=== PATIENT | female | born 1945 | race Caucasian/White ===

== ENCOUNTER → 2017-09-28 14:22 | Outpatient (CLI) | payer MEDICARE, OTHER, SELFPAY ==
[2017-09-28 15:51] LABS: Hematocrit 31.1 % (37-47); Mean Corp Hgb Conc 32.2 g/gl (32-36); Mean Corpuscular Volume 93.4 fL (81-99); Mean Platelet Vol. 10.1 fl (6.2-12.0); Platelet Count 318 K/mm3 (150-450); RBC Distribution Width CV 14.6 % (11.6-14.6); RBC Distribution Width SD 48.1 fl (35.1-43.9); Red Blood Count 3.33 M/mm3 (4.2-5.4); White Blood Count 5.7 K/mm3 (4.4-11.0)
[2017-09-28 15:52] LABS: Scan Indicated on CBC? Y/N NO
[2017-09-28 16:06] LABS: ALB/GLOB Ratio 0.6 RATIO (0.9-2.4); AST(SGOT) 17 U/L (15-37); Alanine Aminotransfer ALT/SGPT 21 U/L (13-56); Albumin, Serum 2.6 g/dL (3.2-5.0); Alkaline Phosphatase 79 U/L (45-117); Anion Gap 6 (5-15); BUN 16 mg/dL (7-18); BUN/Creat Ratio 18.2 RATIO (10-20); Calcium,Total 8.6 mg/dL (8.5-10.1); Chloride 105 mmol/L (98-107); Creatinine, Serum 0.88 mg/dL (0.55-1.02); EST Glomerular Filtration Rate 67 mL/min (>60); Est Glom Filt Rate - Afr Amer 81 mL/min (>60); Glucose 101 mg/dL (74-106); Iron 8 ug/dL (50-170); Potassium 3.7 mmol/L (3.5-5.1); Protein, Total 6.6 g/dL (6.4-8.2); Sodium Level 140 mmol/L (136-145)
[2017-09-30 20:07] LABS: Endomysial Antibody IgA Negative (Negative)
[2017-10-01 14:07] LABS: Immunoglobulin A 179 mg/dL (64-422); t-Transglutaminase IgA <2 U/mL (0-3)
== END ==
PROVIDERS: Family Provider Family Medicine; PCP Family Medicine; Visit Provider Internal Medicine Gastroenterology
DX: D64.9 Anemia, unspecified (principal); R19.7 Diarrhea, unspecified
CPT/HCPCS: 36415; 80053; 82784; 83516; 83540; 85027; 86255

== ENCOUNTER 2018-11-10 17:59 | Observation (INO) | payer MEDICARE, OTHER, SELFPAY ==
[2018-11-10] VITALS (7 sets, daily range): BP systolic 134–157; BP diastolic 65–97; PULSE 60–65; RESP 14–18; TEMP 36.7; O2SAT 95–100; BMI 30.3; BMI 26.7
--- NOTE | 2018-11-10 18:07 | EKG12_ITS ---
Test Reason : CP ADMIT Blood Pressure : / mmHG Vent. Rate : 064 BPM Atrial Rate : 064 BPM P-R Int : 194 ms QRS Dur : 114 ms QT Int : 444 ms P-R-T Axes : 075 -03 044 degrees QTc Int : 458 ms Normal sinus rhythm Incomplete right bundle branch block Borderline ECG When compared with ECG of 10-NOV-2018 18:11, MANUAL COMPARISON REQUIRED, DATA IS UNCONFIRMED Confirmed by REMY FIGUEROA ([id number]), acquisitions editor PAMELA DOAN ([id number] on 11/15/2018 1:34:03 PM Referred By: Blake Pineda Confirmed By:REMY FIGUEROA
--- NOTE | 2018-11-10 18:10 | ED.VIS.GEN ---
History of Present Illness Chief Complaint: Chest Pain Informant: Patient Onset: Today Context: Sudden Onset Timing: Continuous Current Severity: Moderate Maximum Severity: Moderate Narrative: The patient presents to the emergency department with chest pain. She was in her normal state of health. She began to have a squeezing pain just below her sternum. She did not feel short of breath. She denies any vomiting. She states she is never really had pain like this before. The patient denies any history of cardiovascular disease. She was given nitro and aspirin and is currently pain-free. She is otherwise been in her normal state of health. Prior similar symptoms: No Recent Illness/Hospitalization: No Past Medical History - Allergies and Home Meds Allergies/Adverse Reactions: Allergies promethazine [From Phenergan] Allergy (Severe, Verified 11/10/18 18:45) Swelling cephalexin Allergy (Verified 11/10/18 18:45) Diarrhea hydromorphone [From Dilaudid] Allergy (Verified 11/10/18 18:45) Other Primary Care Physician: Caleb Baldwin MD [Primary Care Provider] - Prior records reviewed: Yes Past Medical History: - Lives: With Family Smoking Status: Never smoker Review of Systems General: Denies: Chills, Fever, Sweats Eyes: Denies: Visual changes - bilaterally, Diplopia ENT: Denies: Rhinorrhea, Sore throat Cardiovascular: Reports: Chest pain. Denies: Palpitations Respiratory: Denies: Dyspnea, Cough, Dyspnea on exertion Gastrointestinal: Denies: Abdominal pain, Nausea, Vomiting, Diarrhea, Melena, Hematochezia Genitourinary: Denies: Dysuria, Hematuria, Frequency Musculoskeletal: Denies: Back pain, Extremity Pain Skin: Denies: Rash, Wounds Neurological: Denies: Headache, Weakness, Numbness Physical Exam Vital Signs/Narrative: Vital Signs Temp Pulse Resp BP Pulse Ox 11/10/18 18:01 98.1 F 61 14 140/76 H 99 Inital Vital Signs reviewed: Yes General: Well nourished, Well developed, No Acute Distress Head: Normocephalic, Atraumatic Eyes: Perrl, EOMI ENT: Moist mucous membranes, No rhinorrhea Neck: Supple, Nontender Cardiovascular: Regular rate, Regular rhythm, No murmurs Respiratory: No distress, CTA bilaterally, Chest nontender Abdomen: Soft, Nontender, Nondistended, Normal bowel sounds Back: Nontender, Normal Inspection Extremities: Nontender, No edema Skin: Normal color, No rash Neurological: Alert, Oriented x3, Cranial nerves II-XII grossly intact, Normal Strength, Normal Sensation Psychological: Normal affect, Normal Mood Diagnostic/Tx/Re-eval Chest X-Ray - ED: 1 View, Read by ED Physician, Normal, Heart, Lungs, Mediastinum Clinical Impression(s) from Imaging Studies Chest X-Ray 11/10/18 18:15 IMPRESSION: No acute thoracic pathology. Electronically Signed: Lupillo Naomy, at 18:26 EDT Tel , Service support , Abnormal Lab Results 11/10/18 11/10/18 11/10/18 18:14 18:14 21:05 WBC 5.3 RBC 4.22 Hgb 12.4 Hct 40.1 MCV 95.0 MCH 29.4 MCHC 30.9 L RDW Std Deviation 48.5 H RDW Coeff of Keanu 14.0 Plt Count 373 MPV 9.8 Immature Gran % (Auto) 0.400 Neut % (Auto) 63.6 Lymph % (Auto) 21.8 [place] % (Auto) 12.1 H Eos % (Auto) 1.3 Baso % (Auto) 0.8 Absolute Neuts (auto) 3.4 Absolute Lymphs (auto) 1.15 Nucleated RBC % 0 Sodium 138 Potassium 4.4 Chloride 104 Carbon Dioxide 29.0 Anion Gap 5 BUN 17 Creatinine 1.03 H Estim Creat Clear Calc 34.11 Est GFR (MDRD) Af Amer 67 Est GFR (MDRD) Non-Af 56 L BUN/Creatinine Ratio 16.5 Glucose 131 H Calcium 9.3 Magnesium 2.3 Total Bilirubin 0.20 Direct Bilirubin 0.06 AST 11 L ALT 15 Alkaline Phosphatase 89 Troponin I < 0.015 0.053 H Total Protein 7.5 Albumin 3.6 Globulin 3.9 Lipase 122 - Rhythm Strip Rhythm Strip: Sinus Rhythm Rate: 80 Ectopy: None - EKG Initial EKG Interpretation: Sinus Rhythm, No Acute Injury Pattern Prior: Unchanged - Medical Decision Making The patient presented to the emergency department with chest pain that has since resolved. EKG was obtained which demonstrated sinus rhythm. There was no acute ischemic change. Patient had Cholo received aspirin. She denies any return of pain. Initial cardiac enzymes and x-ray were normal. The patient does have a low heart score and atypical pain. I did feel that a 3-hour repeat enzyme would be appropriate. This was done. The enzymes have elevated just barely into the indeterminate range. Given the patient's age, along with her indeterminate cardiac enzymes, I do feel that the most prudent plan of treatment would be cardiac investigation. The patient was discussed with the hospitalist. Impression 1. Chest pain with indeterminate troponin ED Disposition - Plan for ED Patient: Referrals: Caleb Baldwin MD [Primary Care Provider] -
--- NOTE | 2018-11-10 18:15 | RAD_ITS ---
STUDY: X-RAY CHEST REASON FOR EXAM: Female, 73 years old. Chest pain TECHNIQUE: Frontal view of the chest COMPARISON: None. FINDINGS: The lungs are clear. There are no pleural effusions. There is no pneumothorax. The heart is normal in size. The visualized osseous structures are within normal limits. RAD/Chest 1 View (Portable) IMPRESSION: No acute thoracic pathology. Electronically Signed: Lupillo Moralez, at 18:26 EDT Tel , Service support ,
[2018-11-10 18:21] LABS: Absolute Lymphocyte Count 1.15 X10^3/uL (0.83-4.51); Absolute Neutrophil Count 3.4 X10^3/uL (2.0-7.7); Basophil# 0.04 X10^3/uL; Basophil% 0.8 % (0-1); Eosinophil# 0.07 X10^3/uL; Eosinophils% 1.3 % (0-5); Hematocrit 40.1 % (37-47); Hemoglobin 12.4 g/dL (12.0-15.0); Lymphocyte # 1.15 X10^3/ul (4.0); Lymphocyte % 21.8 % (19-41); Mean Corp Hgb Conc 30.9 g/dL (32-36); Mean Corpuscular Hgb 29.4 pg (27.0-32.0); Mean Platelet Vol. 9.8 fl (6.2-12.0); Monocyte# 0.64 X10^3/uL; Monocyte% 12.1 % (0-10); NRBC Flagged by Analyzer 0 % (0-5); Neutrophil # 3.35 X10^3/uL (2.7-7.7); Neutrophil % 63.6 % (47-70); Platelet Count 373 K/mm3 (150-450); RBC Distribution Width SD 48.5 fl (35.1-43.9); Red Blood Count 4.22 M/mm3 (4.2-5.4); White Blood Count 5.3 K/mm3 (4.4-11.0)
[2018-11-10 18:43] LABS: AST(SGOT) 11 U/L (15-37); Alanine Aminotransfer ALT/SGPT 15 U/L (13-56); Albumin, Serum 3.6 g/dL (3.2-5.0); Alkaline Phosphatase 89 U/L (45-117); Anion Gap 5 (5-15); BUN 17 mg/dL (7-18); BUN/Creat Ratio 16.5 RATIO (10-20); Bilirubin, Direct 0.06 mg/dL (0.00-0.30); Calcium,Total 9.3 mg/dL (8.5-10.1); Chloride 104 mmol/L (98-107); Creatinine, Serum 1.03 mg/dL (0.55-1.02); EST Glomerular Filtration Rate 56 mL/min (>60); Est Glom Filt Rate - Afr Amer 67 mL/min (>60); Estimated Creatinine Clearance 34.11 ml/min; Globulin 3.9 g/dL (2.2-4.2); Glucose 131 mg/dL (74-106); Lipase 122 U/L (73-393); Magnesium 2.3 mg/dL (1.6-2.6); Potassium 4.4 mmol/L (3.5-5.1); Protein, Total 7.5 g/dL (6.4-8.2); Sodium Level 138 mmol/L (136-145)
[2018-11-10] MEDS: 0.9% Normal Saline 1,000 ML 150 ML IV (18:53)
--- NOTE | 2018-11-10 21:58 | HP.PCM_ITS ---
Problem List (1) Chest pain Status: Acute (2) Segmental and somatic dysfunction of pelvic region Status: Chronic (3) Scoliosis Status: Chronic Qualifiers: Scoliosis type: idiopathic Idiopathic scoliosis type: other Spinal region: thoracolumbar Qualified Code(s): M41.25 - Other idiopathic scoliosis, thoracolumbar region (4) Segmental and somatic dysfunction of thoracic region Status: Chronic (5) Segmental and somatic dysfunction of lumbar region Status: Chronic History of Present Illness Date of Admission: 11/10/18 Chief Complaint: chest pain The patient is a 73 year old F with a significant history of hypertension; and iron deficiency anemia who presented to emergency department with chest pain that started few hours before her presentation. She describes her chest pain as squeezing. Her chest pain is located at the lower substernal to epigastric area. Her chest pain is nonradiating. It is an aching type of pain. One nitroglycerin tablet and full dose aspirin by the paramedics took the pain away. She denies any nausea, vomiting or diaphoresis. EKG shows sinus rhythm. The plan was to send patient home but because she has some mild increase in her troponin patient was considered for admission. Past Medical History Past Medical History (Chronic Problems): Chronic Problems (Last Reviewed 11/11/18 @ 00:11 by Blake Pineda MD) Segmental and somatic dysfunction of pelvic region (Chronic) Scoliosis (Chronic) Segmental and somatic dysfunction of thoracic region (Chronic) Segmental and somatic dysfunction of lumbar region (Chronic) Medical History: Medical History (Last Reviewed 11/11/18 @ 00:11 by Blake Pineda MD) GI bleed due to NSAIDs K92.2, T39.395A Hypertension I10 Allergies promethazine [From Phenergan] Allergy (Severe, Verified 11/10/18 18:45) Swelling cephalexin Allergy (Verified 11/10/18 18:45) Diarrhea hydromorphone [From Dilaudid] Allergy (Verified 11/10/18 18:45) Other Home Medications: Ambulatory Orders Medication Instructions Recorded ascorbate calcium (vitamin C) 500 500 mg PO QDAY 07/28/17 mg tablet ascorbic acid (vitamin C) 500 mg 500 mg PO QDAY 07/28/17 tablet famotidine-Ca carb-mag hydrox 10 1 tab PO BID 07/28/17 mg-800 mg-165 mg chewable tablet ferrous sulfate 220 mg (44 mg 220 mg PO ONCE ml 07/28/17 iron)/5 mL oral elixir lisinopril 5 mg tablet 10 mg PO QDAY 07/28/17 Lomotil 2.5 mg PO BID 11/10/18 Vit A/Vit C/Vit E/Zinc/Copper 1 ea PO DAILY 11/10/18 [Preservision Areds Softgel] Surgical History: - - Colectomy Lives: Alone Smoking Status: Never smoker Alcohol: None - *Family History Maternal Family History: Family History (Last Reviewed 11/11/18 @ 00:11 by Blake Pineda MD) Other Breast cancer Cancer Hypertension Melanoma Review of Systems Constitutional: Denies: Chills, Fever, Weight Change HEENT: Denies: Head Aches, Sinus Congestion, Sinus Drainage Cardiovascular: Reports: Chest Pain. Denies: Palpitations Respiratory: Denies: Cough, Shortness of breath at rest, Sputum production Gastrointestinal: Denies: Abdominal Pain, Nausea, Vomiting Genitourinary: Denies: Dysuria Musculoskeletal: Denies: Joint Pain, Joint Tenderness Skin: Denies: Rash, Wounds Neurological: Denies: Numbness, Tingling, Focal weakness Psychiatric: Denies: Anxiety, Depression, Homicidal Ideations, Suicidal Ideations Hematologic/ Lymphatic: Denies: Easy Bruising, Easy Bleeding VTE Information - Inpt Only VTE Present on Admission: No VTE Mechan Device Prophylaxis: SCD's VTE Pharm Prophylaxis ordered?: No Patient Problems: Active and Suspected Problems (Last Reviewed 11/11/18 @ 00:11 by Blake Pineda MD) Chest pain (Acute) - Physical Exam General: Alert, Oriented x3, Cooperative HEENT: Atraumatic, PERRLA, EOMI, Normocephalic Neck: Supple, No JVD, Negative Carotid Bruits Lungs: Clear to auscultation, Normal air movement Cardiovascular: Regular rate, No murmurs Abdomen: Bowel Sounds Present, Soft, Non Tender Extremities: No edema, Capillary Refill Less than 3 Seconds Skin: No rashes, No breakdown Musculoskeletal: No Tenderness to Palpation of Joints or Extremities Neurological: Cranial nerves II-XII grossly intact - Patient has speech impediment. Psych/Mental Status: Normal Affect, Appropriate Vital Signs Temp Pulse Resp BP Pulse Ox 98.1 F 60 18 134/72 H 99 11/10/18 18:01 11/10/18 20:32 11/10/18 20:32 11/10/18 20:32 11/10/18 20:32 Oxygen Delivery Method Room Air Weight: 45.087 kg Body Mass Index (BMI) 30.3 Laboratory Tests Past 24 Hrs 11/10/18 11/10/18 11/10/18 18:14 18:14 21:05 WBC 5.3 RBC 4.22 Hgb 12.4 Hct 40.1 MCV 95.0 MCH 29.4 MCHC 30.9 L RDW Std Deviation 48.5 H RDW Coeff of Keanu 14.0 Plt Count 373 MPV 9.8 Immature Gran % (Auto) 0.400 Neut % (Auto) 63.6 Lymph % (Auto) 21.8 [place] % (Auto) 12.1 H Eos % (Auto) 1.3 Baso % (Auto) 0.8 Absolute Neuts (auto) 3.4 Absolute Lymphs (auto) 1.15 Nucleated RBC % 0 Sodium 138 Potassium 4.4 Chloride 104 Carbon Dioxide 29.0 Anion Gap 5 BUN 17 Creatinine 1.03 H Estim Creat Clear Calc 34.11 Est GFR (MDRD) Af Amer 67 Est GFR (MDRD) Non-Af 56 L BUN/Creatinine Ratio 16.5 Glucose 131 H Calcium 9.3 Magnesium 2.3 Total Bilirubin 0.20 Direct Bilirubin 0.06 AST 11 L ALT 15 Alkaline Phosphatase 89 Troponin I < 0.015 0.053 H Total Protein 7.5 Albumin 3.6 Globulin 3.9 Lipase 122 Assessment/Plan All Active Problems (Last Reviewed 11/11/18 @ 00:11 by Blake Pineda MD) Chest pain (Acute) The patient is a 73 year old F with a significant history of hypertension; and iron deficiency anemia who presented to emergency department with chest pain and with mild increase in troponin. Chest pain Place on a monitored bed at the PCU CXR independently reviewed confirms no acute cardiopulmonary process. EKG independently reviewed confirms normal sinus rhythm with incomplete bundle branch block. Patient with scoliosis. ASA 81 mg p.o. daily SL NTG 0.4 mg prn as needed for chest pain Morphine as needed for pain We will check lipid panel. Statin: Lipitor 40 mg x 1 ordered Second troponin was mildly elevated. Continue serial troponin checks. Stat EKG as needed for chest pain Stress test in the AM if the cardiac enzymes do not get within a critical value. Hypertension On presentation her blood pressure was not within goal Lisinopril continued Trend blood pressure and adjust blood pressure medication as needed. DVT SCD while planning for cardiac work up for chest pain Code Visit OBSV E&M: 90244 Initial observation care L2
--- NOTE | 2018-11-10 22:40 | EKG12_ITS ---
Test Reason : CP Blood Pressure : / mmHG Vent. Rate : 058 BPM Atrial Rate : 058 BPM P-R Int : 184 ms QRS Dur : 110 ms QT Int : 432 ms P-R-T Axes : 054 002 066 degrees QTc Int : 424 ms Sinus bradycardia Incomplete right bundle branch block Borderline ECG Confirmed by REMY FIGUEROA ([id number]), news video editor TONNY VAZQUEZ ([id number]) on 11/14/2018 12:21:41 PM Referred By: Blake Pineda Confirmed By:REMY FIGUEROA
[2018-11-10] MEDS: Atorvastatin Calcium 40 MG Tablet PO (23:36)
[2018-11-11 02:59] VITALS: PULSE 69
[2018-11-11 04:38] LABS: International Normalized Ratio 1.1; Prothrombin Time (Protime)PT. 14.1 SECONDS (11.7-14.9)
[2018-11-11 04:50] LABS: Cholesterol 139 mg/dL (200); High Density Lipoprotein 60 mg/dL; Triglycerides 113 mg/dL; Very Low Density Lipoprotein 23 mg/dL (5-40)
[2018-11-11 05:00] VITALS: BP 127/59; PULSE 62; RESP 16; TEMP 36.5; O2SAT 97
[2018-11-11] MEDS: Lisinopril 10 MG Tablet PO (05:02)
[2018-11-11] MEDS: Aspirin 81 MG TAB.CHEW PO (05:02)
[2018-11-11] MEDS: 0.9% NaCl Peripheral Flush Adult/Peds IV (05:03)
[2018-11-11 07:08] VITALS: PULSE 70
[2018-11-11 07:20] VITALS: O2SAT 96
[2018-11-11 09:43] VITALS: BP 139/77; PULSE 74; RESP 16; TEMP 36.6; O2SAT 97
[2018-11-11] MEDS: Famotidine 20 MG Tablet 10 MG PO (09:50)
[2018-11-11] MEDS: Multivitamin (Healthy Eyes) Capsule 1 CAP PO (09:50)
--- NOTE | 2018-11-11 10:39 | STRESSREP_ITS ---
Stress Test Report Date: 11-11-18 Procedure: Pharmacologic stress nuclear imaging study Indications: Chest pain Consent: Per the patient Procedure: The patient underwent pharmacologic (Regadenoson) evaluation with a peak heart rate of 107 beats per minute (73 %predicted maximal heart rate) and a peak blood pressure of 130/72 mmHg. The baseline ECG demonstrated normal sinus rhythm. The peak pharmacologic ECG demonstrated no obvious ECG changes. There were no cardiac dysrhythmias pretest, during pharmacologic infusion, or recovery. There was no complaint of chest discomfort during pharmacologic infusion or recovery. The examination was discontinued secondary to completion of protocol. Impression: 1. Pharmacologic (Regadenoson) evaluation 2. Peak pharmacologic ECG with no obvious ECG changes. 3. There were no cardiac dysrhythmias pretest, during pharmacologic infusion, or recovery. 4. Nuclear images pending Myocardial perfusion imaging study: Technique: The patient was injected with 10.9 millicuries of technetium 99m Cardiolite and subsequently rest SPECT Cardiolite nuclear imaging was obtained in the horizontal long, vertical long, and short axis views. The patient underwent pharmacologic (Regadenoson) evaluation with a peak heart rate of 107 beats per minute (73 % percent predicted maximal heart rate) and a peak blood pressure of 130/72 mmHg. The patient was injected with 33.4 millicuries of technetium 99m Cardiolite and subsequently stress SPECT Cardiolite nuclear imaging was obtained in the horizontal long, vertical long, and short axis views. A gated Cardiolite study at peak stress was obtained. Interpretation: Rest and stress SPECT Cardiolite nuclear imaging status post realignment, normalization, and attenuation correction demonstrate at rest areas of extra cardiac/gastrointestinal tracer uptake, otherwise, there appears to be relative uniform tracer uptake at rest and status post stress. There is end systolic thickening and brightening. The gated Cardiolite study demonstrates myocardial thickening and inward wall motion. The reported LVEF is 81 %. Impression: 1. Rest and stress SPECT current nuclear imaging demonstrate areas of extra cardiac/gastrointestinal tracer uptake more prominent at rest, otherwise, there appears to be relative uniform tracer uptake at rest and status post stress with no myocardial perfusion changes considered diagnostic for associated stress- induced myocardial ischemia. 2. The gated Cardiolite study reports an LVEF of 81 %. This note was generated with [employer]ation software. It may contain incorrect words, spelling, and punctuation that were not noted in checking the note before signing.
--- NOTE | 2018-11-11 11:00 | DCINST_ITS ---
- Discharge Diagnoses Current Active Problems: Current Active and Chronic Problems (Last Reviewed 11/11/18 @ 00:11 by Blake Pineda MD) Chest pain (Acute) Reason(s) for Visit for Discharge Instructions: Chest pain You will use the following diet at home:: Cardiac Your food should be the consistency of: Regular Your liquids should be the consistency of: Regular/Thin Discharge Activity: Return to Normal Activity Additional Instructions: Continue to take all your medications as prescribed. He will need repeat blood work within a week to follow-up on your kidney function. Follow-up with your primary care doctor in 1 to 2 weeks. Allergies/Adverse Reactions: Allergies promethazine [From Phenergan] Allergy (Severe, Verified 11/10/18 23:07) Swelling cephalexin Allergy (Verified 11/10/18 23:07) Diarrhea hydromorphone [From Dilaudid] Allergy (Verified 11/10/18 23:07) Other Medications to take at Discharge ascorbate calcium (vitamin C) 500 mg tablet 500 mg PO QDAY 07/28/17 ascorbic acid (vitamin C) 500 mg tablet 500 mg PO QDAY 07/28/17 famotidine-Ca carb-mag hydrox 10 mg-800 mg-165 mg chewable tablet 1 tab PO BID 07/28/17 ferrous sulfate 220 mg (44 mg iron)/5 mL oral elixir 220 mg PO ONCE ml 07/28/17 lisinopril 5 mg tablet 10 mg PO QDAY 07/28/17 Lomotil 2.5 mg PO BID 11/10/18 Vit A/Vit C/Vit E/Zinc/Copper [Preservision Areds Softgel] 1 ea PO DAILY 11/10/18 Primary Care Physician: Caleb Baldwin MD [Primary Care Provider] - Please follow up with your Primary Care Physician in: within 1-2 weeks Test Results: Test results from this visit will be discussed in further detail at your follow- up appointment, if applicable. Proposed Discharge Date: 11/11/18
--- NOTE | 2018-11-11 11:02 | DS.PCM_ITS ---
Discharge Date and Diagnosis Date of Admission: 11/10/18 Date of Discharge: 11/11/18 - Primary Discharge Diagnosis Active and Suspected Problems (Last Reviewed 11/11/18 @ 00:11 by Blake Pineda MD) Chest pain (Acute) Mild elevated troponins - Secondary Discharge Diagnosis Chronic Problems (Last Reviewed 11/11/18 @ 00:11 by Blake Pineda MD) Segmental and somatic dysfunction of pelvic region (Chronic) Scoliosis (Chronic) Segmental and somatic dysfunction of thoracic region (Chronic) Segmental and somatic dysfunction of lumbar region (Chronic) Hospital Course and Treatment Imaging Results: 11/11/18 05:55 Nuclear Stress Test - Chemical [NM] AM (NON MEDS) Clinical Impression(s) from Imaging Studies Chest X-Ray 11/10/18 18:15 IMPRESSION: No acute thoracic pathology. Electronically Signed: Lupillo Moralez, at 18:26 EDT Tel , Service support , None Operations: None Procedures: Stress test Summary of Care Provided: The patient is a 73 year old F with past medical history of hypertension, a nemia, segmental and somatic dysfunction of the thoracic region who comes in with complaints of chest pain located in the lower sternal to epigastric region. This pain was relieved with nitroglycerin and aspirin. Patient's troponins were mildly elevated. Troponins ranged from 0.015, 0.053, 0.070, 0.042. Patient underwent stress test that was negative. Her vitals remain negative. No acute events on telemetry. She was asymptomatic at the time of discharge. She will follow-up with her primary care doctor within 1-2 weeks. Subjective: On the day of discharge, patient was seen and examined. She denied any complains. Denies chest pain, dizziness. - Physical Exam General: Alert, Oriented x3, Cooperative, No apparent distress, - - small frame HEENT: Atraumatic, PERRLA, EOMI, Normocephalic Oral: Moist Mucosa Neck: Supple, No JVD, Negative Carotid Bruits Lungs: Clear to auscultation, Normal air movement Cardiovascular: Regular rate, Regular Rhythm, Normal S1, Normal S2, No murmurs Abdomen: Bowel Sounds Present, Soft, Non Tender, Non-Distended, No Hepato- splenomegaly Extremities: No edema Skin: No rashes, No breakdown Musculoskeletal: No Tenderness to Palpation of Joints or Extremities Lymphatic: No Cervical, Supraclavicular, or Inguinal Adenopathy Neurological: Cranial nerves II-XII grossly intact Psych/Mental Status: Normal Affect, Appropriate Vital Signs Temp Pulse Resp BP Pulse Ox 97.9 F 74 16 139/77 H 97 11/11/18 09:43 11/11/18 09:43 11/11/18 09:43 11/11/18 09:43 11/11/18 09:43 Oxygen Delivery Method Room Air Weight: 39.8 kg Body Mass Index (BMI) 26.7 Intake and Output for Last 24 Hours 11/09/18 11/10/18 11/11/18 23:59 23:59 23:59 Intake Total 530 / 530 Balance 530 / 530 Laboratory Tests Past 24 Hrs 11/10/18 11/10/18 11/10/18 18:14 18:14 21:05 WBC 5.3 RBC 4.22 Hgb 12.4 Hct 40.1 MCV 95.0 MCH 29.4 MCHC 30.9 L RDW Std Deviation 48.5 H RDW Coeff of Keanu 14.0 Plt Count 373 MPV 9.8 Immature Gran % (Auto) 0.400 Neut % (Auto) 63.6 Lymph % (Auto) 21.8 [place] % (Auto) 12.1 H Eos % (Auto) 1.3 Baso % (Auto) 0.8 Absolute Neuts (auto) 3.4 Absolute Lymphs (auto) 1.15 Nucleated RBC % 0 PT INR Sodium 138 Potassium 4.4 Chloride 104 Carbon Dioxide 29.0 Anion Gap 5 BUN 17 Creatinine 1.03 H Estim Creat Clear Calc 34.11 Est GFR (MDRD) Af Amer 67 Est GFR (MDRD) Non-Af 56 L BUN/Creatinine Ratio 16.5 Glucose 131 H Calcium 9.3 Magnesium 2.3 Total Bilirubin 0.20 Direct Bilirubin 0.06 AST 11 L ALT 15 Alkaline Phosphatase 89 Troponin I < 0.015 0.053 H Total Protein 7.5 Albumin 3.6 Globulin 3.9 Triglycerides Cholesterol LDL Cholesterol VLDL Cholesterol HDL Cholesterol Lipase 122 11/11/18 11/11/18 11/11/18 00:35 04:00 04:00 WBC RBC Hgb Hct MCV MCH MCHC RDW Std Deviation RDW Coeff of Keanu Plt Count MPV Immature Gran % (Auto) Neut % (Auto) Lymph % (Auto) [place] % (Auto) Eos % (Auto) Baso % (Auto) Absolute Neuts (auto) Absolute Lymphs (auto) Nucleated RBC % PT 14.1 INR 1.1 Sodium Potassium Chloride Carbon Dioxide Anion Gap BUN Creatinine Estim Creat Clear Calc Est GFR (MDRD) Af Amer Est GFR (MDRD) Non-Af BUN/Creatinine Ratio Glucose Calcium Magnesium Total Bilirubin Direct Bilirubin AST ALT Alkaline Phosphatase Troponin I 0.070 H Total Protein Albumin Globulin Triglycerides 113 Cholesterol 139 LDL Cholesterol 56 VLDL Cholesterol 23 HDL Cholesterol 60 Lipase 11/11/18 04:00 WBC RBC Hgb Hct MCV MCH MCHC RDW Std Deviation RDW Coeff of Keanu Plt Count MPV Immature Gran % (Auto) Neut % (Auto) Lymph % (Auto) [place] % (Auto) Eos % (Auto) Baso % (Auto) Absolute Neuts (auto) Absolute Lymphs (auto) Nucleated RBC % PT INR Sodium Potassium Chloride Carbon Dioxide Anion Gap BUN Creatinine Estim Creat Clear Calc Est GFR (MDRD) Af Amer Est GFR (MDRD) Non-Af BUN/Creatinine Ratio Glucose Calcium Magnesium Total Bilirubin Direct Bilirubin AST ALT Alkaline Phosphatase Troponin I 0.042 Total Protein Albumin Globulin Triglycerides Cholesterol LDL Cholesterol VLDL Cholesterol HDL Cholesterol Lipase Discharge Diet: No Restrictions Discharge Activity: Return to Normal Activity Home Medications: Medications to take at Discharge ascorbate calcium (vitamin C) 500 mg tablet 500 mg PO QDAY 07/28/17 ascorbic acid (vitamin C) 500 mg tablet 500 mg PO QDAY 07/28/17 famotidine-Ca carb-mag hydrox 10 mg-800 mg-165 mg chewable tablet 1 tab PO BID 07/28/17 ferrous sulfate 220 mg (44 mg iron)/5 mL oral elixir 220 mg PO ONCE ml 07/28/17 lisinopril 5 mg tablet 10 mg PO QDAY 07/28/17 Lomotil 2.5 mg PO BID 11/10/18 Vit A/Vit C/Vit E/Zinc/Copper [Preservision Areds Softgel] 1 ea PO DAILY 11/10/18 Primary Care Physician: Caleb Baldwin MD [Primary Care Provider] - Please follow up with your Primary Care Physician in: within 1-2 weeks Disposition: Home Minutes spent on discharge:: 40 Patient Condition:: Stable Medical Necessity - Tobacco Use Smoking Status: Never smoker Tobacco Use: Non-smoker Meaningful Use Info Meaningful Use Diagnoses (Choose all that apply): None applicable Code Visit OBSV E&M: 52442 Observation care discharge
== END 2018-11-11 10:59 | disposition home or self-care (01) ==
LOC: ED 18:53 → PCU 22:52
PROVIDERS: Admitting Provider Hospitalist; Emergency Provider Emergency Medicine; Family Provider Family Medicine; PCP Family Medicine; Referring Provider Hospitalist; Visit Provider Internal Medicine
DX: R07.89 Other chest pain (principal); M99.05 Segmental and somatic dysfunction of pelvic region; M41.25 Other idiopathic scoliosis, thoracolumbar region; M99.02 Segmental and somatic dysfunction of thoracic region; M99.03 Segmental and somatic dysfunction of lumbar region; I10 Essential (primary) hypertension; E50.9 Vitamin A deficiency, unspecified; D64.9 Anemia, unspecified; Z79.899 Other long term (current) drug therapy
CPT/HCPCS: 36415; 71045; 78452; 80048; 80061; 80076; 83690; 83735; 84484; 85025; 85610; 93005; 93017; 96360; 96361; 99218; 99285; A9500; J7030; A4216; G0378; J2785

== ENCOUNTER → 2019-08-23 14:40 | Outpatient (CLI) | payer MEDICARE, OTHER, SELFPAY ==
[2018-11-10 22:42] VITALS: BMI 26.7
--- NOTE | 2019-08-23 14:44 | VDLE_ITS ---
Reason For Study: Lt Calf Pain RIGHT LEFT CFV is compressible, spontaneous, phasic, GSV is normal. competent and demonstrates normal CFV is compressible, spontaneous, phasic, augmentation. competent, and demonstrates normal Procedure augmentation. Exam performed in department. FV is compressible, spontaneous, phasic, A preliminary report was called and/or faxed competent and demonstrates normal to Dr. Reyes. augmentation. POP V is compressible, spontaneous, phasic, competent and demonstrates normal augmentation. T/P Trunk is compressible. PTV is compressible. LT PerV is compressible. Interpretation Summary Deep veins of the left lower extremity are patent and compressible segmentally. There is no evidence of left lower extremity deep vein thrombosis. Valvular competence appears intact within the proximal deep venous system on the left . The left great saphenous vein appears patent and compressible segmentally. Ordering Physician: Lupillo Reyes Referring Physician: Caleb Baldwin Performed By: Eileen Alexander, EVAN, RVT
== END ==
PROVIDERS: PCP Family Medicine; Referring Provider Podiatrist; Visit Provider Podiatrist
DX: M79.662 Pain in left lower leg (principal)
CPT/HCPCS: 93971

== ENCOUNTER 2020-02-08 16:15 | Emergency (ER) | payer MEDICARE, OTHER, SELFPAY ==
[2020-02-08 16:17] VITALS: BP 179/86; PULSE 81; RESP 15; TEMP 37.2; O2SAT 100; BMI 21.3
--- NOTE | 2020-02-08 16:27 | CT_ITS ---
STUDY: CT BRAIN WITHOUT CONTRAST REASON FOR EXAM: Female, 74 years old. Tripped and fell, hit head, lace to left eye/jain. Hx hypertension. RADIATION DOSAGE (If Supplied By Facility): CTDIvol = ( 44.99 ) mGy, DLP = ( 779.24 ) mGycm TECHNIQUE: Transaxial CT imaging of the brain was performed without administration of intravenous contrast material. Individualized dose optimization techniques were used for this CT. COMPARISON: No relevant priors. FINDINGS: Normal soft tissue structures. Normal calvarium. Normal size ventricles and extra-axial spaces for the patient''s age. Normal white matter tracts of the cerebral hemispheres. Normal basal ganglia and thalami. Normal brainstem. Normal cerebellum. There is no intracranial hemorrhage. There are no findings of an acute ischemic infarction. Normal visualized paranasal sinuses. CT/Brain/Head without Contrast IMPRESSION: Normal unenhanced CT scan of the brain. Electronically Signed: Fransico Lemus MD at 17:26 EST Tel , Service support ,
--- NOTE | 2020-02-08 16:27 | CT_ITS ---
STUDY: CT CERVICAL SPINE WITHOUT CONTRAST REASON FOR EXAM: Female, 74 years old. Tripped and fell, hit head, lace to left eye/zoroastrianism. Hx hypertension. RADIATION DOSAGE (If Supplied By Facility): CTDIvol = ( 11.80 ) mGy, DLP = ( 320.59 ) mGycm TECHNIQUE: High resolution transaxial imaging was performed without contrast material. Sagittal and coronal images were reconstructed. Individualized dose optimization techniques were used for this CT. COMPARISON: None FINDINGS: Normal craniovertebral junction. There are degenerative changes of the anterior atlantoaxial articulation. Normal odontoid process. Normal cervical lordosis. Normal vertebral bodies and posterior osseous elements. C2-3: Mild bilateral facet hypertrophy with ankylosis of facet joints. No spinal stenosis or neural foraminal stenosis. C3-4: Mild bilateral facet hypertrophy. 2 mm of anterolisthesis of C3 on C4 with a mild broad disc osteophyte complex produces mild spinal stenosis and mild bilateral neural foraminal stenosis. C4-5: Mild bilateral facet hypertrophy. Mild broad disc osteophyte complex produces mild spinal stenosis and mild bilateral neural foraminal stenosis. C5-6: Moderate broad disc osteophyte complex and bilateral vertebral hypertrophy produces moderate spinal stenosis and mild bilateral neural foraminal stenosis. C6-7: Normal endplates. Normal disc height and morphology. Normal central canal and intervertebral neuroforamina. C7-T1: Normal endplates. Normal disc height and morphology. Normal central canal and intervertebral neuroforamina. Normal visualized soft tissue structures. CT/Spine Cervical without Contras IMPRESSION: No acute fracture or subluxation. Electronically Signed: Fransico Lemus MD at 17:31 EST Tel , Service support ,
--- NOTE | 2020-02-08 16:29 | ED.VIS.GEN ---
History of Present Illness Chief Complaint: Fall Informant: Patient Narrative: Patient is a 74-year-old female with a past medical history of hypertension who presents to the emergency department after a fall today. She tripped over exercise equipment striking her head. She has a small laceration above the left eyebrow. She denies losing consciousness. She denies a headache at this time. No vision changes. She denies any neck pain. She does have some left superior shoulder pain and left-sided chest wall pain. No shortness of breath. She is not any blood thinning medications. She denies any abdominal pain or nausea/vomiting. No injury to her extremities. No back pain. Past Medical History - Allergies and Home Meds Allergies/Adverse Reactions: Allergies promethazine [From Phenergan] Allergy (Severe, Verified 02/08/20 16:15) Swelling cephalexin Allergy (Verified 02/08/20 16:15) Diarrhea hydromorphone [From Dilaudid] Allergy (Verified 02/08/20 16:15) Other Primary Care Physician: Caleb Baldwin MD [Primary Care Provider] - 3-5 Days Prior records reviewed: Yes Surgical History: - - Colectomy Smoking Status: Never smoker Review of Systems All systems negative except as indicated General: Denies: Chills, Fever, Sweats Eyes: Denies: Visual changes - bilaterally, Diplopia ENT: Denies: Rhinorrhea, Sore throat Cardiovascular: Reports: Chest pain - Left-sided chest wall. Denies: Palpitations Respiratory: Denies: Dyspnea, Cough, Dyspnea on exertion Gastrointestinal: Denies: Abdominal pain, Nausea, Vomiting Genitourinary: Denies: Dysuria, Hematuria, Frequency Musculoskeletal: Denies: Neck pain, Back pain, Extremity Pain Skin: Reports: Wounds. Denies: Rash Neurological: Denies: Headache, Weakness, Numbness Physical Exam Vital Signs/Narrative: Vital Signs Temp Pulse Resp BP Pulse Ox 02/08/20 16:17 99.0 F 81 15 179/86 H 100 Inital Vital Signs reviewed: Yes General: Well nourished, Well developed, No Acute Distress Head: Normocephalic, Trauma - Laceration and abrasion over left frontal/parietal scalp. No palpable skull fracture or step-off sign. No pain. Eyes: Perrl, EOMI ENT: Moist mucous membranes, No rhinorrhea Neck: Supple, Nontender Cardiovascular: Regular rate, Regular rhythm, No murmurs Respiratory: No distress, CTA bilaterally, Chest nontender Abdomen: Soft, Nontender, Nondistended, Normal bowel sounds Back: Nontender, Normal Inspection. Negative for: Spinal tenderness Extremities: Nontender, No edema Skin: Normal color, No rash, Trauma - 1 cm linear laceration with controlled bleeding over the left eyebrow. No foreign body appreciated. Neurological: Alert, Oriented x3, Cranial nerves II-XII grossly intact, Normal Strength, Normal Sensation Psychological: Normal affect, Normal Mood Diagnostic/Tx/Re-eval Chest X-Ray - ED: 2 View, - - Two-view portable chest x-ray interpreted by myself. No acute fracture identified of ribs. No pneumothorax. No consolidation. Agree with radiologist interpretation. - Medical Decision Making Patient presents to the ED after a fall today. She does have a lack above her left eyebrow. Will obtain CT scans of the head and neck. She was complaining of chest wall pain although there is no obvious trauma externally to be appreciated. Will check chest x-ray as well. Patient's imaging did not reveal any traumatic findings. Her laceration was repaired with 1 Steri-Strip. Wound was rinsed using water and antibiotic ointment was applied prior. She is to follow-up with her PCP. Return precautions were discussed with her. Will discharge home in stable condition. All questions were answered. ED Disposition - Plan for ED Patient: Disposition: Home or Assisted Living Diagnosis: Fall, Head injury, Facial laceration Instructions: ED Laceration, Face: Stitches or Tape Referrals: Caleb Baldwin MD [Primary Care Provider] - 3-5 Days
--- NOTE | 2020-02-08 16:55 | RAD_ITS ---
STUDY: X-RAY CHEST REASON FOR EXAM: Female, 74 years old. fall today. TECHNIQUE: PA and lateral views of the chest. COMPARISON: 11/10/2018 FINDINGS: There is hyperinflation of the lungs consistent with chronic obstructive lung disease (COPD). There is no demonstrated pleural abnormality. Normal size heart. Normal mediastinum and rod. Normal visualized pulmonary arteries. Normal visualized aortic arch and descending thoracic aorta. There is a dextroscoliosis of the thoracic spine. Normal visualized ribs, clavicles, and shoulders. There is no demonstrated abnormality of the visualized soft tissue structures of the upper abdomen. RAD/Chest PA and Lateral IMPRESSION: Emphysema without pneumonia or atelectasis. Electronically Signed: Fransico Lemus MD at 17:23 EST Tel , Service support ,
--- NOTE | 2020-02-08 17:04 | ED.RN ---
KAYY BECKER NOTIFIED OF PT'S ARRIVAL TO ED, GAVE UPDATE ON STATUS. HE WILL TRANSPORT PT HOME IF NEEDED.
[2020-02-08 18:08] VITALS: BP 157/74; PULSE 64; RESP 16
== END 2020-02-08 18:35 | disposition home or self-care (01) ==
PROVIDERS: Emergency Provider Emergency Medicine; PCP Family Medicine
DX: S09.90XA Unspecified injury of head, initial encounter (principal); S01.81XA Laceration without foreign body of other part of head, initial encounter; W19.XXXA Unspecified fall, initial encounter
CPT/HCPCS: 70450; 71046; 72125; 99284

== ENCOUNTER 2020-02-26 15:30 | Outpatient (RCR) | payer MEDICARE, OTHER, SELFPAY ==
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
--- NOTE | 2020-04-14 19:42 | HP.PT.NRP ---
CHELSEA GARCIA was seen in my office for initial evaluation on 02/06/20. The following Plan of Care was established for this patient: Initial Frequency: 2-3x /Week Initial Duration: 4-6 Weeks Patient/Client Instruction: Educate patient on: Condition, Plan of Care, Risk Factors, Benefits of Fitness Program For the Purpose of:: To improve self management Therapeutic Exercise to Include: Strength training, Body mechanics, Postural training, Flexibilty training, Neuromotor development, Dynamic Lumbar Stabilization For the Purpose of:: To decrease pain, To increase ROM, To improve muscle performance and motor function, To increase tolerance to activity/condition/position, To improve ability of physical actions for home/community/work/leisure Cryotherapy (ice pack, ice massage): Yes Thermo therapy (hot pack): Yes Ultrasound (thermal/non thermal): Yes For the Purpose of:: To decrease pain, To decrease swelling/inflammation, To improve nutrient delivery to tissue This patient was last seen in our office 02/26/20. Pertinent comments regarding their Physical therapy will appear below: This patient has not returned to Physical Therapy and is appropriate to return to MD for further follow-up as needed. At this point I will be discontinuing this patient from physical therapy. I would be happy to see this patient again in the future if found appropriate by the physician. Thank you! Theresa Lawson, PT, Cert MDT
== END 2020-02-26 19:00 | disposition home or self-care (01) ==
LOC: PT 15:30
PROVIDERS: PCP Family Medicine; Visit Provider Chiropractor
DX: M41.25 Other idiopathic scoliosis, thoracolumbar region (principal); M99.02 Segmental and somatic dysfunction of thoracic region; M51.36 Other intervertebral disc degeneration, lumbar region
CPT/HCPCS: 97035; 97110; 97112; 97162

== ENCOUNTER 2021-08-19 04:10 | Emergency (ER) | payer MEDICARE, OTHER, SELFPAY ==
[2021-08-19 04:11] VITALS: BP 179/78; PULSE 64; RESP 18; TEMP 35.8; O2SAT 99; BMI 23.5
[2021-08-19] MEDS: 0.9% Normal Saline 1,000 ML 999 ML IV (04:35)
[2021-08-19] MEDS: Ondansetron 4 MG/2 ML Vial IV (04:39)
[2021-08-19] MEDS: diazePAM 5 MG Tablet 2.5 MG PO (04:39)
--- NOTE | 2021-08-19 05:46 | EDS_ITS ---
HPI History of Present Illness Chief Complaint: Nausea/Vomiting Narrative Narrative: Patient is a 75-year-old female with past medical history of vertigo as well as degenerative disc disease and scoliosis. She states she went to bed normally last night and then awoke with ringing in her ears dizziness and bouts of vomiting. She states she tried to take her medication but was unable to do so because of the nausea and vomiting. She denies any recent trauma or headache associated with this. She states that as she cannot control her nausea and vomiting to the point where she could take her medication she called EMS and was brought in for evaluation. [facility] Medical History GI bleed due to NSAIDs Hypertension Home Medications ascorbate calcium (vitamin C) 500 mg tablet 500 mg PO QDAY 07/28/17 [History Last Taken 11/10/18] ascorbic acid (vitamin C) 500 mg tablet 500 mg PO QDAY 07/28/17 [History Last Taken 11/10/18] famotidine-Ca carb-mag hydrox 10 mg-800 mg-165 mg chewable tablet (Pepcid Complete) 1 tab PO BID 07/28/17 [History Last Taken 11/10/18] ferrous sulfate 220 mg (44 mg iron)/5 mL oral elixir (FeroSul) 220 mg PO ONCE 07/28/17 [History Last Taken 11/10/18] lisinopril 5 mg tablet 10 mg PO QDAY 07/28/17 [History Last Taken 11/10/18] Lomotil 2.5 mg PO BID 11/10/18 [History Last Taken 11/10/18] vitamins A,C,N-euqu-xcmpij 14,320 unit-226 mg-200 unit capsule 1 ea PO DAILY 11/10/18 [History Last Taken 11/10/18] diazepam 2 mg tablet (Valium) 2 mg PO TID PRN dizziness or vertigo #15 tabs 08/19/21 [Rx Last Taken Unknown] ondansetron 4 mg disintegrating tablet 4 mg PO TID PRN PRN nausea and vomiting #21 tabs 08/19/21 [Rx Last Taken Unknown] Allergy/AdvReac Type Severity Reaction Status Date / Time promethazine [From Phenergan] Allergy Severe Swelling Verified 08/19/21 04:13 cephalexin Allergy Diarrhea Verified 08/19/21 04:13 hydromorphone [From Dilaudid] Allergy Other Verified 08/19/21 04:13 Family History Other Breast cancer Cancer Hypertension Melanoma Social History (Updated 01/30/20 @ 14:[address] Argelia Darby, MD) Smoking Status: Never smoker alcohol intake: never substance use type: does not use what type of physical activity do you participate in: walking frequency: 1-2 times per week ROS ROS ED Constitutional Constitutional ED: Denies chills or fever(s) Eyes Eyes: Denies change in vision ENT ENT ED: Reports other Details: Positive tinnitus ; Denies sore throat Cardiovascular Cardiovascular: Denies chest pain Respiratory/Chest Respiratory/Chest: Denies cough or dyspnea Gastrointestinal Gastrointestinal: Reports nausea and vomiting; Denies abdominal pain or diarrhea Genitourinary Genitourinary ED: Denies dysuria Musculoskeletal Musculoskeletal: Denies myalgias Integumentary Denies rash Neurologic Neurologic: Reports other Details: Positive dizziness ; Denies headache(s) Hematologic/Lymphatic Hematologic/Lymphatic: Denies easy bleeding or easy bruising EXAM Physical Exam Const Vital Signs: 08/19/21 04:11 Temperature 96.5 F L Temperature Source Temporal Pulse Rate 64 Respiratory Rate 18 Blood Pressure 179/78 H Blood Pressure Mean 111 Pulse Ox 99 Positive well nourished and well developed General Appearance ED: well developed HEENT Reports dry mucous membranes HEENT Narrative: Bilateral TMs are slightly retracted but show no secondary changes to suggest in fection Mouth ED: Yes dry mucous membranes Mouth: dry mucous membranes Eyes PERRL and EOMs intact bilaterally Neck supple Resp normal respiratory effort and clear to auscultation bilaterally Cardio regular rate and regular rhythm Rate: other Other Details: Radial pulses are plus 2 out of 4 bilaterally are equal and symmetric GI non-tender and non-distended GI Narrative: No voluntary guarding or rigidity no pulsatile mass Auscultation: hyperactive bowel sounds Palpation: soft Extremity normal to inspection Neuro oriented x3 and CN's II-XII intact bilaterally Neuro Narrative: Cranial nerves II through XII are grossly intact there are no focal neurologic deficit. No pronator drift no dysmetria no truncal ataxia. There is horizontal nystagmus noted as well as positive Hallpike Claudio exam. NIH stroke scale score of 0 Sensorium / Orientation: alert Psych mental status grossly normal Skin no rashes or lesions noted Skin Narrative: Skin turgor slightly increased MDM MDM MDM Narrative Medical decision making narrative: Patient presented to the ER afebrile and reported she had ringing in her ears and dizziness prior to the onset of vomiting. There is no report of headache no report or signs of trauma. She does have nystagmus consistent with peripheral vertigo. As she reports she has a history of this as well and states this feels similar nature to the previous events I elected to not perform any type of imaging or laboratory studies. Patient was given oral Valium as well as IV Phenergan and IV fluid. On reevaluation she reported resolution of her dizziness. Her nystagmus had resolved. She had no further bouts of nausea or vomiting and she was able to ambulate to and from the restroom with a steady gait. Therefore at this time with resolution of symptoms with treatment in the ability to ambulate without difficulty I do not feel there is need for further work-up and patient can be discharged symptomatic medications Discharge Plan Triage Chief Complaint: Nausea/Vomiting ED Provider: Smith Chamberlain Dx/Rx/DC Orders Clinical Impression: Peripheral vertigo, Nausea & vomiting Instructions: ED Vertigo, Unspecified, ED Vomiting (Adult) Prescriptions: New diazepam [Valium] 2 mg tablet 2 mg PO TID PRN (Reason: dizziness or vertigo) Qty: 15 0RF ondansetron 4 mg tablet,disintegrating 4 mg PO TID PRN PRN (Reason: nausea and vomiting) Qty: 21 0RF No Action famotidine-Ca carb-mag hydrox [Pepcid Complete] 10-800-165 mg tablet,chewable 1 tab PO BID ascorbate calcium 500 mg tablet 500 mg tablet 500 mg PO QDAY lisinopril 5 mg tablet 10 mg PO QDAY ascorbic acid (vitamin C) 500 mg tablet 500 mg PO QDAY ferrous sulfate [FeroSul] 220 mg (44 mg iron)/5 mL elixir 220 mg PO ONCE Rx Instructions: every 3 days vitamins A,C,T-jiqb-[id number] 1 EACH capsule 1 ea PO DAILY Lomotil 2.5 mg PO BID Primary Care Provider: Care Physician,No Primary Referrals: Steven Cronin MD [STAFF PHYSICIAN] - 3-5 Days if not improving Care Physician,No Primary [Primary Care Provider] - Disposition Disposition: Home, Self Care
[2021-08-19 06:10] VITALS: BP 160/86; PULSE 72; RESP 18
== END 2021-08-19 07:11 | disposition home or self-care (01) ==
PROVIDERS: Emergency Provider Emergency Medicine; Visit Provider Emergency Medicine
DX: H81.399 Other peripheral vertigo, unspecified ear (principal); R11.2 Nausea with vomiting, unspecified
CPT/HCPCS: 96374; 99285; J7030; A4216; J2405

== ENCOUNTER → 2021-09-17 | Outpatient (CLI) | payer MEDICARE, OTHER, SELFPAY ==
[2021-09-17 09:01] LABS: Anion Gap 7 (5-15); BUN 21 mg/dL (7-18); BUN/Creat Ratio 24.4 RATIO (10-20); Chloride 105 mmol/L (98-107); Creatinine, Serum 0.86 mg/dL (0.55-1.02); EST Glomerular Filtration Rate 68 mL/min (>60); Est Glom Filt Rate - Afr Amer 82 mL/min (>60); Glucose 107 mg/dL (74-106); Magnesium 2.2 mg/dL (1.6-2.6); Potassium 4.4 mmol/L (3.5-5.1); Sodium Level 139 mmol/L (136-145)
== END | disposition home or self-care (01) ==
LOC: LAB 07:38
PROVIDERS: PCP Nurse Practitioner Adult Health; Visit Provider Nurse Practitioner Adult Health
DX: I10 Essential (primary) hypertension (principal); R25.2 Cramp and spasm
CPT/HCPCS: 36415; 80048; 83735

== ENCOUNTER → 2021-09-24 | Outpatient (CLI) | payer MEDICARE, OTHER, SELFPAY ==
--- NOTE | 2021-09-24 15:40 | MRI_ITS ---
STUDY: MRI LUMBAR SPINE WITHOUT CONTRAST REASON FOR EXAM: Female, 75 years old. RADICULOPATHY TECHNIQUE: Standardized fat and water weighted pulse sequences were obtained in the sagittal and axial planes. COMPARISON: X-ray 09/02/2021 FINDINGS: T12-L1: Normal endplates. Normal disc height, hydration and morphology. Normal bilateral facet joints. Normal central canal and bilateral lateral recesses. Normal bilateral intervertebral neural foramina. Normal lumbar lordosis. Moderate levoscoliosis centered at L3. Normal conus medullaris that terminates at the L1. Acute mild compression fracture of the L4 vertebral body with concavity the superior endplate, fracture line inferior to the endplate and marrow edema throughout the superior aspect of the vertebral body. No retropulsion into the spinal canal. L1-2: Normal endplates. Normal disc height, hydration and morphology. Normal bilateral facet joints. Normal central canal and bilateral lateral recesses. Normal bilateral intervertebral neural foramina. L2-3: Mild postoperative edema and endplate hypertrophy. 2 mm retrolisthesis of L2 on L3 with a mild bilobed disc protrusion produces moderate spinal stenosis, mild left neural foraminal stenosis and moderate right neural foraminal stenosis. L3-4: Mild bilateral facet hypertrophy and ligament flavum hypertrophy. Mild bilobed disc protrusion produces mild spinal stenosis with mild left neural foraminal stenosis and moderate right neural foraminal stenosis. L4-5: Mild right facet hypertrophy and moderate left facet hypertrophy with mild ligament flavum hypertrophy. 2 mm of anterolisthesis of L4 and L5 with a mild broad disc protrusion produces moderate spinal stenosis with moderate bilateral recess stenosis with abutment of the L5 nerve roots bilaterally and moderate bilateral neural foraminal stenosis with abutment of the exiting L4 nerve roots bilaterally. L5-S1: Moderate bilateral facet hypertrophy with fluid in the facet joints consistent with instability and severe ligament flavum hypertrophy. 1 cm capsular synovial cyst of the left facet joint extends into the posterior aspect of the left neural alicea posterior to the L5 nerve root producing moderate neural foraminal stenosis. Mild broad disc protrusion produces mild spinal stenosis and mild right neural foraminal stenosis. Normal visualized sacral ala. Normal visualized paraspinous soft tissue structures. MRI/Spine Lumbar (Routine) IMPRESSION: 1. Acute mild compression fracture of L4 without retropulsion into the spinal canal. 2. Moderate levoscoliosis with degenerative disc disease as described above. Electronically Signed: Fransico Lemus MD at 17:25 EDT ,
== END | disposition home or self-care (01) ==
LOC: MRI 15:18
PROVIDERS: PCP Nurse Practitioner Adult Health; Visit Provider Anesthesiology Pain Medicine
DX: M54.16 Radiculopathy, lumbar region (principal)
CPT/HCPCS: 72148

== ENCOUNTER → 2021-09-25 | Outpatient (CLI) | payer MEDICARE, OTHER, SELFPAY ==
--- NOTE | 2021-09-25 12:54 | BI_ITS ---
MAMMOGRAPHY - BILATERAL SCREENING REASON FOR EXAM: Female, 75 years old. Routine annual screening examination. PERTINENT HISTORY: Sister with breast cancer. Aunt with breast cancer. TECHNIQUE: Digital bilateral breast aly (3D mammographic acquisition) in the CC and MLO projections. 2-D mediolateral oblique (MLO) and craniocaudad (CC) views of both breasts were obtained. CAD: Full Field Digital Mammography with Computer Added Detection was performed. COMPARISON: Comparison is made with prior examination dated 09/08/2017. FINDINGS: Breast Composition: The breasts are heterogeneously dense, which may obscure small masses. There are no dominant masses or suspicious calcifications. No other significant abnormalities are identified. There has been no significant change since the prior study. BI/SCRN MAMM (CAD)W/ALY BILAT IMPRESSION: Stable bilateral screening mammogram. Yearly follow-up mammogram recommended. (A) ASSESSMENT CATEGORY: BIRADS Category 1: Negative. A letter regarding these results will be sent to the patient by the facility within 30 days. Approximately 10% of breast cancers are not detected by mammography. A normal mammogram should not delay biopsy of a clinically suspicious abnormality. [id number] Electronically Signed: Savage Nina MD at 13:52 EDT ,
--- NOTE | 2021-09-25 13:25 | BD_ITS ---
STUDY: DUAL ENERGY X-RAY ABSORPTIOMETRY / DXA REASON FOR EXAM: Female, 75 years old. Bone density TECHNIQUE: Bone Mineral Density (BMD) measurements of lumbar spine and bilateral hips were obtained. COMPARISON: None. FINDINGS: Lumbar Spine (L1-L4): g/cm2 (0.605) / T-score (-3.7) / Z-score (-1.3) Findings are suggestive of osteoporosis with a high fracture risk. Left Femur Total: g/cm2 (0.453) / T-score (-4.0) / Z-score (-2.1) Left Femoral Neck: g/cm2 (0.347) / T-score (-4.5) / Z-score (-2.4) Right Femur Total: g/cm2 (0.440) / T-score (-4.1) / Z-score (-2.2) Right Femoral Neck: g/cm2 (0.322) / T-score (-4.7) / Z-score (-2.6) BD/Dexa Bone Density Study IMPRESSION: The patient is considered osteoporotic as outlined below according to World Phillip Organization (WHO) criteria with a high fracture risk. Reference Information: The T-score is the number of standard deviations above or below the standard which is normal for young adults at their peak bone mineral density. The World Health Organization (WHO) interprets the T-scores as follows: Above -1 Normal bone density Between -1 and -2.5 Osteopenia Equal to / or below -2.5 Osteoporosis As a practical clinical guideline, osteopenia may be graded as follows: Mild -1 through -1.5 Moderate -1.6 through -2.0 Severe -2.1 through -2.4 The Z-score is the number of standard deviations above or below age-matched controls. A Z-score of less than -1.5 would be considered abnormal. References: 1. NIH Osteoporosis and Related Bone Diseases www osteo.org 2. International Society for Clinical Densitometry www iscd.org 3. National Osteoporosis Foundation www nof.org Electronically Signed: Savage Nina MD at 15:41 EDT ,
== END | disposition home or self-care (01) ==
LOC: OPBD 12:53
PROVIDERS: PCP Nurse Practitioner Adult Health; Visit Provider Nurse Practitioner Adult Health
DX: Z12.31 Encounter for screening mammogram for malignant neoplasm of breast (principal); M81.0 Age-related osteoporosis without current pathological fracture; M85.80 Other specified disorders of bone density and structure, unspecified site; Z80.3 Family history of malignant neoplasm of breast
CPT/HCPCS: 77063; 77067; 77080

== ENCOUNTER → 2021-09-29 | Outpatient (CLI) | payer MEDICARE, OTHER, SELFPAY ==
[2021-09-29 08:27] LABS: Vitamin B12 336 pg/mL (211-911)
== END | disposition home or self-care (01) ==
LOC: LAB 07:28
PROVIDERS: PCP Nurse Practitioner Adult Health; Referring Provider Nurse Practitioner Adult Health; Visit Provider Nurse Practitioner Adult Health
DX: E53.8 Deficiency of other specified B group vitamins (principal)
CPT/HCPCS: 36415; 82607

== ENCOUNTER → 2021-10-07 | Outpatient (CLI) | payer MEDICARE, OTHER, SELFPAY ==
[2021-10-07 17:14] LABS: Vitamin D,25 Hydroxy 15.3 ng/mL
== END | disposition home or self-care (01) ==
LOC: BIMLAB 14:49
PROVIDERS: PCP Internal Medicine; Visit Provider Internal Medicine
DX: M81.0 Age-related osteoporosis without current pathological fracture (principal)
CPT/HCPCS: 36415; 82306

== ENCOUNTER → 2021-11-19 | Outpatient (CLI) | payer MEDICARE, OTHER, SELFPAY ==
[2021-11-19 12:28] LABS: Hematocrit 35.8 % (37-47); Hemoglobin 11.2 g/dL (12.0-15.0); Mean Corp Hgb Conc 31.3 g/dL (32-36); Mean Corpuscular Hgb 29.2 pg (27.0-32.0); Mean Corpuscular Volume 93.2 fL (81-99); Mean Platelet Vol. 11.6 fl (6.2-12.0); Platelet Count 325 K/mm3 (150-450); RBC Distribution Width CV 15.4 % (11.6-14.6); RBC Distribution Width SD 53.1 fl (35.1-43.9); Red Blood Count 3.84 M/mm3 (4.2-5.4)
[2021-11-19 12:38] LABS: Vitamin B12 516 pg/mL (211-911)
[2021-11-19 13:00] LABS: CRP < 2.90 mg/L (0.0-3.0); Ferritin 29 ng/mL (8-252); Iron 57 ug/dL (50-170)
== END | disposition home or self-care (01) ==
LOC: MTLAB 09:52
PROVIDERS: PCP Internal Medicine; Referring Provider Internal Medicine Gastroenterology; Visit Provider Internal Medicine Gastroenterology
DX: D50.9 Iron deficiency anemia, unspecified (principal)
CPT/HCPCS: 36415; 82607; 82728; 83516; 83540; 85027; 86140; 86340

== ENCOUNTER → 2022-02-25 | Outpatient (CLI) | payer MEDICARE, OTHER, SELFPAY ==
[2022-02-25 12:47] LABS: Absolute Lymphocyte Count 1.21 X10^3/uL (0.83-4.51); Absolute Neutrophil Count 2.7 X10^3/uL (2.0-7.7); Basophil# 0.04 X10^3/uL; Basophil% 0.9 % (0-1); Eosinophils% 2.2 % (0-5); Hematocrit 36.8 % (37-47); Hemoglobin 11.2 g/dL (12.0-15.0); Lymphocyte # 1.21 X10^3/ul (0.83-4.51); Lymphocyte % 26.2 % (19-41); Mean Corp Hgb Conc 30.4 g/dL (32-36); Mean Corpuscular Hgb 28.9 pg (27.0-32.0); Mean Corpuscular Volume 95.1 fL (81-99); Monocyte# 0.55 X10^3/uL; Monocyte% 11.9 % (0-10); NRBC Flagged by Analyzer 0.4 % (0-5); Neutrophil # 2.69 X10^3/uL (2.7-7.7); Neutrophil % 58.4 % (47-70); Platelet Count 353 K/mm3 (150-450); RBC Distribution Width CV 13.9 % (11.6-14.6); RBC Distribution Width SD 48.9 fl (35.1-43.9); Red Blood Count 3.87 M/mm3 (4.2-5.4); White Blood Count 4.6 K/mm3 (4.4-11.0)
[2022-02-25 13:29] LABS: AST(SGOT) 15 U/L (15-37); Alanine Aminotransfer ALT/SGPT 21 U/L (13-56); Albumin, Serum 3.6 g/dL (3.2-5.0); Alkaline Phosphatase 97 U/L (45-117); Anion Gap 6 (5-15); BUN 21 mg/dL (7-18); BUN/Creat Ratio 23.4 RATIO (10-20); Calcium,Total 9.7 mg/dL (8.5-10.1); Chloride 106 mmol/L (98-107); Cholesterol 162 mg/dL (200); EST Glomerular Filtration Rate 65 mL/min (>60); Est Glom Filt Rate - Afr Amer 78 mL/min (>60); Globulin 3.5 g/dL (2.2-4.2); Glucose 99 mg/dL (74-106); High Density Lipoprotein 51 mg/dL; Potassium 4.7 mmol/L (3.5-5.1); Protein, Total 7.1 g/dL (6.4-8.2); Sodium Level 139 mmol/L (136-145); Triglycerides 180 mg/dL; Very Low Density Lipoprotein 36 mg/dL (5-40)
== END | disposition home or self-care (01) ==
LOC: BIMLAB 10:59
PROVIDERS: PCP Internal Medicine; Referring Provider Internal Medicine; Visit Provider Internal Medicine
DX: E53.8 Deficiency of other specified B group vitamins (principal); I10 Essential (primary) hypertension
CPT/HCPCS: 36415; 80053; 80061; 85025

== ENCOUNTER 2022-04-21 09:30 | Outpatient (RCR) | payer MEDICARE, OTHER, SELFPAY ==
--- NOTE | 2022-03-24 10:51 | HP.PTEVAL ---
Patient's Visit Information CHELSEA GARCIA is a 76 year old F referred to Physical Therapy by Dr. Ramin Dominguez MD with a diagnosis of BACK PAIN. Date of Evaluation: 03/24/22 Physical Therapist: Theresa Lawson PT, Cert MDT - Visit Plan Frequency: 2-3x /Week Duration: 4-6 Weeks Plan: *OSTEOPOROSIS AND SCOLIOSIS* PATIENT HAS DIFFICULTY SPEAKING BUT HAS GOOD HEARING AND FOLLOWS COMMANDS WELL. POC: POSTURE CORRECTION/STRENGTHENING, INSTRUCTION IN APPROPRIATE BODY MECHANICS AND ACTIVITY MODIFICATIONS. DLS STARTING WITH A NEUTRAL SPINE PROGRESSING ROM TOLERATED. JAZZY LE ROM, STRETCHING AND STRENGTHENING. HEP INSTRUCTION. - Subjective Work/Leisure: RETIRED AND LIVES ALONE. Disability: BORN WITH DIFFICULTY TALKING. Present symptoms: LOW BACK PAIN. PATIENT DENIES JAZZY LE NUMBNESS AND TINGLING. Present since: SUMMER. Pain Scale: WORSE 9/10, LEAST 1/10. Currently: 02/17. Is it getting better, worse or staying the same: STAYING THE SAME. Commenced as a result of: FALL. Symptoms at onset: SEVERE BACK PAIN. Worse: HOUSEWORK, DOING DISHES, VACUUMING. Better: SITTING DOWN, LYING DOWN. Disturbed sleep: NO. Previous history/Previous treatment: H/O BACK PROBLEMS. PT IN THE PAST FOR BACK ABOUT 3-4 YEARS AGO AND IT HELPED. Treatment this episode: VERTEBRAL PLASTY APPROX OCT 2021 WITH SOME BENEFIT PER PATIENT REPORT. ONE CORY BEFORE PROCEEDURE BUT NONE SINCE. Coughing/sneezing/straining: POSITIVE. Gait: TIME AND DISTANCE LIMITED DUE TO BACK PAIN. I HAVE TO STOP AND REST UP. Bowel or Bladder Dysfunction: NO. Accidents: FALL - SEE ABOVE. Unexplained weight loss: NO. Imaging: X-RAY AND MRI OF BACK. PMH/Recent major surgery: HTN, DIFFICULTY TALKING SINCE . BEING TREATED FOR SKIN CANCER. OSTEOPOROSIS. - Objective Sitting/Standing Posture: POOR. SCOLIOSIS AND INCREASED TRUNK FLEXION. INCREASED KYPHOSIS, FH, RS. Active Correction of posture: NE. UNABLE TO FULLY CORRECT. TOLERATES PASSIVE LUMBAR SUPPORT WELL IN THE CLINIC TODAY. Other Observations: THIS PATIENT AMBULATES INDEP'LY INTO PT WITH INCRASED TRUNK FLEXION, DECREASED CADANCE, NO AD AND NO LOB. SHE IS ABLE TO TRANFER FROM SIT TO STAND WITHOUT UE ASSIST. Motor deficit: JAZZY UE WEAKNESS GROSSLY 3+ TO 4-/5. JAZZY ARTHRITIC HANDS. JAZZY HIP WEAKNESS GRADED R 3+/5, L 4-/5. KNEES 4-/5, ANKLES 5/5. Sensory deficit: JAZZY UE AND LE LIGHT TOUCH SENSATION IS INTACT AND SYMMETRICAL. ROM deficit: JAZZY UE'S AND LE'S WFL. Reflexes: NT. Dural Signs: NEGATIVE JAZZY UE'S AND LE'S. Lumbar mvmt loss: flex - NIL. ext - JESÚS. R SG - JESÚS. L SG - JESÚS. RIGID THORACIC SPINE. PATIENT C/O INCREASED LBP WITH LUMBAR ROM TESTING ALL PLANES. Core strength: POOR. Palpation: TENDERNESS WITH JAZZY THORACIC AND LUMBAR PARASPINALS RIGHT > LEFT TODAY. TREATMENT: NEUROMUSCULAR REEDUCATION - RETRAINING OF MVMT AND POSTURE FOR SITTING, LYING AND STANDING ACTIVITIES. - Balance/Special Test Scores Oswestry Low Back Score: 20 - Goals Goal 1:: DECREASE C/O BACK PAIN Goal Time Frame: 4-6 Weeks Goal 2:: IMPROVE PERSONAL CARE, LIFTING, WALKING, SITTING, STANDING AND HOUSEWORK FUNCTION. Goal Time Frame: 4-6 Weeks Goal 3:: INSTRUCT IN PROPHYLAXIS Goal Time Frame: 4-6 Weeks - Anticipated Interventions Patient/Client Instruction: Educate patient on: Condition, Plan of Care, Risk Factors For the Purpose of:: To improve self management Therapeutic Exercise to Include: Strength training, Postural training, Flexibilty training, Gait and locomotor training, Neuromotor development, Dynamic Lumbar Stabilization For the Purpose of:: To decrease pain, To increase ROM, To improve muscle performance and motor function, To increase tolerance to activity/condition/position, To improve ability of physical actions for home/community/work/leisure, To improve gait and locomotor functions Thank you for the opportunity to evaluate your patient. For Medicare and Medicare HMO plans, please review the plan of care and approve it. It will need to be FAXED BACK to us at [phone] for Medicare purposes. For Medicare only, by signing this I certify the plan of care. Please let me know if there are questions or concerns regarding this plan of care. Physician Signature: Date:
--- NOTE | 2022-04-21 10:22 | HP.PTDCSUM ---
It has been my pleasure to treat CHELSEA GARCIA referred by Dr. Ramin Dominguez MD, with the diagnosis of BACK PAIN for a total of 8 visit(s). Discharge Date: Please see the following information for a summary of their discharge status. Subjective: PATIENT REPORTS HER BACK IS BETTER. SHE REPORTS SHE MADE COOKIES AND CAN VACUUM NOW. STATES SHE IS DOING HER HEP AND SHE FEELS IT IS HELP. SHE REPORTS HER BACK STILL HURTS WHEN SHE DOES DISHES AND SHE RELATES HER PAIN TODAY TO THE WEATHER. BACK Pain Intensity (Out of 10): 5 L knee Pain Intensity (Out of 10): 0 % Improvement: 75 Objective/Function: PATIENT WAS SEEN TODAY FOR RE-ASSESSMENT OF PROGRESS TOWARD THE SET PT GOALS AND THE NEED FOR FURTHER PHYSICAL THERAPY VS READINESS FOR DISCHARGE. ALL PT GOALS HAVE BEEN MET AND PATIENT IS INDEP WITH A HEP NOW. SHE IS APPROPRIATE FOR DISCHARGE TO HEP AND SHE IS AGREEABLE. UPON EXAM TODAY: Motor deficit: JAZZY UE WEAKNESS GROSSLY 3+ TO 4-/5. JAZZY ARTHRITIC HANDS. JAZZY HIP WEAKNESS GRADED R 4/5, L 4/5. KNEES 4/5, ANKLES 5/5. Sensory deficit: JAZZY UE AND LE LIGHT TOUCH SENSATION IS INTACT AND SYMMETRICAL. ROM deficit: JAZZY UE'S AND LE'S WFL. Dural Signs: NEGATIVE JAZZY UE'S AND LE'S. Lumbar mvmt loss: flex - NIL. ext - JESÚS. R SG - JESÚS. L SG - JESÚS. RIGID THORACIC SPINE. PATIENT C/O INCREASED MILD LBP WITH LUMBAR ROM TESTING INTO JAZZY SG'ING TODAY. Core strength: POOR. Palpation: NO ACUTE SPINAL OR PARASPINALS TENDERNESS WTIH PALPATION TODAY. [ End ] Goal 1:: DECREASE C/O BACK PAIN Goal Progress: Goal Met Goal 2:: IMPROVE PERSONAL CARE, LIFTING, WALKING, SITTING, STANDING AND HOUSEWORK FUNCTION. Goal Progress: Goal Met Goal 3:: INSTRUCT IN PROPHYLAXIS Goal Progress: Goal Met Plan: D/C TO INDEP HEP. PATIENT IS AGREEABLE. If there are questions or concerns regarding this patient's physical therapy, please feel free to call me at [phone]. Thank you for the referral of this patient. Sincerely, Theresa Lawson, PT, Cert MDT Balance/Gait/Functional tests - Balance/Special Test Scores Oswestry Low Back Score: 11
== END 2022-04-21 19:00 | disposition home or self-care (01) ==
LOC: PT 09:30
PROVIDERS: PCP Internal Medicine; Referring Provider Anesthesiology Pain Medicine; Visit Provider Anesthesiology Pain Medicine
DX: M54.9 Dorsalgia, unspecified (principal)
CPT/HCPCS: 97110; 97112; 97162; 97164

== ENCOUNTER → 2022-08-24 | Outpatient (CLI) | payer MEDICARE, OTHER, SELFPAY ==
--- NOTE | 2022-08-24 11:39 | RAD_ITS ---
STUDY: X-RAY - THORACIC SPINE REASON FOR EXAM: Female, 76 years old. Fall. Pain. TECHNIQUE: 2 view(s) of the thoracic spine were obtained. COMPARISON: None. FINDINGS: Osteopenia. Slight increased kyphosis. Moderate thoracolumbar scoliosis. Loss of height of the T12 vertebral body, age undetermined. Endplate concavities compatible with osteoporosis. Diffuse moderate thoracic and upper lumbosacral spondylosis. Vascular calcification. RAD/Thoracic Spine 2 Views IMPRESSION: Osteopenia with diffuse thoracic and upper lumbosacral spondylosis. Endplate concavities compatible with osteoporosis. Loss of height of the T12 vertebral body, age undetermined. Electronically Signed: Maurice Becerril MD at 12:34 EDT ,
--- NOTE | 2022-08-24 11:42 | RAD_ITS ---
STUDY: X-RAY - LUMBAR SPINE REASON FOR EXAM: Female, 76 years old. Fall. Pain. TECHNIQUE: 2 view(s) of the lumbar spine were obtained. COMPARISON: None FINDINGS: Osteopenia. Increased lordosis. Marked rotatory levoscoliosis. Anterior wedge compression deformity of T12, age undetermined. Vertebral plasty changes of the L4 vertebral body with minimal loss of height. Endplate concavities compatible with osteoporosis. Diffuse intervertebral disc space narrowing with osteophyte formation. Vascular calcification. Extravasation of kyphoplasty material anterior to the lower L3 and the L4 vertebral bodies. RAD/Lumbar Spine 2 or 3 Views IMPRESSION: Osteopenia, increased lordosis, marked rotatory levoscoliosis, diffuse lumbosacral spondylosis, kyphoplasty/vertebroplasty changes of the L4 vertebral body and anterior wedge compression deformity of the T12 vertebral body, age undetermined. Electronically Signed: Maurice Becerril MD at 12:38 EDT ,
== END | disposition home or self-care (01) ==
LOC: RAD 11:29
PROVIDERS: PCP Internal Medicine; Referring Provider Anesthesiology Pain Medicine; Visit Provider Anesthesiology Pain Medicine
DX: M54.50 Low back pain, unspecified (principal); W19.XXXA Unspecified fall, initial encounter
CPT/HCPCS: 72070; 72100

== ENCOUNTER → 2022-09-07 | Outpatient (CLI) | payer MEDICARE, OTHER, SELFPAY ==
[2022-09-07 12:27] LABS: Absolute Lymphocyte Count 1.22 X10^3/uL (0.83-4.51); Absolute Neutrophil Count 5.1 X10^3/uL (2.0-7.7); Basophil# 0.03 X10^3/uL; Basophil% 0.4 % (0-1); Eosinophil# 0.09 X10^3/uL; Eosinophils% 1.2 % (0-5); Hematocrit 35.1 % (37-47); Lymphocyte # 1.22 X10^3/ul (0.83-4.51); Lymphocyte % 16.4 % (19-41); Mean Corp Hgb Conc 31.3 g/dL (32-36); Mean Corpuscular Hgb 29.3 pg (27.0-32.0); Mean Corpuscular Volume 93.4 fL (81-99); Mean Platelet Vol. 10.2 fl (6.2-12.0); Monocyte# 0.93 X10^3/uL; Monocyte% 12.5 % (0-10); NRBC Flagged by Analyzer 0 % (0-5); Neutrophil # 5.11 X10^3/uL (2.7-7.7); Neutrophil % 68.7 % (47-70); Platelet Count 367 K/mm3 (150-450); RBC Distribution Width CV 15.5 % (11.6-14.6); RBC Distribution Width SD 52.9 fl (35.1-43.9); Red Blood Count 3.76 M/mm3 (4.2-5.4); White Blood Count 7.4 K/mm3 (4.4-11.0)
[2022-09-07 13:01] LABS: Vitamin B12 186 pg/mL (211-911); Vitamin D,25 Hydroxy 45.9 ng/mL
[2022-09-07 13:16] LABS: Anion Gap 6 (5-15); BUN 23 mg/dL (7-18); BUN/Creat Ratio 24.9 RATIO (10-20); Calcium,Total 9.3 mg/dL (8.5-10.1); Chloride 107 mmol/L (98-107); Creatinine, Serum 0.92 mg/dL (0.55-1.02); EST Glomerular Filtration Rate 63 mL/min (>60); Est Glom Filt Rate - Afr Amer 76 mL/min (>60); Glucose 101 mg/dL (74-106); Potassium 4.2 mmol/L (3.5-5.1); Sodium Level 138 mmol/L (136-145)
== END | disposition home or self-care (01) ==
LOC: BIMLAB 08:35
PROVIDERS: PCP Internal Medicine; Referring Provider Internal Medicine; Visit Provider Internal Medicine
DX: I10 Essential (primary) hypertension (principal); M81.0 Age-related osteoporosis without current pathological fracture
CPT/HCPCS: 36415; 80048; 82306; 82607; 85025

== ENCOUNTER 2022-11-04 16:30 | Emergency (ER) | payer MEDICARE, OTHER, SELFPAY ==
[2022-11-04 16:32] VITALS: BP 143/94; PULSE 84; RESP 18; TEMP 36.1; O2SAT 100; BMI 21.5
[2022-11-04] MEDS: Ondansetron 4 MG/2 ML Vial IV ×2 (17:09→18:28)
[2022-11-04] MEDS: diazePAM 5 MG Tablet 2.5 MG PO (17:10)
[2022-11-04] MEDS: 0.9% Normal Saline (500mL Bag) 500 ML 1000 ML IV (17:23)
[2022-11-04 17:31] LABS: Absolute Lymphocyte Count 1.62 X10^3/uL (0.83-4.51); Absolute Neutrophil Count 4.2 X10^3/uL (2.0-7.7); Basophil# 0.05 X10^3/uL; Basophil% 0.8 % (0-1); Eosinophil# 0.12 X10^3/uL; Eosinophils% 1.8 % (0-5); Hematocrit 34.8 % (37-47); Lymphocyte # 1.62 X10^3/ul (0.83-4.51); Lymphocyte % 24.5 % (19-41); Mean Corp Hgb Conc 31.6 g/dL (32-36); Mean Corpuscular Hgb 29.4 pg (27.0-32.0); Mean Platelet Vol. 10.1 fl (6.2-12.0); Monocyte# 0.63 X10^3/uL; Monocyte% 9.5 % (0-10); NRBC Flagged by Analyzer 0 % (0-5); Neutrophil # 4.17 X10^3/uL (2.7-7.7); Neutrophil % 63.1 % (47-70); Platelet Count 355 K/mm3 (150-450); RBC Distribution Width SD 51.2 fl (35.1-43.9); Red Blood Count 3.74 M/mm3 (4.2-5.4); White Blood Count 6.6 K/mm3 (4.4-11.0)
--- NOTE | 2022-11-04 17:36 | EX.ED.DYSGE1 ---
HPI History of Present Illness Chief Complaint: Nausea/Vomiting Informant: patient Narrative Narrative: Patient complains with nausea vomiting and some buzzing sound in her ears. She states she has a recurrent problem with inner ear problems. She is not sure exactly the name of the medicine that helps but she has been on some medicine before that really helps this a lot. She states she is not having any pain in her ears or her head. She has no numbness tingling or weakness. She is not having abdominal pain. Symptoms are worse if she moves. It seems to be worse if she turns to the right on exam. She denies,. [facility] Medical History Brittle nails Chronic diarrhea Diarrhea GI bleed due to NSAIDs Hernia Hypertension Normal colonoscopy Home Medications ascorbate calcium (vitamin C) 500 mg tablet 500 mg PO QDAY 07/28/17 [History Last Taken 11/10/18] famotidine-Ca carb-mag hydrox 10 mg-800 mg-165 mg chewable tablet (Pepcid Complete) 1 tab PO BID 07/28/17 [History Last Taken 11/10/18] vitamins A,C,J-bwmn-vwtchb 4,296 mcg-226 mg-90 mg capsule 1 ea PO DAILY 11/10/18 [History Last Taken 11/10/18] ondansetron 4 mg disintegrating tablet 4 mg PO TID PRN PRN nausea and vomiting #21 tabs 08/19/21 [Rx Last Taken Unknown] cyanocobalamin (vitamin B-12) 1,000 mcg/mL injection solution 1,000 mcg subcut [id number] #1 mL 09/15/21 [Rx Last Taken Unknown] ferrous sulfate 220 mg (44 mg iron)/5 mL oral elixir (FeroSul) 220 mg PO DIRECTED 09/15/21 [History Last Taken Unknown] meclizine 12.5 mg tablet 12.5 mg PO TID PRN dizziness #90 tabs 12/22/21 [Rx Last Taken Unknown] diphenoxylate-atropine 2.5 mg-0.025 mg tablet (Lomotil) 1 tab PO BID PRN diarrhea #180 tabs 03/09/22 [Rx Last Taken Unknown] alendronate 70 mg tablet 70 mg PO QWEEK #20 tabs 04/27/22 [Rx Last Taken Unknown] Handicap Placard #1 ea 06/29/22 [Rx Last Taken Unknown] amlodipine 10 mg tablet 10 mg PO DAILY #90 tabs 06/29/22 [Rx Last Taken Unknown] lisinopril 30 mg tablet 30 mg PO DAILY #90 tabs 06/29/22 [Rx Last Taken Unknown] cholecalciferol (vitamin D3) 1,250 mcg (50,000 unit) capsule 1,250 mcg PO QWEEK #14 caps 08/28/22 [Rx Last Taken Unknown] meclizine 25 mg tablet 25 mg PO TID #14 tabs 11/04/22 [Rx Last Taken Unknown] Allergy/AdvReac Type Severity Reaction Status Date / Time promethazine [From Phenergan] Allergy Severe Swelling Verified 11/04/22 16:32 cephalexin Allergy Diarrhea Verified 11/04/22 16:32 hydromorphone [From Dilaudid] Allergy Other Verified 11/04/22 16:32 iron AdvReac Intermediate Diarrhea Verified 11/04/22 16:32 oxaprozin AdvReac Intermediate Nausea Verified 11/04/22 16:32 Family History Other Breast cancer Cancer Hypertension Melanoma Surgical History H/O exploratory laparotomy H/O hernia repair History of laryngoscopy S/P partial colectomy Social History Smoking Status: Never smoker alcohol intake: never substance use type: does not use what type of physical activity do you participate in: walking frequency: 1-2 times per week ROS ROS ED ROS Narrative A complete review of systems was performed and is negative except as documented in the history of present illness. Some specific details below. Constitutional: No recent fevers or chills. Malaise and she felt fine until this started just today. EYE: No visual complaints or pain. Field cut ENT: He sometimes does get a buzzing in her ears but no pain. No loss of hearing. No congestion. No trouble swallowing. CV: No chest pain or palpitations. Respiratory: No dyspnea. No hemoptysis. No difficulty taking breaths. GI: Please see history of present illness. And vomiting but denies diarrhea or pain. : No frequency dysuria or hematuria. Musculoskeletal: No recent trauma. No pains. Skin: No rash. Nondiaphoretic. Neuro: No weakness or numbness. Endocrine: No polyuria or polydipsia. EXAM Physical Exam Narrative Exam Narrative: CONSTITUTIONAL: Patient is nontoxic in appearance. The patient looks comfortable. Holding an emesis bag in front of her. She has some moisten tissue but no actual emesis there. HEENT: No notable trauma. Mucous membranes moist. No sinus tenderness. No indication of pain with swallowing. Her ears are not red. There is no obstruction. EYES: No conjunctival injection. No proptosis. CARDIOVASCULAR: Regular rate. Regular rhythm. No notable murmur. No JVD. RESPIRATORY: No respiratory distress. Breathing is unlabored. No wheezes. No rhonchi. No rales. No pain with a deep breath. GASTROINTESTINAL: Not distended. Bowel sounds are normal. No tenderness. No guarding. No rebound. No palpable mass. No bruit. Abdomen is quite benign GENITOURINARY: No tenderness over the bladder. No CVA tenderness. MUSCULOSKELETAL: Atraumatic. No peripheral edema. No cord. No tenderness along the deep venous system. No asymmetry. NEUROLOGICAL: Patient is alert and appropriate. No focal weakness. When I have her turn to the right she gets significant symptoms. Laying back makes this worse and she actually develops a little bit of horizontal nystagmus. But turning to the right makes it the worst. When she does this she starts retching. She does not have actual vomiting but rather dry heaves. SKIN: No noted rashes. No diaphoresis. PSYCHIATRIC: Patient is calm. Mood is appropriate. Const Vital Signs: 11/04/22 16:32 11/04/22 20:00 Temperature 96.9 F L Temperature Source Temporal Pulse Rate 84 88 Respiratory Rate 18 14 Blood Pressure 143/94 H Blood Pressure Mean 110 Pulse Ox 100 Oxygen Delivery Method Room Air MDM MDM MDM Narrative Medical decision making narrative: Patient CBC shows minimal nonspecific anemia. Normal white count and platelets. Patient's electrolytes are overall normal. Mild elevation of anion gap and low bicarb. This may be from some vomiting. Glucose is slightly up at 149. Patient is given a fluid Zofran. She was still bit nausea. So we did repeat the Zofran. We gave her Valium. I went to recheck her. She states she feels so much better. She was moving her head side to side showing me it does not cause her to get nauseated anymore she would like to go home. I will write for some meclizine. Lab Data Attestation: I reviewed the patient's lab results. Labs: Laboratory Results - last 24 hr 11/04/22 17:11 WBC 6.6 RBC 3.74 L Hgb 11.0 L Hct 34.8 L MCV 93.0 MCH 29.4 MCHC 31.6 L RDW Std Deviation 51.2 H RDW Coeff of Keanu 15.0 H Plt Count 355 MPV 10.1 Immature Gran % (Auto) 0.300 Neut % (Auto) 63.1 Lymph % (Auto) 24.5 [place] % (Auto) 9.5 Eos % (Auto) 1.8 Baso % (Auto) 0.8 Absolute Neuts (auto) 4.2 Absolute Lymphs (auto) 1.62 Nucleated RBC % 0 Sodium 138 Potassium 3.6 Chloride 106 Carbon Dioxide 14.0 L Anion Gap 18 H BUN 18 Creatinine 1.02 Estim Creat Clear Calc 33.18 Est GFR (MDRD) Af Amer 67 Est GFR (MDRD) Non-Af 56 L BUN/Creatinine Ratio 17.6 Glucose 149 H Calcium 9.3 Discharge Plan Triage Chief Complaint: Nausea/Vomiting Other Complaint: Dizziness ED Provider: Arnulfo Nguyen Dx/Rx/DC Orders Clinical Impression: Vertigo, Nausea & vomiting Instructions: ED Vertigo, Unspecified Prescriptions: New meclizine 25 mg tablet 25 mg PO TID Qty: 14 0RF No Action famotidine-Ca carb-mag hydrox [Pepcid Complete] 10-800-165 mg tablet,chewable 1 tab PO BID ascorbate calcium 500 mg tablet 500 mg tablet 500 mg PO QDAY ferrous sulfate [FeroSul] 220 mg (44 mg iron)/5 mL elixir 220 mg PO DIRECTED Rx Instructions: every 3 days cyanocobalamin (vitamin B-12) 1,000 mcg/mL solution 1,000 mcg subcut [id number] Qty: 1 3RF Rx Instructions: To receive at [place] [address]. meclizine 12.5 mg tablet 12.5 mg PO TID PRN (Reason: dizziness) Qty: 90 1RF alendronate 70 mg tablet 70 mg PO QWEEK Qty: 20 2RF amlodipine 10 mg tablet 10 mg PO DAILY Qty: 90 2RF lisinopril 30 mg tablet 30 mg PO DAILY Qty: 90 3RF (DME) Handicap Placard See Rx Instructions .ROUTE .MEDSUPPLY Qty: 1 0RF Rx Instructions: As directed, length of time 3 years vitamins A,C,W-vvtc-pmlfwt 1 EACH capsule 1 ea PO DAILY ondansetron 4 mg tablet,disintegrating 4 mg PO TID PRN PRN (Reason: nausea and vomiting) Qty: 21 0RF diphenoxylate-atropine [Lomotil] 2.5-0.025 mg tablet 1 tab PO BID PRN (Reason: diarrhea) Qty: 180 3RF cholecalciferol (vitamin D3) 1,250 mcg (50,000 unit) capsule 1,250 mcg PO QWEEK Qty: 14 2RF Primary Care Provider: Mile Foster Referrals: Mile Foster MD [Primary Care Provider] - 3-5 Days Disposition Disposition: Home, Self Care
[2022-11-04 18:12] LABS: BUN 18 mg/dL (7-18); BUN/Creat Ratio 17.6 RATIO (10-20); Calcium,Total 9.3 mg/dL (8.5-10.1); Chloride 106 mmol/L (98-107); Creatinine, Serum 1.02 mg/dL (0.55-1.02); EST Glomerular Filtration Rate 56 mL/min (>60); Est Glom Filt Rate - Afr Amer 67 mL/min (>60); Estimated Creatinine Clearance 33.18 ml/min; Glucose 149 mg/dL (74-106); Potassium 3.6 mmol/L (3.5-5.1); Sodium Level 138 mmol/L (136-145)
[2022-11-04 20:00] VITALS: PULSE 88; RESP 14
[2022-11-04 21:00] VITALS: PULSE 92; RESP 19
[2022-11-04 21:50] VITALS: PULSE 92; RESP 17
[2022-11-05 07:59] LABS: Anion Gap 9 (5-15)
== END 2022-11-04 22:06 | disposition home or self-care (01) ==
PROVIDERS: Emergency Provider Emergency Medicine; PCP Internal Medicine; Visit Provider Emergency Medicine
DX: R42 Dizziness and giddiness (principal); R11.2 Nausea with vomiting, unspecified; I10 Essential (primary) hypertension; Z79.899 Other long term (current) drug therapy
CPT/HCPCS: 80048; 85025; 96361; 96374; 96375; 99285; J7030; A4216; J2405

== ENCOUNTER 2022-11-12 01:21 | Emergency (ER) | payer MEDICARE, OTHER, SELFPAY ==
[2022-11-12 01:22] VITALS: BP 167/65; PULSE 69; RESP 16; TEMP 36.4; O2SAT 99; BMI 21.5
[2022-11-12 01:25] VITALS: BP 167/65; PULSE 69; RESP 16; TEMP 36.4; O2SAT 99
--- NOTE | 2022-11-12 01:58 | EKG12_ITS ---
Test Reason : DYSRHYTHMIA Blood Pressure : / mmHG Vent. Rate : 078 BPM Atrial Rate : 078 BPM P-R Int : 152 ms QRS Dur : 098 ms QT Int : 402 ms P-R-T Axes : 054 001 053 degrees QTc Int : 458 ms Normal sinus rhythm Normal ECG Confirmed by BROOKLYNN TAN, JULIO CESAR ([id number]), editor farm journal CHINO PARDO ([id number]) on 11/13/2022 1:06:57 PM Referred By: JOHN Confirmed By:JULIO CESAR OVERTON MD
[2022-11-12 02:22] VITALS: O2SAT 98
[2022-11-12] MEDS: Acetaminophen 500 MG Tablet PO (02:23)
--- NOTE | 2022-11-12 02:27 | EX.ED.DYSGE1 ---
HPI History of Present Illness Chief Complaint: Abd Pain Informant: patient and family Narrative Narrative: She reports right lower anterior chest pain. Triage mentions right upper quadrant pain. She states it is not her abdomen that hurts. It is the lower chest. She has had this before but is not exactly sure what caused it. She denies known injury but she has had pains in this area in other areas in the past. She does have osteoporosis. But there has been no trauma. She states she is not short of breath. But it does hurt a little bit when she takes a deep breath. It mostly hurts pressing on it or moving. No nausea or vomiting. No change with eating. Her vertigo that she had recently is gone. She states she can eat and it does not bother this. She is not coughing. No fevers. No distal numbness or tingling. [facility] Medical History (Updated 11/12/22 @ 05:[address] Arnulfo Nguyen MD) BPPV (benign paroxysmal positional vertigo) Chronic diarrhea GERD (gastroesophageal reflux disease) GI bleed due to NSAIDs Hernia Hypertension Hypertension Iron deficiency anemia Normal colonoscopy Home Medications ascorbate calcium (vitamin C) 500 mg tablet 500 mg PO QDAY 07/28/17 [History Last Taken 11/10/18] famotidine-Ca carb-mag hydrox 10 mg-800 mg-165 mg chewable tablet (Pepcid Complete) 1 tab PO BID 07/28/17 [History Last Taken 11/10/18] vitamins A,C,D-upnf-ofxzza 4,296 mcg-226 mg-90 mg capsule 1 ea PO DAILY 11/10/18 [History Last Taken 11/10/18] ondansetron 4 mg disintegrating tablet 4 mg PO TID PRN PRN nausea and vomiting #21 tabs 08/19/21 [Rx Last Taken Unknown] ferrous sulfate 220 mg (44 mg iron)/5 mL oral elixir (FeroSul) 220 mg PO DIRECTED 09/15/21 [History Last Taken Unknown] diphenoxylate-atropine 2.5 mg-0.025 mg tablet (Lomotil) 1 tab PO BID PRN diarrhea #180 tabs 03/09/22 [Rx Last Taken Unknown] alendronate 70 mg tablet 70 mg PO QWEEK #20 tabs 04/27/22 [Rx Last Taken Unknown] Handicap Placard #1 ea 05/22/23 [Rx Last Taken Unknown] amlodipine 10 mg tablet 10 mg PO DAILY #90 tabs 06/29/22 [Rx Last Taken Unknown] lisinopril 30 mg tablet 30 mg PO DAILY #90 tabs 06/29/22 [Rx Last Taken Unknown] cholecalciferol (vitamin D3) 1,250 mcg (50,000 unit) capsule 1,250 mcg PO QWEEK #14 caps 08/28/22 [Rx Last Taken Unknown] cyanocobalamin (vitamin B-12) 1,000 mcg/mL injection solution 1,000 mcg subcut QMONTH 11/09/22 [History Last Taken Unknown] meclizine 25 mg tablet 25 mg PO TID PRN dizziness #60 tabs 11/09/22 [Rx Last Taken Unknown] Allergy/AdvReac Type Severity Reaction Status Date / Time promethazine [From Phenergan] Allergy Severe Swelling Verified 11/12/22 01:25 cephalexin Allergy Diarrhea Verified 11/12/22 01:25 hydromorphone [From Dilaudid] Allergy Other Verified 11/12/22 01:25 iron AdvReac Intermediate Diarrhea Verified 11/12/22 01:25 oxaprozin AdvReac Intermediate Nausea Verified 11/12/22 01:25 Family History Other Breast cancer Cancer Hypertension Melanoma Surgical History H/O exploratory laparotomy H/O hernia repair History of laryngoscopy S/P partial colectomy Social History Smoking Status: Never smoker alcohol intake: never substance use type: does not use what type of physical activity do you participate in: walking frequency: 1-2 times per week ROS ROS ED ROS Narrative A complete review of systems was performed and is negative except as documented in the history of present illness. Some specific details below. Constitutional: No recent fevers or chills. Plays. EYE: No visual complaints. ENT: No difficulty swallowing. No swelling. No pain. No reflux symptoms. No pain with swallowing or change in her symptoms. CV: See history of present illness. Respiratory: See history of present illness. She is not coughing. She states she is not short of breath but it does hurt a little bit with breathing. GI: No abdominal pain. No nausea vomiting diarrhea. No blood in stool. Does not bother this. : No frequency dysuria or hematuria. Musculoskeletal: No recent trauma. See history of present illness. Skin: No rash cycles.. Nondiaphoretic. Neuro: No weakness or numbness. Endocrine: No polyuria or polydipsia. EXAM Physical Exam Narrative Exam Narrative: General: Patient is awake alert. Sitting in bed. Nontoxic in appearance. HEENT shows no trauma Neck is supple. No pain with range of motion. No JVD. Lungs are clear. She does have some chest wall tenderness in the anterior lateral aspect. Really from the midclavicular line to anterior axillary line down low. But there is no swelling erythema. There is no vesicles there are all the way through to her back. No spinal tenderness. Heart is regular. I hear no murmur. Not muffled. Abdomen is soft. Even pressing firmly in the right upper quadrant does not aggravate this. Negative Pendleton sign. By exam her pain is clearly up on the chest wall and not in the right upper quadrant. No CVA tenderness Skin: No pallor or rashes noted Const Vital Signs: 11/12/22 01:22 11/12/22 01:25 11/12/22 02:22 Temperature 97.5 F L 97.5 F L Temperature Source Temporal Temporal Pulse Rate 69 69 Respiratory Rate 16 16 Blood Pressure 167/65 H 167/65 H Blood Pressure Mean 99 99 Pulse Ox 99 99 98 Oxygen Delivery Method Room Air Room Air Room Air 11/12/22 04:28 Temperature Temperature Source Pulse Rate 82 Respiratory Rate 16 Blood Pressure 155/71 H Blood Pressure Mean 99 Pulse Ox 94 Oxygen Delivery Method Room Air MDM MDM MDM Narrative Medical decision making narrative: My independent interpretation of her 4 view x-ray for right ribs and chest show chronic changes, scoliosis, osteopenia, some pleural calcifications but no defined rib fracture or pneumothorax. There could be trace blunting of the costophrenic angle. Final reading of this x-ray shows: Patient CBC shows minimal anemia but normal white count platelets. Patient's electrolytes are overall normal other than very mild elevation of her creatinine. Patient's initial troponin is negative at 9. Patient's D-dimer is negative at 0.49 especially when adjusted for age. Because the patient just started having pain in the last about 4 to 5 hours, we will do a delta troponin. Repeat troponin is even lower at 7. I talked with the patient. She is feeling better. She states the only thing she uses for pain is Tylenol. I be willing to write her for something but she states Tylenol is what works and does not cause problems. I think that is more than reasonable. We also talked she can use some rest and ice. If she develops fevers, cough, shortness of breath or any other symptoms she should return. By exam she seems to be more musculoskeletal pain. Her D-dimer troponin repeat troponin x-rays EKG and other blood work are overall negative. Lab Data Attestation: I reviewed the patient's lab results. Labs: Laboratory Results - last 24 hr 11/12/22 11/12/22 02:35 04:22 WBC 7.2 RBC 3.71 L Hgb 11.0 L Hct 35.4 L MCV 95.4 MCH 29.6 MCHC 31.1 L RDW Std Deviation 51.7 H RDW Coeff of Keanu 14.6 Plt Count 339 MPV 9.8 Immature Gran % (Auto) 0.400 Neut % (Auto) 75.7 H Lymph % (Auto) 12.4 L Mccormick % (Auto) 9.8 Eos % (Auto) 1.1 Baso % (Auto) 0.6 Absolute Neuts (auto) 5.5 Absolute Lymphs (auto) 0.90 Nucleated RBC % 0 D-Dimer Quant (PE/DVT) 0.49 Sodium 139 Potassium 4.4 Chloride 106 Carbon Dioxide 27.0 Anion Gap 6 BUN 22 H Creatinine 1.03 H Estim Creat Clear Calc 32.33 Est GFR (MDRD) Af Amer 67 Est GFR (MDRD) Non-Af 55 L BUN/Creatinine Ratio 21.4 H Glucose 111 H Calcium 9.3 Troponin I High Sens 9 7 Radiography Diagnostic Testing: Clinical Impression(s) from Imaging Studies Ribs w/Chest X-Ray 11/12/22 02:55 IMPRESSION: RIBS: The bones are osteopenic. There is no definitive evidence of an acute rib fracture. Allowing for technique. CHEST: Apical scarring. Minimal right lower lobe atelectasis and/or scarring similar to the prior study. Electronically Signed: Kayla Guzman MD at 3:48 EDT , EKG Initial EKG: Comments: My independent interpretation of the patient's EKG shows a normal sinus rhythm with a rate at 98. No ventricular ectopy. No acute ST elevation or depression. OR interval, QRS duration, QTc are all normal. Discharge Plan Triage Chief Complaint: Abd Pain ED Provider: Arnulfo Nguyen Dx/Rx/DC Orders Clinical Impression: Right-sided chest wall pain Instructions: ED Chest Pain, Uncertain Cause Prescriptions: No Action famotidine-Ca carb-mag hydrox [Pepcid Complete] 10-800-165 mg tablet,chewable 1 tab PO BID ascorbate calcium 500 mg tablet 500 mg tablet 500 mg PO QDAY ferrous sulfate [FeroSul] 220 mg (44 mg iron)/5 mL elixir 220 mg PO DIRECTED Rx Instructions: every 3 days alendronate 70 mg tablet 70 mg PO QWEEK Qty: 20 2RF amlodipine 10 mg tablet 10 mg PO DAILY Qty: 90 2RF lisinopril 30 mg tablet 30 mg PO DAILY Qty: 90 3RF (DME) Handicap Placard See Rx Instructions .ROUTE .MEDSUPPLY Qty: 1 0RF Rx Instructions: As directed, length of time 3 years cyanocobalamin (vitamin B-12) 1,000 mcg/mL solution 1,000 mcg subcut QMONTH Rx Instructions: To receive at [facility] on [address]. meclizine 25 mg tablet 25 mg PO TID PRN (Reason: dizziness) Qty: 60 1RF vitamins A,C,W-bzzi-tcutqd 1 EACH capsule 1 ea PO DAILY ondansetron 4 mg tablet,disintegrating 4 mg PO TID PRN PRN (Reason: nausea and vomiting) Qty: 21 0RF diphenoxylate-atropine [Lomotil] 2.5-0.025 mg tablet 1 tab PO BID PRN (Reason: diarrhea) Qty: 180 3RF cholecalciferol (vitamin D3) 1,250 mcg (50,000 unit) capsule 1,250 mcg PO QWEEK Qty: 14 2RF Primary Care Provider: Mile Foster Referrals: Mile Foster MD [Primary Care Provider] - 3-5 Days if not improving Activity Restrictions/Additional Instructions: Use Tylenol, rest, ice packs for discomfort. Disposition Disposition: Home, Self Care
[2022-11-12 02:43] LABS: Absolute Neutrophil Count 5.5 X10^3/uL (2.0-7.7); Basophil# 0.04 X10^3/uL; Basophil% 0.6 % (0-1); Eosinophil# 0.08 X10^3/uL; Eosinophils% 1.1 % (0-5); Hematocrit 35.4 % (37-47); Lymphocyte % 12.4 % (19-41); Mean Corp Hgb Conc 31.1 g/dL (32-36); Mean Corpuscular Hgb 29.6 pg (27.0-32.0); Mean Corpuscular Volume 95.4 fL (81-99); Mean Platelet Vol. 9.8 fl (6.2-12.0); Monocyte# 0.71 X10^3/uL; Monocyte% 9.8 % (0-10); NRBC Flagged by Analyzer 0 % (0-5); Neutrophil # 5.47 X10^3/uL (2.7-7.7); Neutrophil % 75.7 % (47-70); Platelet Count 339 K/mm3 (150-450); RBC Distribution Width CV 14.6 % (11.6-14.6); RBC Distribution Width SD 51.7 fl (35.1-43.9); Red Blood Count 3.71 M/mm3 (4.2-5.4); White Blood Count 7.2 K/mm3 (4.4-11.0)
[2022-11-12 02:53] LABS: D-Dimer Quantitative (DVT/PE) 0.49 FEU/ug/m (0.27-0.49)
--- NOTE | 2022-11-12 02:55 | RAD_ITS ---
STUDY: X-RAY - UNILATERAL RIBS ( RIGHT ) WITH CHEST REASON FOR EXAM: Female, 77 years old. Pain TECHNIQUE - RIBS: 3 view(s) of the ribs. TECHNIQUE - CHEST: Single PA view of the chest. COMPARISON: Thoracic spine x-ray August 24, 2022 FINDINGS - RIBS: Normal visualized ribs without a demonstrated fracture. FINDINGS - CHEST: There is trace blunting of the right costophrenic angle. There is no demonstrated pleural abnormality. Normal size heart. Normal mediastinum and rod. Normal visualized pulmonary arteries. There is atherosclerotic tortuosity of the aortic arch and descending thoracic aorta. There is visualized scoliosis. There is dextroscoliosis of the thoracic spine and levoscoliosis of the lumbar spine. Normal visualized ribs, clavicles, and shoulders. There is no demonstrated abnormality of the visualized soft tissue structures of the upper abdomen. RAD/Ribs Uni Min 3V w/PA Chest IMPRESSION: RIBS: The bones are osteopenic. There is no definitive evidence of an acute rib fracture. Allowing for technique. CHEST: Apical scarring. Minimal right lower lobe atelectasis and/or scarring similar to the prior study. Electronically Signed: Kayla Guzman MD at 3:48 EDT ,
[2022-11-12 03:01] LABS: Anion Gap 6 (5-15); BUN 22 mg/dL (7-18); BUN/Creat Ratio 21.4 RATIO (10-20); Calcium,Total 9.3 mg/dL (8.5-10.1); Chloride 106 mmol/L (98-107); Creatinine, Serum 1.03 mg/dL (0.55-1.02); EST Glomerular Filtration Rate 55 mL/min (>60); Est Glom Filt Rate - Afr Amer 67 mL/min (>60); Estimated Creatinine Clearance 32.33 ml/min; Glucose 111 mg/dL (74-106); Potassium 4.4 mmol/L (3.5-5.1); Sodium Level 139 mmol/L (136-145); Troponin-I HS (w/2H Reflex) 9 pg/mL (3.0-54.0)
[2022-11-12 04:28] VITALS: BP 155/71; PULSE 82; RESP 16; O2SAT 94
[2022-11-12 04:41] LABS: Reflex Troponin-HS? (from REC) Y
[2022-11-12 05:03] LABS: Troponin-I HS 7 pg/mL (3.0-54.0)
[2022-11-12 05:42] VITALS: BP 140/72
== END 2022-11-12 05:43 | disposition home or self-care (01) ==
PROVIDERS: Emergency Provider Emergency Medicine; PCP Internal Medicine; Visit Provider Emergency Medicine
DX: R07.89 Other chest pain (principal); M81.0 Age-related osteoporosis without current pathological fracture
CPT/HCPCS: 36415; 71101; 80048; 84484; 85025; 85379; 93005; 99284; A4216

== ENCOUNTER → 2023-02-10 | Outpatient (CLI) | payer MEDICARE, OTHER, SELFPAY ==
[2023-02-10 13:03] LABS: Anion Gap 7 (5-15); BUN 21 mg/dL (7-18); BUN/Creat Ratio 23.1 RATIO (10-20); Calcium,Total 9.1 mg/dL (8.5-10.1); Chloride 106 mmol/L (98-107); Cholesterol 187 mg/dL (200); Creatinine, Serum 0.91 mg/dL (0.55-1.02); EST Glomerular Filtration Rate 63 mL/min (>60); Est Glom Filt Rate - Afr Amer 77 mL/min (>60); Glucose 96 mg/dL (74-106); High Density Lipoprotein 53 mg/dL; Potassium 4.7 mmol/L (3.5-5.1); Sodium Level 142 mmol/L (136-145); Triglycerides 170 mg/dL; Very Low Density Lipoprotein 34 mg/dL (5-40)
== END | disposition home or self-care (01) ==
LOC: BIMLAB 10:36
PROVIDERS: PCP Internal Medicine; Referring Provider Internal Medicine; Visit Provider Internal Medicine
DX: I10 Essential (primary) hypertension (principal)
CPT/HCPCS: 36415; 80048; 80061

== ENCOUNTER → 2023-02-12 | Outpatient (CLI) | payer MEDICARE, OTHER, SELFPAY ==
--- NOTE | 2023-02-12 09:27 | BI_ITS ---
MAMMOGRAPHY - BILATERAL SCREENING REASON FOR EXAM: Female, 77 years old. Routine annual screening examination. PERTINENT HISTORY: Sister with breast cancer. Aunt with breast cancer. TECHNIQUE: Digital bilateral breast aly (3D mammographic acquisition) in the CC and MLO projections. 2-D mediolateral oblique (MLO) and craniocaudad (CC) views of both breasts were obtained. CAD: Full Field Digital Mammography with Computer Added Detection was performed. COMPARISON: Comparison is made with prior study dated September 25, 2021. FINDINGS: Breast Composition: The breasts are heterogeneously dense, which may obscure small masses. There are no dominant masses or suspicious calcifications. No other significant abnormalities are identified. There has been no significant change since the prior study. BI/SCRN MAMM (CAD)W/ALY BILAT IMPRESSION: Stable bilateral screening mammogram. Yearly follow-up mammogram recommended. (A) ASSESSMENT CATEGORY: BIRADS Category 2: Benign. A letter regarding these results will be sent to the patient by the facility within 30 days. Approximately 10% of breast cancers are not detected by mammography. A normal mammogram should not delay biopsy of a clinically suspicious abnormality. [id number] Electronically Signed: Savage Nina MD at 15:10 EST ,
== END | disposition home or self-care (01) ==
LOC: OPBI 09:26
PROVIDERS: PCP Internal Medicine; Referring Provider Internal Medicine; Visit Provider Internal Medicine
DX: Z12.31 Encounter for screening mammogram for malignant neoplasm of breast (principal)
CPT/HCPCS: 77063; 77067

== ENCOUNTER → 2023-05-12 | Outpatient (CLI) | payer MEDICARE, OTHER, SELFPAY ==
[2023-05-12 12:38] LABS: Anion Gap 2 (5-15); BUN 25 mg/dL (7-18); Calcium,Total 9.5 mg/dL (8.5-10.1); Chloride 105 mmol/L (98-107); Creatinine, Serum 1.04 mg/dL (0.55-1.02); EST Glomerular Filtration Rate 54 mL/min (>60); Est Glom Filt Rate - Afr Amer 66 mL/min (>60); Glucose 108 mg/dL (74-106); Potassium 4.3 mmol/L (3.5-5.1); Sodium Level 138 mmol/L (136-145)
[2023-05-12 12:43] LABS: Vitamin B12 434 pg/mL (211-911); Vitamin D,25 Hydroxy 68.3 ng/mL
== END | disposition home or self-care (01) ==
LOC: BIMLAB 10:15
PROVIDERS: PCP Internal Medicine; Referring Provider Internal Medicine; Visit Provider Internal Medicine
DX: M81.0 Age-related osteoporosis without current pathological fracture (principal); I10 Essential (primary) hypertension; E53.8 Deficiency of other specified B group vitamins
CPT/HCPCS: 36415; 80048; 82306; 82607

== ENCOUNTER 2023-07-22 23:32 | Emergency (ER) | payer MEDICARE, OTHER, SELFPAY ==
[2023-07-22 23:33] VITALS: TEMP 36.2; BMI 21.0
[2023-07-22 23:49] VITALS: BP 166/72; PULSE 68; RESP 12; TEMP 37.1; O2SAT 100
[2023-07-23] MEDS: diazePAM 5 MG Tablet 2.5 MG PO (00:20)
[2023-07-23 01:13] VITALS: O2SAT 96
--- NOTE | 2023-07-23 01:15 | EX.ED.DYSGE1 ---
HPI History of Present Illness Chief Complaint: Dizziness Informant: patient and friend Narrative Narrative: Patient is a 77-year-old female with past medical history of hypertension and vertigo. She states that this evening she had an increase in her ear ringing and with this her dizziness increased as well. She states that if she sits at rest her symptoms improve/resolve but as soon as she gets up to walk she feels off balance. She states she believes this is an inner ear issue as it feels similar nature to her past events but also concerned this could be potential stroke and therefore called her friend to bring her in for evaluation. [facility] Medical History (Updated 07/23/23 @ 04:[address] Smith Chamberlain, DO) Hemorrhoid BPPV (benign paroxysmal positional vertigo) Iron deficiency anemia Chronic diarrhea Hernia Normal colonoscopy GERD (gastroesophageal reflux disease) Hypertension Hypertension GI bleed due to NSAIDs Home Medications ?Medication ?Instructions ?Recorded ?Last Taken ?Type ascorbate calcium (vitamin C) 500 500 mg PO QDAY 07/28/17 07/22/23 History mg tablet famotidine-Ca carb-mag hydrox 10 1 tab PO BID 07/28/17 07/22/23 History mg-800 mg-165 mg chewable tablet (Pepcid Complete) vitamins A,C,S-fhhu-ttkixc 4,296 1 ea PO DAILY 11/10/18 07/22/23 History mcg-226 mg-90 mg capsule ferrous sulfate 220 mg (44 mg 220 mg PO DIRECTED 09/15/21 07/22/23 History iron)/5 mL oral elixir (FeroSul) alendronate 70 mg tablet 70 mg PO QWEEK #20 tabs 04/27/22 07/18/23 Rx Handicap Placard #1 ea 06/29/22 Unknown Rx cyanocobalamin (vitamin B-12) 1,000 mcg subcut QMONTH 11/09/22 07/22/23 History 1,000 mcg/mL injection solution diphenoxylate-atropine 2.5 1 tab PO BID PRN diarrhea #180 tabs 12/02/22 07/22/23 Rx mg-0.025 mg tablet (Lomotil) amlodipine 10 mg tablet 10 mg PO DAILY #90 tabs 03/22/23 07/22/23 Rx hydrocortisone 2.5 % topical cream 1 applic MT BID-QID PRN 05/12/23 07/22/23 Rx with perineal applicator hemorrhoids #30 grams cholecalciferol (vitamin D3) 1,250 1,250 mcg PO QWEEK #14 caps 06/24/23 07/22/23 Rx mcg (50,000 unit) capsule lisinopril 30 mg tablet 30 mg PO DAILY #90 tabs 06/24/23 07/22/23 Rx meclizine 25 mg tablet 25 mg PO DAILY PRN dizziness 07/22/23 07/22/23 History diazepam 2 mg tablet (Valium) 2 mg PO TID PRN dizziness or 07/23/23 Unknown Rx vertigo #15 tabs ondansetron 4 mg disintegrating 4 mg PO TID PRN nausea and 07/23/23 Unknown Rx tablet vomiting #21 tabs Allergy/AdvReac Type Severity Reaction Status Date / Time promethazine (From Phenergan) Allergy Severe Swelling Verified 07/22/23 23:33 cephalexin Allergy Diarrhea Verified 07/22/23 23:33 hydromorphone (From Dilaudid) Allergy Other Verified 07/22/23 23:33 iron AdvReac Intermediate Diarrhea Verified 07/22/23 23:33 oxaprozin AdvReac Intermediate Nausea Verified 07/22/23 23:33 Family History Other Breast cancer Cancer Hypertension Melanoma Surgical History H/O hernia repair H/O exploratory laparotomy History of laryngoscopy S/P partial colectomy Social History Smoking Status: Never smoker alcohol intake: never substance use type: does not use what type of physical activity do you participate in: walking frequency: 1-2 times per week ROS ROS ED Constitutional Constitutional ED: Denies chills or fever(s) Eyes Eyes: Denies change in vision ENT ENT ED: Denies sore throat Cardiovascular Cardiovascular: Denies chest pain, palpitations or racing heartbeat Respiratory/Chest Respiratory/Chest: Denies cough or dyspnea Gastrointestinal Gastrointestinal: Reports nausea; Denies abdominal pain, diarrhea or vomiting Genitourinary Genitourinary ED: Denies dysuria Musculoskeletal Musculoskeletal: Denies myalgias or neck pain Integumentary Denies rash Neurologic Neurologic: Reports other Details: Positive dizziness ; Denies headache(s) Hematologic/Lymphatic Hematologic/Lymphatic: Denies easy bleeding or easy bruising EXAM Physical Exam Const Vital Signs: 07/22/23 23:33 07/22/23 23:49 07/23/23 01:17 Temperature 97.2 F L 98.7 F 98.1 F Temperature Source Temporal Temporal Pulse Rate 68 85 Respiratory Rate 12 16 Blood Pressure 166/72 H 148/71 H Blood Pressure Mean 103 96 Pulse Ox 100 96 Oxygen Delivery Method Room Air Positive well nourished and well developed General Appearance ED: well developed; Negative for pallor HEENT Reports TM's clear and moist mucous membranes HEENT Narrative: Bilateral TMs show no signs of infection and bilateral canals are open without signs of cerumen impaction or otitis externa No mastoid pain bilaterally Tympanic Membrane ED: Yes TM's clear Eyes PERRL and EOMs intact bilaterally General Eye ED: Negative for scleral icterus Neck supple Resp normal respiratory effort and clear to auscultation bilaterally Cardio regular rate and regular rhythm Rate: other Other Details: Radial and carotid pulses are equal and symmetric GI normal to inspection, nondistended, normoactive bowel sounds, non-tender, non-distended and no masses GI Narrative: No voluntary guarding or rigidity or pulsatile mass Auscultation: normoactive bowel sounds Palpation: soft Extremity normal to inspection Neuro oriented x3, CN's II-XII intact bilaterally and no sensory deficits noted Neuro Narrative: GCS of 15 Cranial nerves II through XII are grossly intact without focal neurologic deficit No pronator drift no dysmetria no truncal ataxia NIH stroke scale score of 0 There is mild horizontal nystagmus present and Hallpike Claudio exam is positive on right Sensorium / Orientation: alert Motor Exam: strength 5/5 throughout Psych mental status grossly normal Skin no rashes or lesions noted and no wounds General Skin Exam: Negative for jaundice or pallor MDM MDM MDM Narrative Medical decision making narrative: Patient arrived to the ER hypertensive otherwise with stable vitals. She reported tinnitus with dizziness and she described the dizziness as a sense of motion. Moreover the motion seemed to improve at rest and worsened with position change. Differential diagnosis is for peripheral vertigo/BPPV versus central vertigo versus UTI versus acute blood loss anemia versus acute kidney injury or electrolyte abnormality. At this time as her NIH stroke scale score is 0 he does not have any type of fever she is not hypotensive and denies any bouts of vomiting or diarrhea I do not feel there is need for imaging or testing. The patient was given oral Zofran to help with nausea as well as Valium secondary to concern for vertigo. On reevaluation she has had resolution of symptoms she can walk with a steady gait and her neurologic exam remains normal. Therefore as her history and exam indicate peripheral vertigo and symptoms have resolved with treatment I do not feel there is need for further workup and she is otherwise safe for discharge History & Record Review Discussion w/independent historian: Patient and Friend Discharge Plan Triage Chief Complaint: Dizziness ED Provider: Smith Chamberlain Dx/Rx/DC Orders Clinical Impression: Vertigo, Hypertension, IBS (irritable bowel syndrome), Tinnitus Instructions: Vertigo Inner Ear Problems, ED BPV Vertigo Prescriptions: New diazepam [Valium] 2 mg tablet 2 mg PO TID PRN (Reason: dizziness or vertigo) Qty: 15 0RF ondansetron 4 mg tablet,disintegrating 4 mg PO TID PRN (Reason: nausea and vomiting) Qty: 21 0RF No Action famotidine-Ca carb-mag hydrox [Pepcid Complete] 10-800-165 mg tablet,chewable 1 tab PO BID ascorbate calcium (vitamin C) 500 mg tablet 500 mg PO QDAY ferrous sulfate [FeroSul] 220 mg (44 mg iron)/5 mL elixir 220 mg PO DIRECTED Rx Instructions: every 3 days alendronate 70 mg tablet 70 mg PO QWEEK Qty: 20 2RF (DME) Handicap Placard See Rx Instructions .ROUTE .MEDSUPPLY Qty: 1 0RF Rx Instructions: As directed, length of time 3 years cyanocobalamin (vitamin B-12) 1,000 mcg/mL solution 1,000 mcg subcut QMONTH Rx Instructions: To receive at [facility] on [address]. hydrocortisone 2.5 % cream with perineal applicator 1 applic MT BID-QID PRN (Reason: hemorrhoids) Qty: 30 2RF vitamins A,C,G-sulm-jfsuyp 1 EACH capsule 1 ea PO DAILY meclizine 25 mg tablet 25 mg PO DAILY PRN (Reason: dizziness) diphenoxylate-atropine [Lomotil] 2.5-0.025 mg tablet 1 tab PO BID PRN (Reason: diarrhea) Qty: 180 3RF amlodipine 10 mg tablet 10 mg PO DAILY Qty: 90 2RF cholecalciferol (vitamin D3) 1,250 mcg (50,000 unit) capsule 1,250 mcg PO QWEEK Qty: 14 2RF lisinopril 30 mg tablet 30 mg PO DAILY Qty: 90 3RF Primary Care Provider: Mile Foster Referrals: Mile Foster MD [Primary Care Provider] - Activity Restrictions/Additional Instructions: Please take the prescribed medication as directed to help with your dizziness/vertigo and nausea. You may also try the [place] maneuver at home to help control symptoms. Follow-up with family doctor for repeat evaluation and return to the ER should you have any further concerns Print Language: Bulgarian Disposition Disposition: Home, Self Care Discharge Date/Time: 07/23/23 01:26
[2023-07-23 01:17] VITALS: BP 148/71; PULSE 85; RESP 16; TEMP 36.7; O2SAT 96
[2023-07-23] MEDS: Ondansetron ODT 4 MG Tablet PO (01:20)
== END 2023-07-23 01:26 | disposition home or self-care (01) ==
PROVIDERS: Emergency Provider Emergency Medicine; PCP Internal Medicine; Visit Provider Emergency Medicine
DX: R42 Dizziness and giddiness (principal); K58.9 Irritable bowel syndrome, unspecified; I10 Essential (primary) hypertension; H93.19 Tinnitus, unspecified ear; Z79.899 Other long term (current) drug therapy
CPT/HCPCS: 99283; A4216

== ENCOUNTER → 2023-09-28 | Outpatient (CLI) | payer MEDICARE, OTHER, SELFPAY ==
--- NOTE | 2023-09-28 10:07 | BD_ITS ---
STUDY: DUAL ENERGY X-RAY ABSORPTIOMETRY / DXA REASON FOR EXAM: Female, 77 years old. Osteoporosis TECHNIQUE: Bone Mineral Density (BMD) measurements of lumbar spine and bilateral hips were obtained. COMPARISON: Comparison is made with prior study September 25, 2021. FINDINGS: Lumbar Spine (L1-L4): g/cm2 (0.516) / T-score (-4.2) / Z-score (-1.8) Findings are suggestive of osteoporosis with a high fracture risk. Left Femur Total: g/cm2 (0.432) / T-score (-4.2) / Z-score (-2.2) Left Femoral Neck: g/cm2 (0.291) / T-score (-5.0) / Z-score (-2.8) Right Femur Total: g/cm2 (0.396) / T-score (-4.5) / Z-score (-2.5) Right Femoral Neck: g/cm2 (0.301) / T-score (-4.9) / Z-score (-2.7) The T-Scores on the most recent prior examination were: Lumbar Spine (L1-L4): There has been worsening of bone density since the previous examination. Left Femur Total: which represents a worsening of 4.5%. Right Femur Total: which represents a worsening of 9.9%. BD/Dexa Bone Density Study IMPRESSION: The patient is considered osteoporotic as outlined below according to World Phillip Organization (WHO) criteria with a high fracture risk. There has been worsening of bone density since the previous examination. Reference Information: The T-score is the number of standard deviations above or below the standard which is normal for young adults at their peak bone mineral density. The World Health Organization (WHO) interprets the T-scores as follows: Above -1 Normal bone density Between -1 and -2.5 Osteopenia Equal to / or below -2.5 Osteoporosis As a practical clinical guideline, osteopenia may be graded as follows: Mild -1 through -1.5 Moderate -1.6 through -2.0 Severe -2.1 through -2.4 The Z-score is the number of standard deviations above or below age-matched controls. A Z-score of less than -1.5 would be considered abnormal. References: 1. NIH Osteoporosis and Related Bone Diseases www osteo.org 2. International Society for Clinical Densitometry www iscd.org 3. National Osteoporosis Foundation www nof.org Electronically Signed: Savage Nina MD at 7:56 EDT ,
== END | disposition home or self-care (01) ==
LOC: OPBD 10:07
PROVIDERS: PCP Internal Medicine; Referring Provider Internal Medicine; Visit Provider Internal Medicine
DX: M81.0 Age-related osteoporosis without current pathological fracture (principal)
CPT/HCPCS: 77080

== ENCOUNTER 2023-10-14 10:30 | Outpatient (RCR) | payer MEDICARE, OTHER, SELFPAY ==
--- NOTE | 2023-08-24 10:19 | HP.PTEVAL ---
Patient's Visit Information Visit Information Visit Information: CHELSEA GARCIA is a 77 year old F referred to Physical Therapy by Dr. Mile Foster MD with a diagnosis of LOW BACK PAIN. Date of Evaluation: 08/24/23 Physical Therapist: Basil Xavier PT, Cert MDT, OCS Visit Plan Frequency: 2x /Week Duration: 4 Weeks Plan: PT INTERVENTIONS LUMBAR FLEXION ,POSTURAL EX'S ,DLS ,HIP STRENGTHENING AND ACTIVITY MODIFICATION Subjective Subjective: This 77 y/o female presents to physical therapy with low back pain. Patient has had back pain for 3 weeks just insidious onset no injury. Seen DR recommended PT no diagnostics. Patient located symmetrical lumbar right hip.No leg symptoms. Aggravating factors standing ,extended walking,bending and try to lft. Alleviating factors rest. Coughing/sneezing/ Bowel/bladder -. Patient sleeping good. Patient has h/o back pain. Patient has no h/o trauma. No abnormal night pain. Patient pain affects QOL and function. Patient goals to degrease pain. SOCAIL: VOCATION: single Pain Bilateral Back: Pain Intensity (Out of 10): 7 Objective Objective: POSTURE: right scoliosis with asymmetries pelvis and shoulder ,thoracic kyphosis GAIT: ambulates with hips/knees flexed scoliosis right with asymmetries PALAPTION: tender paraspinals ,erector NEURO : denies paresthesia/tingling ,reflexes L3-4,L4-5 ,L5- S1 1/3 LUMBAR ROM: flexion mod loss ,extension mod loss ,side glides left mod loss ,right min loss FLEXABILITY: hamstrings min tight PROM HIP: IR 10 degrees MMT: quads/hams 4/5 ,( peak force) hip flexion 16.8 right ,left 15.8 ,hip abduction right 12.1 ,left 11.8,ankle 4/5 Special Tests L/S Slump test left side: Negative L/S Slump test right side: Negative L/S Left Straight Leg Raise: Negative L/S Right Straight Leg Raise: Negative Balance/Special Test Scores Oswestry Low Back Score: 26 Goals Goal 1:: Patient will I with HEP for back Goal Time Frame: 4-6 Weeks Goal 2:: Patient to demonstrate 50% improvement with improved function Goal Time Frame: 4-6 Weeks Goal 3:: Patient to improve lumbar ROM for function to put on shoes Goal Time Frame: 4-6 Weeks Goal 4:: Patient to improve back oswestry by 5 points to improve QOL and function Goal Time Frame: 4-6 Weeks Goal 5:: Patient be able to improve walking/standing with improved ADLS 70% Goal Time Frame: 4-6 Weeks Rehabilitation Potential Physical Therapy Diagnosis: This patient has low back pain with scoliosis with pain ,poor posture , decrease ROM ,impaired function and ADLS thus benefit from skilled PT Rehabilitation Potential: Good Anticipated Interventions Patient/Client Instruction: Educate patient on: Condition and Plan of Care For the Purpose of:: To decrease pain, To increase ROM, To improve muscle performance and motor function, To improve ability to perform ADL's, To increase tolerance to activity/condition/position, To improve ability of physical actions for home/community/work/leisure, To improve health of tissue, To decrease soft tissue restriction, To increase flexibility/ROM and To improve tolerance to ADL's Therapeutic Exercise to Include: Strength training, Endurance training, Balance training, Postural training, Flexibilty training and Dynamic Lumbar Stabilization For the Purpose of:: To decrease pain, To improve nutrient delivery to tissue, To improve muscle performance and motor function, To improve ability to perform ADL's, To increase tolerance to activity/condition/position, To improve ability of physical actions for home/community/work/leisure, To improve health of tissue, To decrease soft tissue restriction, To increase flexibility/ROM and To improve tolerance to ADL's Text: Thank you for the opportunity to evaluate your patient. For Medicare and Medicare HMO plans, please review the plan of care and approve it. It will need to be FAXED BACK to us at [phone] for Medicare purposes. For Medicare only, by signing this I certify the plan of care. Please let me know if there are questions or concerns regarding this plan of care. Physician Signature: Date:
--- NOTE | 2023-09-22 10:20 | HP.PTREVAL ---
Re-Evaluation Intro: Dr. Mile Foster MD, It has been my pleasure to treat CHELSEA GARCIA over the last 10 visits for LOW BACK PAIN. Please see the progress note below for an update on the physical therapy plan of care! Subjective Subjective: Doing better overall Objective Objective/Function: Patient will cont to benefit from skilled PT with decrease pain with goals are appropriate POSTURE: right scoliosis with asymmetries pelvis and shoulder ,thoracic kyphosis GAIT: ambulates with hips/knees flexed scoliosis right with asymmetries PALAPTION: tender paraspinals ,erector NEURO : denies paresthesia/tingling ,reflexes L3-4,L4-5 ,L5- S1 1/3 LUMBAR ROM: flexion mod loss ,extension mod loss ,side glides left mod loss ,right min loss FLEXABILITY: hamstrings min tight PROM HIP: IR 10 degrees MMT: quads/hams 4/5 ,( peak force) hip flexion 16.2 right ,left 15.8 ,hip abduction right 12.3 ,left 12.81,ankle 4/5 Plan Plan Plan: PT INTERVENTIONS LUMBAR FLEXION ,POSTURAL EX'S ,DLS ,HIP STRENGTHENING AND ACTIVITY MODIFICATION precaution chronic vertigo (mainly supine to sit). Balance/Gait/Functional tests Balance/Special Test Scores Oswestry Low Back Score: 19 Goals Goals Goal 1:: Patient will I with HEP for back Goal Time Frame: 4-6 Weeks Goal Progress: Progressing Goal 2:: Patient to demonstrate 50% improvement with improved function Goal Time Frame: 4-6 Weeks Goal Progress: Progressing Goal 3:: Patient to improve lumbar ROM for function to put on shoes Goal Time Frame: 4-6 Weeks Goal Progress: Progressing Goal 4:: Patient to improve back oswestry by 5 points to improve QOL and function Goal Time Frame: 4-6 Weeks Goal Progress: Progressing Goal 5:: Patient be able to improve walking/standing with improved ADLS 70% Goal Time Frame: 4-6 Weeks Anticipated Interventions Anticipated Interventions Patient/Client Instruction: Educate patient on: Condition and Plan of Care For the Purpose of:: To decrease pain, To increase ROM, To improve muscle performance and motor function, To improve ability to perform ADL's, To increase tolerance to activity/condition/position, To improve ability of physical actions for home/community/work/leisure, To improve health of tissue, To decrease soft tissue restriction, To increase flexibility/ROM and To improve tolerance to ADL's Therapeutic Exercise to Include: Strength training, Endurance training, Balance training, Postural training, Flexibilty training and Dynamic Lumbar Stabilization For the Purpose of:: To decrease pain, To improve nutrient delivery to tissue, To improve muscle performance and motor function, To improve ability to perform ADL's, To increase tolerance to activity/condition/position, To improve ability of physical actions for home/community/work/leisure, To improve health of tissue, To decrease soft tissue restriction, To increase flexibility/ROM and To improve tolerance to ADL's Re-Evaluation Ending Re-evaluation ending: Please do not hesitate to contact me at [phone] by phone or if you have questions or concerns regarding this new plan of care! Sincerely, Basil Xavier, PT, Cert MDT, OCS
--- NOTE | 2023-10-14 10:48 | HP.PTDCSUM ---
Discharge Summary D/C summary: It has been my pleasure to treat CHELSEA GARCIA referred by Dr. Mile Foster MD, with the diagnosis of LOW BACK PAIN for a total of 16 visit(s). Discharge Date: 10/14/23 Please see the following information for a summary of their discharge status. Subjective Subjective: Doing well ,better walking better more straight Patient sees routine visit Pain Bilateral Back: Pain Intensity (Out of 10): 1 Overall Improvement % Improvement: 75 Objective Objective/Function: POSTURE: right scoliosis with asymmetries pelvis and shoulder ,thoracic kyphosis GAIT: ambulates with hips/knees flexed scoliosis right with asymmetries PALAPTION: tender paraspinals ,erector NEURO : denies paresthesia/tingling ,reflexes L3-4,L4-5 ,L5- S1 1/3 LUMBAR ROM: flexion mod loss ,extension mod loss ,side glides left mod loss ,right min loss FLEXABILITY: hamstrings min tight PROM HIP: IR 10 degrees MMT: quads/hams 4/5 ,( peak force) hip flexion 16.8 right ,left 18.8 ,hip abduction right 15.3 ,left 13.8,ankle 4/5 Goals Goal 1:: Patient will I with HEP for back Goal Progress: Goal Met Goal 2:: Patient to demonstrate 50% improvement with improved function Goal Progress: Goal Met Goal 3:: Patient to improve lumbar ROM for function to put on shoes Goal Progress: Goal Met Goal 4:: Patient to improve back oswestry by 5 points to improve QOL and function Goal Progress: Goal Met Goal 5:: Patient be able to improve walking/standing with improved ADLS 70% Goal Progress: Goal Met Plan Plan: D/C D/C Information Discharge Comments: HEP d/c sentence: If there are questions or concerns regarding this patient's physical therapy, please feel free to call me at [phone]. Thank you for the referral of this patient. Sincerely, Basil Xavier PT, Cert MDT, OCS Balance/Gait/Functional tests Balance/Special Test Scores Oswestry Low Back Score: 14 Improvement % Improvement: 75
== END 2023-10-14 16:03 | disposition home or self-care (01) ==
LOC: PT 10:30
PROVIDERS: PCP Internal Medicine; Referring Provider Internal Medicine; Visit Provider Internal Medicine
DX: M54.50 Low back pain, unspecified (principal)
CPT/HCPCS: 97110; 97162; 97530

== ENCOUNTER → 2023-10-22 | Outpatient (CLI) | payer MEDICARE, OTHER, SELFPAY ==
[2023-10-22 12:37] LABS: Absolute Lymphocyte Count 1.38 X10^3/uL (0.83-4.51); Basophil# 0.04 X10^3/uL; Basophil% 0.8 % (0-1); Eosinophil# 0.19 X10^3/uL; Eosinophils% 3.6 % (0-5); Lymphocyte # 1.38 X10^3/ul (0.83-4.51); Lymphocyte % 26.1 % (19-41); Mean Corp Hgb Conc 30.6 g/dL (32-36); Mean Corpuscular Hgb 28.4 pg (27.0-32.0); Mean Platelet Vol. 11.2 fl (6.2-12.0); Monocyte# 0.69 X10^3/uL; Monocyte% 13.1 % (0-10); NRBC Flagged by Analyzer 0 % (0-5); Neutrophil # 2.97 X10^3/uL (2.7-7.7); Neutrophil % 56.2 % (47-70); Platelet Count 335 K/mm3 (150-450); RBC Distribution Width CV 14.7 % (11.6-14.6); RBC Distribution Width SD 50.7 fl (35.1-43.9); Red Blood Count 3.87 M/mm3 (4.2-5.4); White Blood Count 5.3 K/mm3 (4.4-11.0)
[2023-10-22 12:59] LABS: AST(SGOT) 25 U/L (15-37); Alanine Aminotransfer ALT/SGPT 45 U/L (13-56); Albumin, Serum 3.3 g/dL (3.2-5.0); Alkaline Phosphatase 124 U/L (45-117); Anion Gap 6 (5-15); BUN 23 mg/dL (7-18); Calcium,Total 9.8 mg/dL (8.5-10.1); Chloride 107 mmol/L (98-107); Creatinine, Serum 0.89 mg/dL (0.55-1.02); EST Glomerular Filtration Rate 65 mL/min (>60); Est Glom Filt Rate - Afr Amer 79 mL/min (>60); Globulin 3.4 g/dL (2.2-4.2); Glucose 106 mg/dL (74-106); Potassium 4.4 mmol/L (3.5-5.1); Protein, Total 6.7 g/dL (6.4-8.2); Sodium Level 141 mmol/L (136-145)
== END | disposition home or self-care (01) ==
LOC: BIMLAB 10:36
PROVIDERS: PCP Internal Medicine; Referring Provider Internal Medicine; Visit Provider Internal Medicine
DX: I10 Essential (primary) hypertension (principal)
CPT/HCPCS: 36415; 80053; 85025

== ENCOUNTER 2023-11-12 09:15 | Outpatient (CLI) | payer MEDICARE, OTHER, SELFPAY ==
[2023-11-12 09:27] VITALS: BP 121/53; PULSE 75; RESP 16; TEMP 36; O2SAT 100; BMI 22.9
[2023-11-12] MEDS: Romosozumab-AQQG 210 MG/2.34 ML Syringe SC (09:51)
== END 2023-11-12 23:59 | disposition home or self-care (01) ==
LOC: MEDOUTP 09:16
PROVIDERS: PCP Internal Medicine; Referring Provider Internal Medicine; Visit Provider Internal Medicine
DX: M81.0 Age-related osteoporosis without current pathological fracture (principal)
CPT/HCPCS: 96372; J3111

== ENCOUNTER 2023-12-10 09:23 | Outpatient (CLI) | payer MEDICARE, OTHER, SELFPAY ==
[2023-12-10] MEDS: Romosozumab-AQQG 210 MG/2.34 ML Syringe SC (09:48)
[2023-12-10 09:51] VITALS: BP 140/65; PULSE 66; RESP 16; TEMP 35.7; O2SAT 97; BMI 22.9
== END 2023-12-10 23:59 | disposition home or self-care (01) ==
LOC: MEDOUTP 09:23
PROVIDERS: PCP Internal Medicine; Referring Provider Internal Medicine; Visit Provider Internal Medicine
DX: M81.0 Age-related osteoporosis without current pathological fracture (principal)
CPT/HCPCS: 96372; J3111

== ENCOUNTER 2024-01-14 09:20 | Outpatient (CLI) | payer MEDICARE, OTHER, SELFPAY ==
[2024-01-14 09:41] VITALS: RESP 16; TEMP 36.4; O2SAT 98
[2024-01-14] MEDS: Romosozumab-AQQG 210 MG/2.34 ML Syringe SC (09:43)
== END 2024-01-14 23:59 | disposition home or self-care (01) ==
LOC: MEDOUTP 09:20
PROVIDERS: PCP Internal Medicine; Referring Provider Internal Medicine; Visit Provider Internal Medicine
DX: M81.0 Age-related osteoporosis without current pathological fracture (principal)
CPT/HCPCS: 96372; J3111

== ENCOUNTER → 2024-01-28 | Outpatient (CLI) | payer MEDICARE, OTHER, SELFPAY ==
[2024-01-28 12:20] LABS: Absolute Lymphocyte Count 1.41 X10^3/uL (0.83-4.51); Absolute Neutrophil Count 3.4 X10^3/uL (2.0-7.7); Basophil# 0.06 X10^3/uL; Basophil% 1.1 % (0-1); Eosinophil# 0.18 X10^3/uL; Eosinophils% 3.2 % (0-5); Hematocrit 35.9 % (37-47); Hemoglobin 10.9 g/dL (12.0-15.0); Lymphocyte # 1.41 X10^3/ul (0.83-4.51); Lymphocyte % 24.7 % (19-41); Mean Corp Hgb Conc 30.4 g/dL (32-36); Mean Corpuscular Hgb 27.6 pg (27.0-32.0); Mean Corpuscular Volume 90.9 fL (81-99); Mean Platelet Vol. 10.9 fl (6.2-12.0); Monocyte# 0.68 X10^3/uL; Monocyte% 11.9 % (0-10); NRBC Flagged by Analyzer 0 % (0-5); Neutrophil # 3.35 X10^3/uL (2.7-7.7); Neutrophil % 58.7 % (47-70); Platelet Count 377 K/mm3 (150-450); RBC Distribution Width SD 50.2 fl (35.1-43.9); Red Blood Count 3.95 M/mm3 (4.2-5.4); White Blood Count 5.7 K/mm3 (4.4-11.0)
[2024-01-28 12:31] LABS: Anion Gap 5 (5-15); BUN 24 mg/dL (7-18); Calcium,Total 9.1 mg/dL (8.5-10.1); Chloride 108 mmol/L (98-107); Creatinine, Serum 0.86 mg/dL (0.55-1.02); EST Glomerular Filtration Rate 68 mL/min (>60); Est Glom Filt Rate - Afr Amer 82 mL/min (>60); Glucose 99 mg/dL (74-106); Potassium 4.8 mmol/L (3.5-5.1); Sodium Level 139 mmol/L (136-145)
== END | disposition home or self-care (01) ==
LOC: BIMLAB 09:02
PROVIDERS: PCP Internal Medicine; Referring Provider Internal Medicine; Visit Provider Internal Medicine
DX: D64.9 Anemia, unspecified (principal)
CPT/HCPCS: 36415; 80048; 85025

== ENCOUNTER 2024-02-11 09:17 | Outpatient (CLI) | payer MEDICARE, OTHER, SELFPAY ==
[2024-02-11 09:30] VITALS: BP 115/49; PULSE 75; RESP 16; TEMP 36.5; O2SAT 98
[2024-02-11] MEDS: Romosozumab-AQQG 210 MG/2.34 ML Syringe SC (09:33)
== END 2024-02-11 23:59 | disposition home or self-care (01) ==
LOC: MEDOUTP 09:17
PROVIDERS: PCP Internal Medicine; Referring Provider Internal Medicine; Visit Provider Internal Medicine
DX: M81.0 Age-related osteoporosis without current pathological fracture (principal)
CPT/HCPCS: 96372; J3111

== ENCOUNTER 2024-03-17 12:18 | Outpatient (CLI) | payer MEDICARE, OTHER, SELFPAY ==
[2024-03-17 12:24] VITALS: BP 136/59; PULSE 72; RESP 16; TEMP 36.6; O2SAT 99
[2024-03-17] MEDS: Romosozumab-AQQG 210 MG/2.34 ML Syringe SC (12:28)
== END 2024-03-17 23:59 | disposition home or self-care (01) ==
LOC: MEDOUTP 12:18
PROVIDERS: PCP Internal Medicine; Referring Provider Internal Medicine; Visit Provider Internal Medicine
DX: M81.0 Age-related osteoporosis without current pathological fracture (principal)
CPT/HCPCS: 96372; J3111

== ENCOUNTER 2024-04-14 09:50 | Outpatient (CLI) | payer MEDICARE, OTHER, SELFPAY ==
[2024-04-14 10:03] VITALS: BP 134/57; PULSE 65; RESP 16; O2SAT 100; BMI 22.9
[2024-04-14] MEDS: Romosozumab-AQQG 210 MG/2.34 ML Syringe SC (10:24)
== END 2024-04-14 23:59 | disposition home or self-care (01) ==
LOC: MEDOUTP 09:50
PROVIDERS: PCP Internal Medicine; Referring Provider Internal Medicine; Visit Provider Internal Medicine
DX: M81.0 Age-related osteoporosis without current pathological fracture (principal)
CPT/HCPCS: 96372; J3111

== ENCOUNTER → 2024-04-26 | Outpatient (CLI) | payer MEDICARE, OTHER, SELFPAY ==
[2024-04-26 12:28] LABS: Absolute Lymphocyte Count 1.23 X10^3/uL (0.83-4.51); Absolute Neutrophil Count 3.2 X10^3/uL (2.0-7.7); Basophil# 0.05 X10^3/uL; Basophil% 0.9 % (0-1); Eosinophil# 0.19 X10^3/uL; Eosinophils% 3.6 % (0-5); Hematocrit 34.3 % (37-47); Hemoglobin 10.5 g/dL (12.0-15.0); Lymphocyte # 1.23 X10^3/ul (0.83-4.51); Lymphocyte % 23.1 % (19-41); Mean Corp Hgb Conc 30.6 g/dL (32-36); Mean Corpuscular Hgb 27.9 pg (27.0-32.0); Mean Platelet Vol. 10.6 fl (6.2-12.0); Monocyte# 0.61 X10^3/uL; Monocyte% 11.4 % (0-10); NRBC Flagged by Analyzer 0 % (0-5); Neutrophil # 3.23 X10^3/uL (2.7-7.7); Neutrophil % 60.6 % (47-70); Platelet Count 364 K/mm3 (150-450); RBC Distribution Width SD 53.2 fl (35.1-43.9); Red Blood Count 3.77 M/mm3 (4.2-5.4); White Blood Count 5.3 K/mm3 (4.4-11.0)
[2024-04-26 19:44] LABS: Ferritin 14 ng/mL (22-378); Iron 50 ug/dL (50-170); Iron Binding Capacity,Total 422 ug/dL (250-450); Iron Binding Capacity,Unsat 372 ug/dL (228-428)
== END | disposition home or self-care (01) ==
LOC: BIMLAB 09:35
PROVIDERS: PCP Internal Medicine; Referring Provider Internal Medicine; Visit Provider Internal Medicine
DX: D64.9 Anemia, unspecified (principal)
CPT/HCPCS: 36415; 82728; 83540; 83550; 85025

== ENCOUNTER 2024-05-12 08:51 | Outpatient (CLI) | payer MEDICARE, OTHER, SELFPAY ==
[2024-05-12 08:58] VITALS: BP 142/57; PULSE 65; RESP 16; TEMP 36.5; O2SAT 100
[2024-05-12] MEDS: Romosozumab-AQQG 210 MG/2.34 ML Syringe SC (09:03)
== END 2024-05-12 23:59 | disposition home or self-care (01) ==
LOC: MEDOUTP 08:52
PROVIDERS: PCP Internal Medicine; Referring Provider Internal Medicine; Visit Provider Internal Medicine
DX: M81.0 Age-related osteoporosis without current pathological fracture (principal)
CPT/HCPCS: 96372; J3111

== ENCOUNTER → 2024-05-29 | Outpatient (CLI) | payer MEDICARE, OTHER, SELFPAY ==
--- NOTE | 2024-05-29 10:00 | RAD_ITS ---
EXAM: RIGHT RIBS CLINICAL HISTORY: RIGHT RIB PAIN COMPARISON: NO RELEVANT PRIOR. TECHNIQUE: PA CHEST AND THREE (3) VIEWS OF THE RIGHT RIBS. FINDINGS: No fractures. No osteoblastic or osteolytic lesions. Adjacent lung and pleura appear normal. No active cardiopulmonary disease. Marked scoliosis. Osteopenia. RAD/Ribs Uni Min 3V w/PA Chest IMPRESSION: 1. No acute osseous abnormalities involving the ribs. 2. No active cardiopulmonary disease. 3. Scoliosis of the thoracolumbar spine. Reading Location: [facility]
--- NOTE | 2024-05-29 10:00 | RAD_ITS ---
PROCEDURE: KNEE 4 OR MORE VIEWS 05/29/2024 REASON FOR EXAM: LEFT KNEE PAIN TECHNIQUE: 4 view(s) of the left knee COMPARISON: None FINDINGS: Bones: No fracture. No suspicious bone lesion. Joints: Moderate degree of joint space narrowing involving the medial compartment of the knee joint and the patellofemoral joint. Effusion: No effusion. Soft tissues: Vascular calcification of the superficial femoral artery. Other: RAD/Knee 4 or More Views IMPRESSION: DEGENERATIVE OSTEOARTHROSIS. NO ACUTE FINDINGS. Reading Location: [place] [id number]
--- NOTE | 2024-05-29 10:00 | RAD_ITS ---
PROCEDURE: SHOULDER MIN 2 VIEWS 05/29/2024 REASON FOR EXAM: RIGHT SHOULDER PAIN TECHNIQUE: Five views of the right shoulder COMPARISON: None FINDINGS: Bones: No fracture or dislocation. Joints: Degenerative changes of the acromioclavicular joint. Moderate degree of joint space narrowing of the glenohumeral joint with evidence of decreased distance between the acromion and humeral head suggestive of rotator cuff disease. Soft tissues: Soft tissues are unremarkable. Other: RAD/Shoulder min 2 Views IMPRESSION: NO ACUTE FRACTURE OR DISLOCATION. Degenerative changes as described. Reading Location: [place] [id number]
== END | disposition home or self-care (01) ==
LOC: RAD 09:30
PROVIDERS: PCP Internal Medicine; Referring Provider Internal Medicine; Visit Provider Internal Medicine
DX: R07.81 Pleurodynia (principal); M25.562 Pain in left knee; M25.511 Pain in right shoulder
CPT/HCPCS: 71101; 73030; 73564

== ENCOUNTER 2024-06-09 08:50 | Outpatient (CLI) | payer MEDICARE, OTHER, SELFPAY ==
[2024-06-09 09:05] VITALS: BP 114/51; PULSE 61; RESP 16; TEMP 36; O2SAT 99
[2024-06-09] MEDS: Romosozumab-AQQG 210 MG/2.34 ML Syringe SC (09:17)
== END 2024-06-09 23:59 | disposition home or self-care (01) ==
LOC: MEDOUTP 08:51
PROVIDERS: PCP Internal Medicine; Referring Provider Internal Medicine; Visit Provider Internal Medicine
DX: M81.0 Age-related osteoporosis without current pathological fracture (principal)
CPT/HCPCS: 96372; J3111

== ENCOUNTER 2024-07-06 09:00 | Outpatient (RCR) | payer MEDICARE, OTHER, SELFPAY ==
--- NOTE | 2024-06-06 09:55 | HP.PTEVAL ---
Patient's Visit Information Visit Information Visit Information: CHELSEA GARCIA is a 78 year old F referred to Physical Therapy by Dr. Mile Foster MD with a diagnosis of PAIN IN RIGHT SHOULDER UNILATERAL PROMARY OSTEOARTHRITIS. Date of Evaluation: 06/06/24 Physical Therapist: Basil Xavier PT, Cert MDT, OCS Visit Plan Frequency: 2x /Week Duration: 4 Weeks Plan: WEAK RTC PT INTERVENTIONS RTC/SCAPULAR STRENGTHENING ,POSTURAL EX'S ,ROM , LEFT STRENGTHENING QUADS/HAMS /HIP AND MODALITIES SHOULDER PRN Subjective Subjective: This 78 y/o female presents to physical therapy with right shoulder pain and left knee pain. Patient has right shoulder pain ~ 3 weeks and knee is better no pain. Patient had no injury insidious onset of pain .Pain described as ache. Seen DR negron PT and x-rays shoulder showed Moderate degree of joint space narrowing of the glenohumeral joint with evidence of decreased distance between the acromion and humeral head suggestive of rotator cuff disease. X-rays showed knee Moderate degree of joint space narrowing involving the medial compartment of the knee joint and the patellofemoral joint. Patient had bone density test worsen with osteoporosis. Patient pain worse win shoulder with lifting [place] ,activities lifting above 90 degrees affects housework chores. Alleviating factors rest. Denies paresthesia/tingling . Pain doesn't affects sleeping. No knee pain but aggravates with squatting and kneeling.Patient condition affects QOL and function /ADLS Patient goals no pain SOCIAL: single VOACTION:RETIRED Pain Right Shoulder: Pain Intensity (Out of 10): 2 Pain Intensity Range: 10 Objective Objective: POSTURE: mild forward posture rounded shoulders head forward GAIT: reciprocal pattern NEURO: denies paresthesia/tingling PALPATION: tender AC AROM: shoulder flexion 140 degrees ,abduction 130 degrees 90 degrees ,IR T11 MMT: ( peak force) infraspinatus 4.5 ,subscapularis 9.3 ,supraspinatus 4..2 ,deltoid 4.5 CAPSULAR RESTRICTION: mild tight AROM:knee flexion 0-125 degrees MMT: quads 4/5 hamstrings 4/5 ,ankle 5/5 Special Tests R Shoulder External Rotation Lag Test - RC Tear: Negative R Shoulder Lift Off Test - Subscapular Tear: Negative R Shoulder Drop Sign - IS Test: Negative R Shoulder Empty Can - SS: Positive R Shoulder Belly Press - SupScap: Negative R Shoulder Neer - Impingement: Positive R Shoulder Cook [place] - Impingement: Positive Balance/Special Test Scores Quick DASH Score: 90.9075 Goals Goal 1:: Patient to be I with HEP for shoulder and knee Goal Time Frame: 4-6 Weeks Goal 2:: Patient to improve AROM shoulder flexion/abduction by 5-10 degrees for ADLS and housework tasks Goal Time Frame: 4-6 Weeks Goal 3:: Patient to improve peak force RTC and deltoid by 5 # to improve function and strength Goal Time Frame: 4-6 Weeks Goal 4:: Patient to improve quick oswestry score by 5 points to improve QOL and function Goal Time Frame: 4-6 Weeks Goal 5:: Patient to demonstrate 50% improvement with less pain and improved function with ADLS Goal Time Frame: 4-6 Weeks Rehabilitation Potential Physical Therapy Diagnosis: This patient has right shoulder pain with weak RTC ,decrease ROM and pain affects ADLS and housework tasks and intermittent knee pain thus benefit from skilled PT Rehabilitation Potential: Fair Anticipated Interventions Patient/Client Instruction: Educate patient on: Condition and Plan of Care For the Purpose of:: To decrease pain, To increase ROM, To improve muscle performance and motor function, To improve ability to perform ADL's, To increase tolerance to activity/condition/position, To improve performance and independence with ADL's, To improve ability of physical actions for home/community/work/leisure, To improve gait and locomotor functions, To improve health of tissue, To decrease soft tissue restriction, To increase flexibility/ROM, To improve endurance, To improve balance and To improve tolerance to ADL's Therapeutic Exercise to Include: Strength training, Endurance training, Postural training, Flexibilty training and Active ROM Comment: RTC For the Purpose of:: To decrease pain, To increase ROM, To improve muscle performance and motor function, To improve ability to perform ADL's, To increase tolerance to activity/condition/position, To improve ability of physical actions for home/community/work/leisure, To improve health of tissue, To decrease soft tissue restriction and To increase flexibility/ROM TENS: Yes IF ES: Yes Cryotherapy (ice pack, ice massage): Yes Thermo therapy (hot pack): Yes Ultrasound (thermal/non thermal): Yes For the Purpose of:: To decrease pain, To increase ROM, To increase oxygenation perfusion, To improve muscle performance and motor function, To increase tolerance to activity/condition/position, To improve ability of physical actions for home/community/work/leisure, To improve health of tissue, To decrease soft tissue restriction and To improve tolerance to ADL's Text: Thank you for the opportunity to evaluate your patient. For Medicare and Medicare HMO plans, please review the plan of care and approve it. It will need to be FAXED BACK to us at [phone] for Medicare purposes. For Medicare only, by signing this I certify the plan of care. Please let me know if there are questions or concerns regarding this plan of care. Physician Signature: Date:
== END 2024-07-06 19:00 | disposition home or self-care (01) ==
LOC: PT 09:00
PROVIDERS: PCP Internal Medicine; Referring Provider Internal Medicine; Visit Provider Internal Medicine
DX: M25.511 Pain in right shoulder (principal); M17.12 Unilateral primary osteoarthritis, left knee
CPT/HCPCS: 97110; 97162; 97530

== ENCOUNTER 2024-07-14 08:52 | Outpatient (CLI) | payer MEDICARE, OTHER, SELFPAY ==
[2024-07-14 08:59] VITALS: BP 123/37; PULSE 63; RESP 16; TEMP 35.8
[2024-07-14] MEDS: Romosozumab-AQQG 210 MG/2.34 ML Syringe SC (09:09)
--- OUTSIDE RECORDS SUMMARY | 2024-07-14 09:53 | XMS RPT_ITS | CCD ---
Author Organization [facility] Care Team Providers Care Set Up Inspector Name Role Phone JONATHAN TAN, KELLY Carmona Primary Care Physician [phone] Care Physician, No Primary Primary Care Provider Unavailable Care Physician, No Primary Referring Provider Un available Wilner, Dr. Stout Attending Provider 1(330)- Zahira LEARNING STRATEGIST, LEARNING STRATEGIST-C Janneth Primary Care Provider U navmarlin Rodriges LEARNING STRATEGIST, LEARNING STRATEGIST-C Janneth Referring Provider Unav ailable Dr. Mile Foster Attending Provider [phone])2 Kristin, Dr. Treadwell Primary Care Provider 1(33 0) Kristin, Dr. Treadwell Referring Provider 1(330)2 Kristin, Dr. Treadwell Primary Care Provider 1(33 0) Kristin, Dr. Treadwell Attending Provider 1(330)2 Dr. Mile Foster Referring Provider 1(330)2 Dr. Mile Foster Primary Care Provider 1(33 0) Dr. Mile Foster Attending Provider 1(330)2 Dr. Mile Foster Referring Provider 1(330)2 Dr. Mile Foster Primary Care Provider 1(33 0) Dr. Mile Foster Attending Provider 1(330)2 Kristin, Dr. Treadwell Referring Provider 1(330)2 Dr. Mile Foster Primary Care Provider 1(33 0) Kristin, Dr. Treadwell Attending Provider Kristin, Dr. Treadwell Referring Provider [phone])2 Sarai Santiago Attending Provider Unavailable Kristin, Dr. Treadwell Primary Care Provider 1(33 0) Kristin, Dr. Treadwell Attending Provider 1(330)2 Kristin, Dr. Treadwell Referring Provider 1(330)2 Kristin, Dr. Treadwell Primary Care Provider 1(33 0) Kristin, Dr. Treadwell Attending Provider 1(330)2 Kirstin, Dr. Treadwell Referring Provider 1(330)2 Kristin TAN, Dr. Treadwell Primary Care Provider Kristin TAN, Dr. Treadwell Referring Provider 1(33 0) Marcelle TAN, Dr. Cotto Attending Provider Kristin TAN, Dr. Treadwell Attending Provider 1(33 0) Kristin TAN, Dr. Treadwell Primary Care Provider Kristin TAN, Dr. Treadwell Attending Provider 1(33 0) Kristin TAN, Dr. Treadwell Referring Provider 1(33 0) Marcelle TAN, Dr. Cotto Attending Provider Kirti Ibanez Attending Unavailable Oleghe, Efewongbe Referring Unavailable Oleghe, Efewongbe Primary Care Unavailable Oleghe, Efewongbe Referring Unavailable Oleghe, Efewongbe Attending Unavailable Oleghe, Efewongbe Primary Care Unavailable Oleghe, Efewongbe Referring Unavailable Oleghe, Efewongbe Attending Unavailable Oleghe, Efewongbe Primary Care Unavailable Oleghe, Efewongbe Referring Unavailable Oleghe, Efewongbe Primary Care Unavailable NURSE, [facility] Attending Unavailable Oleghe, Efewongbe Referring Unavailable Oleghe, Efewongbe Attending Unavailable Oleghe, Efewongbe Primary Care Unavailable Oleghe, Efewongbe Referring Unavailable Oleghe, Efewongbe Attending Unavailable Oleghe, Efewongbe Primary Care Unavailable Oleghe, Efewongbe Referring Unavailable Oleghe, Efewongbe Primary Care Unavailable Jessica Conklin Attending Unavailable Oleghe, Efewongbe Referring Unavailable Oleghe, Efewongbe Attending Unavailable Oleghe, Efewongbe Primary Care Unavailable Kirti Ibanez Attending Unavailable Oleghe, Efewongbe Referring Unavailable Oleghe, Efewongbe Primary Care Unavailable Oleghe, Efewongbe Referring Unavailable Oleghe, Efewongbe Attending Unavailable Oleghe, Efewongbe Primary Care Unavailable Oleghe, Efewongbe Referring Unavailable Oleghe, Efewongbe Attending Unavailable Oleghe, Efewongbe Primary Care Unavailable Oleghe, Efewongbe Attending Unavailable Oleghe, Efewongbe Referring Unavailable Oleghe, Efewongbe Primary Care Unavailable Oleghe, Efewongbe Referring Unavailable Oleghe, Efewongbe Attending Unavailable Oleghe, Efewongbe Primary Care Unavailable Oleghe, Efewongbe Referring Unavailable Oleghe, Efewongbe Attending Unavailable Oleghe, Efewongbe Primary Care Unavailable Oleghe, Efewongbe Referring Unavailable Oleghe, Efewongbe Primary Care Unavailable NURSE, [facility] Attending Unavailable Oleghe, Efewongbe Attending Unavailable Oleghe, Efewongbe Referring Unavailable Oleghe, Efewongbe Primary Care Unavailable Oleghe, Efewongbe Referring Unavailable Oleghe, Efewongbe Attending Unavailable Oleghe, Efewongbe Primary Care Unavailable Oleghe, Efewongbe Referring Unavailable Oleghe, Efewongbe Attending Unavailable Oleghe, Efewongbe Primary Care Unavailable Oleghe, Efewongbe Referring Unavailable Oleghe, Efewongbe Attending Unavailable Oleghe, Efewongbe Primary Care Unavailable Oleghe, Efewongbe Referring Unavailable Oleghe, Efewongbe Attending Unavailable Oleghe, Efewongbe Primary Care Unavailable Oleghe, Efewongbe Referring Unavailable Oleghe, Efewongbe Primary Care Unavailable NURSE, [facility] Attending Unavailable Oleghe, Efewongbe Referring Unavailable Oleghe, Efewongbe Attending Unavailable Oleghe, Efewongbe Primary Care Unavailable Oleghe, Efewongbe Referring Unavailable Oleghe, Efewongbe Attending Unavailable Oleghe, Efewongbe Primary Care Unavailable Oleghe, Efewongbe Attending Unavailable Oleghe, Efewongbe Referring Unavailable Oleghe, Efewongbe Primary Care Unavailable Oleghe, Efewongbe Attending Unavailable Oleghe, Efewongbe Referring Unavailable Oleghe, Efewongbe Primary Care Unavailable Oleghe, Efewongbe Attending Unavailable Oleghe, Efewongbe Referring Unavailable Oleghe, Efewongbe Primary Care Unavailable Oleghe, Efewongbe Primary Care Unavailable Oleghe, Efewongbe Attending Unavailable Oleghe, Efewongbe Referring Unavailable Oleghe, Efewongbe Referring Unavailable Oleghe, Efewongbe Attending Unavailable Oleghe, Efewongbe Primary Care Unavailable Smith Chamberlain Attending Unavailable Oleghe, Efewongbe Primary Care Unavailable Oleghe, Efewongbe Referring Unavailable Oleghe, Efewongbe Attending Unavailable Oleghe, Efewongbe Primary Care Unavailable Oleghe, Efewongbe Referring Unavailable Oleghe, Efewongbe Attending Unavailable Oleghe, Efewongbe Primary Care Unavailable Oleghe, Efewongbe Attending Unavailable Oleghe, Efewongbe Referring Unavailable Oleghe, Efewongbe Primary Care Unavailable Oleghe, Efewongbe Attending Unavailable Oleghe, Efewongbe Referring Unavailable Oleghe, Efewongbe Primary Care Unavailable Oleghe, Efewongbe Referring Unavailable Jessica Conklin Attending Unavailable Oleghe, Efewongbe Primary Care Unavailable Oleghe, Efewongbe Referring Unavailable Oleghe, Efewongbe Primary Care Unavailable Jessica Conklin Attending Unavailable Oleghe, Efewongbe Referring Unavailable Oleghe, Efewongbe Attending Unavailable Oleghe, Efewongbe Primary Care Unavailable Monty Cordoba Attending Unavailable Oleghe, Efewongbe Referring Unavailable Oleghe, Efewongbe Primary Care Unavailable Allergies Allergy Classification Reported Allergen(s) Allergy Type Date of Onset Reaction(s) Facility (18 sources) Cephalexin; Translations: [cephalexin] Drug Allergy 2 [facility] (18 sources) HYDROmorphone; Translations: [hydromorphone] Drug Allergy 2 Comatose, Other [facility] (1 source) iron polysaccharide; Translations: [iron polysaccharide] Drug Allergy Diarrhea (finding) [facility] (17 sources) oxaprozin; Translations: [oxaprozin] Drug Allergy 2 Abdominal pain (finding) [facility] (18 sources) Promethazine; Translations: [promethazine] Drug Allergy 2 Dizziness (finding) [facility] (16 sources) Iron Drug Allergy 2 Diarrhea [facility] (1 source) Cephalexin Drug Allergy 5 [facility] (1 source) HYDROmorphone Drug Allergy 5 [facility] (1 source) Iron Drug Allergy 5 [facility] (1 source) oxaprozin Drug Allergy 5 [facility] (1 source) Promethazine Drug Allergy 5 [facility] Medications Current Medications Medication Drug Class(es) Dates Sig (Normalized) Sig (Original) ascorbic acid 113 mg / beta carotene 7160 mg / cuprous oxide 0.4 mg / dl-alpha tocopheryl acetate 100 unt / zinc oxide 17.4 mg oral tablet (4 sources) Vitamin C Start: 11-12-2023 Vitamins A,C,F-Ylwo-Scvdch (Eye Multivitamin) 2,148 mcg-113 mg-45 mg-17.4mg tablet Active 2 {tbl} PO TWICE A DAY November 12, 2023 12:00am administer with AM and PM meals Start: 12-30-2015 take 1 tablet by kyleigh th twice daily PreserVision 1 tab, Oral, BID, 0 Refill(s) Start Date: 12/30/15 Status: Ordered Calcium (1 source) Phosphate Binder, Calcium Start: 02-27-2015 Calcium 500+D Dose = 1 tab(s), Chewed, BID, 0 Refill(s) Start Date: 02/27/15 Status: Ordered calcium ascorbate 500 mg oral tablet (17 sources) Start: 07-28-2017 take 1 tablet by mouth once daily Ascorbate Calcium (Vitamin C) 500 mg tablet Active 500 mg PO daily July 28, 2017 12:00am calcium carbonate 800 mg / famotidine 10 mg / magnesium hydroxide 165 mg chewable tablet (17 sources) Histamine-2 Receptor Antagonist Start: 07-28-2017 Famotidine-Ca Carb-Mag Hydrox (Pepcid Complete) 10-800-165 mg tablet,chewable Active 1 {tbl} PO TWICE A DAY July 28, 2017 12:00am Daily Multi (1 source) Start: 02-27-2015 take 1 tablet by mouth once daily Daily Multi Dose = 1 tab(s), Oral, qDay, 0 Refill(s) Start Date: 02/27/15 Status: Ordered diazePAM 2 mg oral tablet (20 sources) Benzodiazepine Start: 07-23-2023 take 1 tablet by mouth three times daily as needed for dizziness Diazepam (Valium) 2 mg tablet Active 2 mg PO THREE TIMES A DAY as needed for dizziness or vertigo July 23, 2023 12:00am Start: 08-19-2021 End: 09-15-2021 take 1 tablet by mouth three times daily as needed for dizziness Diazepam (Valium) 2 mg tablet Discontinued 2 mg PO THREE TIMES A DAY as needed for dizziness or vertigo August 19, 2021 12:00am September 15, 2021 10:04am Famotidine (1 source) Histamine-2 Receptor Antagonist Start: 02-27-2015 Pepcid 0 Refill(s) Start Date: 02/27/15 Status: Ordered ferrous sulfate 325 mg oral tablet (20 sources) Start: 05-12-2024 take 1 tablet by mouth once daily Ferrous Sulfate (Ferosul) 325 mg (65 mg iron) tablet Active 325 mg PO DAILY May 12, 2024 12:00am Start: 07-28-2017 End: 11-12-2023 Ferrous Sulfate (Ferosul) 22 0 mg (44 mg iron)/5 mL elixir Discontinued 220 mg PO As Directed September 15, 2021 10:04am November 12, 2023 9:24am every 3 days Start: 02-27-2015 ferrous sulfat e Oral, 0 Refill(s) Start Date: 02/27/15 Status: Ordered Handicap Placard (9 sources) Start: 06-29-[address] Active 0 .ROUTE .MEDSUPPLY June 28, 2022 11:00pm As directed, length of time 3 years Start: 06-29-[address] Active 0 .ROUTE .MEDSUPPLY June 29, 2022 12:00am As directed, length of time 3 years hydrocortisone 25 mg/ml topical cream (4 sources) Corticosteroid Start: 05-12-2023 Hydrocortisone 2.5 % cream with perineal applicator Active 1 NMA RC 2 to 4 times per day as needed for hemorrhoids May 12, 2023 12:00am meclizine hydrochloride 25 mg oral tablet (20 sources) Antiemetic Start: 07-22-2023 End: 12-01-2023 take 1 tablet by mouth once daily as needed for dizziness Meclizine 25 mg tablet Active 25 mg PO DAILY as needed for dizziness December 01, 2023 12:49pm Start: 11-04-2022 End: 07-22-2023 take 1 tablet by mouth three times daily as needed for dizziness Meclizine 25 mg tablet Discontinued 25 mg PO THREE TIMES A DAY as needed for dizziness December 24, 2022 6:17pm July 22, 2023 11:48pm Start: 09-15-2021 End: 11-04-2022 take 1 tablet by mouth three times daily as needed for dizziness Meclizine 12.5 mg tablet Discontinued 12.5 mg PO THREE TIMES A DAY as needed for dizziness December 22, 2021 11:23am November 04, 2022 10:05pm [facility] Medication (1 source) Start: 10-17-2018 [facility] Medicatio n VSL #3 1 in am and 1 at dinner time, 0 Refill(s) Start Date: 10/17/18 Status: Ordered Romosozumab-Aqqg (16 sources) Start: 10-22-2023 Romosozumab-Aq qg (Evenity) 210mg/2.34mL ( 105mg/1.17mLx2) syringe Active 210 mg SC EVERY MONTH 28.08 360 October 22, 2023 12:00am October 15, 2024 12:00am Start: 10-22-2023 Romosozumab-Aq qg (Evenity) 210mg/2.34mL ( 105mg/1.17mLx2) syringe Active 210 mg SC EVERY MONTH 28.08 360 October 21, 2023 11:00pm October 14, 2024 11:00pm Start: 10-07-2021 End: 12-22-2021 Romosozumab-Aqqg (Evenity) 1 05 mg/1.17 mL syringe Discontinued 210 mg SC EVERY MONTH 28.08 360 October 07, 2021 12:00am October 01, 2022 12:00am December 22, 2021 11:05am vitamin b12 1 mg/ml injectable solution (20 sources) Vitamin B12 Start: 11-09-2022 Cyanocobalamin (Vitamin B-12) 1,000 mcg/mL solution Active 1000 ug SC EVERY MONTH November 09, 2022 9:48am To receive at [facility]. Start: 11-09-2022 Cyanocobalamin (Vitamin B-12) Active 1000 MCG SC EVERY MONTH November 09, 2022 9:48am To receive at [facility]. Start: 09-15-2021 End: 11-09-2022 Cyanocobalamin (Vitamin B-12 ) 1,000 mcg/mL solution Discontinued 1000 ug SC every 2 months September 15, 2021 12:00am November 09, 2022 9:50am To receive at [facility]. Start: 09-15-2021 End: 11-09-2022 Cyanocobalamin (Vitamin B-12 ) Discontinued 1000 MCG SC every 2 months September 15, 2021 12:00am November 09, 2022 9:50am To receive at [facility]. Vitamins A,C,M-Cuzs-Dhffdw (14 sources) Start: 2018 Vitamins A,C,E -Zinc-Copper Active 1 EACH PO DAILY November 09, 2018 11:00pm Start: 2018 Vitamins A,C,E -Zinc-Copper Active 1 EACH PO DAILY 2018 12:00am VSL#3 DS oral powder for reconstitution (1 source) Start: 08-17-2019 VSL#3 DS oral powder for reconstitution 0 Refill(s) Start Date: 08/17/19 Status: Ordered Completed/Discontinued Medications Medication Drug Class(es) Dates Sig (Normalized) Sig (Original) alendronic acid 70 mg oral tablet (9 sources) Bisphosphonate Start: 04-27-2022 End: 10-22-2023 take 1 tablet by mouth every week Alendronate 70 mg tablet Discontinued 70 mg PO EVERY WEEK April 27, 2022 12:00am October 22, 2023 10:32am amLODIPine 10 mg oral tablet (20 sources) Dihydropyridine Calcium Channel Leyda Start: 06-29-2022 End: 12-23-2023 take 1 tablet by mouth once daily Amlodipine 10 mg tablet Discontinued 10 mg PO DAILY March 22, 2023 5:34pm December 23, 2023 10:36am Start: 09-22-2021 End: 06-29-2022 take 1 tablet by mouth once daily Amlodipine 5 mg tablet Discontinued 5 mg PO DAILY December 22, 2021 11:23am June 29, 2022 9:48am ascorbic acid 500 mg oral tablet (18 sources) Vitamin C Start: 07-28-2017 End: 09-02-2021 take 1 tablet by mouth once daily Ascorbic Acid (Vitamin C) 500 mg tablet Discontinued 500 mg PO daily July 28, 2017 12:00am September 02, 2021 9:41am Start: 12-30-2015 Vitamin C Oral , qDay, 0 Refill(s) Start Date: 12/30/15 Status: Ordered atropine sulfate 0.025 mg / diphenoxylate hydrochloride 2.5 mg oral tablet (20 sources) Anticholinergic, Cholinergic Muscarinic Antagonist, Antidiarrheal Start: 12-10-2021 End: 03-01-2024 Diphenoxylate-Atropine (Lomotil) 2.5-0.025 mg tablet Discontinued 1 {tbl} PO TWICE A DAY as needed for diarrhea December 01, 2023 12:50pm March 01, 2024 9:59am Start: 02-20-2021 End: 04-21-2021 take 1 tablet by mouth twice daily atropine-diphenoxylate 0.025 mg-2.5 mg oral tablet 1 tab(s), Oral, BID, TAKE 1 TABLET BY MOUTH TWICE DAILY, X 30 day(s), # 60 tab(s), 1 Refill(s), 03/14/22 9:16:00 EDT, Pharmacy: [id number], 150, cm, 12/19/20 13:14:00 EST, Height, 49.7, kg, 02/20/21 8:51:00 EST, Dosing Weight Start Date: 02/20/21 Stop Date: 04/21/21 Status: Ordered Start: 04-22-2020 atropine-diphe noxylate 0.025 mg-2.5 mg oral tablet 0 Refill(s), 49 Start Date: 02/20/21 Status: Ordered Start: 2018 End: 12-10-2021 take 2.5 mg by mouth twice daily Lomotil Discontinued 2.5 mg PO TWICE A DAY 2018 12:00am December 10, 2021 10:16am Start: 2018 End: 12-10-2021 take 2.5 mg by mouth twice daily Lomotil Discontinued 2.5 mg PO TWICE A DAY November 09, 2018 11:00pm December 10, 2021 9:16am Start: 2018 End: 12-10-2021 take 2.5 mg by mouth twice daily Lomotil Discontinued 2.5 MG PO TWICE A DAY 2018 12:00am December 10, 2021 10:16am Start: 2018 End: 12-10-2021 take 2.5 mg by mouth twice daily Lomotil Discontinued 2.5 MG PO TWICE A DAY November 09, 2018 11:00pm December 10, 2021 9:16am Start: 2018 take 2.5 mg by mouth twice daily Lomotil Active 2.5 MG PO TWICE A DAY 2018 12:00am cholecalciferol 1.25 mg oral capsule (20 sources) Vitamin D Start: 10-07-2021 End: 11-12-2023 take 1 capsule by mouth every week Cholecalciferol (Vitamin D3) 1,250 mcg (50,000 unit) capsule Discontinued 1250 ug PO EVERY WEEK June 24, 2023 11:40am November 12, 2023 9:23am Lactobac 2-Bifido 1-S. Therm (Visbiome) 112.5 billion cell capsule (16 sources) Start: 09-15-2021 End: 10-07-2021 take 2 capsules by mouth twice daily Lactobac 2-Bifido 1-S. Therm (Visbiome) 112.5 billion cell capsule Discontinued 1 NMA PO TWICE A DAY September 15, 2021 12:00am October 07, 2021 2:09pm Start: 09-15-2021 End: 10-07-2021 take 2 capsules by mouth twice daily Lactobac 2-Bifido 1-S. Therm (Visbiome) 112.5 billion cell capsule Discontinued 1 NMA PO TWICE A DAY September 14, 2021 11:00pm October 07, 2021 1:09pm Start: 09-15-2021 End: 10-07-2021 take 2 capsules by mouth twice daily Lactobac 2-Bifido 1-S. Therm (Visbiome) 112.5 billion cell capsule Discontinued 1 CAP PO TWICE A DAY September 14, 2021 11:00pm October 07, 2021 1:09pm Start: 09-15-2021 End: 10-07-2021 take 2 capsules by mouth twice daily Lactobac 2-Bifido 1-S. Therm (Visbiome) 112.5 billion cell capsule Discontinued 1 CAP PO TWICE A DAY September 15, 2021 12:00am October 07, 2021 2:09pm Start: 09-15-2021 take 2 capsules by m outh twice daily Lactobac 2-Bifido 1-S. Therm (Visbiome) 112.5 billion cell capsule Active 1 CAP PO TWICE A DAY September 15, 2021 12:00am lisinopril 30 mg oral tablet (20 sources) Angiotensin Converting Enzyme Inhibitor Start: 09-15-2021 End: 06-24-2023 take 1 tablet by mouth once daily Lisinopril 30 mg tablet Discontinued 30 mg PO DAILY June 29, 2022 9:48am June 24, 2023 11:41am Start: 12-19-2020 lisinopril 30 mg oral tablet Dose : 30 mg = 1 tab(s), Oral, qDay, # 90 tab(s), 3 Refill(s), Pharmacy: [id number], 150, cm, 12/19/20 13:14:00 EST, Height, kg, 12/19/20 13:14:00 EST, Dosing Weight Start Date: 12/19/20 Status: Ordered Start: 07-28-2017 End: 09-15-2021 take 2 tablets by mouth once daily Lisinopril 5 mg tablet Discontinued 10 mg PO daily July 28, 2017 12:00am September 15, 2021 10:13am Start: 07-28-2017 End: 09-15-2021 take 10 mg by mouth once daily Lisinopril Discontinued 10 MG PO daily July 28, 2017 12:00am September 15, 2021 10:13am ondansetron 4 mg disintegrating oral tablet (20 sources) Serotonin-3 Receptor Antagonist Start: 07-23-2023 End: 01-28-2024 take 1 tablet by mouth three times daily as needed for nausea and vomiting Ondansetron 4 mg tablet,disintegrating Discontinued 4 mg PO THREE TIMES A DAY as needed for nausea and vomiting July 23, 2023 1:16am January 28, 2024 9:51am Start: 08-19-2021 End: 05-12-2023 take 1 tablet by mouth three times daily as needed for nausea and vomiting Ondansetron 4 mg tablet,disintegrating Discontinued 4 mg PO 3 TIMES DAILY NEEDED as needed for nausea and vomiting August 19, 2021 5:49am May 12, 2023 9:24am Vitamins A,C,O-Gpew-Xjycys 1 EACH capsule (3 sources) Start: 2018 End: 11-12-2023 take 1 capsule by mouth once daily Vitamins A,C,W-Pdzo-Fzekrf 1 EACH capsule Discontinued 1 NMA PO DAILY 2018 12:00am November 12, 2023 9:25am Start: 2018 End: 11-12-2023 take 1 capsule by mouth once daily Vitamins A,C,N-Cdke-Ezwmmy 1 EACH capsule Discontinued 1 NMA PO DAILY November 09, 2018 11:00pm November 12, 2023 8:25am Problems Active Problems Problem Classification Problem Date Documented Da te Episodic/Chronic Conduction disorders (17 sources) Right bundle branch block; Translations: [Unspecified right bundle-branch block] 02-27-2015 Chronic Deficiency and other anemia (20 sources) Anemia; Translations: [Anemia, unspecified] 04-20-2019 Episodic Deficiency and other anemia (1 source) Anemia, unspecified; Translations: [Anemia, unspecified] Onset: Episodic Diverticulosis and diverticulitis (1 source) Diverticulitis 02-27-2015 Chronic E Codes: Fall (17 sources) Fall; Translations: [Unspecified fall, initial encounter] 02-09-2020 Episodic Esophageal disorders (17 sources) Gastroesophageal reflux disease; Translations: [Gastro-esophageal reflux disease without esophagitis] 04-20-2019 Chronic Essential hypertension (20 sources) Hypertensive disorder; Translations: [Essential (primary) hypertension] Onset: 4 02-27-2015 Chronic Hemorrhoids (5 sources) Hemorrhoids; Translations: [Unspecified hemorrhoids] 05-12-2023 Episodic Immunizations and screening for infectious disease (10 sources) Needs influenza immunization; Translations: [Encounter for immunization] 11-12-2022 Episodic Influenza (3 sources) Influenza; Translations: [Influenza due to unidentified influenza virus with other respiratory manifestations] 11-25-2023 Episodic Intestinal obstruction without hernia (1 source) Intestinal obstruction 02-27-2015 Episodic Nausea and vomiting (20 sources) Nausea and vomiting; Translations: [Nausea with vomiting, unspecified] 08-27-2021 Episodic Noninfectious gastroenteritis (13 sources) Chronic diarrhea; Translations: [Noninfective gastroenteritis and colitis, unspecified] 02-25-2022 Episodic Nonspecific chest pain (20 sources) Chest pain; Translations: [Chest pain, unspecified] 02-08-2020 Episodic Nutritional deficiencies (20 sources) Cobalamin deficiency; Translations: [Deficiency of other specified B group vitamins] Onset: 5 Episodic Open wounds of head; neck; and trunk (17 sources) Facial laceration ; Translations: [Laceration without foreign body of other part of head, initial encounter] 02-09-2020 Episodic Osteoarthritis (20 sources) Osteoarthritis; Translations: [Unspecified osteoarthritis, unspecified site] Onset: 5 08-17-2019 Chronic Osteoporosis (20 sources) Osteoporosis; Translations: [Age-related osteoporosis without current pathological fracture] Onset: 5 02-27-2015 Chronic Other acquired deformities (17 sources) Scoliosis deformity of spine; Translations: [Scoliosis, unspecified] 2018 Chronic Other acquired deformities (5 sources) Scoliosis, unspecified; Translations: [Scoliosis [and kyphoscoliosis], idiopathic] Chronic Other bone disease and musculoskeletal deformities (20 sources) Segmental and somatic dysfunction; Translations: [Segmental and somatic dysfunction of lumbar region] 09-02-2021 Episodic Other bone disease and musculoskeletal deformities (16 sources) Cervical segmental dysfunction; Translations: [Segmental and somatic dysfunction of cervical region] 09-02-2021 Episodic Other bone disease and musculoskeletal deformities (5 sources) Segmental and somatic dysfunction of lumbar region; Translations: [Nonallopathic lesions, lumbar region] Episodic Other bone disease and musculoskeletal deformities (5 sources) Segmental and somatic dysfunction of pelvic region; Translations: [Nonallopathic lesions, pelvic region] Episodic Other bone disease and musculoskeletal deformities (5 sources) Segmental and somatic dysfunction of thoracic region; Translations: [Nonallopathic lesions, thoracic region] Episodic Other connective tissue disease (16 sources) Cramp; Translations: [Cramp and spasm] 09-15-2021 Episodic Other ear and sense organ disorders (3 sources) Tinnitus; Translations: [Tinnitus, unspecified ear] 07-31-2023 Episodic Other gastrointestinal disorders (17 sources) Irritable bowel syndrome; Translations: [Irritable bowel syndrome without diarrhea] 08-17-2019 Chronic Other gastrointestinal disorders (16 sources) Personal history of other diseases of the digestive system; Translations: [History of small bowel obstruction] 09-15-2021 Episodic Other gastrointestinal disorders (13 sources) Diarrhea; Translations: [Diarrhea, unspecified] 12-10-2021 Episodic Other injuries and conditions due to external causes (17 sources) Injury of head; Translations: [Unspecified injury of head, initial encounter] 02-09-2020 Episodic Other lower respiratory disease (1 source) Pleurodynia; Translations: [Pleurodynia] Onset: 5 Episodic Other nervous system disorders (16 sources) Disturbance in speech; Translations: [Unspecified speech disturbances] 09-15-2021 Episodic Other non-traumatic joint disorders (2 sources) Pain in right shoulder; Translations: [Pain in right shoulder] Onset: Episodic Other screening for suspected conditions (not mental disorders or infectious disease) (20 sources) Patient encounter status; Translations: [Encounter for screening mammogram for malignant neoplasm of breast] 09-15-2021 Episodic Other skin disorders (9 sources) Trachyonychia; Translations: [Nail dystrophy] 06-29-2022 Episodic Other skin disorders (2 sources) Nail dystrophy; Translations: [Other specified diseases of nail] 06-29-2022 Episodic Residual codes; unclassified (3 sources) Driving fitness status; Translations: [Other specified personal risk factors, not elsewhere classified] 10-27-2023 Episodic Retinal detachments; defects; vascular occlusion; and retinopathy (16 sources) Degenerative disorder of macula ; Translations: [Unspecified macular degeneration] 09-15-2021 Chronic Spondylosis; intervertebral disc disorders; other back problems (20 sources) Degeneration of lumbar intervertebral disc; Translations: [Other intervertebral disc degeneration, lumbar region] Chronic Spondylosis; intervertebral disc disorders; other back problems (20 sources) Low back pain; Translations: [Backache] 02-27-2015 Episodic Unclassified (1 source) Low back pain, unspecified; Translations: [Low back pain, unspecified] Onset: Past or Other Problems Problem Classification Problem Date Documented Da te Episodic/Chronic Conditions associated with dizziness or vertigo (20 sources) Peripheral vertigo; Translations: [Other peripheral vertigo, unspecified ear] Onset: 07-23-2023 08-27-2021 Episodic Results Test Name Value Interpretation Reference Range Facility Office Visit Reporton [address] [facility] [address] [place] [address] OFFICE VISIT Date of Service: 07/12/24 MR#: [id number] Acct: [id number] Patient: CHELSEA GARCIA Rep #: [id number] : 1945 Provider: ARTIS NURSE Age/Sex: 78/F Location[place] [facility] Status: Signed Intake Vital Signs 06/09/24 09:05 Height 4 ft 9 in BP 114/51 L Position Sitting Respiration 16 Pulse 61 Temp 96.8 F L Temp Source Temporal Pulse Oximetry (%) 99 Intake Visit Reasons: B12 Chief Complaint: evenity Allergies promethazine (From Phenergan) Allergy (Severe, Verified 05/29/24 08:48) Swelling cephalexin Allergy (Verified 05/29/24 08:48) Diarrhea hydromorphone (From Dilaudid) Allergy (Verified 05/29/24 08:48) Other iron Adverse Reaction (Intermediate, Verified 05/29/24 08:48) Diarrhea oxaprozin Adverse Reaction (Intermediate, Verified 05/29/24 08:48) Nausea Have you fallen in the past year?: No Office Meds cyanocobalamin (vitamin B-12) 1,000 mcg/mL injection solution Performing Provider: Mile Foster MD Performing Location: [facility] Administered by: Mandy Whatley LPN on 07/12/24 09:04 Dose Route Admin Location Dispensed Lot Number Expiration Date NDC Van ufacturer 1,000 mcg IM Right deltoid 1 mL [id number] 05/08/26 98704-859-60 JOSUVMargarette THERA Comments: pt presented to office for monthly B12 injection pt requested right deltoid for injection. pt tolerated well Assessment and Plan Assessment and Plan (1) Vitamin B12 deficiency: Status: Chronic Orders: Orders Vitamin B12 Today E53.8 - Deficiency of other specified B group vitamins Plan Details Goals Barriers: Goals Decrease pain Decrease spasm Improve ROM Barriers Scoliosis DDD Clinical Quality Measures Falls Risk Screening/Assistive Devices Have you fallen in the past year?: No 07/12/24 1452 Date Mile Foster MD Cosigner Signature: Date (if applicable) CC: Normal [facility] Office Visit Reporton 2024 Office Visit Report [facility] [address] [place] [address] OFFICE VISIT Date of Service: 06/14/24 MR#: [id number] Acct: [id number] Patient: CHELSEA GARCIA Rep #: [id number] : 1945 Provider: ARTIS NURSE Age/Sex: 78/F Location: [facility] Status: Signed Intake Vital Signs 05/12/24 08:58 06/09/24 09:05 Height 4 ft 9 in 4 ft 9 in Intake Visit Reasons: B12 Chief Complaint: evenity Allergies promethazine (From Phenergan) Allergy (Severe, Verified 05/29/24 08:48) Swelling cephalexin Allergy (Verified 05/29/24 08:48) Diarrhea hydromorphone (From Dilaudid) Allergy (Verified 05/29/24 08:48) Other iron Adverse Reaction (Intermediate, Verified 05/29/24 08:48) Diarrhea oxaprozin Adverse Reaction (Intermediate, Verified 05/29/24 08:48) Nausea Have you fallen in the past year?: No Office Meds cyanocobalamin (vitamin B-12) 1,000 mcg/mL injection solution Performing Provider: Mile Foster MD Performing Location: [facility] Administered by: Monika Paula on 06/14/24 09:44 Dose Route Admin Location Dispensed Lot Number Expiration Date [facility] Man ufacturer 1,000 mcg IM juan 1 mL [id number] 07/09/25 98091-410-84 VITRUVELAINE THERA Assessment and Plan Assessment and Plan (1) Vitamin B12 deficiency: Status: Chronic Orders: Orders Vitamin B12 Today E53.8 - Deficiency of other specified B group vitamins Plan Details Goals Barriers: Goals Decrease pain Decrease spasm Improve ROM Barriers Scoliosis DDD Clinical Quality Measures Falls Risk Screening/Assistive Devices Have you fallen in the past year?: No 06/14/24 1328 Date Mile Foster MD Cosigner Signature: Date (if applicable) CC: BIM NURSE Normal [facility] Inital Evaluation (1) - PTon 06-06-2024 Inital Evaluation (1) - PT [facility] Physical Therapy Health[address] [place] [address] / REHABILITATION SERVICES INITIAL EVALUATION MR#: [id number] Acct: [id number] Name: CHELSEA GARCIA Rep #: [id number] : 1945 78 From: Basil Xavier PT, Cert. MD Grace, OCS Referring Dr.: Dr. Mile Foster MD Status: REG RCR Insurance: MEDICARE PART A B [facility] Patient's Visit Information Visit Information Visit Information: CHELSEA GARCAI is a 78 year old F referred to Physical Therapy by Dr. Mile Foster MD with a diagnosis of PAIN IN RIGHT SHOULDER UNILATERAL PROMARY OSTEOARTHRITIS. Date of Evaluation: 06/06/24 Physical Therapist: Basil Xavier PT, Cert T, OCS Visit Plan Frequency: 2x /Week Duration: 4 Weeks Plan: WEAK RTC PT INTERVENTIONS RTC/SCAPULAR STRENGTHENING ,POSTURAL EX'S ,ROM , LEFT STRENGTHENING QUADS/HAMS /HIP AND MODALITIES SHOULDER PRN Subjective Subjective: This 78 y/o female presents to physical therapy with right shoulder pain and left knee pain. Patient has right shoulder pain 3 weeks and knee is better no pain. Patient had no injury insidious onset of pain .Pain described as ache. Seen DR negron PT and x-rays shoulder showed Moderate degree of joint space narrowing of the glenohumeral joint with evidence of decreased distance between the acromion and humeral head suggestive of rotator cuff disease. X-rays showed knee Moderate degree of joint space narrowing involving the medial compartment of the knee joint and the patellofemoral joint. Patient had bone density test worsen with osteoporosis. Patient pain worse win shoulder with lifting [place] ,activities lifting above 90 degrees affects housework chores. Alleviating factors rest. Denies paresthesia/tingling . Pain doesn't affects sleeping. No knee pain but aggravates with squatting and kneeling.Patient condition affects QOL and function /ADLS Patient goals no pain SOCIAL: single VOACTION:RETIRED Pain Right Shoulder: Pain Intensity (Out of 10): 2 Pain Intensity Range: 10 Objective Objective: POSTURE: mild forward posture rounded shoulders head forward GAIT: reciprocal pattern NEURO: denies paresthesia/tingling PALPATION: tender AC AROM: shoulder flexion 140 degrees ,abduction 130 degrees 90 degrees ,IR T11 MMT: ( peak force) infraspinatus 4.5 ,subscapularis 9.3 ,supraspinatus 4..2 ,deltoid 4.5 CAPSULAR RESTRICTION: mild tight AROM:knee flexion 0-125 degrees MMT: quads 4/5 hamstrings 4/5 ,ankle 5/5 Special Tests R Shoulder External Rotation Lag Test - RC Tear: Negative R Shoulder Lift Off Test - Subscapular Tear: Negative R Shoulder Drop Sign - IS Test: Negative R Shoulder Empty Can - SS: Positive R Shoulder Belly Press - SupScap: Negative R Shoulder Neer - Impingement: Positive R Shoulder Cook Daune - Impingement: Positive Balance/Special Test Scores Quick DASH Score: 90.9075 Goals Goal 1:: Patient to be I with HEP for shoulder and knee Goal Time Frame: 4-6 Weeks Goal 2:: Patient to improve AROM shoulder flexion/abduction by 5-10 degrees for ADLS and housework tasks Goal Time Frame: 4-6 Weeks Goal 3:: Patient to improve peak force RTC and deltoid by 5 # to improve function and strength Goal Time Frame: 4-6 Weeks Goal 4:: Patient to improve quick oswestry score by 5 points to improve QOL and function Goal Time Frame: 4-6 Weeks Goal 5:: Patient to demonstrate 50% improvement with less pain and improved function with ADLS Goal Time Frame: 4-6 Weeks Rehabilitation Potential Physical Therapy Diagnosis: This patient has right shoulder pain with weak RTC ,decrease ROM and pain affects ADLS and housework tasks and intermittent knee pain thus benefit from skilled PT Rehabilitation Potential: Fair Anticipated Interventions Patient/Client Instruction: Educate patient on: Condition and Plan of Care For the Purpose of:: To decrease pain, To increase ROM, To improve muscle performance and motor function, To improve ability to perform ADL's, To increase tolerance to activity/condition/p osition, To improve performance and independence with ADL's, To improve ability of physical actions for home/community/work/ leisure, To improve gait and locomotor functions, To improve health of tissue, To decrease soft tissue restriction, To increase flexibility/ROM, To improve endurance, To improve balance and To improve tolerance to ADL's Therapeutic Exercise to Include: Strength training, Endurance training, Postural training, Flexibilty training and Active ROM Comment: RTC For the Purpose of:: To decrease pain, To increase ROM, To improve muscle performance and motor function, To improve ability to perform ADL's, To increase tolerance to activity/condition/p osition, To improve ability of physical actions for home/community/work/ leisure, To improve health of tissue, To decrease soft tissue res (more content not included)... [facility] Internal Medicine Office Vis iton 05-29-2024 Internal Medicine Office Visit [facility] [address] [place] [address] [place] [address] OFFICE VISIT Date of Service: 05/29/24 MR#: [id number] Acct: [id number] Name: CHELSEA GARCIA Rep #: [id number] : 1945 Provider: Dr. 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 Is patient in pain?: Yes (R shoulder) Pain scale (1-10): 8 Allergies promethazine (From Phenergan) Allergy (Severe, Verified 05/29/24 08:48) Swelling cephalexin Allergy (Verified 05/29/24 08:48) Diarrhea hydromorphone (From Dilaudid) Allergy (Verified 05/29/24 08:48) Other iron Adverse Reaction (Intermediate, Verified 05/29/24 08:48) Diarrhea oxaprozin Adverse Reaction (Intermediate, Verified 05/29/24 08:48) Nausea Medications ???Medication ???Instructions ???Recorded ???Confirmed ???Type ascorbate calcium (vitamin C) 500 500 mg PO QDAY 07/28/17 05/29/24 History mg tablet famotidine-Ca carb-mag hydrox 10 1 tab PO BID 07/28/17 05/29/24 His tory mg-800 mg-165 mg chewable tablet (Pepcid Complete) Handicap Placard #1 ea 06/29/22 05/29/24 Rx cyanocobalamin (vitamin B-12) 1,000 mcg subcut QMONTH 11/09/22 0 05/29/24 History 1,000 mcg/mL injection solution lisinopril 30 mg tablet 30 mg PO DAILY #90 tabs 06/24/23 0 05/29/24 Rx diazepam 2 mg tablet (Valium) 2 mg PO TID PRN dizziness or 07/2205/29/24 Rx vertigo #15 tabs romosozumab-aqqg 210 mg/2.34 210 mg (2.34 mL) subcut QMONTH 12 10/22/23 05/29/24 Rx mL(105 mg/1.17 mL x2)subcutaneous months #28.08 mL syringe (Evenity) vitamins A,C,C-famt-sfiapo 2,148 2 tab PO BID 11/12/23 05/29/24 His tory mcg-113 mg-45 mg-17.4 mg tablet (Eye Multivitamin) meclizine 25 mg tablet 25 mg PO DAILY PRN dizziness #90 1 05/29/24 Rx tabs amlodipine 10 mg tablet 10 mg PO DAILY #90 tabs 12/23/23 0 05/29/24 Rx diphenoxylate-atropi ne 2.5 1 tab PO BID PRN diarrhea #180 tab s 03/01/24 05/29/24 Rx mg-0.025 mg tablet (Lomotil) diclofenac sodium 1 % topical gel 4 g topical TID PRN pain #100 gra ms 05/29/24 05/29/24 Rx (Arthritis Pain (diclofenac)) ferrous sulfate 325 mg (65 mg 325 mg PO Q OTHER DAY 05/29/24 History iron) tablet (FeroSul) Have you fallen in the past year?: No [facility] Medical History (Updated 05/29/24 @ 09:[address] Mile Fsoter MD) Right shoulder pain Rib pain on right side Driving safety issue Hemorrhoid BPPV (benign paroxysmal positional vertigo) Iron deficiency anemia Chronic diarrhea Hernia Normal colonoscopy GERD (gastroesophageal reflux disease) Hypertension Hypertension GI bleed due to NSAIDs Surgical History H/O hernia repair H/O exploratory laparotomy History of laryngoscopy S/P partial colectomy Family History Other Breast cancer Cancer Hypertension Melanoma Social History Smoking Status: Never smoker alcohol intake: never substance use type: does not use what type of physical activity do you participate in: walking frequency: 1-2 times per week HPI HPI Chief Complaint: Shoulder Pain Details: CHELSEA GARCIA, is a 78 F who presents to the office today for an acute visit. She reports a 2-week history of right-sided shoulder chest wall/rib pain. No known precipitating factor. Worse with certain movements. Has taken Tylenol which she states helps some. Chronic history of anemia with some worsening noted at last check. She states that she takes her iron every other day. She is not open to a scope. Last colonoscopy was several years ago ROS Const Constitutional: No body ache, chills, excessive sweating, fatigue, fever(s), frequent falls, headache(s), snoring, weakness, sleep problems or change in appetite Eyes Eyes: No blurry vision, change in vision, bulging eyes, floaters, visual disturbances, eye pain or Light sensitivity ENT ENT: No abnormal hearing, ear or mastoid pain, tinnitus, balance problems, nosebleed/epistaxis, nasal congestion, headache(s), neck pain or sore throat Resp Respiratory: No cough, excessive phlegm production, pain on inspiration, shortness of breath, snoring or wheezing Cardio Cardiology: No chest pain at rest, chest pain with exertion, excessive swea (more content not included)... Normal [facility] Knee 4 or More Viewson 05-29 Knee 4 or More Views [facility] Imaging Services [address] [place] [address] [id number] Knee 4 or More Views MR#: [id number] Acct: [id number] Name: CHELSEA GARCIA Rep #: [id number] : 1945 F 78 From: Savage orlando MD PCP: Dr. Mile Foster MD Status: REG CLI Study: Knee 4 or More Views Date of Exam: 05/29/24 Exam# [id number] Ordering Dr: Mile Foster MD PROCEDURE: KNEE 4 OR MORE VIEWS 05/29/2024 REASON FOR EXAM: LEFT KNEE PAIN TECHNIQUE: 4 view(s) of the left knee COMPARISON: None FINDINGS: Bones: No fracture. No suspicious bone lesion. Joints: Moderate degree of joint space narrowing involving the medial compartment of the knee joint and the patellofemoral joint. Effusion: No effusion. Soft tissues: Vascular calcification of the superficial femoral artery. Other: RAD/Knee 4 or More Views IMPRESSION: DEGENERATIVE OSTEOARTHROSIS. NO ACUTE FINDINGS. Reading Location: [place] [address] CC: Dr. Mile Foster MD [employer] Cake Decorator: Signed Normal [facility] Ribs Uni Min 3V w/PA Cheston 05-29-2024 Ribs Uni Min 3V w/PA Chest [facility] Imaging Services [address] [place] [address] [phone] Ribs Uni Min 3V w/PA Chest MR#: [id number] Acct: [id number] Name: CHELSEA GARCIA Rep #: [id number] : 1945 F 78 From: Son Richter MD PCP: Dr. Mile Foster MD Status: REG CLI Study: Ribs Uni Min 3V w/PA Chest Date of Exam: 05/29 Exam# [id number] Ordering Dr: Mile Foster MD EXAM: RIGHT RIBS CLINICAL HISTORY: RIGHT RIB PAIN COMPARISON: NO RELEVANT PRIOR. TECHNIQUE: PA CHEST AND THREE (3) VIEWS OF THE RIGHT RIBS. FINDINGS: No fractures. No osteoblastic or osteolytic lesions. Adjacent lung and pleura appear normal. No active cardiopulmonary disease. Marked scoliosis. Osteopenia. RAD/Ribs Uni Min 3V w/PA Chest IMPRESSION: 1. No acute osseous abnormalities involving the ribs. 2. No active cardiopulmonary disease. 3. Scoliosis of the thoracolumbar spine. Reading Location: [facility] CC: Dr. Mile Foster MD [employer] Cake Decorator: Signed Normal [facility] Shoulder min 2 Viewson 05-29 Shoulder min 2 Views [facility] Imaging Services [address] [place] [id number] Shoulder min 2 Views MR#: [id number] Acct: [id number] Name: CHELSEA GARCIA Rep #: [id number] : 1945 F 78 From: Savage orlando MD PCP: Dr. Mile Foster MD Status: REG CLI Study: Shoulder min 2 Views Date of Exam: 05/29/24 Exam# [id number] Ordering Dr: Mile Foster MD PROCEDURE: SHOULDER MIN 2 VIEWS 05/29/2024 REASON FOR EXAM: RIGHT SHOULDER PAIN TECHNIQUE: Five views of the right shoulder COMPARISON: None FINDINGS: Bones: No fracture or dislocation. Joints: Degenerative changes of the acromioclavicular joint. Moderate degree of joint space narrowing of the glenohumeral joint with evidence of decreased distance between the acromion and humeral head suggestive of rotator cuff disease. Soft tissues: Soft tissues are unremarkable. Other: RAD/Shoulder min 2 Views IMPRESSION: NO ACUTE FRACTURE OR DISLOCATION. Degenerative changes as described. Reading Location: [facility] CC: Dr. Mile Foster MD [employer] Cake Decorator: Signed Normal [facility] Office Visit Reporton [address] [facility] [address] [place] [address] OFFICE VISIT Date of Service: 05/16/24 MR#: [id number] Acct: [id number] Patient: CHELSEA GARCIA Rep #: [id number] : 1945 Provider: ARTIS NURSE Age/Sex: 78/F Location[place] [facility] Status: Signed Intake Vital Signs 04/14/24 10:03 05/12/24 08:58 Height 4 ft 9 in 4 ft 9 in Intake Visit Reasons: b12 Chief Complaint: evenity Allergies promethazine (From Phenergan) Allergy (Severe, Verified 05/29/24 08:48) Swelling cephalexin Allergy (Verified 05/29/24 08:48) Diarrhea hydromorphone (From Dilaudid) Allergy (Verified 05/29/24 08:48) Other iron Adverse Reaction (Intermediate, Verified 05/29/24 08:48) Diarrhea oxaprozin Adverse Reaction (Intermediate, Verified 05/29/24 08:48) Nausea Have you fallen in the past year?: No Office Meds cyanocobalamin (vitamin B-12) 1,000 mcg/mL injection solution Performing Provider: Mile Foster MD Performing Location: [facility] Administered by: Loida Mansfield MA on 05/16/24 09:35 Dose Route Admin Location Dispensed Lot Number Expiration Date [facility] Man ufacturer 1,000 mcg IM LD 1 mL [id number] 07/09/25 98904-209-07 DAVID MONET Assessment and Plan Assessment and Plan Orders: Orders Vitamin B12 05/16/24 E53.8 - Deficiency of other specified B group vitamins Plan Details Goals Barriers: Goals Decrease pain Decrease spasm Improve ROM Barriers Scoliosis DDD Clinical Quality Measures Falls Risk Screening/Assistive Devices Have you fallen in the past year?: No 06/20/24 1307 Date Monty Watts Signature: Date (if applicable) CC: Normal [facility] Absolute neutrophil countOrd ered By: Mile Foster on 04-26-2024 Neutrophils (Bld) [#/Vol] 3.2 10*3/uL 2.0-7.7 [facility] Basophil percentageOrdered B y: Mile Foster on 04-26-2024 Basophils/100 WBC (Bld) 0.9 % 0-1 [facility] CBC W/Diff, Automatedon 04-08 Absolute Lymph 1.23 X10 3/uL Normal 0.83-4.51 [facility] Comment on above: Performed By: #### L 503.3757, L503.6550, L100.0100 #### [facility] [address] [place], [address] Absolute Neut 3.2 X10 3/uL Normal 2.0-7.7 [facility] Comment on above: Performed By: #### L 503.6030, L503.6550, L100.0100 #### [facility] [address] [place], [address] Basophils/100 WBC (Bld) 0.9 % Normal 0-1 [facility] Comment on above: Performed By: #### L 503.6030, L503.6550, L100.0100 #### [facility] [address] [place], [address] Eosinophils/100 WBC (Bld) 3.6 % Normal 0-5 [facility] Comment on above: Performed By: #### L 503.6030, L503.6550, L100.0100 #### [facility] [address] [place], [address] Erythrocyte distribution width (RBC) [Ratio] 16.0 % High 11.6-14.6 [facility] Comment on above: Performed By: #### L 503.6030, L503.6550, L100.0100 #### [facility] [address] [place], [address] Hematocrit (Bld) [Volume fraction] 34.3 % Low 37-47 [facility] Comment on above: Performed By: #### L 503.6030, L503.6550, L100.0100 #### [facility] [address] [place], [address] Hemoglobin (Bld) [Mass/Vol] 10.5 g/dL Low 12.0-15.0 [facility] Comment on above: Performed By: #### L 503.6030, L503.6550, L100.0100 #### [facility] [address] [place], [address] IG% 0.400 Normal 0.0-0.9 [facility] Comment on above: Result Comment: IG% - Immature Granulocytes (promyelocytes, myelocytes and metamyelocytes) > 1% indicates that a LEFT SHIFT is Present. Performed By: #### L 503.6030, L503.6550, L100.0100 #### [facility] [address] [place], [address] Lymphocytes/100 WBC (Bld) 23.1 % Normal 19-41 [facility] Comment on above: Performed By: #### L 503.6030, L503.6550, L100.0100 #### [facility] [address] [place], [address] MCH (RBC) [Entitic mass] 27.9 pg Normal 27.0-32.0 [facility] Comment on above: Performed By: #### L 503.6030, L503.6550, L100.0100 #### [facility] [address] [place], [address] MCHC (RBC) [Mass/Vol] 30.6 g/dL Low 32-36 [facility] Comment on above: Performed By: #### L 503.6030, L503.6550, L100.0100 #### [facility] [address] [place], [address] MCV (RBC) [Entitic vol] 91.0 fL Normal 81-99 [facility] Comment on above: Performed By: #### L 503.6030, L503.6550, L100.0100 #### [facility] [address] [place], [address] Monocytes/100 WBC (Bld) 11.4 % High 0-10 [facility] Comment on above: Performed By: #### L 503.6030, L503.6550, L100.0100 #### [facility] [address] [place], [place], [address] Neutrophils/100 WBC (Bld) 60.6 % Normal 47-70 [facility] Comment on above: Performed By: #### L 503.6030, L503.6550, L100.0100 #### [facility] [address] [place], [address] Nucleated RBC (Bld) [#/Vol] 0 10*3/uL Normal 0-5 [facility] Comment on above: Performed By: #### L 503.6030, L503.6550, L100.0100 #### [facility] [address] [place], [address] Platelet mean volume (Bld) [Entitic vol] 10.6 fL Normal 6.2-12.0 [facility] Comment on above: Performed By: #### L 503.6030, L503.6550, L100.0100 #### [facility] [address] [place], [address] Platelets (Bld) [#/Vol] 364 10*3/uL Normal 150-450 [facility] Comment on above: Performed By: #### L 503.6030, L503.6550, L100.0100 #### [facility] [address] [place], [address] RBC (Bld) [#/Vol] 3.77 10*6/uL Low 4.2-5.4 [facility] Comment on above: Performed By: #### L 503.6030, L503.6550, L100.0100 #### [facility] [address] [place], [address] RDW SD 53.2 fl High 35.1-43.9 [facility] Comment on above: Performed By: #### L 503.6030, L503.6550, L100.0100 #### [facility] [address] [place], [place], [id number] WBC (Bld) [#/Vol] 5.3 10*3/uL Normal 4.4-11.0 [facility] Comment on above: Performed By: #### L 503.6030, L503.6550, L100.0100 #### [facility] [address] [place], [address] Calculated total iron bindin g capacityOrdered By: [facility] Hospitaljulieta Foster on 04-26-2024 Total Iron Binding Capacity 422 ug/dL 250-450 [facility] Eosinophil percentageOrdered By: scottypelionjulieta Riceyinkavignesh on 04-26-2024 Eosinophils/100 WBC (Bld) 3.6 % 0-5 [facility] Erythrocyte distribution wid th ratioOrdered By: scottypelionjulieta Riceyinkavignesh on 04-26-2024 Erythrocyte distribution width (RBC) [Ratio] 16.0 % High 11.6-14.6 [facility] Erythrocyte distribution wid th standard deviationOrdered By: [facility] Hospitaljulieta Riceyinkavignesh on 04-26-2024 Erythrocyte distribution width (RBC) [Entitic vol] 53.2 fL High 35.1-43.9 [facility] Ferritinon 04-26-2024 Ferritin [Mass/Vol] 14 ng/mL Low 22-378 [facility] Comment on above: Performed By: #### L 503.6030, L503.6550, L100.0100 ####[facility] [address] [place], [address] Hematocrit Auto (Bld) [Volum e fraction]Ordered By: Mile Foster on 04-26-2024 Hematocrit (Bld) [Volume fraction] 34.3 % Low 37-47 [facility] Hemoglobin measurementOrdere d By: Mile Foster on 04-26-2024 Hemoglobin (Bld) [Mass/Vol] 10.5 g/dL Low 12.0-15.0 [facility] Immature granulocytes/100 WB C Auto (Bld)Ordered By: Mile Foster on 04-26-2024 Immature granulocytes/100 WBC (Bld) 0.400 % 0.0-0.9 [facility] Comment on above: IG% - Immature Granu locytes (promyelocytes, myelocytes and metamyelocytes) > 1% indicates that a LEFT SHIFT is Present. Internal Medicine Office Vis iton 04-26-2024 Internal Medicine Office Visit [facility] [address] [place] [address] [place] [address] OFFICE VISIT Date of Service: 04/26/24 MR#: [id number] Acct: [id number] Name: CHELSEA GARCIA Rep #: [id number] : 1945 Provider: Dr. Mile tavera MD Age/Sex: 78/F Location[place] [facility] Status: Signed Intake Vital Signs 01/28/24 08:52 04/14/24 10:03 04/26/24 08:47 Height 4 ft 9 in 4 ft 9 in 4 ft 9 in Weight: 106 lb BMI 22.9 BP 120/72 Blood Pressure Location Lt brachial Position Sitting Respiration 14 Pulse 64 Pulse Source Monitor Temp 96.9 F L Temp Source Temporal Pulse Oximetry (%) 99 Oxygen Delivery Method room air Intake Visit Reasons: 3 M FU Chief Complaint: Follow-up chronic conditions. Left knee pain Die Storage Clerk Required: No Is patient in pain?: No Allergies promethazine (From Phenergan) Allergy (Severe, Verified 04/26/24 08:41) Swelling cephalexin Allergy (Verified 04/26/24 08:41) Diarrhea hydromorphone (From Dilaudid) Allergy (Verified 04/26/24 08:41) Other iron Adverse Reaction (Intermediate, Verified 04/26/24 08:41) Diarrhea oxaprozin Adverse Reaction (Intermediate, Verified 04/26/24 08:41) Nausea Medications ???Medication ???Instructions ???Recorded ???Confirmed ???Type ascorbate calcium (vitamin C) 500 500 mg PO QDAY 07/28/17 04/26/24 History mg tablet famotidine-Ca carb-mag hydrox 10 1 tab PO BID 07/28/17 04/26/24 His tory mg-800 mg-165 mg chewable tablet (Pepcid Complete) Handicap Placard #1 ea 06/29/22 04/26/24 Rx cyanocobalamin (vitamin B-12) 1,000 mcg subcut QMONTH 11/09/22 0 04/26/24 History 1,000 mcg/mL injection solution hydrocortisone 2.5 % topical cream 1 applic [place] BID-QID PRN 05/12/23 04/26/24 Rx with perineal applicator hemorrhoids #30 grams lisinopril 30 mg tablet 30 mg PO DAILY #90 tabs 06/24/23 0 04/26/24 Rx diazepam 2 mg tablet (Valium) 2 mg PO TID PRN dizziness or 07/2204/26/24 Rx vertigo #15 tabs romosozumab-aqqg 210 mg/2.34 210 mg (2.34 mL) subcut QMONTH 12 10/22/23 04/26/24 Rx mL(105 mg/1.17 mL x2)subcutaneous months #28.08 mL syringe (Evenity) vitamins A,C,X-rvol-cqjqwp 2,148 2 tab PO BID 11/12/23 04/26/24 His tory mcg-113 mg-45 mg-17.4 mg tablet (Eye Multivitamin) meclizine 25 mg tablet 25 mg PO DAILY PRN dizziness #90 1 04/26/24 Rx tabs amlodipine 10 mg tablet 10 mg PO DAILY #90 tabs 12/23/23 0 04/26/24 Rx diphenoxylate-atropi ne 2.5 1 tab PO BID PRN diarrhea #180 tab s 03/01/24 04/26/24 Rx mg-0.025 mg tablet (Lomotil) Have you fallen in the past year?: No Nurse's Note: States her L knee has been hurting had a cortisone shot 10 years ago and it helped until now not sure who she saw as it was 10 years ago but would like another one. [facility] Medical History Driving safety issue Hemorrhoid BPPV (benign paroxysmal positional vertigo) Iron deficiency anemia Chronic diarrhea Hernia Normal colonoscopy GERD (gastroesophageal reflux disease) Hypertension Hypertension GI bleed due to NSAIDs Surgical History H/O hernia repair H/O exploratory laparotomy History of laryngoscopy S/P partial colectomy Family History Other Breast cancer Cancer Hypertension Melanoma Social History Smoking Status: Never smoker alcohol intake: never substance use type: does not use what type of physical activity do you participate in: walking frequency: 1-2 times per week HPI HPI Chief Complaint: Follow-up chronic conditions. Left knee pain Details: CHELSEA GARCIA, is a 78 F who presents to the office today for follow-up. Also has some concerns. She reports pain in her left knee which has been progressively worsening. Worse with movement. Many years ago, had a shot to that knee which she found helpful. No recent falls. She would like to have another shot. History of hypertension, pressure today at 120/72 mmHg. Currently on amlodipine and lisinopril which she is taking consistently. Occasional lightheadedness typically in the mornings. Fine through the day. No syncopal and near syncopal episodes. Other chronic medical conditions are stable. ROS Const Constitutional: No body ache, chills, excessive sweating, fatigue, fever(s), frequent falls, headache(s), snoring, weakness, sleep problems or change in appetite Eyes Eyes: No blurry vision, change in vision, floaters, visual disturbances, eye pain or Light sensitivity ENT ENT: No abnormal hearing, ear or mastoid pain, tinnitus, balance problems, nosebleed/epistaxis, nasal congestion, headache(s), neck p (more content not included)... Normal [facility] Iron (Unsp spec) [Mass/Mass] Ordered By: Mile Foster on 04-26-2024 Iron [Mass/Vol] 50 ug/dL 50-170 [facility] Iron saturation [Mass fracti on]Ordered By: Mile Foster on 04-26-2024 Iron Saturation 12.0 % Low 13-59 [facility] Iron+Iron Binding Capacityon 04-26-2024 Iron [Mass/Vol] 50 ug/dL Normal 50-170 [facility] Comment on above: Performed By: #### L 503.6030, L503.6550, L100.0100 ####[facility] [address] [place], [address] IRON SATURATION 12.0 Low 13-59 [facility] Comment on above: Performed By: #### L 503.6030, L503.6550, L100.0100 ####[facility] [address] [place], [address] TIBC 422 ug/dL Normal 250-450 [facility] Comment on above: Performed By: #### L 503.6030, L503.6550, L100.0100 ####[facility] [address] [place], [address] UIBC 372 ug/dL Normal 228-428 [facility] Comment on above: Performed By: #### L 503.6030, L503.6550, L100.0100 ####[facility] [address] [place], [address] Lymphocytes Auto (Unsp spec) [#/Vol]Ordered By: Mile Foster on 04-26-2024 Lymphocytes (Bld) [#/Vol] 1.23 10*3/uL 0.83-4.51 [facility] Lymphocytes/100 WBC Auto (Un sp spec)Ordered By: Mile Foster on 04-26-2024 Lymphocytes/100 WBC (Bld) 23.1 % 19-41 [facility] MCV (mean corpuscular volume ) determinationOrdered By: Mile Foster on 04-26-2024 MCV (RBC) [Entitic vol] 91.0 fL 81-99 [facility] Mean corpuscular hemoglobin (MCH) determinationOrdered By: Mile Foster on 04-26-2024 MCH (RBC) [Entitic mass] 27.9 pg 27.0-32.0 [facility] Mean corpuscular hemoglobin concentration (MCHC) determinationOrdered By: Mile Foster on 04-26-2024 MCHC (RBC) [Mass/Vol] 30.6 g/dL Low 32-36 [facility] Mean platelet volume determi nationOrdered By: Mile Foster on 04-26-2024 Platelet mean volume (Bld) [Entitic vol] 10.6 fL 6.2-12.0 [facility] Monocyte percentageOrdered B y: Mile Foster on 04-26-2024 Monocytes/100 WBC (Bld) 11.4 % High 0-10 [facility] Neutrophil percentageOrdered By: Mile Foster on 04-26-2024 Neutrophils/100 WBC (Bld) 60.6 % 47-70 [facility] No Panel InformationOrdered By: Mile Foster on 04-26-2024 Unsaturated Iron Binding Capacity 372 ug/dL 228-428 [facility] Nucleated red blood cell per centageOrdered By: Mile Foster on 04-26-2024 Nucleated RBC/100 WBC (Bld) [Ratio] 0 % 0-5 [facility] Platelet countOrdered By: Triny scottylizet Foster on 04-26-2024 Platelets (Bld) [#/Vol] 364 10*3/uL 150-450 [facility] RBC Auto (Bld) [#/Vol]Ordere d By: Mile Foster on 04-26-2024 RBC (Bld) [#/Vol] 3.77 10*6/uL Low 4.2-5.4 [facility] Serum or plasma ferritin malachi surement (mass/volume)Ordered By: Mile Foster on 04-26-2024 Ferritin [Mass/Vol] 14 ng/mL Low 22-378 [facility] White blood cell (WBC) count Ordered By: Mile Foster on 04-26-2024 WBC (Bld) [#/Vol] 5.3 10*3/uL 4.4-11.0 [facility] Office Visit Reporton 2024 Office Visit Report [facility] [place] [address] OFFICE VISIT Date of Service: 04/17/24 MR#: [id number] Acct: [id number] Patient: CHELSEA GARCIA Rep #: [id number] : 1945 Provider: ARTIS NURSE Age/Sex: 78/F Location[place] [facility] Status: Signed Intake Vital Signs 03/17/24 12:24 04/14/24 10:03 Height 4 ft 9 in 4 ft 9 in BP 136/59 H Position Sitting Respiration 16 Pulse 72 Temp 97.9 F Temp Source Temporal Pulse Oximetry (%) 99 Intake Visit Reasons: B12 Chief Complaint: B12 Allergies promethazine (From Phenergan) Allergy (Severe, Verified 04/14/24 10:02) Swelling cephalexin Allergy (Verified 04/14/24 10:02) Diarrhea hydromorphone (From Dilaudid) Allergy (Verified 04/14/24 10:02) Other iron Adverse Reaction (Intermediate, Verified 04/14/24 10:02) Diarrhea oxaprozin Adverse Reaction (Intermediate, Verified 04/14/24 10:02) Nausea Have you fallen in the past year?: No Office Meds cyanocobalamin (vitamin B-12) 1,000 mcg/mL injection solution Performing Provider: Mile Foster MD Performing Location: [facility] Administered by: Mandy Whatley LPN on 04/17/24 10:03 Dose Route Admin Location Dispensed Lot Number Expiration Date NDC Man ufacturer 1,000 mcg IM right deltoid 1 mL [id number] 08/07/25 84794-808-61 [employer] THERGladis Comments: pt presented to office requesting her monthly B12 injection. requested right deltoid for injection. pt tolerated well. Assessment and Plan Assessment and Plan (1) Vitamin B12 deficiency: Status: Chronic Orders: Orders Vitamin B12 Today E53.8 - Deficiency of other specified B group vitamins Plan Details Goals Barriers: Goals Decrease pain Decrease spasm Improve ROM Barriers Scoliosis DDD Clinical Quality Measures Falls Risk Screening/Assistive Devices Have you fallen in the past year?: No 04/17/24 1314 Date Mile Foster MD Cosigner Signature: Date (if applicable) CC: Normal [place] [facility] Office Visit Reporton 2024 Office Visit Report [facility] [place] [address] OFFICE VISIT Date of Service: 03/20/24 MR#: [id number] Acct: [id number] Patient: CHELSEA GARCIA Rep #: [id number] : 1945 Provider: ARTIS NURSE Age/Sex: 78/F Location[place] [facility] Status: Signed Intake Vital Signs 02/11/24 09:30 03/17/24 12:24 Height 4 ft 9 in 4 ft 9 in BP 115/49 L Position Sitting Respiration 16 Pulse 75 Temp 97.7 F L Temp Source Temporal Pulse Oximetry (%) 98 Intake Visit Reasons: b12 Chief Complaint: evenity Allergies promethazine (From Phenergan) Allergy (Severe, Verified 03/17/24 12:31) Swelling cephalexin Allergy (Verified 03/17/24 12:31) Diarrhea hydromorphone (From Dilaudid) Allergy (Verified 03/17/24 12:31) Other iron Adverse Reaction (Intermediate, Verified 03/17/24 12:31) Diarrhea oxaprozin Adverse Reaction (Intermediate, Verified 03/17/24 12:31) Nausea Have you fallen in the past year?: No Office Meds cyanocobalamin (vitamin B-12) 1,000 mcg/mL injection solution Performing Provider: Mile Foster MD Performing Location: [facility] Administered by: Courtney Blum on 03/20/24 09:56 Dose Route Admin Location Dispensed Lot Number Expiration Date [facility] Man ufacturer 1,000 mcg IM Right Deltoid 1 mL [id number] 08/07/25 74379-090-80 VITRUVI THERA Assessment and Plan Assessment and Plan (1) Vitamin B12 deficiency: Status: Chronic Orders: Orders Vitamin B12 Today E53.8 - Deficiency of other specified B group vitamins Plan Details Goals Barriers: Goals Decrease pain Decrease spasm Improve ROM Barriers Scoliosis DDD Clinical Quality Measures Falls Risk Screening/Assistive Devices Have you fallen in the past year?: No 03/20/24 1656 Date Mile Foster MD Cosigner Signature: Date (if applicable) CC: Normal [facility] Office Visit Reporton 2024 Office Visit Report [facility] [address] [place] [address] OFFICE VISIT Date of Service: 02/21/24 MR#: [id number] Acct: [id number] Patient: CHELSEA GARCIA Rep #: [id number] : 1945 Provider: ARTIS NURSE Age/Sex: 78/F Location[place] [facility] Status: Signed Intake Vital Signs 01/14/24 09:41 02/11/24 09:30 Height 4 ft 9 in 4 ft 9 in Intake Visit Reasons: B12 Chief Complaint: 3m f/u Allergies promethazine (From Phenergan) Allergy (Severe, Verified 02/11/24 09:30) Swelling cephalexin Allergy (Verified 02/11/24 09:30) Diarrhea hydromorphone (From Dilaudid) Allergy (Verified 02/11/24 09:30) Other iron Adverse Reaction (Intermediate, Verified 02/11/24 09:30) Diarrhea oxaprozin Adverse Reaction (Intermediate, Verified 02/11/24 09:30) Nausea Have you fallen in the past year?: No Office Meds cyanocobalamin (vitamin B-12) 1,000 mcg/mL injection solution Performing Provider: Mile Foster MD Performing Location: [facility] Administered by: Monika Paula on 02/21/24 09:29 Dose Route Admin Location Dispensed Lot Number Expiration Date [place] Man ufacturer 1,000 mcg IM left arm sq 1 mL [id number] 02/21/24 90887-803-18 DAVID MONET Assessment and Plan Assessment and Plan (1) Vitamin B12 deficiency: Status: Chronic Orders: Orders Vitamin B12 Today E53.8 - Deficiency of other specified B group vitamins Plan Details Goals Barriers: Goals Decrease pain Decrease spasm Improve ROM Barriers Scoliosis DDD Clinical Quality Measures Falls Risk Screening/Assistive Devices Have you fallen in the past year?: No 02/21/24 1604 Date Mile Breaux Signature: Date (if applicable) CC: Normal [facility] Absolute neutrophil countOrd ered By: Mile Foster on 01-28-2024 Neutrophils (Bld) [#/Vol] 3.4 10*3/uL 2.0-7.7 [facility] Basic Metabolic Profile (BMP )on 01-28-2024 BUN/CRE 28.0 RATIO High 11-27 [facility] Comment on above: Performed By: #### L 500.2500, L100.0100 ####[facility] [address] [place], [address] CA,Total 9.1 mg/dL Normal 8.5-10.1 [facility] Comment on above: Performed By: #### L 500.2500, L100.0100 ####[facility] [address] [place], [address] Chloride [Moles/Vol] 108 mmol/L High 98-107 [facility] Comment on above: Performed By: #### L 500.2500, L100.0100 ####[facility] [address] [place], [address] CO2 [Moles/Vol] 27.0 mmol/L Normal 21.0-32.0 [facility] Comment on above: Performed By: #### L 500.2500, L100.0100 ####[facility] [address] [place], [address] Creatinine [Mass/Vol] 0.86 mg/dL Normal 0.55-1.02 [facility] Comment on above: Result Comment: The validity of the calculated GFR GFRAA in patients over 70 years has not been determined. Clinical correlation is essential. Performed By: #### L 500.2500, L100.0100 ####[facility] [address] [place], [address] EST GFR - AA 82 mL/min Normal >60 [facility] Comment on above: Result Comment: Afri can Latvian GFR Calc Performed By: #### L 500.2500, L100.0100 ####[facility] [address] [place], [address] GAP 5 Normal 5-15 [facility] Comment on above: Performed By: #### L 500.2500, L100.0100 ####[facility] [address] [place], [address] GFR/1.73 sq M.predicted among non-blacks MDRD (S/P/Bld) [Vol rate/Area] 68 mL/min/{1.73_m2} Normal >60 [facility] Comment on above: Result Comment: Non- GFR Calc Performed By: #### L 500.2500, L100.0100 ####[facility] [address] [place], [address] Glucose [Mass/Vol] 99 mg/dL Normal 74-106 [facility] Comment on above: Performed By: #### L 500.2500, L100.0100 ####[facility] [address] [place], [address] Potassium [Moles/Vol] 4.8 mmol/L Normal 3.5-5.1 [facility] Comment on above: Performed By: #### L 500.2500, L100.0100 ####[facility] [address] [place], [address] Sodium [Moles/Vol] 139 mmol/L Normal 136-145 [facility] Comment on above: Performed By: #### L 500.2500, L100.0100 ####[facility] [address] [place], [address] Urea nitrogen [Mass/Vol] 24 mg/dL High 08-25 [facility] Comment on above: Performed By: #### L 500.2500, L100.0100 ####[facility] [address] [place], [address] Basophil percentageOrdered B y: Mile Foster on 01-28-2024 Basophils/100 WBC (Bld) 1.1 % High 0-1 [facility] Blood urea nitrogen (BUN)/cr eatinine ratioOrdered By: Mile Foster on 01-28-2024 Urea nitrogen/Creatinine [Mass ratio] 28.0 mg/mg High - [facility] CBC W/Diff, Automatedon --2023 Absolute Lymph 1.41 X10 3/uL Normal 0.83-4.51 [facility] Comment on above: Performed By: #### L 500.2500, L100.0100 ####[facility] [address] [place], [address] Absolute Neut 3.4 X10 3/uL Normal 2.0-7.7 [facility] Comment on above: Performed By: #### L 500.2500, L100.0100 ####[facility] [address] [place], [address] Basophils/100 WBC (Bld) 1.1 % High 0-1 [facility] Comment on above: Performed By: #### L 500.2500, L100.0100 ####[facility] [address] [place], [address] Eosinophils/100 WBC (Bld) 3.2 % Normal 0-5 [facility] Comment on above: Performed By: #### L 500.2500, L100.0100 ####[facility] [address] [place], [address] Erythrocyte distribution width (RBC) [Ratio] 15.0 % High 11.6-14.6 [facility] Comment on above: Performed By: #### L 500.2500, L100.0100 ####[facility] [address] [place], [address] Hematocrit (Bld) [Volume fraction] 35.9 % Low 37-47 [facility] Comment on above: Performed By: #### L 500.2500, L100.0100 ####[facility] [address] [place], [address] Hemoglobin (Bld) [Mass/Vol] 10.9 g/dL Low 12.0-15.0 [facility] Comment on above: Performed By: #### L 500.2500, L100.0100 ####[facility] [address] [place], [address] IG% 0.400 Normal 0.0-0.9 [facility] Comment on above: Result Comment: IG% - Immature Granulocytes (promyelocytes, myelocytes and metamyelocytes) > 1% indicates that a LEFT SHIFT is Present. Performed By: #### L 500.2500, L100.0100 ####[facility] [address] [place], [address] Lymphocytes/100 WBC (Bld) 24.7 % Normal 19-41 [facility] Comment on above: Performed By: #### L 500.2500, L100.0100 ####[facility] [address] [place], [address] MCH (RBC) [Entitic mass] 27.6 pg Normal 27.0-32.0 [facility] Comment on above: Performed By: #### L 500.2500, L100.0100 ####[facility] [address] [place], [address] MCHC (RBC) [Mass/Vol] 30.4 g/dL Low 32-36 [facility] Comment on above: Performed By: #### L 500.2500, L100.0100 ####[facility] [address] [place], [address] MCV (RBC) [Entitic vol] 90.9 fL Normal 81-99 [facility] Comment on above: Performed By: #### L 500.2500, L100.0100 ####[facility] [address] [place], [address] Monocytes/100 WBC (Bld) 11.9 % High 0-10 [facility] Comment on above: Performed By: #### L 500.2500, L100.0100 ####[facility] [address] [place], [address] Neutrophils/100 WBC (Bld) 58.7 % Normal 47-70 [facility] Comment on above: Performed By: #### L 500.2500, L100.0100 ####[facility] [address] [place], [address] Nucleated RBC (Bld) [#/Vol] 0 10*3/uL Normal 0-5 [facility] Comment on above: Performed By: #### L 500.2500, L100.0100 ####[facility] [address] [place], [address] Platelet mean volume (Bld) [Entitic vol] 10.9 fL Normal 6.2-12.0 [facility] Comment on above: Performed By: #### L 500.2500, L100.0100 ####[facility] [address] [place], [address] Platelets (Bld) [#/Vol] 377 10*3/uL Normal 150-450 [facility] Comment on above: Performed By: #### L 500.2500, L100.0100 ####[facility] [address] [place], [address] RBC (Bld) [#/Vol] 3.95 10*6/uL Low 4.2-5.4 [facility] Comment on above: Performed By: #### L 500.2500, L100.0100 ####[facility] [address] [place], [address] RDW SD 50.2 fl High 35.1-43.9 [facility] Comment on above: Performed By: #### L 500.2500, L100.0100 ####[facility] [address] [place], [address] WBC (Bld) [#/Vol] 5.7 10*3/uL Normal 4.4-11.0 [facility] Comment on above: Performed By: #### L 500.2500, L100.0100 ####[facility] [address] [place], [address] Carbon dioxide measurementOr dered By: Mile Foster on 01-28-2024 CO2 [Moles/Vol] 27.0 mmol/L 21.0-32.0 [facility] Chloride measurementOrdered By: Mile Foster on 01-28-2024 Chloride [Moles/Vol] 108 mmol/L High 98-107 [facility] Eosinophil percentageOrdered By: Mile Foster on 01-28-2024 Eosinophils/100 WBC (Bld) 3.2 % 0-5 [facility] Erythrocyte distribution wid th ratioOrdered By: Mile Foster on 01-28-2024 Erythrocyte distribution width (RBC) [Ratio] 15.0 % High 11.6-14.6 [facility] Erythrocyte distribution wid th standard deviationOrdered By: Mile Foster on 01-28-2024 Erythrocyte distribution width (RBC) [Entitic vol] 50.2 fL High 35.1-43.9 [facility] Estimated glomerular filtrat ion rate (GFR) AmericanOrdered By: Mile Foster on 01-28-2024 Estimated GFR (MDRD) Amer 82 mL/min >60 [facility] Comment on above: GFR Calc Glomerular filtration rate ( GFR) estimationOrdered By: partha Foster on 01-28-2024 Estimated GFR (MDRD) Non-Af Amer 68 mL/min >60 [facility] Comment on above: Non- GFR Calc Glucose measurementOrdered B y: Mile Foster on 01-28-2024 Glucose [Mass/Vol] 99 mg/dL 74-106 [facility] Hematocrit Auto (Bld) [Volum e fraction]Ordered By: Mile Foster on 01-28-2024 Hematocrit (Bld) [Volume fraction] 35.9 % Low 37-47 [facility] Hemoglobin measurementOrdere d By: Mile Foster on 01-28-2024 Hemoglobin (Bld) [Mass/Vol] 10.9 g/dL Low 12.0-15.0 [facility] Immature granulocytes/100 WB C Auto (Bld)Ordered By: partha Foster on 01-28-2024 Immature granulocytes/100 WBC (Bld) 0.400 % 0.0-0.9 [facility] Comment on above: IG% - Immature Granu locytes (promyelocytes, myelocytes and metamyelocytes) > 1% indicates that a LEFT SHIFT is Present. Internal Medicine Office Vis lala 01-28-2024 Internal Medicine Office Visit [facility] [address] [place], [place] [address] OFFICE VISIT Date of Service: 01/28/24 MR#: [id number] Acct: [id number] Name: CHELSEA GARCIA Rep #: [id number] : 1945 Provider: Dr. Mile tavera MD Age/Sex: 78/F Location[facility] Status: Signed Intake Vital Signs 10/22/23 10:07 01/14/24 09:41 01/28/24 08:52 Height 5 ft 1 in 4 ft 9 in 4 ft 9 in Weight: 106 lb BMI 22.9 BP 124/68 H Blood Pressure Location Lt brachial Position Sitting Respiration 16 Pulse 55 L Pulse Source Monitor Temp 97.4 F L Temp Source Temporal Pulse Oximetry (%) 98 Oxygen Delivery Method room air Intake Visit Reasons: 3 M FU Chief Complaint: 3m f/u Die Storage Clerk Required: No Accompanied by: Self Is patient in pain?: No Allergies promethazine (From Phenergan) Allergy (Severe, Verified 01/28/24 08:49) Swelling cephalexin Allergy (Verified 01/28/24 08:49) Diarrhea hydromorphone (From Dilaudid) Allergy (Verified 01/28/24 08:49) Other iron Adverse Reaction (Intermediate, Verified 01/28/24 08:49) Diarrhea oxaprozin Adverse Reaction (Intermediate, Verified 01/28/24 08:49) Nausea Medications ???Medication ???Instructions ???Recorded ???Confirmed ???Type ascorbate calcium (vitamin C) 500 500 mg PO QDAY 07/28/17 01/28/24 History mg tablet famotidine-Ca carb-mag hydrox 10 1 tab PO BID 07/28/17 01/28/24 History mg-800 mg-165 mg chewable tablet (Pepcid Complete) Handicap Placard #1 ea 06/29/22 01/28/24 Rx cyanocobalamin (vitamin B-12) 1,000 mcg subcut QMONTH 11/09/22 01/28/24 History 1,000 mcg/mL injection solution hydrocortisone 2.5 % topical cream 1 applic [place] BID-QID PRN 05/12/23 01/28/24 Rx with perineal applicator hemorrhoids #30 grams lisinopril 30 mg tablet 30 mg PO DAILY #90 tabs 06/24/23 01/28/24 Rx diazepam 2 mg tablet (Valium) 2 mg PO TID PRN dizziness or 07/23/23 01/28/24 Rx vertigo #15 tabs romosozumab-aqqg 210 mg/2.34 210 mg (2.34 mL) subcut QMONTH 12 10/22/23 01/28/24 Rx mL(105 mg/1.17 mL x2)subcutaneous months #28.08 mL syringe (Evenity) vitamins A,C,J-dqvg-hpxpux 2,148 2 tab PO BID 11/12/23 01/28/24 History mcg-113 mg-45 mg-17.4 mg tablet (Eye Multivitamin) diphenoxylate-atropi ne 2.5 1 tab PO BID PRN diarrhea #180 tabs 12/01/23 01/28/24 Rx mg-0.025 mg tablet (Lomotil) meclizine 25 mg tablet 25 mg PO DAILY PRN dizziness #90 12/01/23 01/28/24 Rx tabs amlodipine 10 mg tablet 10 mg PO DAILY #90 tabs 12/23/23 01/28/24 Rx Have you fallen in the past year?: No PFSH Medical History Driving safety issue Hemorrhoid BPPV (benign paroxysmal positional vertigo) Iron deficiency anemia Chronic diarrhea Hernia Normal colonoscopy GERD (gastroesophageal reflux disease) Hypertension Hypertension GI bleed due to NSAIDs Surgical History H/O hernia repair H/O exploratory laparotomy History of laryngoscopy S/P partial colectomy Family History Other Breast cancer Cancer Hypertension Melanoma Social History Smoking Status: Never smoker alcohol intake: never substance use type: does not use what type of physical activity do you participate in: walking frequency: 1-2 times per week HPI HPI Chief Complaint: 3m f/u Details: CHELSEA GARCIA, is a 78 F who presents to the office today for follow-up of her chronic conditions. No acute concerns at this time. Chronic history of anemia, has been on iron supplements however she states it she has not been taking this for 6 to 9 months because it was upsetting her stomach. She feels well. Denies significant fatigue. History of hypertension, blood pressure today at 124/68 mmHg. Denies chest pain, palpitations or shortness of breath. Other chronic medical conditions are stable. ROS Const Constitutional: No body ache, chills, excessive sweating, fatigue, fever(s), frequent falls, headache(s), snoring, weakness or change in appetite Eyes Eyes: No blurry vision, change in vision, bulging eyes, floaters, visual disturbances, eye pain or Light sensitivity ENT ENT: No abnormal hearing, ear or mastoid pain, tinnitus, balance problems, nosebleed/epistaxis, nasal congestion, headache(s), neck pain or sore throat Resp Respiratory: No cough, excessive phlegm production, pain on inspiration, shortness of breath, snoring or wheezing Cardio Cardiology: No chest pain at rest, chest pain with exertion, excessive sweating, dyspnea on exertion, lightheadedness, orthopnea or palpitations Gastro GI: No abdominal pain, change in bowel habits, constipation, cramping, diarrhea, nausea/dyspepsia or (more content not included)... Normal [facility] Lymphocytes Auto (Unsp spec) [#/Vol]Ordered By: Mile Foster on 01-28-2024 Lymphocytes (Bld) [#/Vol] 1.41 10*3/uL 0.83-4.51 [facility] Lymphocytes/100 WBC Auto (Un sp spec)Ordered By: Mile Foster on 01-28-2024 Lymphocytes/100 WBC (Bld) 24.7 % 19-41 [facility] MCV (mean corpuscular volume ) determinationOrdered By: Mile Foster on 01-28-2024 MCV (RBC) [Entitic vol] 90.9 fL 81-99 [facility] Mean corpuscular hemoglobin (MCH) determinationOrdered By: Mile Foster on 01-28-2024 MCH (RBC) [Entitic mass] 27.6 pg 27.0-32.0 [facility] Mean corpuscular hemoglobin concentration (MCHC) determinationOrdered By: Mile Foster on 01-28-2024 MCHC (RBC) [Mass/Vol] 30.4 g/dL Low 32-36 [facility] Mean platelet volume determi nationOrdered By: Mile Foster on 01-28-2024 Platelet mean volume (Bld) [Entitic vol] 10.9 fL 6.2-12.0 [facility] Monocyte percentageOrdered B y: Mile Dwaynehussain on 01-28-2024 Monocytes/100 WBC (Bld) 11.9 % High 0-10 [facility] Neutrophil percentageOrdered By: Mile Riceyinkavignesh on 01-28-2024 Neutrophils/100 WBC (Bld) 58.7 % 47-70 [facility] Nucleated red blood cell per centageOrdered By: Mile Foster on 01-28-2024 Nucleated RBC/100 WBC (Bld) [Ratio] 0 % 0-5 [facility] Platelet countOrdered By: Triny scottylizet Foster on 01-28-2024 Platelets (Bld) [#/Vol] 377 10*3/uL 150-450 [facility] Potassium measurementOrdered By: Mile Foster on 01-28-2024 Potassium [Moles/Vol] 4.8 mmol/L 3.5-5.1 [facility] RBC Auto (Bld) [#/Vol]Ordere d By: Mile Foster on 01-28-2024 RBC (Bld) [#/Vol] 3.95 10*6/uL Low 4.2-5.4 [facility] Serum anion gap measurementO rdered By: Mile Foster on 01-28-2024 Anion gap [Moles/Vol] 5 mmol/L 5-15 [facility] Serum or plasma calcium doron urement (mass/volume)Ordered By: Mile Foster on 01-28-2024 Calcium [Mass/Vol] 9.1 mg/dL 8.5-10.1 [facility] Serum or plasma creatinine m easurement (mass/volume)Ordered By: Mile Foster on 01-28-2024 Creatinine [Mass/Vol] 0.86 mg/dL 0.55-1.02 [facility] Comment on above: The validity of the calculated GFR & GFRAA in patients over 70 years has not been determined. Clinical correlation is essential. Serum or plasma urea nitroge n measurement (mass/volume)Ordered By: Mile Foster on 01-28-2024 Urea nitrogen [Mass/Vol] 24 mg/dL High 7-18 [facility] Sodium levelOrdered By: Siddharth Foster on 01-28-2024 Sodium [Moles/Vol] 139 mmol/L 136-145 [facility] White blood cell (WBC) count Ordered By: Mile Foster on 01-28-2024 WBC (Bld) [#/Vol] 5.7 10*3/uL 4.4-11.0 [facility] Office Visit Reporton 2023 Office Visit Report [facility] [address] [place] [address] OFFICE VISIT Date of Service: 01/20/24 MR#: [id number] Acct: [id number] Patient: CHELSEA GARCIA Rep #: [id number] : 1945 Provider: ARTIS NURSE Age/Sex: 78/F Location[place] [facility] Status: Signed with Addenda ADDENDUM by Dr. Kirti Ibanez MD on 01/20/24 at 1554 Assessment Plan (1) Vitamin B12 deficiency: 01/20/24 1554 Date Kirti Ibanez MD cc: * Signed Intake Vital Signs 12/10/23 09:51 01/14/24 09:41 Height 4 ft 9 in 4 ft 9 in Intake Visit Reasons: b12 shot Chief Complaint: flu/ b12 injection Allergies promethazine (From Phenergan) Allergy (Severe, Verified 01/14/24 09:38) Swelling cephalexin Allergy (Verified 01/14/24 09:38) Diarrhea hydromorphone (From Dilaudid) Allergy (Verified 01/14/24 09:38) Other iron Adverse Reaction (Intermediate, Verified 01/14/24 09:38) Diarrhea oxaprozin Adverse Reaction (Intermediate, Verified 01/14/24 09:38) Nausea Have you fallen in the past year?: No Office Meds cyanocobalamin (vitamin B-12) 1,000 mcg/mL injection solution Performing Provider: Mile Foster MD Performing Location: [facility] Administered by: Loida Mansfield MA on 01/20/24 10:12 Dose Route Admin Location Dispensed Lot Number Expiration Date [facility] Van ufnydia 1,[address] 1 mL [id number] 07/09/25 12692-112-97 KIERSTENELAINE CHIKI Assessment and Plan Assessment and Plan Orders: Orders Vitamin B12 Today E53.8 - Deficiency of other specified B group vitamins Plan Details Goals Barriers: Goals Decrease pain Decrease spasm Improve ROM Barriers Scoliosis DDD Clinical Quality Measures Falls Risk Screening/Assistive Devices Have you fallen in the past year?: No 01/20/24 1553 Date [facility]i [facility]banez MD [facility] Signature: Date (if applicable) CC: Normal [facility] Office Visit Reporton 2023 Office Visit Report [facility] [address] [place] [address] OFFICE VISIT Date of Service: 12/23/23 MR#: [id number] Acct: [id number] Patient: CHELSEA GARCIA Rep #: [id number] : 1945 Provider: ARTIS NURSE Age/Sex: 78/F Location: [facility] Status: Signed with Addenda ADDENDUM by Dr. Kirti Ibanez MD on 12/23/23 at 0936 Assessment Plan (1) Vitamin B12 deficiency: 12/23/23 0936 Date Kirti Ibanez MD cc: * Signed Intake Vital Signs 10/27/23 10:40 11/12/23 09:27 12/10/23 09:51 Height 5 ft 1 in 4 ft 9 in 4 ft 9 in Intake Visit Reasons: B12 Chief Complaint: flu/ b12 injection Allergies promethazine (From Phenergan) Allergy (Severe, Verified 12/10/23 09:47) Swelling cephalexin Allergy (Verified 12/10/23 09:47) Diarrhea hydromorphone (From Dilaudid) Allergy (Verified 12/10/23 09:47) Other iron Adverse Reaction (Intermediate, Verified 12/10/23 09:47) Diarrhea oxaprozin Adverse Reaction (Intermediate, Verified 12/10/23 09:47) Nausea Have you fallen in the past year?: No Office Meds cyanocobalamin (vitamin B-12) 1,000 mcg/mL injection solution Performing Provider: Mile Foster MD Performing Location: [facility] Administered by: Loida Mansfield MA on 12/23/23 09:02 Dose Route Admin Location Dispensed Lot Number Expiration Date [facility] Man ufacturer 1,000 mcg IM LD 1 mL [id number] 07/09/25 63522-789-35 DAVID MONET Assessment and Plan Assessment and Plan Orders: Orders Vitamin B12 Today E53.8 - Deficiency of other specified B group vitamins Plan Details Goals Barriers: Goals Decrease pain Decrease spasm Improve ROM Barriers Scoliosis DDD Clinical Quality Measures Falls Risk Screening/Assistive Devices Have you fallen in the past year?: No 12/23/23 0936 Date Kirti Engeligner Signature: Date (if applicable) CC: Normal [facility] Office Visit Reporton 2023 Office Visit Report [facility] [address] [address] OFFICE VISIT Date of Service: 11/25/23 MR#: [id number] Acct: [id number] Patient: CHELSEA GARCIA Rep #: [id number] : 1945 Provider: ARTIS NURSE Age/Sex: 78/F Location: [facility] Status: Signed Intake Vital Signs 10/27/23 10:40 11/12/23 09:27 Height 5 ft 1 in 4 ft 9 in Weight: 108 lb BMI 20.4 BP 140/62 H Blood Pressure Location Lt brachial Position Sitting Respiration 16 Pulse 72 Pulse Source Monitor Temp 97.2 F L Temp Source Temporal Pulse Oximetry (%) 94 Oxygen Delivery Method room air Intake Visit Reasons: FLU SHOT Chief Complaint: flu/ b12 injection Allergies promethazine (From Phenergan) Allergy (Severe, Verified 11/12/23 09:23) Swelling cephalexin Allergy (Verified 11/12/23 09:23) Diarrhea hydromorphone (From Dilaudid) Allergy (Verified 11/12/23 09:23) Other iron Adverse Reaction (Intermediate, Verified 11/12/23 09:23) Diarrhea oxaprozin Adverse Reaction (Intermediate, Verified 11/12/23 09:23) Nausea Have you fallen in the past year?: No Office Meds cyanocobalamin (vitamin B-12) 1,000 mcg/mL injection solution Performing Provider: MERCEDES Oneill Performing Location: [facility] Administered by: Marleen Us MA on 11/25/23 09:10 Dose Route Admin Location Dispensed Lot Number Expiration Date [facility] Man ufacturer 1,000 mcg IM left delt 1 mL [id number] 07/09/25 10106-002-04 DAVID MONET Comments: Immunizations Fluad Triv (65y up)(PF) 45 mcg (15 mcg x 3)/0.5 mL IM syringe Performing Provider: MERCEDES Oneill Performing Location: [facility] Administered by: Marleen Us MA on 11/25/23 09:09 Dose Route Admin Location Dispensed Lot Number Expiration Date [facility] Man ufacturer 45 mcg IM Right Deltoid 0.5 mL [id number] 06/09/24 12837-426-53 [employer] VIS Given Date VIS Provided VIS Publication Date 11/25/23 Single Vaccine 23 Eligibility Eligibility Date Funding Source Not Applicable Assessment and Plan Assessment and Plan (1) Influenza: Status: Acute Orders: Orders Vitamin B12 Today E53.8 - Deficiency of other specified B group vitamins Influenza Immunization Today Z23 - Encounter for immunization Plan Discussed with ROCHELLE Hawley will monitor b12 Plan Details Goals Barriers: Goals Decrease pain Decrease spasm Improve ROM Barriers Scoliosis DDD Clinical Quality Measures Falls Risk Screening/Assistive Devices Have you fallen in the past year?: No 11/25/23 1629 Date Jessica Conklin LEARNING STRATEGIST-C Cosigner Signature: Date (if applicable) CC: Normal [facility] Office Visit Reporton 2023 Office Visit Report [facility] [address] [place] [address] OFFICE VISIT Date of Service: 11/11/23 MR#: [id number] Acct: [id number] Patient: CHELSEA GARCIA Rep #: [id number] : 1945 Provider: ARTIS NURSE Age/Sex: 78/F Location: [facility] Status: Signed Intake Vital Signs 08/11/23 09:25 10/27/23 10:40 Height 5 ft 1 in 5 ft 1 in Intake Visit Reasons: B12 Chief Complaint: DMV requirement Allergies promethazine (From Phenergan) Allergy (Severe, Verified 11/12/23 09:23) Swelling cephalexin Allergy (Verified 11/12/23 09:23) Diarrhea hydromorphone (From Dilaudid) Allergy (Verified 11/12/23 09:23) Other iron Adverse Reaction (Intermediate, Verified 11/12/23 09:23) Diarrhea oxaprozin Adverse Reaction (Intermediate, Verified 11/12/23 09:23) Nausea Have you fallen in the past year?: No Office Meds cyanocobalamin (vitamin B-12) 1,000 mcg/mL injection solution Performing Provider: Mile Foster MD Performing Location: [facility] Administered by: Loida Mansfield MA on 11/11/23 09:00 Dose Route Admin Location Dispensed Lot Number Expiration Date [place] Man ufacturer 1,[address] 1 mL [id number] 07/09/25 61963-951-62 KIERSTENELAINE CHIKI Assessment and Plan Assessment and Plan Orders: Orders Vitamin B12 11/11/23 E53.8 - Deficiency of other specified B group vitamins Plan Details Goals Barriers: Goals Decrease pain Decrease spasm Improve ROM Barriers Scoliosis DDD Clinical Quality Measures Falls Risk Screening/Assistive Devices Have you fallen in the past year?: No 11/12/23 1703 Date Jessica LONG Cosigner Signature: Date (if applicable) CC: Normal [facility] Internal Medicine Office Vis lala 10-27-2023 Internal Medicine Office Visit [facility] [address] [place] [address] [place] [address] OFFICE VISIT Date of Service: 10/27/23 MR#: [id number] Acct: [id number] Name: CHELSEA GARCIA Rep #: [id number] : 1945 Provider: Dr. Mile tavera MD Age/Sex: 77/F Location: [facility] Status: Signed Intake Vital Signs 10/22/23 10:07 10/27/23 10:40 Height 5 ft 1 in 5 ft 1 in Weight: 108 lb 8 oz 108 lb BMI 20.5 20.4 BP 136/66 H 140/62 H Blood Pressure Location Lt brachial Lt brachial Position Sitting Sitting Respiration 16 16 Pulse 64 72 Pulse Source Monitor Monitor Temp 97.6 F L 97.2 F L Temp Source Temporal Temporal Pulse Oximetry (%) 99 94 Oxygen Delivery Method room air room air Intake Visit Reasons: ACUTE DMV FU Chief Complaint: DMV requirement Die Storage Clerk Required: No Is patient in pain?: No Allergies promethazine (From Phenergan) Allergy (Severe, Verified 10/27/23 10:35) Swelling cephalexin Allergy (Verified 10/27/23 10:35) Diarrhea hydromorphone (From Dilaudid) Allergy (Verified 10/27/23 10:35) Other iron Adverse Reaction (Intermediate, Verified 10/27/23 10:35) Diarrhea oxaprozin Adverse Reaction (Intermediate, Verified 10/27/23 10:35) Nausea Medications ???Medication ???Instructions ???Recorded ???Confirmed ???Type ascorbate calcium (vitamin C) 500 500 mg PO QDAY 07/28/17 10/27/23 History mg tablet famotidine-Ca carb-mag hydrox 10 1 tab PO BID 07/28/17 10/27/23 History mg-800 mg-165 mg chewable tablet (Pepcid Complete) vitamins A,C,Q-wsan-ofszgm 4,296 1 ea PO DAILY 11/10/18 10/27/23 History mcg-226 mg-90 mg capsule ferrous sulfate 220 mg (44 mg 220 mg PO DIRECTED 09/15/21 10/27/23 History iron)/5 mL oral elixir (FeroSul) Handicap Placard #1 ea 06/29/22 10/27/23 Rx cyanocobalamin (vitamin B-12) 1,000 mcg subcut QMONTH 11/09/22 10/27/23 History 1,000 mcg/mL injection solution amlodipine 10 mg tablet 10 mg PO DAILY #90 tabs 03/22/23 10/27/23 Rx hydrocortisone 2.5 % topical cream 1 applic [place] BID-QID PRN 05/12/23 10/27/23 Rx with perineal applicator hemorrhoids #30 grams cholecalciferol (vitamin D3) 1,250 1,250 mcg PO QWEEK #14 caps 06/24/23 10/27/23 Rx mcg (50,000 unit) capsule lisinopril 30 mg tablet 30 mg PO DAILY #90 tabs 06/24/23 10/27/23 Rx meclizine 25 mg tablet 25 mg PO DAILY PRN dizziness 07/22/23 10/27/23 History diazepam 2 mg tablet (Valium) 2 mg PO TID PRN dizziness or 07/23/23 10/27/23 Rx vertigo #15 tabs ondansetron 4 mg disintegrating 4 mg PO TID PRN nausea and 07/23/23 10/27/23 Rx tablet vomiting #21 tabs diphenoxylate-atropi ne 2.5 1 tab PO BID PRN diarrhea #180 tabs 09/01/23 10/27/23 Rx mg-0.025 mg tablet (Lomotil) romosozumab-aqqg 210 mg/2.34 210 mg (2.34 mL) subcut QMONTH 12 10/22/23 10/27/23 Rx mL(105 mg/1.17 mL x2)subcutaneous months #28.08 mL syringe (Evenity) Have you fallen in the past year?: No Nurse's Note: States last wednesday she recieved a form in the mail requiring her to undergo a physcian statement for her to keep her liscense. She states that she has not been in an accident. Someone called and told the police she went over the line. They pulled her over and did not ticket her, they just told her stay in the cooper. [facility] Medical History (Updated 10/27/23 @ 12:[address] Mile Foster MD) Driving safety issue Hemorrhoid BPPV (benign paroxysmal positional vertigo) Iron deficiency anemia Chronic diarrhea Hernia Normal colonoscopy GERD (gastroesophageal reflux disease) Hypertension Hypertension GI bleed due to NSAIDs Surgical History H/O hernia repair H/O exploratory laparotomy History of laryngoscopy S/P partial colectomy Family History Other Breast cancer Cancer Hypertension Melanoma Social History Smoking Status: Never smoker alcohol intake: never substance use type: does not use what type of physical activity do you participate in: walking frequency: 1-2 times per week HPI HPI Chief Complaint: DMV requirement Details: CHELSEA GARCIA, is a 77 F who presents to the office today for an acute visit. She states that she got a letter in the mail from the DMV. Denies any recent motor vehicle accidents. History of macular degeneration and glaucoma for which she follows closely with a vitr eoretinal specialist in [place]. She states that there have been no concerns with driving. Had an appointment on the 17 of October. ROS Const Constitutional: No body ache, chills, excessive sweating, fatigue, fever(s), frequent falls, headache(s), snoring, weakness, sleep problems or change in appetite Eyes Eyes: No stanislav (more content not included)... Normal [facility] CBC W/Diff, Automatedon 10-09-2023 Absolute Lymph 1.38 X10 3/uL Normal 0.83-4.51 [facility] Comment on above: Performed By: #### L 500.4050, L100.0100 ####[facility] [address] [place], [address] Absolute Neut 3.0 X10 3/uL Normal 2.0-7.7 [facility] Comment on above: Performed By: #### L 500.4050, L100.0100 ####[facility] [address] [place], [address] Basophils/100 WBC (Bld) 0.8 % Normal 0-1 [facility] Comment on above: Performed By: #### L 500.4050, L100.0100 ####[facility] [address] [place], [address] Eosinophils/100 WBC (Bld) 3.6 % Normal 0-5 [facility] Comment on above: Performed By: #### L 500.4050, L100.0100 ####[facility] [address] [place], [address] Erythrocyte distribution width (RBC) [Ratio] 14.7 % High 11.6-14.6 [facility] Comment on above: Performed By: #### L 500.4050, L100.0100 ####[facility] [address] [place], [address] Hematocrit (Bld) [Volume fraction] 36.0 % Low 37-47 [facility] Comment on above: Performed By: #### L 500.4050, L100.0100 ####[facility] [address] [place], [address] Hemoglobin (Bld) [Mass/Vol] 11.0 g/dL Low 12.0-15.0 [facility] Comment on above: Performed By: #### L 500.4050, L100.0100 ####[facility] [address] [place], [address] IG% 0.200 Normal 0.0-0.9 [facility] Comment on above: Result Comment: IG% - Immature Granulocytes (promyelocytes, myelocytes and metamyelocytes) > 1% indicates that a LEFT SHIFT is Present. Performed By: #### L 500.4050, L100.0100 ####[facility] [address] [place], [address] Lymphocytes/100 WBC (Bld) 26.1 % Normal 19-41 [facility] Comment on above: Performed By: #### L 500.4050, L100.0100 ####[facility] [address] [place], [address] MCH (RBC) [Entitic mass] 28.4 pg Normal 27.0-32.0 [facility] Comment on above: Performed By: #### L 500.4050, L100.0100 ####[facility] [address] [place], [address] MCHC (RBC) [Mass/Vol] 30.6 g/dL Low 32-36 [facility] Comment on above: Performed By: #### L 500.4050, L100.0100 ####[facility] [address] [place], [address] MCV (RBC) [Entitic vol] 93.0 fL Normal 81-99 [facility] Comment on above: Performed By: #### L 500.4050, L100.0100 ####[facility] [address] [place], [address] Monocytes/100 WBC (Bld) 13.1 % High 0-10 [facility] Comment on above: Performed By: #### L 500.4050, L100.0100 ####[facility] [address] [place], [address] Neutrophils/100 WBC (Bld) 56.2 % Normal 47-70 [facility] Comment on above: Performed By: #### L 500.4050, L100.0100 ####[facility] [address] [place], [address] Nucleated RBC (Bld) [#/Vol] 0 10*3/uL Normal 0-5 [facility] Comment on above: Performed By: #### L 500.4050, L100.0100 ####[facility] [address] [place], [address] Platelet mean volume (Bld) [Entitic vol] 11.2 fL Normal 6.2-12.0 [facility] Comment on above: Performed By: #### L 500.4050, L100.0100 ####[facility] [address] [place], [address] Platelets (Bld) [#/Vol] 335 10*3/uL Normal 150-450 [facility] Comment on above: Performed By: #### L 500.4050, L100.0100 ####[facility] [address] [place], [address] RBC (Bld) [#/Vol] 3.87 10*6/uL Low 4.2-5.4 [facility] Comment on above: Performed By: #### L 500.4050, L100.0100 ####[facility] [address] [place], [address] RDW SD 50.7 fl High 35.1-43.9 [facility] Comment on above: Performed By: #### L 500.4050, L100.0100 ####[facility] [address] [place], [address] WBC (Bld) [#/Vol] 5.3 10*3/uL Normal 4.4-11.0 [facility] Comment on above: Performed By: #### L 500.4050, L100.0100 ####[facility] [address] [place], [address] Comprehensive Metabolic Prof ilon 10-22-2023 Albumin [Mass/Vol] 3.3 g/dL Normal 3.2-5.0 [facility] Comment on above: Performed By: #### L 500.4050, L100.0100 ####[facility] [address] [place], [address] Albumin/Globulin [Mass ratio] 1.0 {ratio} Normal 0.9-2.4 [facility] Comment on above: Performed By: #### L 500.4050, L100.0100 ####[facility] [address] [place], [address] ALK P 124 U/L High 45-117 [facility] Comment on above: Performed By: #### L 500.4050, L100.0100 ####[facility] [address] [place], [address] ALT [Catalytic activity/Vol] 45 U/L Normal 13-56 [facility] Comment on above: Performed By: #### L 500.4050, L100.0100 ####[facility] [address] [place], [address] AST [Catalytic activity/Vol] 25 U/L Normal 15-37 [facility] Comment on above: Performed By: #### L 500.4050, L100.0100 ####[facility] [address] [place], [address] Bilirubin [Mass/Vol] 0.20 mg/dL Normal 0.20-1.00 [facility] Comment on above: Result Comment: For patients on eltrombopag therapy, use of Dimension [place] TBIL is not recommended. Performed By: #### L 500.4050, L100.0100 ####[facility] [address] [place], [address] BUN/CRE 26.0 RATIO High 10-20 [facility] Comment on above: Performed By: #### L 500.4050, L100.0100 ####[facility] [address] [place], [address] CA,Total 9.8 mg/dL Normal 8.5-10.1 [facility] Comment on above: Performed By: #### L 500.4050, L100.0100 ####[facility] [address] [place], [address] Chloride [Moles/Vol] 107 mmol/L Normal 98-107 [facility] Comment on above: Performed By: #### L 500.4050, L100.0100 ####[facility] [address] [place], [address] CO2 [Moles/Vol] 28.0 mmol/L Normal 21.0-32.0 [facility] Comment on above: Performed By: #### L 500.4050, L100.0100 ####[facility] [address] [place], [address] Creatinine [Mass/Vol] 0.89 mg/dL Normal 0.55-1.02 [facility] Comment on above: Result Comment: The validity of the calculated GFR GFRAA in patients over 70 years has not been determined. Clinical correlation is essential. Performed By: #### L 500.4050, L100.0100 ####[facility] [address] [place], [address] EST GFR - AA 79 mL/min Normal >60 [facility] Comment on above: Result Comment: Afri can Latvian GFR Calc Performed By: #### L 500.4050, L100.0100 ####[facility] [address] [place], [address] GAP 6 Normal 5-15 [facility] Comment on above: Performed By: #### L 500.4050, L100.0100 ####[facility] [address] [place], [address] GFR/1.73 sq M.predicted among non-blacks MDRD (S/P/Bld) [Vol rate/Area] 65 mL/min/{1.73_m2} Normal >60 [facility] Comment on above: Result Comment: Non- GFR Calc Performed By: #### L 500.4050, L100.0100 ####[facility] [address] [place], [address] Globulin (S) [Mass/Vol] 3.4 g/dL Normal 2.2-4.2 [facility] Comment on above: Performed By: #### L 500.4050, L100.0100 ####[facility] [address] [place], [address] Glucose [Mass/Vol] 106 mg/dL Normal 74-106 [facility] Comment on above: Result Comment: Fast ing Glucose result from 100 to 125 mg/dL suggests IMPAIRED HOMEOSTASIS per A.D.A. criteria. Performed By: #### L 500.4050, L100.0100 ####[facility] [address] [place], [address] Potassium [Moles/Vol] 4.4 mmol/L Normal 3.5-5.1 [facility] Comment on above: Performed By: #### L 500.4050, L100.0100 ####[facility] [address] [place], [address] Sodium [Moles/Vol] 141 mmol/L Normal 136-145 [facility] Comment on above: Performed By: #### L 500.4050, L100.0100 ####[facility] [address] [place], [address] T PROT 6.7 g/dL Normal 6.4-8.2 [facility] Comment on above: Performed By: #### L 500.4050, L100.0100 ####[facility] [address] [place], [address] Urea nitrogen [Mass/Vol] 23 mg/dL High 7-18 [facility] Comment on above: Performed By: #### L 500.4050, L100.0100 ####[facility] [address] [place], [address] Internal [facility] Internal Medicine Office Visit [facility] [address] [place] [address] [place] [address] OFFICE VISIT Date of Service: 10/22/23 MR#: [id number] Acct: [id number] Name: CHELSEA GARCIA Joaquin Rep #: [id number] : 1945 Provider: Dr. Mile tavera MD Age/Sex: 77/F Location[place] [facility] Status: Signed Intake Vital Signs 08/11/23 09:25 10/22/23 10:07 Height 5 ft 1 in 5 ft 1 in Weight: 108 lb 8 oz BMI 20.5 BP 136/66 H Blood Pressure Location Lt brachial Position Sitting Respiration 16 Pulse 64 Pulse Source Monitor Temp 97.6 F L Temp Source Temporal Pulse Oximetry (%) 99 Oxygen Delivery Method room air Intake Visit Reasons: 2 M FU Chief Complaint: 2m f/u Die Storage Clerk Required: No Accompanied by: Self Is patient in pain?: No Allergies promethazine (From Phenergan) Allergy (Severe, Verified 10/22/23 10:05) Swelling cephalexin Allergy (Verified 10/22/23 10:05) Diarrhea hydromorphone (From Dilaudid) Allergy (Verified 10/22/23 10:05) Other iron Adverse Reaction (Intermediate, Verified 10/22/23 10:05) Diarrhea oxaprozin Adverse Reaction (Intermediate, Verified 10/22/23 10:05) Nausea Medications ???Medication ???Instructions ???Recorded ???Confirmed ???Type ascorbate calcium (vitamin C) 500 500 mg PO QDAY 07/28/17 10/22/23 History mg tablet famotidine-Ca carb-mag hydrox 10 1 tab PO BID 07/28/17 10/22/23 History mg-800 mg-165 mg chewable tablet (Pepcid Complete) vitamins A,C,Y-xklf-nuplva 4,296 1 ea PO DAILY 11/10/18 10/22/23 History mcg-226 mg-90 mg capsule ferrous sulfate 220 mg (44 mg 220 mg PO DIRECTED 09/15/21 10/22/23 History iron)/5 mL oral elixir (FeroSul) Handicap Placard #1 ea 06/29/22 10/22/23 Rx cyanocobalamin (vitamin B-12) 1,000 mcg subcut QMONTH 11/09/22 10/22/23 History 1,000 mcg/mL injection solution amlodipine 10 mg tablet 10 mg PO DAILY #90 tabs 03/22/23 10/22/23 Rx hydrocortisone 2.5 % topical cream 1 applic [place] BID-QID PRN 05/12/23 10/22/23 Rx with perineal applicator hemorrhoids #30 grams cholecalciferol (vitamin D3) 1,250 1,250 mcg PO QWEEK #14 caps 06/24/23 10/22/23 Rx mcg (50,000 unit) capsule lisinopril 30 mg tablet 30 mg PO DAILY #90 tabs 06/24/23 10/22/23 Rx meclizine 25 mg tablet 25 mg PO DAILY PRN dizziness 07/22/23 10/22/23 History diazepam 2 mg tablet (Valium) 2 mg PO TID PRN dizziness or 07/23/23 10/22/23 Rx vertigo #15 tabs ondansetron 4 mg disintegrating 4 mg PO TID PRN nausea and 07/23/23 10/22/23 Rx tablet vomiting #21 tabs diphenoxylate-atropi ne 2.5 1 tab PO BID PRN diarrhea #180 tabs 09/01/23 10/22/23 Rx mg-0.025 mg tablet (Lomotil) romosozumab-aqqg 210 mg/2.34 210 mg (2.34 mL) subcut QMONTH 12 10/22/23 10/22/23 Rx mL(105 mg/1.17 mL x2)subcutaneous months #28.08 mL syringe (Evenity) Have you fallen in the past year?: No PFSH Medical History Hemorrhoid BPPV (benign paroxysmal positional vertigo) Iron deficiency anemia Chronic diarrhea Hernia Normal colonoscopy GERD (gastroesophageal reflux disease) Hypertension Hypertension GI bleed due to NSAIDs Surgical History H/O hernia repair H/O exploratory laparotomy History of laryngoscopy S/P partial colectomy Family History Other Breast cancer Cancer Hypertension Melanoma Social History Smoking Status: Never smoker alcohol intake: never substance use type: does not use what type of physical activity do you participate in: walking frequency: 1-2 times per week HPI HPI Chief Complaint: 2m f/u Details: CHELSEA GARCIA, is a 77 F who presents to the office today for follow-up of her chronic conditions. History of osteoporosis currently on Fosamax. She states that she has been taking Fosamax consistently however, repeat bone density scan showed worsening. No recent fracture. Also on calcium and vitamin D supplements. Other chronic medical conditions are largely stable. History of hypertension, blood pressure today at 136/66 mmHg. No chest pain, palpitation or shortness of breath reported. ROS Const Constitutional: No body ache, chills, excessive sweating, fatigue, fever(s), frequent falls, headache(s), snoring, weakness or change in appetite Eyes Eyes: No blurry vision, change in vision, dry eyes, bulging eyes, floaters, visual disturbances, eye pain or Light sensitivity ENT ENT: No abnormal hearing, ear or mastoid pain, tinnitus, balance problems, nosebleed/epistaxis, nasal congestion, headache(s), neck pain or sore throat Resp Respiratory: No cough, excessive phlegm production, pain on inspiration, shortness of breath, snoring or wheezing Cardio (more content not included)... Normal [facility] Office Visit Reporton 2023 Office Visit Report [facility] [address] [place] [address] OFFICE VISIT Date of Service: 10/14/23 MR#: [id number] Acct: [id number] Patient: CHELSEA GARCIA Rep #: [id number] : 1945 Provider: ARTIS NURSE Age/Sex: 77/F Location[place] [facility] Status: Signed Intake Vital Signs 08/11/23 09:25 Height 5 ft 1 in Intake Visit Reasons: b12 Chief Complaint: B12 SHOT Allergies promethazine (From Phenergan) Allergy (Severe, Verified 08/11/23 09:20) Swelling cephalexin Allergy (Verified 08/11/23 09:20) Diarrhea hydromorphone (From Dilaudid) Allergy (Verified 08/11/23 09:20) Other iron Adverse Reaction (Intermediate, Verified 08/11/23 09:20) Diarrhea oxaprozin Adverse Reaction (Intermediate, Verified 08/11/23 09:20) Nausea Have you fallen in the past year?: No Office Meds cyanocobalamin (vitamin B-12) 1,000 mcg/mL injection solution Performing Provider: Mile Foster MD Performing Location: [facility] Administered by: Loida Mansfield MA on 10/14/23 12:55 Dose Route Admin Location Dispensed Lot Number Expiration Date [facility] Man ufacturer 1,000 mcg IM LD 1 mL [id number] 07/09/25 31855-015-01 DAVID MONET Assessment and Plan Assessment and Plan (1) Vitamin B12 deficiency: Status: Chronic Orders: Orders Vitamin B12 Today E53.8 - Deficiency of other specified B group vitamins Plan Details Goals Barriers: Goals Decrease pain Decrease spasm Improve ROM Barriers Scoliosis DDD Clinical Quality Measures Falls Risk Screening/Assistive Devices Have you fallen in the past year?: No 10/14/23 1307 Date Mile Foster MD Cosigner Signature: Date (if applicable) CC: Normal [facility] PT D/C Summary (1)on 024 PT D/C Summary (1) [facility] Physical Therapy [facility] [address] [place] [address] / REHABILITATION SERVICES DISCHARGE SUMMARY MR#: [id number] Acct: [id number] Name: CHELSEA GARCIA Rep #: [id number] : 1945 77 From: Basil Xavier PT, Cert. T, OCS Referring Dr.: Dr. Mile Foster MD Status: REG RCR Insurance: MEDICARE PART A B [facility] Discharge Summary D/C summary: It has been my pleasure to treat CHELSEA GARCIA referred by Dr. Mile Foster MD, with the diagnosis of LOW BACK PAIN for a total of 16 visit(s). Discharge Date: 10/14/23 Please see the following information for a summary of their discharge status. Subjective Subjective: Doing well ,better walking better more straight Patient sees Dr routine visit Pain Bilateral Back: Pain Intensity (Out of 10): 1 Overall Improvement % Improvement: 75 Objective Objective/Function: POSTURE: right scoliosis with asymmetries pelvis and shoulder ,thoracic kyphosis GAIT: ambulates with hips/knees flexed scoliosis right with asymmetries PALAPTION: tender paraspinals ,erector NEURO : denies paresthesia/tingling ,reflexes L3-4,L4-5 ,L5- S1 1/3 LUMBAR ROM: flexion mod loss ,extension mod loss ,side glides left mod loss ,right min loss FLEXABILITY: hamstrings min tight PROM HIP: IR 10 degrees MMT: quads/hams 4/5 ,( peak force) hip flexion 16.8 right ,left 18.8 ,hip abduction right 15.3 ,left 13.8,ankle 4/5 Goals Goal 1:: Patient will I with HEP for back Goal Progress: Goal Met Goal 2:: Patient to demonstrate 50% improvement with improved function Goal Progress: Goal Met Goal 3:: Patient to improve lumbar ROM for function to put on shoes Goal Progress: Goal Met Goal 4:: Patient to improve back oswestry by 5 points to improve QOL and function Goal Progress: Goal Met Goal 5:: Patient be able to improve walking/standing with improved ADLS 70% Goal Progress: Goal Met Plan Plan: D/C D/C Information Discharge Comments: HEP d/c sentence: If there are questions or concerns regarding this patient's physical therapy, please feel free to call me at [phone]. Thank you for the referral of this patient. Sincerely, Basil Xavier, PT, Cert MDT, OCS Balance/Gait/Functio nal tests Balance/Special Test Scores Oswestry Low Back Score: 14 Improvement % Improvement: 75 10/14/23 1048 CC: Dr. Mile Foster MD JLA Signed Normal [facility] Dexa Bone Density Studyon Dexa Bone Density Study [facility] Imaging Services [address] [place] [address] [id number] Dexa Bone Density Study MR#: [id number] Acct: [id number] Name: CHELSEA GARCIA Rep #: [id number] : 1945 F 77 From: Savage orlando MD PCP: Dr. Mile Foster MD Status: REG CLI Study: Dexa Bone Density Study Date of Exam: 09/28/23 Exam# [id number] Ordering Dr: Mile Foster MD [id number] STUDY: DUAL ENERGY X-RAY ABSORPTIOMETRY / DXA REASON FOR EXAM: Female, 77 years old. Osteoporosis TECHNIQUE: Bone Mineral Density (BMD) measurements of lumbar spine and bilateral hips were obtained. COMPARISON: Comparison is made with prior study September 25, 2021. FINDINGS: Lumbar Spine (L1-L4): g/cm2 (0.516) / T-score (-4.2) / Z-score (-1.8) Findings are suggestive of osteoporosis with a high fracture risk. Left Femur Total: g/cm2 (0.432) / T-score (-4.2) / Z-score (-2.2) Left Femoral Neck: g/cm2 (0.291) / T-score (-5.0) / Z-score (-2.8) Right Femur Total: g/cm2 (0.396) / T-score (-4.5) / Z-score (-2.5) Right Femoral Neck: g/cm2 (0.301) / T-score (-4.9) / Z-score (-2.7) The T-Scores on the most recent prior examination were: Lumbar Spine (L1-L4): There has been worsening of bone density since the previous examination. Left Femur Total: which represents a worsening of 4.5%. Right Femur Total: which represents a worsening of 9.9%. BD/Dexa Bone Density Study IMPRESSION: The patient is considered osteoporotic as outlined below according to World Phillip Organization (WHO) criteria with a high fracture risk. There has been worsening of bone density since the previous examination. Reference Information: The T-score is the number of standard deviations above or below the standard which is normal for young adults at their peak bone mineral density. The World Health Organization (WHO) interprets the T-scores as follows: Above -1 Normal bone density Between -1 and -2.5 Osteopenia Equal to / or below -2.5 Osteoporosis As a practical clinical guideline, osteopenia may be graded as follows: Mild -1 through -1.5 Moderate -1.6 through -2.0 Severe -2.1 through -2.4 The Z-score is the number of standard deviations above or below age-matched controls. A Z-score of less than -1.5 would be considered abnormal. References: 1. NIH Osteoporosis and Related Bone Diseases www osteo.org 2. International Society for Clinical Densitometry www iscd.org 3. National Osteoporosis Foundation www nof.org Electronically Signed: Savage Nina MD at 7:56 EDT , CC: Dr. Mile Foster MD [employer] Decorator: Signed Normal [facility] Re-Evaluation - PT (1)on Re-Evaluation - PT (1) [facility] Physical Therapy [facility] [address] [place] [address] [address] [place] [address] / REEVALUATION / MEDICARE RECERTIFICATION PHYSICAL THERAPY MR#: [id number] Acct: [id number] Name: CHELSEA GARCIA Rep #: [id number] : 1945 77 From: Basil Xavier PT, Cert. T, [facility] Referring Dr.: Dr. Mile Foster MD Status:REG RC R Insurance: MEDICARE PART A B [facility] Re-Evaluation Intro: Dr. Mile Foster MD, It has been my pleasure to treat CHELSEA GARCIA over the last 10 visits for LOW BACK PAIN. Please see the progress note below for an update on the physical therapy plan of care! Subjective Subjective: Doing better overall Objective Objective/Function: Patient will cont to benefit from skilled PT with decrease pain with goals are appropriate POSTURE: right scoliosis with asymmetries pelvis and shoulder ,thoracic kyphosis GAIT: ambulates with hips/knees flexed scoliosis right with asymmetries PALAPTION: tender paraspinals ,erector NEURO : denies paresthesia/tingling ,reflexes L3-4,L4-5 ,L5- S1 1/3 LUMBAR ROM: flexion mod loss ,extension mod loss ,side glides left mod loss ,right min loss FLEXABILITY: hamstrings min tight PROM HIP: IR 10 degrees MMT: quads/hams 4/5 ,( peak force) hip flexion 16.2 right ,left 15.8 ,hip abduction right 12.3 ,left 12.81,ankle 4/5 Plan Plan Plan: PT INTERVENTIONS LUMBAR FLEXION ,POSTURAL EX'S ,DLS ,HIP STRENGTHENING AND ACTIVITY MODIFICATION precaution chronic vertigo (mainly supine to sit). Balance/Gait/Functio nal tests Balance/Special Test Scores Oswestry Low Back Score: 19 Goals Goals Goal 1:: Patient will I with HEP for back Goal Time Frame: 4-6 Weeks Goal Progress: Progressing Goal 2:: Patient to demonstrate 50% improvement with improved function Goal Time Frame: 4-6 Weeks Goal Progress: Progressing Goal 3:: Patient to improve lumbar ROM for function to put on shoes Goal Time Frame: 4-6 Weeks Goal Progress: Progressing Goal 4:: Patient to improve back oswestry by 5 points to improve QOL and function Goal Time Frame: 4-6 Weeks Goal Progress: Progressing Goal 5:: Patient be able to improve walking/standing with improved ADLS 70% Goal Time Frame: 4-6 Weeks Anticipated Interventions Anticipated Interventions Patient/Client Instruction: Educate patient on: Condition and Plan of Care For the Purpose of:: To decrease pain, To increase ROM, To improve muscle performance and motor function, To improve ability to perform ADL's, To increase tolerance to activity/condition/p osition, To improve ability of physical actions for home/community/work/ leisure, To improve health of tissue, To decrease soft tissue restriction, To increase flexibility/ROM and To improve tolerance to ADL's Therapeutic Exercise to Include: Strength training, Endurance training, Balance training, Postural training, Flexibilty training and Dynamic Lumbar Stabilization For the Purpose of:: To decrease pain, To improve nutrient delivery to tissue, To improve muscle performance and motor function, To improve ability to perform ADL's, To increase tolerance to activity/condition/p osition, To improve ability of physical actions for home/community/work/ leisure, To improve health of tissue, To decrease soft tissue restriction, To increase flexibility/ROM and To improve tolerance to ADL's Re-Evaluation Ending Re-evaluation ending: Please do not hesitate to contact me at [phone] by phone or if you have questions or concerns regarding this new plan of care! Sincerely, Basil Xavier PT, Cert MDT, OCS 09/22/23 1021 CC: Dr. Mile Foster MD MARIANA Signed For Medicare only, by signing this I certify the plan of care. Physicians Signature Date Normal [facility] Office Visit Reporton [address] [facility] [address] [place] [address] OFFICE VISIT Date of Service: 09/16/23 MR#: [id number] Acct: [id number] Patient: CHELSEA GARCIA Rep #: [id number] : 1945 Provider: ARTIS NURSE Age/Sex: 77/F [place] [facility] Status: Signed Intake Vital Signs 08/11/23 09:25 Height 5 ft 1 in Weight: 109 lb 6 oz BMI 20.6 BP 124/64 H Blood Pressure Location Lt brachial Position Sitting Respiration 16 Pulse 82 Pulse Source Monitor Temp 97.3 F L Temp Source Temporal Pulse Oximetry (%) 98 Oxygen Delivery Method room air Intake Visit Reasons: b12 Chief Complaint: B12 SHOT Allergies promethazine (From Phenergan) Allergy (Severe, Verified 08/11/23 09:20) Swelling cephalexin Allergy (Verified 08/11/23 09:20) Diarrhea hydromorphone (From Dilaudid) Allergy (Verified 08/11/23 09:20) Other iron Adverse Reaction (Intermediate, Verified 08/11/23 09:20) Diarrhea oxaprozin Adverse Reaction (Intermediate, Verified 08/11/23 09:20) Nausea Have you fallen in the past year?: No Office Meds cyanocobalamin (vitamin B-12) 1,000 mcg/mL injection solution Performing Provider: Mile Foster MD Performing Location: [facility] Administered by: Mandy Whatley LPN on 09/16/23 09:00 Dose Route Admin Location Dispensed Lot Number Expiration Date ZBIGNIEW Araujo ufflorenceurer 1,000 mcg IM right deltoid 1 mL [id number] 08/07/25 66409-840-89 KIERSTENELAINE CHIKI Comments: pt requested injection in right deltoid. pt tolerated well. Assessment and Plan Assessment and Plan Orders: Orders Vitamin B12 09/16/23 E53.8 - Deficiency of other specified B group vitamins Plan Details Goals Barriers: Goals Decrease pain Decrease spasm Improve ROM Barriers Scoliosis DDD Clinical Quality Measures Falls Risk Screening/Assistive Devices Have you fallen in the past year?: No 09/17/23 0832 Date Jessica Breaux Signature: Date (if applicable) CC: Normal [facility] Inital Evaluation (1) - PTon 08-24-2023 Inital Evaluation (1) - PT [facility] Physical Therapy Health[address] [place] [id number] / REHABILITATION SERVICES INITIAL EVALUATION MR#: [id number] Acct: [id number] Name: CHELSEA GARCIA Rep #: [id number] : 1945 77 From: Basil Xavier PT, Cert. T, OCS Referring Dr.: Dr. Mile Foster MD Status: REG RCR Insurance: MEDICARE PART A B [facility] Patient's Visit Information Visit Information Visit Information: CHELSEA GARCIA is a 77 year old F referred to Physical Therapy by Dr. Mile Foster MD with a diagnosis of LOW BACK PAIN. Date of Evaluation: 08/24/23 Physical Therapist: Basil Xavier PT, Cert T, OCS Visit Plan Frequency: 2x /Week Duration: 4 Weeks Plan: PT INTERVENTIONS LUMBAR FLEXION ,POSTURAL EX'S ,DLS ,HIP STRENGTHENING AND ACTIVITY MODIFICATION Subjective Subjective: This 77 y/o female presents to physical therapy with low back pain. Patient has had back pain for 3 weeks just insidious onset no injury. Seen DR recommended PT no diagnostics. Patient located symmetrical lumbar right hip.No leg symptoms. Aggravating factors standing ,extended walking,bending and try to lft. Alleviating factors rest. Coughing/sneezing/ Bowel/bladder -. Patient sleeping good. Patient has h/o back pain. Patient has no h/o trauma. No abnormal night pain. Patient pain affects QOL and function. Patient goals to degrease pain. SOCAIL: VOCATION: single Pain Bilateral Back: Pain Intensity (Out of 10): 7 Objective Objective: POSTURE: right scoliosis with asymmetries pelvis and shoulder ,thoracic kyphosis GAIT: ambulates with hips/knees flexed scoliosis right with asymmetries PALAPTION: tender paraspinals ,erector NEURO : denies paresthesia/tingling ,reflexes L3-4,L4-5 ,L5- S1 1/3 LUMBAR ROM: flexion mod loss ,extension mod loss ,side glides left mod loss ,right min loss FLEXABILITY: hamstrings min tight PROM HIP: IR 10 degrees MMT: quads/hams 4/5 ,( peak force) hip flexion 16.8 right ,left 15.8 ,hip abduction right 12.1 ,left 11.8,ankle 4/5 Special Tests L/S Slump test left side: Negative L/S Slump test right side: Negative L/S Left Straight Leg Raise: Negative L/S Right Straight Leg Raise: Negative Balance/Special Test Scores Oswestry Low Back Score: 26 Goals Goal 1:: Patient will I with HEP for back Goal Time Frame: 4-6 Weeks Goal 2:: Patient to demonstrate 50% improvement with improved function Goal Time Frame: 4-6 Weeks Goal 3:: Patient to improve lumbar ROM for function to put on shoes Goal Time Frame: 4-6 Weeks Goal 4:: Patient to improve back oswestry by 5 points to improve QOL and function Goal Time Frame: 4-6 Weeks Goal 5:: Patient be able to improve walking/standing with improved ADLS 70% Goal Time Frame: 4-6 Weeks Rehabilitation Potential Physical Therapy Diagnosis: This patient has low back pain with scoliosis with pain ,poor posture , decrease ROM ,impaired function and ADLS thus benefit from skilled PT Rehabilitation Potential: Good Anticipated Interventions Patient/Client Instruction: Educate patient on: Condition and Plan of Care For the Purpose of:: To decrease pain, To increase ROM, To improve muscle performance and motor function, To improve ability to perform ADL's, To increase tolerance to activity/condition/p osition, To improve ability of physical actions for home/community/work/ leisure, To improve health of tissue, To decrease soft tissue restriction, To increase flexibility/ROM and To improve tolerance to ADL's Therapeutic Exercise to Include: Strength training, Endurance training, Balance training, Postural training, Flexibilty training and Dynamic Lumbar Stabilization For the Purpose of:: To decrease pain, To improve nutrient delivery to tissue, To improve muscle performance and motor function, To improve ability to perform ADL's, To increase tolerance to activity/condition/p osition, To improve ability of physical actions for home/community/work/ leisure, To improve health of tissue, To decrease soft tissue restriction, To increase flexibility/ROM and To improve tolerance to ADL's Text: Thank you for the opportunity to evaluate your patient. For Medicare and Medicare HMO plans, please review the plan of care and approve it. It will need to be FAXED BACK to us at [phone] for Medicare purposes. For Medicare only, by signing this I certify the plan of care. Please let me know if there are questions or concerns regarding this plan of care. Physician Signature: D ate: 08/24/23 1020 CC: Dr. Mile Foster MD MARIANA Signed Normal [facility] Office Visit Reporton 2023 Office Visit Report [facility] [address] [place] [address] OFFICE VISIT Date of Service: 08/19/23 MR#: [id number] Acct: [id number] Patient: ARIEL GARCIAA Joaquin Rep #: [id number] : 1945 Provider: ARTIS NURSE Age/Sex: 77/F [place] [facility] Status: Signed Intake Vital Signs 05/12/23 09:24 08/11/23 09:25 Height 5 ft 5 ft 1 in Weight: 109 lb 6 oz BMI 20.6 BP 124/64 H Blood Pressure Location Lt brachial Position Sitting Respiration 16 Pulse 82 Pulse Source Monitor Temp 97.3 F L Temp Source Temporal Pulse Oximetry (%) 98 Oxygen Delivery Method room air Intake Visit Reasons: B12 SHOT Chief Complaint: B12 SHOT Allergies promethazine (From Phenergan) Allergy (Severe, Verified 08/11/23 09:20) Swelling cephalexin Allergy (Verified 08/11/23 09:20) Diarrhea hydromorphone (From Dilaudid) Allergy (Verified 08/11/23 09:20) Other iron Adverse Reaction (Intermediate, Verified 08/11/23 09:20) Diarrhea oxaprozin Adverse Reaction (Intermediate, Verified 08/11/23 09:20) Nausea Have you fallen in the past year?: No Office Meds cyanocobalamin (vitamin B-12) 1,000 mcg/mL injection solution Performing Provider: Mile Foster MD Performing Location: [facility] Administered by: Courtney Blum on 08/19/23 09:00 Dose Route Admin Location Dispensed Lot Number Expiration Date [facility] Man ufacturer 1,000 mcg IM LEFT DELTOID 1 mL [id number] 08/07/25 42869-176-41 DAVID MONET Assessment and Plan Assessment and Plan Orders: Orders Vitamin B12 08/19/23 E53.8 - Deficiency of other specified B group vitamins Plan Details Goals Barriers: Goals Decrease pain Decrease spasm Improve ROM Barriers Scoliosis DDD Clinical Quality Measures Falls Risk Screening/Assistive Devices Have you fallen in the past year?: No 08/20/23 1242 Date Jessica Breaux Signature: Date (if applicable) CC: Normal [facility] Internal Medicine Office Vis lala 08-11-2023 Internal Medicine Office Visit [facility] [address] [place] [address] OFFICE VISIT Date of Service: 08/11/23 MR#: [id number] Acct: [id number] Name: CHELSEA GARCIA Rep #: [id number] : 1945 Provider: Dr. Mile tavera MD Age/Sex: 77/F Location[place] [facility] Status: Signed Intake Vital Signs 05/12/23 09:24 07/22/23 23:33 08/11/23 09:25 Height 5 ft 5 ft 5 ft 1 in Weight: 109 lb 6 oz BMI 20.6 BP 124/64 H Blood Pressure Location Lt brachial Position Sitting Respiration 16 Pulse 82 Pulse Source Monitor Temp 97.3 F L Temp Source Temporal Pulse Oximetry (%) 98 Oxygen Delivery Method room air Intake Visit Reasons: 3 M FU Chief Complaint: 3m f/u Die Storage Clerk Required: No Accompanied by: Self Is patient in pain?: Yes (chest/lung pain) Allergies promethazine (From Phenergan) Allergy (Severe, Verified 08/11/23 09:20) Swelling cephalexin Allergy (Verified 08/11/23 09:20) Diarrhea hydromorphone (From Dilaudid) Allergy (Verified 08/11/23 09:20) Other iron Adverse Reaction (Intermediate, Verified 08/11/23 09:20) Diarrhea oxaprozin Adverse Reaction (Intermediate, Verified 08/11/23 09:20) Nausea Medications ???Medication ???Instructions ???Recorded ???Confirmed ???Type ascorbate calcium (vitamin C) 500 500 mg PO QDAY 07/28/17 08/11/23 History mg tablet famotidine-Ca carb-mag hydrox 10 1 tab PO BID 07/28/17 08/11/23 History mg-800 mg-165 mg chewable tablet (Pepcid Complete) vitamins A,C,Q-lbtl-icyxfe 4,296 1 ea PO DAILY 11/10/18 08/11/23 History mcg-226 mg-90 mg capsule ferrous sulfate 220 mg (44 mg 220 mg PO DIRECTED 09/15/21 08/11/23 History iron)/5 mL oral elixir (FeroSul) alendronate 70 mg tablet 70 mg PO QWEEK #20 tabs 04/27/22 08/11/23 Rx Handicap Placard #1 ea 06/29/22 08/11/23 Rx cyanocobalamin (vitamin B-12) 1,000 mcg subcut QMONTH 11/09/22 08/11/23 History 1,000 mcg/mL injection solution diphenoxylate-atropi ne 2.5 1 tab PO BID PRN diarrhea #180 tabs 12/02/22 08/11/23 Rx mg-0.025 mg tablet (Lomotil) amlodipine 10 mg tablet 10 mg PO DAILY #90 tabs 03/22/23 08/11/23 Rx hydrocortisone 2.5 % topical cream 1 applic [place] BID-QID PRN 05/12/23 08/11/23 Rx with perineal applicator hemorrhoids #30 grams cholecalciferol (vitamin D3) 1,250 1,250 mcg PO QWEEK #14 caps 06/24/23 08/11/23 Rx mcg (50,000 unit) capsule lisinopril 30 mg tablet 30 mg PO DAILY #90 tabs 06/24/23 08/11/23 Rx meclizine 25 mg tablet 25 mg PO DAILY PRN dizziness 07/22/23 08/11/23 History diazepam 2 mg tablet (Valium) 2 mg PO TID PRN dizziness or 07/23/23 08/11/23 Rx vertigo #15 tabs ondansetron 4 mg disintegrating 4 mg PO TID PRN nausea and 07/23/23 08/11/23 Rx tablet vomiting #21 tabs Have you fallen in the past year?: No PFSH Medical History (Updated 08/11/23 @ 11:[address] Mile Foster MD) Hemorrhoid BPPV (benign paroxysmal positional vertigo) Iron deficiency anemia Chronic diarrhea Hernia Normal colonoscopy GERD (gastroesophageal reflux disease) Hypertension Hypertension GI bleed due to NSAIDs Surgical History H/O hernia repair H/O exploratory laparotomy History of laryngoscopy S/P partial colectomy Family History Other Breast cancer Cancer Hypertension Melanoma Social History Smoking Status: Never smoker alcohol intake: never substance use type: does not use what type of physical activity do you participate in: walking frequency: 1-2 times per week HPI HPI Chief Complaint: 3m f/u Details: CHELSEA GARCIA, is a 77 F who presents to the office today for follow-up of her chronic medical conditions. Also has some concerns. Reports occasional back and side pain. Leans primarily to her right side when she walks. History of scoliosis. No numbness or tingling reported. She would like to try physical therapy. Last bone density scan was in 2021. Has been on Fosamax and tolerating this well. No recent fractures. Also takes her calcium and vitamin D supplements. Blood pressure today is at 124/64 mmHg. On lisinopril which she is taking as prescribed. No chest pain, palpitation or shortness of breath. Recent ER visit for dizziness. Diagnosed with BPPV and started on Valium. Has used a couple and found it helpful. No recent falls. ROS Const Constitutional: No body ache, chills, excessive sweating, fatigue, fever(s), frequent falls, headache(s), snoring, weakness or change in appetite Eyes Eyes: No blurry vision, change in vision, bulging eyes, floaters, visual disturbances, eye pain or Light sensitivity ENT ENT: No abnormal hearing, ear or mastoid pain, tinnitus, balance problems, nosebleed/ep (more content not included)... Normal [facility] Emergency Department Summary on 07-23-2023 Emergency Department Summary [facility] Medical Records Department [address] [place] [address] Emergency Department Summary 07/23/23 MR#: [id number] Acct: [id number] Name: CHELSEA GARCIA Rep #: [id number] : 1945 77 From: Smith Chamberlain DO PCP: Dr. Mile Foster MD Status:DEP ER Location: ED HPI History of Present Illness Chief Complaint: Dizziness Informant: patient and friend Narrative Narrative: Patient is a 77-year-old female with past medical history of hypertension and vertigo. She states that this evening she had an increase in her ear ringing and with this her dizziness increased as well. She states that if she sits at rest her symptoms improve/resolve but as soon as she gets up to walk she feels off balance. She states she believes this is an inner ear issue as it feels similar nature to her past events but also concerned this could be potential stroke and therefore called her friend to bring her in for evaluation. [facility] Medical History (Updated 07/23/23 @ 04:[address] Smith Chamberlain, DO) Hemorrhoid BPPV (benign paroxysmal positional vertigo) Iron deficiency anemia Chronic diarrhea Hernia Normal colonoscopy GERD (gastroesophageal reflux disease) Hypertension Hypertension GI bleed due to NSAIDs Home Medications ???Medication ???Instructions ???Recorded ???Last Taken ???Type ascorbate calcium (vitamin C) 500 500 mg PO QDAY 07/28/17 07/22/23 History mg tablet famotidine-Ca carb-mag hydrox 10 1 tab PO BID 07/28/17 07/22/23 History mg-800 mg-165 mg chewable tablet (Pepcid Complete) vitamins A,C,Q-tgyo-gxmhej 4,296 1 ea PO DAILY 11/10/18 07/22/23 History mcg-226 mg-90 mg capsule ferrous sulfate 220 mg (44 mg 220 mg PO DIRECTED 09/15/21 07/22/23 History iron)/5 mL oral elixir (FeroSul) alendronate 70 mg tablet 70 mg PO QWEEK #20 tabs 04/27/22 07/18/23 Rx Handicap Placard #1 ea 06/29/22 Unknown Rx cyanocobalamin (vitamin B-12) 1,000 mcg subcut QMONTH 11/09/22 07/22/23 History 1,000 mcg/mL injection solution diphenoxylate-atropi ne 2.5 1 tab PO BID PRN diarrhea #180 tabs 12/02/22 07/22/23 Rx mg-0.025 mg tablet (Lomotil) amlodipine 10 mg tablet 10 mg PO DAILY #90 tabs 03/22/23 07/22/23 Rx hydrocortisone 2.5 % topical cream 1 applic [place] BID-QID PRN 05/12/23 07/22/23 Rx with perineal applicator hemorrhoids #30 grams cholecalciferol (vitamin D3) 1,250 1,250 mcg PO QWEEK #14 caps 06/24/23 07/22/23 Rx mcg (50,000 unit) capsule lisinopril 30 mg tablet 30 mg PO DAILY #90 tabs 06/24/23 07/22/23 Rx meclizine 25 mg tablet 25 mg PO DAILY PRN dizziness 07/22/23 07/22/23 History diazepam 2 mg tablet (Valium) 2 mg PO TID PRN dizziness or 07/23/23 Unknown Rx vertigo #15 tabs ondansetron 4 mg disintegrating 4 mg PO TID PRN nausea and 07/23/23 Unknown Rx tablet vomiting #21 tabs Allergy/AdvReac Type Severity Reaction Status Date / Time promethazine (From Phenergan) Allergy Severe Swelling Verified 07/22/23 23:33 cephalexin Allergy Diarrhea Verified 07/22/23 23:33 hydromorphone (From Dilaudid) Allergy Other Verified 07/22/23 23:33 iron AdvReac Intermediate Diarrhea Verified 07/22/23 23:33 oxaprozin AdvReac Intermediate Nausea Verified 07/22/23 23:33 Family History Other Breast cancer Cancer Hypertension Melanoma Surgical History H/O hernia repair H/O exploratory laparotomy History of laryngoscopy S/P partial colectomy Social History Smoking Status: Never smoker alcohol intake: never substance use type: does not use what type of physical activity do you participate in: walking frequency: 1-2 times per week ROS ROS ED Constitutional Constitutional ED: Denies chills or fever(s) Eyes Eyes: Denies change in vision ENT ENT ED: Denies sore throat Cardiovascular Cardiovascular: Denies chest pain, palpitations or racing heartbeat Respiratory/Chest Respiratory/Chest: Denies cough or dyspnea Gastrointestinal Gastrointestinal: Reports nausea; Denies abdominal pain, diarrhea or vomiting Genitourinary Genitourinary ED: Denies dysuria Musculoskeletal Musculoskeletal: Denies myalgias or neck pain Integumentary Denies rash Neurologic Neurologic: Reports other Details: Positive dizziness ; Denies headache(s) Hematologic/Lymphati c Hematologic/Lymphati c: Denies easy bleeding or easy bruising EXAM Physical Exam Const Vital Signs: 07/22/23 23:33 07/22/23 23:49 07/23/23 01:17 Temperature 97.2 F L 98.7 F 98.1 F Temperature Source Temporal Temporal Pulse Rate 68 85 Respiratory Rate 12 16 Blood Pressure 166/72 H 148/71 H Blood Pressure Mean 103 96 Pulse Ox 100 96 Oxygen Delivery Method R (more content not included)... Normal [facility] Office Visit Reporton [address] [facility] [address] [place] [address] OFFICE VISIT Date of Service: 07/22/23 MR#: [id number] Acct: [id number] Patient: CHELSEA GARCIA Rep #: [id number] : 1945 Provider: ARTIS NURSE Age/Sex: 77/F [place] [facility] Status: Signed Intake Vital Signs 05/12/23 09:24 Height 5 ft Weight: 111 lb 2 oz BMI 21.7 BP 134/78 H Blood Pressure Location Lt brachial Position Sitting Respiration 16 Pulse 74 Pulse Source Monitor Temp 97.1 F L Temp Source Temporal Pulse Oximetry (%) 98 Oxygen Delivery Method room air Intake Visit Reasons: B12 Chief Complaint: B12 Allergies promethazine (From Phenergan) Allergy (Severe, Verified 05/12/23 09:20) Swelling cephalexin Allergy (Verified 05/12/23 09:20) Diarrhea hydromorphone (From Dilaudid) Allergy (Verified 05/12/23 09:20) Other iron Adverse Reaction (Intermediate, Verified 05/12/23 09:20) Diarrhea oxaprozin Adverse Reaction (Intermediate, Verified 05/12/23 09:20) Nausea Office Meds cyanocobalamin (vitamin B-12) 1,000 mcg/mL injection solution Performing Provider: Mile Foster MD Performing Location: [facility] Administered by: Mandy Whatley LPN on 07/22/23 08:58 Dose Route Admin Location Dispensed Lot Number Expiration Date [employer] Man ufacturer 1,000 mcg IM left deltoid 1 mL [id number] 08/07/25 01974-915-29 DAVID MONET Comments: pt requested injection in left deltoid. tolerated well, no complaints Assessment and Plan Assessment and Plan Orders: Orders Vitamin B12 Today E53.8 - Deficiency of other specified B group vitamins Plan Details Goals Barriers: Goals Decrease pain Decrease spasm Improve ROM Barriers Scoliosis DDD 07/22/23 1621 Date Jessica LOPEZC Marenigner Signature: Date (if applicable) CC: Normal [facility] Basophil percentageOrdered B y: Mile Foster on 05-12-2023 Chloride [Moles/Vol] 105 mmol/L 98-107 [facility] Glucose [Mass/Vol] 108 mg/dL 74-106 [facility] Comment on above: Fasting Glucose resu lt from 100 to 125 mg/dL suggests IMPAIRED HOMEOSTASIS per A.D.A. criteria. Potassium [Moles/Vol] 4.3 mmol/L 3.5-5.1 [facility] Sodium [Moles/Vol] 138 mmol/L 136-145 [facility] Laboratory - Chemistry and C hemistry - challengeOrdered By: Mile Foster on 05-12-2023 CO2 [Moles/Vol] 31.0 mmol/L 21.0-32.0 [facility] Cobalamin (Vitamin B12) [Mass/Vol] 434 pg/mL 211-911 [facility] Urea nitrogen/Creatinine [Mass ratio] 24.0 mg/mg 10-20 [facility] No Panel InformationOrdered By: Mile Foster on 05-12-2023 Estimated GFR (MDRD) Amer 66 mL/min >60 [facility] Comment on above: GFR Calc Estimated GFR (MDRD) Non-Af Amer 54 mL/min >60 [facility] Comment on above: Non- GFR Calc Vitamin D 25-Hydroxy 68.3 ng/mL [facility] Comment on above: Vitamin D 25(OH) Sta tus Range Deficiency <20 ng/mL (50nmol/L) Insufficiency 20 - 30 ng/mL (50 - 75 nmol/L) Sufficiency 30 - 100 ng/mL (75 - 250 nmol/L) Toxicity >100 ng/mL (>250 nmol/L) Serum or plasma calcium doron urement (mass/volume)Ordered By: Mile Foster on 05-12-2023 Calcium [Mass/Vol] 9.5 mg/dL 8.5-10.1 [facility] Serum or plasma creatinine m easurement (mass/volume)Ordered By: Mile Foster on 05-12-2023 Creatinine [Mass/Vol] 1.04 mg/dL 0.55-1.02 [facility] Comment on above: The validity of the calculated GFR & GFRAA in patients over 70 years has not been determined. Clinical correlation is essential. Serum or plasma urea nitroge n measurement (mass/volume)Ordered By: Mile Foster on 05-12-2023 Urea nitrogen [Mass/Vol] 25 mg/dL 7-18 [facility] Thin prep Papanicolaou smear with manual screeningOrdered By: Mile Foster on 05-12-2023 Thin prep Papanicolaou smear with manual screening 2 5-15 [facility] Basophil percentageOrdered B y: Mile Foster on 02-10-2023 Chloride [Moles/Vol] 106 mmol/L 98-107 [facility] Cholesterol [Mass/Vol] 187 mg/dL <200 [facility] Comment on above: <200 mg/dL Desirable 200-240 mg/dL Borderline >240 mg/dL High Risk Glucose [Mass/Vol] 96 mg/dL 74-106 [facility] Potassium [Moles/Vol] 4.7 mmol/L 3.5-5.1 [facility] Sodium [Moles/Vol] 142 mmol/L 136-145 [facility] Triglyceride [Mass/Vol] 170 mg/dL <199 [facility] Comment on above: The drugs N-Acetylcy steine and Metamizole may falsely depress this assay.Serum Triglycerides Reference Interval Normal <150 mg/dL Borderline high 150 - 199 mg/dL High 200 - 499 mg/dL Very High > or = 500 mg/dL Laboratory - Chemistry and C hemistry - challengeOrdered By: Mile Foster on 02-10-2023 CO2 [Moles/Vol] 29.0 mmol/L 21.0-32.0 [facility] Urea nitrogen/Creatinine [Mass ratio] 23.1 mg/mg 10-20 [facility] No Panel InformationOrdered By: Mile Foster on 02-10-2023 Estimated GFR (MDRD) Amer 77 mL/min >60 [facility] Comment on above: GFR Calc Estimated GFR (MDRD) Non-Af Amer 63 mL/min >60 [facility] Comment on above: Non- GFR Calc Serum or plasma calcium doron urement (mass/volume)Ordered By: Mile Foster on 02-10-2023 Calcium [Mass/Vol] 9.1 mg/dL 8.5-10.1 [facility] Serum or plasma cholesterol in HDL measurement (mass/volume)Ordered By: Mile Foster on 02-10-2023 Cholesterol in HDL [Mass/Vol] 53 mg/dL >40 [facility] Comment on above: The drugs N-Acetylcy steine and Metamizole may falsely depress this assay. Reference Range HDL <40 mg/dL Low HDL Cholesterol HDL >or= 60 mg/dL High HDL Cholesterol Serum or plasma cholesterol in VLDL measurement (mass/volume)Ordered By: Mile Foster on 02-10-2023 Cholesterol in VLDL [Mass/Vol] 34 mg/dL 5-40 [facility] Serum or plasma creatinine m easurement (mass/volume)Ordered By: Mile Foster on 02-10-2023 Creatinine [Mass/Vol] 0.91 mg/dL 0.55-1.02 [facility] Comment on above: The validity of the calculated GFR & GFRAA in patients over 70 years has not been determined. Clinical correlation is essential. Serum or plasma low density lipoprotein (LDL) cholesterol measurement (mass/volume)Ordered By: Mile Foster on 02-10-2023 Cholesterol in LDL [Mass/Vol] 100 mg/dL 0-130 [facility] Serum or plasma urea nitroge n measurement (mass/volume)Ordered By: Mile Foster on 02-10-2023 Urea nitrogen [Mass/Vol] 21 mg/dL 7-18 [facility] Thin prep Papanicolaou smear with manual screeningOrdered By: Mile Foster on 02-10-2023 Thin prep Papanicolaou smear with manual screening 7 5-15 [facility] Absolute lymphocyte countOrd ered By: Arnulfo Nguyen on 11-12-2022 Lymphocytes Auto (Unsp spec) [#/Vol] 0.90 10*3/uL 0.83-4.51 [facility] Basophil percentageOrdered B y: Arnulfo Nguyen on 11-12-2022 Basophils/100 WBC (Bld) 0.6 % 0-1 [facility] Chloride [Moles/Vol] 106 mmol/L 98-107 [facility] Eosinophils/100 WBC (Bld) 1.1 % 0-5 [facility] Glucose [Mass/Vol] 111 mg/dL 74-106 [facility] Comment on above: Fasting Glucose resu lt from 100 to 125 mg/dL suggests IMPAIRED HOMEOSTASIS per A.D.A. criteria. Neutrophils (Bld) [#/Vol] 5.5 10*3/uL 2.0-7.7 [facility] Neutrophils/100 WBC (Bld) 75.7 % 47-70 [facility] Potassium [Moles/Vol] 4.4 mmol/L 3.5-5.1 [facility] Sodium [Moles/Vol] 139 mmol/L 136-145 [facility] WBC (Bld) [#/Vol] 7.2 10*3/uL 4.4-11.0 [facility] Blood erythrocytes count (nu mber/volume)Ordered By: Arnulfo Nguyen on 11-12-2022 RBC (Bld) [#/Vol] 3.71 10*6/uL 4.2-5.4 [facility] Blood hemoglobin measurement (mass/volume)Ordered By: Arnulfo Nguyen on 11-12-2022 Hemoglobin (Bld) [Mass/Vol] 11.0 g/dL 12.0-15.0 [facility] Blood lymphocytes/100 leukoc ytesOrdered By: Arnulfo Nguyen on 11-12-2022 Lymphocytes/100 WBC (Bld) 12.4 % 19-41 [facility] Blood monocytes/100 leukocyt esOrdered By: Arnulfo Nguyen on 11-12-2022 Monocytes/100 WBC (Bld) 9.8 % 0-10 [facility] Blood platelet mean volumeOr dered By: Arnulfo Nguyen on 11-12-2022 Platelet mean volume (Bld) [Entitic vol] 9.8 fL 6.2-12.0 [facility] Determination of erythrocyte mean corpuscular volume (MCV)Ordered By: Arnulfo Nguyen on 11-12-2022 MCV (RBC) [Entitic vol] 95.4 fL 81-99 [facility] Hematocrit Auto (Bld) [Volum e fraction]Ordered By: Arnulfo Nguyen on 11-12-2022 Hematocrit (Bld) [Volume fraction] 35.4 % 37-47 [facility] Laboratory - Chemistry and C hemistry - challengeOrdered By: Arnulfo Nguyen on 11-12-2022 CO2 [Moles/Vol] 27.0 mmol/L 21.0-32.0 [facility] Urea nitrogen/Creatinine [Mass ratio] 21.4 mg/mg 10-20 [facility] Laboratory - Hematology and Cell countsOrdered By: Arnulfo Nguyen on 11-12-2022 Erythrocyte distribution width (RBC) [Entitic vol] 51.7 fL 35.1-43.9 [facility] Erythrocyte distribution width (RBC) [Ratio] 14.6 % 11.6-14.6 [facility] Immature granulocytes/100 WBC (Bld) 0.400 % 0.0-0.9 [facility] Comment on above: IG% - Immature Granu locytes (promyelocytes, myelocytes and metamyelocytes) > 1% indicates that a LEFT SHIFT is Present. MCH (RBC) [Entitic mass] 29.6 pg 27.0-32.0 [facility] Nucleated RBC/100 WBC (Bld) [Ratio] 0 % 0-5 [facility] MCHC Auto (RBC) [Mass/Vol]Or dered By: Arnulfo Nguyen on 11-12-2022 MCHC (RBC) [Mass/Vol] 31.1 g/dL 32-36 [facility] No Panel InformationOrdered By: Arnulfo Nguyen on 11-12-2022 Troponin I High Sensitivity 7 pg/mL 3.0-54.0 [facility] Comment on above: Please Note: New Yaz t Units and Gender Specific Reference Ranges. For more information see Policy Stat Procedure [place] High Sensitivity Troponin (TNIH) and attachments. D-Dimer Quantitative (PE/DVT) 0.49 FEU/ug/m 0.27-0.49 [facility] Comment on above: NORMAL D-Dimer level (<0.50) indicates no DVT or PE. Estimated Creatinine Clearance Calc 32.33 ml/min [facility] Estimated GFR (MDRD) Amer 67 mL/min >60 [facility] Comment on above: GFR Calc Estimated GFR (MDRD) Non-Af Amer 55 mL/min >60 [facility] Comment on above: Non- GFR Calc Platelets bldOrdered By: Tanner Nguyen on 11-12-2022 Platelets (Bld) [#/Vol] 339 10*3/uL 150-450 [facility] Serum or plasma calcium doron urement (mass/volume)Ordered By: Arnulfo Nguyen on 11-12-2022 Calcium [Mass/Vol] 9.3 mg/dL 8.5-10.1 [facility] Serum or plasma creatinine m easurement (mass/volume)Ordered By: Arnulfo Nguyen on 11-12-2022 Creatinine [Mass/Vol] 1.03 mg/dL 0.55-1.02 [facility] Comment on above: The validity of the calculated GFR & GFRAA in patients over 70 years has not been determined. Clinical correlation is essential. Serum or plasma urea nitroge n measurement (mass/volume)Ordered By: Arnulfo Nguyen on 11-12-2022 Urea nitrogen [Mass/Vol] 22 mg/dL 7-18 [facility] Thin prep Papanicolaou smear with manual screeningOrdered By: Arnulfo Nguyen on 11-12-2022 Thin prep Papanicolaou smear with manual screening 6 5-15 [facility] Absolute lymphocyte countOrd ered By: Arnulfo Nguyen on 11-04-2022 Lymphocytes Auto (Unsp spec) [#/Vol] 1.62 10*3/uL 0.83-4.51 [facility] Basophil percentageOrdered B y: Arnulfo Nguyen on 11-04-2022 Basophils/100 WBC (Bld) 0.8 % 0-1 [facility] Chloride [Moles/Vol] 106 mmol/L 98-107 [facility] Eosinophils/100 WBC (Bld) 1.8 % 0-5 [facility] Glucose [Mass/Vol] 149 mg/dL 74-106 [facility] Comment on above: Fasting Glucose resu lt greater than or equal to 126 mg/dL suggests DIABETES MELLITUS per A.D.A. criteria. Neutrophils (Bld) [#/Vol] 4.2 10*3/uL 2.0-7.7 [facility] Neutrophils/100 WBC (Bld) 63.1 % 47-70 [facility] Potassium [Moles/Vol] 3.6 mmol/L 3.5-5.1 [facility] Sodium [Moles/Vol] 138 mmol/L 136-145 [facility] WBC (Bld) [#/Vol] 6.6 10*3/uL 4.4-11.0 [facility] Blood erythrocytes count (nu mber/volume)Ordered By: Arnulfo Nguyen on 11-04-2022 RBC (Bld) [#/Vol] 3.74 10*6/uL 4.2-5.4 [facility] Blood hemoglobin measurement (mass/volume)Ordered By: Arnulfo Nguyen on 11-04-2022 Hemoglobin (Bld) [Mass/Vol] 11.0 g/dL 12.0-15.0 [facility] Blood lymphocytes/100 leukoc ytesOrdered By: Arnulfo Nguyen on 11-04-2022 Lymphocytes/100 WBC (Bld) 24.5 % 19-41 [facility] Blood monocytes/100 leukocyt esOrdered By: Arnulfo Nguyen on 11-04-2022 Monocytes/100 WBC (Bld) 9.5 % 0-10 [facility] Blood platelet mean volumeOr dered By: Arnulfo Nguyen on 11-04-2022 Platelet mean volume (Bld) [Entitic vol] 10.1 fL 6.2-12.0 [facility] Determination of erythrocyte mean corpuscular volume (MCV)Ordered By: Arnulfo Nguyen on 09-27-2023 MCV (RBC) [Entitic vol] 93.0 fL 81-99 [facility] Hematocrit Auto (Bld) [Volum e fraction]Ordered By: Arnulfo Nguyen on 11-04-2022 Hematocrit (Bld) [Volume fraction] 34.8 % 37-47 [facility] Laboratory - Chemistry and C hemistry - challengeOrdered By: Arnulfo Nguyen on 11-04-2022 CO2 [Moles/Vol] 23.0 mmol/L 21.0-32.0 [facility] Comment on above: Previous reported re sult: 14.0 mmol/LEdited by: KIERAN on 11/05/22:0759 AMENDED REPORT 11/05/22 0759 CO2 previously reported as: 14.0 L mmol/L Urea nitrogen/Creatinine [Mass ratio] 17.6 mg/mg 10-20 [facility] Laboratory - Hematology and Cell countsOrdered By: Arnulfo Nguyen on 11-04-2022 Erythrocyte distribution width (RBC) [Entitic vol] 51.2 fL 35.1-43.9 [facility] Erythrocyte distribution width (RBC) [Ratio] 15.0 % 11.6-14.6 [facility] Immature granulocytes/100 WBC (Bld) 0.300 % 0.0-0.9 [facility] Comment on above: IG% - Immature Granu locytes (promyelocytes, myelocytes and metamyelocytes) > 1% indicates that a LEFT SHIFT is Present. MCH (RBC) [Entitic mass] 29.4 pg 27.0-32.0 [facility] Nucleated RBC/100 WBC (Bld) [Ratio] 0 % 0-5 [facility] MCHC Auto (RBC) [Mass/Vol]Or dered By: Arnulfo Nguyen on 11-04-2022 MCHC (RBC) [Mass/Vol] 31.6 g/dL 32-36 [facility] No Panel InformationOrdered By: Arnulfo Nguyen on 11-04-2022 Estimated Creatinine Clearance Calc 33.18 ml/min [facility] Estimated GFR (MDRD) Amer 67 mL/min >60 [facility] Comment on above: GFR Calc Estimated GFR (MDRD) Non-Af Amer 56 mL/min >60 [facility] Comment on above: Non- GFR Calc Platelets bldOrdered By: Tanner Nguyen on 11-04-2022 Platelets (Bld) [#/Vol] 355 10*3/uL 150-450 [facility] Serum or plasma calcium doron urement (mass/volume)Ordered By: Arnulfo Nguyen on 11-04-2022 Calcium [Mass/Vol] 9.3 mg/dL 8.5-10.1 [facility] Serum or plasma creatinine m easurement (mass/volume)Ordered By: Arnulfo Nguyen on 11-04-2022 Creatinine [Mass/Vol] 1.02 mg/dL 0.55-1.02 [facility] Comment on above: The validity of the calculated GFR & GFRAA in patients over 70 years has not been determined. Clinical correlation is essential. Serum or plasma urea nitroge n measurement (mass/volume)Ordered By: Arnulfo Nguyen on 11-04-2022 Urea nitrogen [Mass/Vol] 18 mg/dL 7-18 [facility] Thin prep Papanicolaou smear with manual screeningOrdered By: Arnulfo Nguyen on 11-04-2022 Thin prep Papanicolaou smear with manual screening 9 5-15 [facility] Comment on above: Previous reported re sult: 18 Edited by: KIERAN on 11/05/22:0759 AMENDED REPORT 11/05/22 0759 GAP previously reported as: 18 H Absolute lymphocyte countOrd ered By: Mile Foster on 09-07-2022 Lymphocytes Auto (Unsp spec) [#/Vol] 1.22 10*3/uL 0.83-4.51 [facility] Basophil percentageOrdered B y: Mile Foster on 09-07-2022 Basophils/100 WBC (Bld) 0.4 % 0-1 [facility] Chloride [Moles/Vol] 107 mmol/L 98-107 [facility] Eosinophils/100 WBC (Bld) 1.2 % 0-5 [facility] Glucose [Mass/Vol] 101 mg/dL 74-106 [facility] Comment on above: Fasting Glucose resu lt from 100 to 125 mg/dL suggests IMPAIRED HOMEOSTASIS per A.D.A. criteria. Neutrophils (Bld) [#/Vol] 5.1 10*3/uL 2.0-7.7 [facility] Neutrophils/100 WBC (Bld) 68.7 % 47-70 [facility] Potassium [Moles/Vol] 4.2 mmol/L 3.5-5.1 [facility] Sodium [Moles/Vol] 138 mmol/L 136-145 [facility] WBC (Bld) [#/Vol] 7.4 10*3/uL 4.4-11.0 [facility] Blood erythrocytes count (nu mber/volume)Ordered By: Mile Foster on 09-07-2022 RBC (Bld) [#/Vol] 3.76 10*6/uL 4.2-5.4 [facility] Blood hemoglobin measurement (mass/volume)Ordered By: Mile Foster on 09-07-2022 Hemoglobin (Bld) [Mass/Vol] 11.0 g/dL 12.0-15.0 [facility] Blood lymphocytes/100 leukoc ytesOrdered By: Mile Foster on 09-07-2022 Lymphocytes/100 WBC (Bld) 16.4 % 19-41 [facility] Blood monocytes/100 leukocyt esOrdered By: Mile Foster on 09-07-2022 Monocytes/100 WBC (Bld) 12.5 % 0-10 [facility] Blood platelet mean volumeOr dered By: Mile Foster on 09-07-2022 Platelet mean volume (Bld) [Entitic vol] 10.2 fL 6.2-12.0 [facility] Determination of erythrocyte mean corpuscular volume (MCV)Ordered By: Mile Foster on 09-07-2022 MCV (RBC) [Entitic vol] 93.4 fL 81-99 [facility] Hematocrit Auto (Bld) [Volum e fraction]Ordered By: Mile Foster on 09-07-2022 Hematocrit (Bld) [Volume fraction] 35.1 % 37-47 [facility] Laboratory - Chemistry and C hemistry - challengeOrdered By: Mile Foster on 09-07-2022 CO2 [Moles/Vol] 25.0 mmol/L 21.0-32.0 [facility] Cobalamin (Vitamin B12) [Mass/Vol] 186 pg/mL 211-911 [facility] Urea nitrogen/Creatinine [Mass ratio] 24.9 mg/mg 10-20 [facility] Laboratory - Hematology and Cell countsOrdered By: Mile Foster on 09-07-2022 Erythrocyte distribution width (RBC) [Entitic vol] 52.9 fL 35.1-43.9 [facility] Erythrocyte distribution width (RBC) [Ratio] 15.5 % 11.6-14.6 [facility] Immature granulocytes/100 WBC (Bld) 0.800 % 0.0-0.9 [facility] Comment on above: IG% - Immature Granu locytes (promyelocytes, myelocytes and metamyelocytes) > 1% indicates that a LEFT SHIFT is Present. MCH (RBC) [Entitic mass] 29.3 pg 27.0-32.0 [facility] Nucleated RBC/100 WBC (Bld) [Ratio] 0 % 0-5 [facility] MCHC Auto (RBC) [Mass/Vol]Or dered By: Mile Foster on 09-07-2022 MCHC (RBC) [Mass/Vol] 31.3 g/dL 32-36 [facility] No Panel InformationOrdered By: Mile Foster on 09-07-2022 Estimated GFR (MDRD) Amer 76 mL/min >60 [facility] Comment on above: GFR Calc Estimated GFR (MDRD) Non-Af Amer 63 mL/min >60 [facility] Comment on above: Non- GFR Calc Vitamin D 25-Hydroxy 45.9 ng/mL [facility] Comment on above: Vitamin D 25(OH) Sta tus Range Deficiency <20 ng/mL (50nmol/L) Insufficiency 20 - 30 ng/mL (50 - 75 nmol/L) Sufficiency 30 - 100 ng/mL (75 - 250 nmol/L) Toxicity >100 ng/mL (>250 nmol/L) Platelets bldOrdered By: Micah Foster on 09-07-2022 Platelets (Bld) [#/Vol] 367 10*3/uL 150-450 [facility] Serum or plasma calcium doron urement (mass/volume)Ordered By: Mile Foster on 09-07-2022 Calcium [Mass/Vol] 9.3 mg/dL 8.5-10.1 [facility] Serum or plasma creatinine m easurement (mass/volume)Ordered By: Mile Foster on 09-07-2022 Creatinine [Mass/Vol] 0.92 mg/dL 0.55-1.02 [facility] Comment on above: The validity of the calculated GFR & GFRAA in patients over 70 years has not been determined. Clinical correlation is essential. Serum or plasma urea nitroge n measurement (mass/volume)Ordered By: Mile Foster on 09-07-2022 Urea nitrogen [Mass/Vol] 23 mg/dL 7- [facility] Thin prep Papanicolaou smear with manual screeningOrdered By: partha Foster on 09-07-2022 Thin prep Papanicolaou smear with manual screening 6 5-15 [facility] Absolute lymphocyte countOrd ered By: Dr. Foster on 02-25-2022 Lymphocytes Auto (Unsp spec) [#/Vol] 1.21 10*3/uL 0.83-4.51 [facility] Basophil percentageOrdered B y: Dr. Foster on 02-25-2022 Basophils/100 WBC (Bld) 0.9 % 0-1 [facility] Bilirubin [Mass/Vol] 0.20 mg/dL 0.20-1.00 [facility] Comment on above: For patients on eltr ombopag therapy, use of Dimension [place] TBIL is not recommended. Chloride [Moles/Vol] 106 mmol/L 98-107 [facility] Cholesterol [Mass/Vol] 162 mg/dL <200 [facility] Comment on above: <200 mg/dL Desirable 200-240 mg/dL Borderline >240 mg/dL High Risk Eosinophils/100 WBC (Bld) 2.2 % 0-5 [facility] Glucose [Mass/Vol] 99 mg/dL 74-106 [facility] Neutrophils (Bld) [#/Vol] 2.7 10*3/uL 2.0-7.7 [facility] Neutrophils/100 WBC (Bld) 58.4 % 47-70 [facility] Potassium [Moles/Vol] 4.7 mmol/L 3.5-5.1 [facility] Protein [Mass/Vol] 7.1 g/dL 6.4-8.2 [facility] Sodium [Moles/Vol] 139 mmol/L 136-145 [facility] Triglyceride [Mass/Vol] 180 mg/dL <199 [facility] Comment on above: The drugs N-Acetylcy steine and Metamizole may falsely depress this assay.Serum Triglycerides Reference Interval Normal <150 mg/dL Borderline high 150 - 199 mg/dL High 200 - 499 mg/dL Very High > or = 500 mg/dL WBC (Bld) [#/Vol] 4.6 10*3/uL 4.4-11.0 [facility] Blood erythrocytes count (nu mber/volume)Ordered By: Dr. Foster on 02-25-2022 RBC (Bld) [#/Vol] 3.87 10*6/uL 4.2-5.4 [facility] Blood hemoglobin measurement (mass/volume)Ordered By: Dr. Foster on 02-25-2022 Hemoglobin (Bld) [Mass/Vol] 11.2 g/dL 12.0-15.0 [facility] Blood lymphocytes/100 leukoc ytesOrdered By: Dr. Foster on 02-25-2022 Lymphocytes/100 WBC (Bld) 26.2 % 19-41 [facility] Blood monocytes/100 leukocyt esOrdered By: Dr. Foster on 02-25-2022 Monocytes/100 WBC (Bld) 11.9 % 0-10 [facility] Blood platelet mean volumeOr dered By: Dr. Foster on 02-25-2022 Platelet mean volume (Bld) [Entitic vol] 11.0 fL 6.2-12.0 [facility] Determination of erythrocyte mean corpuscular volume (MCV)Ordered By: Dr. Foster on 02-25-2022 MCV (RBC) [Entitic vol] 95.1 fL 81-99 [facility] Hematocrit Auto (Bld) [Volum e fraction]Ordered By: Dr. Foster on 02-25-2022 Hematocrit (Bld) [Volume fraction] 36.8 % 37-47 [facility] Laboratory - Chemistry and C hemistry - challengeOrdered By: Dr. Foster on 02-25-2022 ALP [Catalytic activity/Vol] 97 U/L 45-117 [facility] ALT [Catalytic activity/Vol] 21 U/L 13-56 [facility] CO2 [Moles/Vol] 27.0 mmol/L 21.0-32.0 [facility] Globulin (S) [Mass/Vol] 3.5 g/dL 2.2-4.2 [facility] Urea nitrogen/Creatinine [Mass ratio] 23.4 mg/mg 10-20 [facility] Laboratory - Hematology and Cell countsOrdered By: Dr. Foster on 02-25-2022 Erythrocyte distribution width (RBC) [Entitic vol] 48.9 fL 35.1-43.9 [facility] Erythrocyte distribution width (RBC) [Ratio] 13.9 % 11.6-14.6 [facility] Immature granulocytes/100 WBC (Bld) 0.400 % 0.0-0.9 [facility] Comment on above: IG% - Immature Granu locytes (promyelocytes, myelocytes and metamyelocytes) > 1% indicates that a LEFT SHIFT is Present. MCH (RBC) [Entitic mass] 28.9 pg 27.0-32.0 [facility] Nucleated RBC/100 WBC (Bld) [Ratio] 0.4 % 0-5 [facility] MCHC Auto (RBC) [Mass/Vol]Or dered By: Dr. Foster on 02-25-2022 MCHC (RBC) [Mass/Vol] 30.4 g/dL 32-36 [facility] No Panel InformationOrdered By: Dr. Foster on 02-25-2022 Estimated GFR (MDRD) Amer 78 mL/min >60 [facility] Comment on above: GFR Calc Estimated GFR (MDRD) Non-Af Amer 65 mL/min >60 [facility] Comment on above: Non- GFR Calc Platelets bldOrdered By: Dr. Foster on 02-25-2022 Platelets (Bld) [#/Vol] 353 10*3/uL 150-450 [facility] Serum or plasma albumin doron urement (mass/volume)Ordered By: Dr. Foster on 02-25-2022 Albumin [Mass/Vol] 3.6 g/dL 3.2-5.0 [facility] Serum or plasma albumin/glob ulin mass ratioOrdered By: Dr. Foster on 02-25-2022 Albumin/Globulin [Mass ratio] 1.0 {ratio} 0.9-2.4 [facility] Serum or plasma calcium doron urement (mass/volume)Ordered By: Dr. Foster on 02-25-2022 Calcium [Mass/Vol] 9.7 mg/dL 8.5-10.1 [facility] Serum or plasma cholesterol in HDL measurement (mass/volume)Ordered By: Dr. Foster on 02-25-2022 Cholesterol in HDL [Mass/Vol] 51 mg/dL >40 [facility] Comment on above: The drugs N-Acetylcy steine and Metamizole may falsely depress this assay. Reference Range HDL <40 mg/dL Low HDL Cholesterol HDL >or= 60 mg/dL High HDL Cholesterol Serum or plasma cholesterol in VLDL measurement (mass/volume)Ordered By: Dr. Foster on 02-25-2022 Cholesterol in VLDL [Mass/Vol] 36 mg/dL 5-40 [facility] Serum or plasma creatinine m easurement (mass/volume)Ordered By: Dr. Foster on 02-25-2022 Creatinine [Mass/Vol] 0.90 mg/dL 0.55-1.02 [facility] Comment on above: The validity of the calculated GFR & GFRAA in patients over 70 years has not been determined. Clinical correlation is essential. Serum or plasma low density lipoprotein (LDL) cholesterol measurement (mass/volume)Ordered By: Dr. Foster on 02-25-2022 Cholesterol in LDL [Mass/Vol] 75 mg/dL 0-130 [facility] Serum or plasma urea nitroge n measurement (mass/volume)Ordered By: Dr. Foster on 02-25-2022 Urea nitrogen [Mass/Vol] 21 mg/dL 7-18 [facility] Thin prep Papanicolaou smear with manual screeningOrdered By: Dr. Foster on 02-25-2022 Thin prep Papanicolaou smear with manual screening 15 U/L 15-37 [facility] Thin prep Papanicolaou smear with manual screening 6 5-15 [facility] Basophil percentageOrdered B y: Dr. Milian on 11-19-2021 WBC (Bld) [#/Vol] 5.0 10*3/uL 4.4-11.0 [facility] Blood erythrocytes count (nu mber/volume)Ordered By: Dr. Milian on 11-19-2021 RBC (Bld) [#/Vol] 3.84 10*6/uL 4.2-5.4 [facility] Blood hemoglobin measurement (mass/volume)Ordered By: Dr. Milian on 11-19-2021 Hemoglobin (Bld) [Mass/Vol] 11.2 g/dL 12.0-15.0 [facility] Blood platelet mean volumeOr dered By: Dr. Milian on 11-19-2021 Platelet mean volume (Bld) [Entitic vol] 11.6 fL 6.2-12.0 [facility] Determination of erythrocyte mean corpuscular volume (MCV)Ordered By: Dr. Milian on 11-19-2021 MCV (RBC) [Entitic vol] 93.2 fL 81-99 [facility] Hematocrit Auto (Bld) [Volum e fraction]Ordered By: Dr. Milian on 11-19-2021 Hematocrit (Bld) [Volume fraction] 35.8 % 37-47 [facility] Iron measurement (mass/mass) Ordered By: Dr. Milian on 11-19-2021 Iron (Unsp spec) [Mass/Mass] 57 ug/dL 50-170 [facility] Laboratory - Chemistry and C hemistry - challengeOrdered By: Dr. Milian on 11-19-2021 Cobalamin (Vitamin B12) [Mass/Vol] 516 pg/mL 211-911 [facility] Laboratory - Hematology and Cell countsOrdered By: Dr. Milian on 11-19-2021 Erythrocyte distribution width (RBC) [Entitic vol] 53.1 fL 35.1-43.9 [facility] Erythrocyte distribution width (RBC) [Ratio] 15.4 % 11.6-14.6 [facility] MCH (RBC) [Entitic mass] 29.2 pg 27.0-32.0 [facility] MCHC Auto (RBC) [Mass/Vol]Or dered By: Dr. Milian on 11-19-2021 MCHC (RBC) [Mass/Vol] 31.3 g/dL 32-36 [facility] No Panel InformationOrdered By: Dr. Milian on 11-19-2021 Intrinsic Factor Antibody 1.0 AU/mL 0.0-1.1 [facility] Comment on above: Performed at: [facility] - [facility] [address] [id number] Director: Micheal Castellon PhD, Phone: [phone] at: - [facility] [address] [id number] Director: Pauline Zhang MD, Phone: [phone] Platelets bldOrdered By: Dr. Milian on 11-19-2021 Platelets (Bld) [#/Vol] 325 10*3/uL 150-450 [facility] Serum or plasma C reactive p rotein measurement (mass/volume)Ordered By: Dr. Milian on 11-19-2021 CRP [Mass/Vol] mg/L 0.0-3.0 [facility] Comment on above: C-Reactive Protein ( CRP) provides useful information for thediagnosis, therapy and monitoring of inflammatory processesand associated diseases. For the evaluation of Relative Riskfor Cardiovascular Disease, a High Sensitivity CRP (HSCRP)should be ordered. Serum or plasma ferritin malachi surement (mass/volume)Ordered By: Dr. Milian on 11-19-2021 Ferritin [Mass/Vol] 29 ng/mL 8-252 [facility] Serum parietal cell antibody assay (units/volume)Ordered By: Dr. Milian on 11-19-2021 Parietal cell Ab Qn (S) 2.0 Units 0.0-20.0 [facility] Comment on above: Negative 0.0 - 20.0 Equivocal 20.1 - 24.9 Positive >24.9Parietal Cell Antibodies are found in 90% of patientswith pernicious anemia and 30% of first degreerelatives with pernicious anemia. No Panel Informationon 10-07 Vitamin D 25-Hydroxy 15.3 ng/mL [facility] Work Phone: Comment on above: Vitamin D 25(OH) Sta tus Range Deficiency <20 ng/mL (50nmol/L) Insufficiency 20 - 30 ng/mL (50 - 75 nmol/L) Sufficiency 30 - 100 ng/mL (75 - 250 nmol/L) Toxicity >100 ng/mL (>250 nmol/L) Laboratory - Chemistry and C hemistry - challengeon 09-29-2021 Cobalamin (Vitamin B12) [Mass/Vol] 336 pg/mL 211-911 [facility] Work Phone: Basophil percentageon 2021 Chloride [Moles/Vol] 105 mmol/L 98-107 [facility] Work Phone: Glucose [Mass/Vol] 107 mg/dL 74-106 [facility] Work Phone: Comment on above: Fasting Glucose resu lt from 100 to 125 mg/dL suggests IMPAIRED HOMEOSTASIS per A.D.A. criteria. Potassium [Moles/Vol] 4.4 mmol/L 3.5-5.1 [facility] Work Phone: Sodium [Moles/Vol] 139 mmol/L 136-145 [facility] Work Phone: Laboratory - Chemistry and C hemistry - challengeon 09-17-2021 CO2 [Moles/Vol] 27.0 mmol/L 21.0-32.0 [facility] Work Phone: Magnesium [Mass/Vol] 2.2 mg/dL 1.6-2.6 [facility] Work Phone: Urea nitrogen/Creatinine [Mass ratio] 24.4 mg/mg 10-20 [facility] Work Phone: No Panel Informationon 09-17 Estimated GFR (MDRD) Amer 82 mL/min >60 [facility] Work Phone: Comment on above: GFR Calc Estimated GFR (MDRD) Non-Af Amer 68 mL/min >60 [facility] Work Phone: Comment on above: Non- GFR Calc Serum or plasma calcium doron urement (mass/volume)on 09-17-2021 Calcium [Mass/Vol] 9.0 mg/dL 8.5-10.1 [facility] Work Phone: Serum or plasma creatinine m easurement (mass/volume)on 09-17-2021 Creatinine [Mass/Vol] 0.86 mg/dL 0.55-1.02 [facility] Work Phone: Comment on above: The validity of the calculated GFR & GFRAA in patients over 70 years has not been determined. Clinical correlation is essential. Serum or plasma urea nitroge n measurement (mass/volume)on 09-17-2021 Urea nitrogen [Mass/Vol] 21 mg/dL 7-18 [facility] Work Phone: Thin prep Papanicolaou smear with manual screeningon 09-17-2021 Thin prep Papanicolaou smear with manual screening 7 5-15 [facility] Work Phone: .Auto Diffon 02-20-2021 Basophil, Absolute 0.10 10 3/mcL Normal 0.00-0.19 [facility] ([place]) Comment on above: Performed By: #### C BC, ADIFF, ANEU, TSH, LIPID, CMP, GFR #### [address] [address] Basophils/100 WBC (Bld) 1.1 % Normal 0.0-2.5 [facility] ([place]) Comment on above: Performed By: #### C BC, ADIFF, ANEU, TSH, LIPID, CMP, GFR #### [address] [address] Eosinophil, Absolute 0.30 10 3/mcL Normal 0.00-0.40 [facility] ([place]) Comment on above: Performed By: #### C BC, ADIFF, ANEU, TSH, LIPID, CMP, GFR #### [address] [address] Eosinophils/100 WBC (Bld) 4.9 % Normal 0.0-7.0 [facility] ([place]) Comment on above: Performed By: #### C BC, ADIFF, ANEU, TSH, LIPID, CMP, GFR #### [address] [address] Lymphocyte, Absolute 1.10 10 3/mcL Normal 0.77-3.85 [facility] ([place]) Comment on above: Performed By: #### C BC, ADIFF, ANEU, TSH, LIPID, CMP, GFR #### [address] [address] Lymphocytes/100 WBC (Bld) 19.8 % Normal 10.0-50.0 [facility] ([place]) Comment on above: Performed By: #### C BC, ADIFF, ANEU, TSH, LIPID, CMP, GFR #### [address] [address] Monocyte, Absolute 0.80 10 3/mcL Normal 0.15-1.00 [facility] ([place]) Comment on above: Performed By: #### C BC, ADIFF, ANEU, TSH, LIPID, CMP, GFR #### [address] [address] Monocytes/100 WBC (Bld) 14.5 % High 1.7-13.0 [facility] ([place]) Comment on above: Performed By: #### C BC, ADIFF, ANEU, TSH, LIPID, CMP, GFR #### [address] [address] Neutrophils/100 WBC (Bld) 59.7 % Normal 37.0-80.0 [facility] ([place]) Comment on above: Performed By: #### C BC, ADIFF, ANEU, TSH, LIPID, CMP, GFR #### [address] [address] .GFRon 02-20-2021 GFR Non- 74 ml/min/1.73sqm Normal [facility] ([place]) Comment on above: Result Comment: GFR Population mean for , Non- Americans Ages 20-29 = 116 mL/min/1.73 sq.m. Ages 30-39 = 107 mL/min/1.73 sq.m. Ages 40-49 = 99 mL/min/1.73 sq.m. Ages 50-59 = 93 mL/min/1.73 sq.m. Ages 60-69 = 85 mL/min/1.73 sq.m. Ages 70+ = 75 mL/min/1.73 sq.m. Chronic Kidney Disease: Less than 60 mL/min/1.73 square meters End Stage Renal Disease: Less than 15 mL/min/1.73 square meters Performed By: #### C BC, ADIFF, ANEU, TSH, LIPID, CMP, GFR #### [address] [address] GFR 90 ml/min/1.73sqm Normal [facility] ([place]) Comment on above: Result Comment: GFR Population mean for , Non- Americans Ages 20-29 = 116 mL/min/1.73 sq.m. Ages 30-39 = 107 mL/min/1.73 sq.m. Ages 40-49 = 99 mL/min/1.73 sq.m. Ages 50-59 = 93 mL/min/1.73 sq.m. Ages 60-69 = 85 mL/min/1.73 sq.m. Ages 70+ = 75 mL/min/1.73 sq.m. Chronic Kidney Disease: Less than 60 mL/min/1.73 square meters End Stage Renal Disease: Less than 15 mL/min/1.73 square meters Performed By: #### C BC, ADIFF, ANEU, TSH, LIPID, CMP, GFR #### [address] [address] .NEUABSon 02-20-2021 Neutrophil, Absolute 3.20 10 3/mcL Normal 2.85-6.16 [facility] ([place]) Comment on above: Performed By: #### C BC, ADIFF, ANEU, TSH, LIPID, CMP, GFR #### [address] [address] CBCon 02-20-2021 Erythrocyte distribution width (RBC) [Ratio] 14.1 % Normal 11.5-14.5 [facility] ([place]) Comment on above: Performed By: #### C BC, ADIFF, ANEU, TSH, LIPID, CMP, GFR #### [address] [address] Hematocrit (Bld) [Volume fraction] 35.7 % Low 37.0-47.0 [facility] ([place]) Comment on above: Performed By: #### C BC, ADIFF, ANEU, TSH, LIPID, CMP, GFR #### [address] [address] Hgb 11.5 G/dL Low 12.0-16.0 [facility] ([place]) Comment on above: Performed By: #### C BC, ADIFF, ANEU, TSH, LIPID, CMP, GFR #### [place] [id number] MCH (RBC) [Entitic mass] 29.3 pg Normal 27.0-31.2 [facility] ([place]) Comment on above: Performed By: #### C BC, ADIFF, ANEU, TSH, LIPID, CMP, GFR #### [place] [address] MCHC 32.1 G/dL Low 33.0-37.0 [facility] ([place]) Comment on above: Performed By: #### C BC, ADIFF, ANEU, TSH, LIPID, CMP, GFR #### [address] [address] MCV (RBC) [Entitic vol] 91.3 fL Normal 80.0-94.0 [facility] ([place]) Comment on above: Performed By: #### C BC, ADIFF, ANEU, TSH, LIPID, CMP, GFR #### [address] [address] Platelet 382 10 3/mcL Normal 130-400 [facility] ([place]) Comment on above: Performed By: #### C BC, ADIFF, ANEU, TSH, LIPID, CMP, GFR #### [address] [address] Platelet mean volume (Bld) [Entitic vol] 8.6 fL Normal 7.4-10.4 [facility] ([place]) Comment on above: Performed By: #### C BC, ADIFF, ANEU, TSH, LIPID, CMP, GFR #### [address] [address] RBC 3.91 10 6/mcL Low 4.20-5.40 [facility] ([place]) Comment on above: Performed By: #### C BC, ADIFF, ANEU, TSH, LIPID, CMP, GFR #### [address] [address] WBC 5.40 10 3/mcL Normal 4.60-10.80 [facility] ([place]) Comment on above: Performed By: #### C BC, ADIFF, ANEU, TSH, LIPID, CMP, GFR #### [address] [address] CMPon 02-20-2021 Albumin Level 3.4 G/dL Normal 3.4-4.8 [facility] ([place]) Comment on above: Performed By: #### C BC, ADIFF, ANEU, TSH, LIPID, CMP, GFR #### [address] [address] Albumin/Globulin [Mass ratio] 1.0 {ratio} Low 1.1-2.5 [facility] ([place]) Comment on above: Performed By: #### C BC, ADIFF, ANEU, TSH, LIPID, CMP, GFR #### [address] [address] ALP [Catalytic activity/Vol] 109 U/L Normal 40-135 [facility] ([place]) Comment on above: Performed By: #### C BC, ADIFF, ANEU, TSH, LIPID, CMP, GFR #### [address] [address] ALT [Catalytic activity/Vol] 22 U/L Normal 14-59 [facility] ([place]) Comment on above: Performed By: #### C BC, ADIFF, ANEU, TSH, LIPID, CMP, GFR #### [address] [address] AST [Catalytic activity/Vol] 21 U/L Normal 10-40 [facility] ([place]) Comment on above: Performed By: #### C BC, ADIFF, ANEU, TSH, LIPID, CMP, GFR #### [address] [address] Bili Total 0.1 mg/dL Low 0.2-1.0 [facility] ([place]) Comment on above: Result Comment: Use of this assay is not recommended for patients undergoing treatment with eltrombopag due to the potential for falsely elevated results. Performed By: #### C BC, ADIFF, ANEU, TSH, LIPID, CMP, GFR #### [address] [address] BUN/Creatinine Ratio 32 ratio High 7-27 [facility] ([place]) Comment on above: Performed By: #### C BC, ADIFF, ANEU, TSH, LIPID, CMP, GFR #### [address] [address] Calcium [Mass/Vol] 9.1 mg/dL Normal 8.4-10.2 [facility] ([place]) Comment on above: Performed By: #### C BC, ADIFF, ANEU, TSH, LIPID, CMP, GFR #### [address] [address] Chloride [Moles/Vol] 103 mmol/L Normal 98-107 [facility] ([place]) Comment on above: Performed By: #### C BC, ADIFF, ANEU, TSH, LIPID, CMP, GFR #### [address] [address] CO2 [Moles/Vol] 28 mmol/L Normal 23-31 [facility] ([place]) Comment on above: Performed By: #### C BC, ADIFF, ANEU, TSH, LIPID, CMP, GFR #### [address] [address] Creatinine [Mass/Vol] 0.76 mg/dL Normal 0.55-1.02 [facility] ([place]) Comment on above: Performed By: #### C BC, ADIFF, ANEU, TSH, LIPID, CMP, GFR #### [address] [address] Electrolyte Balance 9.0 mEq/L [facility] ([place] Comment on above: Performed By: #### C BC, ADIFF, ANEU, TSH, LIPID, CMP, GFR #### [address] [address] Globulin 3.3 G/dL Normal [facility] ([place]) Comment on above: Performed By: #### C BC, ADIFF, ANEU, TSH, LIPID, CMP, GFR #### [address] [address] Glucose [Mass/Vol] 90 mg/dL Normal 83-110 [facility] ([place]) Comment on above: Performed By: #### C BC, ADIFF, ANEU, TSH, LIPID, CMP, GFR #### [address] [address] Potassium [Moles/Vol] 4.7 mmol/L Normal 3.5-5.1 [facility] ([place]) Comment on above: Performed By: #### C BC, ADIFF, ANEU, TSH, LIPID, CMP, GFR #### [address] [address] Sodium [Moles/Vol] 140 mmol/L Normal 136-145 [facility] ([place]) Comment on above: Performed By: #### C BC, ADIFF, ANEU, TSH, LIPID, CMP, GFR #### [address] [address] Total Protein 6.7 G/dL Normal 6.4-8.2 [facility] ([place]) Comment on above: Performed By: #### C BC, ADIFF, ANEU, TSH, LIPID, CMP, GFR #### [address] [address] Urea nitrogen [Mass/Vol] 24 mg/dL High 7-18 [facility] ([place]) Comment on above: Performed By: #### C BC, ADIFF, ANEU, TSH, LIPID, CMP, GFR #### [address] [address] LABORATORYOrdered By: Promise Prado on 02-20-2021 Albumin BCP dye [Mass/Vol] 3.4 G/dL Invalid Interpretation Code 3.4 - 4.8 G/dL AO ADM SS Albumin/Globulin [Mass ratio] 1.0 {ratio} Invalid Interpretation Code 1.1 - 2.5 ratio AO ADM SS ALP [Catalytic activity/Vol] 109 U/L Invalid Interpretation Code 40 - 135 U/L AO ADM SS ALT With P-5'-P [Catalytic activity/Vol] 22 U/L Invalid Interpretation Code 14 - 59 U/L AO ADM SS AST With P-5'-P [Catalytic activity/Vol] 21 U/L Invalid Interpretation Code 10 - 40 U/L AO ADM SS Bilirubin [Mass/Vol] 0.1 mg/dL Invalid Interpretation Code 0.2 - 1.0 mg/dL AO ADM SS Calcium [Mass/Vol] 9.1 mg/dL Invalid Interpretation Code 8.4 - 10.2 mg/dL AO ADM SS Chloride [Moles/Vol] 103 mmol/L Invalid Interpretation Code 98 - 107 mmol/L AO ADM SS Cholesterol [Mass/Vol] 188 mg/dL Invalid Interpretation Code 0 - 200 mg/dL AO ADM SS Cholesterol in HDL [Mass/Vol] 59 mg/dL Invalid Interpretation Code 40 - 60 mg/dL AO ADM SS Cholesterol in LDL [Mass/Vol] 80 mg/dL Invalid Interpretation Code 0 - 130 mg/dL AO ADM SS CO2 [Moles/Vol] 28 mmol/L Invalid Interpretation Code 23 - 31 mmol/L AO ADM SS Creatinine [Mass/Vol] 0.76 mg/dL Invalid Interpretation Code 0.55 - 1.02 mg/dL AO ADM SS Electrolyte Balance 9.0 mEq/L Invalid Interpretation Code AO ADM SS Globulin 3.3 G/dL Invalid Interpretation Code AO ADM SS Glucose [Mass/Vol] 90 mg/dL Invalid Interpretation Code 83 - 110 mg/dL AO ADM SS Potassium [Moles/Vol] 4.7 mmol/L Invalid Interpretation Code 3.5 - 5.1 mmol/L AO ADM SS Protein [Mass/Vol] 6.7 G/dL Invalid Interpretation Code 6.4 - 8.2 G/dL AO ADM SS Sodium [Moles/Vol] 140 mmol/L Invalid Interpretation Code 136 - 145 mmol/L AO ADM SS Triglyceride [Mass/Vol] 246 mg/dL Invalid Interpretation Code 0 - 150 mg/dL AO ADM SS TSH Qn 0.96 m[IU]/L Invalid Interpretation Code 0.36 - 3.74 mcIU/mL AO ADM SS Urea nitrogen [Mass/Vol] 24 mg/dL Invalid Interpretation Code 7 - 18 mg/dL AO ADM SS Urea nitrogen/Creatinine [Mass ratio] 32 ratio Invalid Interpretation Code 7 - 27 ratio AO ADM SS LABORATORYOrdered By: Miranda Ceja on 02-20-2021 Basophil, Absolute 0.10 103/mcL Invalid Interpretation Code 0.00 - 0.19 10^3/mcL AO Auto Heme SS Basophils/100 WBC (Bld) 1.1 % Invalid Interpretation Code 0.0 - 2.5 % AO Auto Heme SS Eosinophil, Absolute 0.30 103/mcL Invalid Interpretation Code 0.00 - 0.40 10^3/mcL AO Auto Heme SS Eosinophils/100 WBC (Bld) 4.9 % Invalid Interpretation Code 0.0 - 7.0 % AO Auto Heme SS Erythrocyte distribution width (RBC) [Ratio] 14.1 % Invalid Interpretation Code 11.5 - 14.5 % AO Auto Heme SS Hematocrit (Bld) [Volume fraction] 35.7 % Invalid Interpretation Code 37.0 - 47.0 % AO Auto Heme SS Hemoglobin (Bld) [Mass/Vol] 11.5 G/dL Invalid Interpretation Code 12.0 - 16.0 G/dL AO Auto Heme SS Lymphocyte, Absolute 1.10 103/mcL Invalid Interpretation Code 0.77 - 3.85 10^3/mcL AO Auto Heme SS Lymphocytes/100 WBC (Bld) 19.8 % Invalid Interpretation Code 10.0 - 50.0 % AO Auto Heme SS MCH (RBC) [Entitic mass] 29.3 pg Invalid Interpretation Code 27.0 - 31.2 pg AO Auto Heme SS MCHC (RBC) [Mass/Vol] 32.1 G/dL Invalid Interpretation Code 33.0 - 37.0 G/dL AO Auto Heme SS MCV (RBC) [Entitic vol] 91.3 fL Invalid Interpretation Code 80.0 - 94.0 fL AO Auto Heme SS Monocyte, Absolute 0.80 103/mcL Invalid Interpretation Code 0.15 - 1.00 10^3/mcL AO Auto Heme SS Monocytes/100 WBC (Bld) 14.5 % Invalid Interpretation Code 1.7 - 13.0 % AO Auto Heme SS Neutrophil, Absolute 3.20 103/mcL Invalid Interpretation Code 2.85 - 6.16 10^3/mcL AO Auto Heme SS Neutrophils/100 WBC (Bld) 59.7 % Invalid Interpretation Code 37.0 - 80.0 % AO Auto Heme SS Platelet mean volume (Bld) [Entitic vol] 8.6 fL Invalid Interpretation Code 7.4 - 10.4 fL AO Auto Heme SS Platelets (Bld) [#/Vol] 382 103/mcL Invalid Interpretation Code 130 - 400 10^3/mcL AO Auto Heme SS RBC (Bld) [#/Vol] 3.91 106/mcL Invalid Interpretation Code 4.20 - 5.40 10^6/mcL AO Auto Heme SS WBC (Bld) [#/Vol] 5.40 103/mcL Invalid Interpretation Code 4.60 - 10.80 10^3/mcL AO Auto Heme SS LABORATORYOrdered By: SYSTEM SYSTEM on 02-20-2021 GFR 90 ml/min/1.73sqm Invalid Interpretation Code AO Chemistry S GFR Non- 74 ml/min/1.73sqm Invalid Interpretation Code AO Chemistry S LIPIDon 02-20-2021 Cholesterol [Mass/Vol] 188 mg/dL Normal 0-200 [facility] ([place]) Comment on above: Result Comment: Chol esterol Reference Interval: Less than 200 Desirable 200-239 Borderline high risk 240 and above High risk Performed By: #### C BC, ADIFF, ANEU, TSH, LIPID, CMP, GFR #### [address] [address] Cholesterol in HDL [Mass/Vol] 59 mg/dL Normal 40-60 [facility] ([place]) Comment on above: Performed By: #### C BC, ADIFF, ANEU, TSH, LIPID, CMP, GFR #### [place] [address] [place], [place] [address] Cholesterol in LDL [Mass/Vol] 80 mg/dL Normal 0-130 [facility] ([place]) Comment on above: Performed By: #### C BC, ADIFF, ANEU, TSH, LIPID, CMP, GFR #### [place] [address] [place], [place] [address] Triglyceride [Mass/Vol] 246 mg/dL High 0-150 A [facility] ([place]) Comment on above: Result Comment: Trig lyceride Reference Interval: Less than 150 Normal 150-199 Borderline high risk 200-499 High risk 500 or higher Very high risk Performed By: #### C BC, ADIFF, ANEU, TSH, LIPID, CMP, GFR #### [place] [address] [place], [place] [address] TSHon 02-20-2021 TSH Qn 0.96 m[IU]/L Normal 0.36-3.74 [facility] ([place]) Comment on above: Performed By: #### C BC, ADIFF, ANEU, TSH, LIPID, CMP, GFR #### [place] [address] [place], [place] [address] Vital Signs Date Time Vital Sign Value Performing Clinician Pio friedman 05-12-2024 08:58-0400 Body height 144.[address] Mile Foster MD Work Phone: [facility] 05-12-2024 08:58-0400 Body temperature 97.7 [degF] Dr. Mile Foster MD Work Phone: [facility] 05-12-2024 08:58-0400 Diastolic blood pressure 57 mm[Hg] Dr. Mile Foster MD Work Phone: [facility] 05-12-2024 08:58-0400 Heart rate 65 /min Dr. Miel Foster MD Work Phone: [facility] 05-12-2024 08:58-0400 Respiratory rate 16 /min Dr. Mile Foster MD Work Phone: [facility] 05-12-2024 08:58-0400 SaO2% (BldA) [Mass fraction] 100 % Dr. Mile Foster MD Work Phone: [facility] 05-12-2024 08:58-0400 Systolic blood pressure 142 mm[Hg] Dr. Mile Foster MD Work Phone: [facility] 04-26-2024 08:47-0400 Body height 144.[address] Mile Foster MD Work Phone: [facility] 04-26-2024 08:47-0400 Body mass index (BMI) [Ratio] 22.9 kg/m2 Dr. Mile Foster MD Work Phone: [facility] 04-26-2024 08:47-0400 Body temperature 96.9 [degF] Dr. Mile Foster MD Work Phone: [facility] 04-26-2024 08:47-0400 Body weight [address] Mile Foster MD Work Phone: [facility] 04-26-2024 08:47-0400 Diastolic blood pressure 72 mm[Hg] Dr. Mile Foster MD Work Phone: [facility] 04-26-2024 08:47-0400 Heart rate 64 /min Dr. Mile Foster MD Work Phone: [facility] 04-26-2024 08:47-0400 Respiratory rate 14 /min Dr. Mile Foster MD Work Phone: [facility] 04-26-2024 08:47-0400 SaO2% (BldA) [Mass fraction] 99 % Dr. Mile Foster MD Work Phone: [facility] 04-26-2024 08:47-0400 Systolic blood pressure 120 mm[Hg] Dr. Mile Foster MD Work Phone: [facility] 04-14-2024 10:03-0500 Body height 144.[address] Mile Foster MD Work Phone: [facility] 04-14-2024 10:03-0500 Body mass index (BMI) [Ratio] 22.9 kg/m2 Dr. Mile Foster MD Work Phone: [facility] 04-14-2024 10:03-0500 Body weight 48.[address] Mile Foster MD Work Phone: [facility] 04-14-2024 10:03-0500 Diastolic blood pressure 57 mm[Hg] Dr. Mile Foster MD Work Phone: [facility] 04-14-2024 10:03-0500 Heart rate 65 /min Dr. Mile Foster MD Work Phone: [facility] 04-14-2024 10:03-0500 Respiratory rate 16 /min Dr. Mile Foster MD Work Phone: [facility] 04-14-2024 10:03-0500 SaO2% (BldA) [Mass fraction] 100 % Dr. Mile Foster MD Work Phone: [facility] 04-14-2024 10:03-0500 Systolic blood pressure 134 mm[Hg] Dr. Mile Foster MD Work Phone: [facility] 03-17-2024 12:24-0500 Body temperature 97.9 [degF] Dr. Mile Foster MD Work Phone: [facility] 03-17-2024 12:24-0500 Diastolic blood pressure 59 mm[Hg] Dr. Mile Foster MD Work Phone: [facility] 03-17-2024 12:24-0500 Heart rate 72 /min Dr. Mile Foster MD Work Phone: [facility] 03-17-2024 12:24-0500 Respiratory rate 16 /min Dr. Mile Foster MD Work Phone: [facility] 03-17-2024 12:24-0500 SaO2% (BldA) [Mass fraction] 99 % Dr. Mile Foster MD Work Phone: [facility] 03-17-2024 12:24-0500 Systolic blood pressure 136 mm[Hg] Dr. Mile Foster MD Work Phone: [facility] 02-11-2024 09:30-0500 Body temperature 97.7 [degF] Dr. Mile Foster MD Work Phone: [facility] 02-11-2024 09:30-0500 Diastolic blood pressure 49 mm[Hg] Dr. Mile Foster MD Work Phone: [facility] 02-11-2024 09:30-0500 Heart rate 75 /min Dr. Mile Foster MD Work Phone: [facility] 02-11-2024 09:30-0500 Respiratory rate 16 /min Dr. Mile Foster MD Work Phone: [facility] 02-11-2024 09:30-0500 SaO2% (BldA) [Mass fraction] 98 % Dr. Mile Foster MD Work Phone: [facility] 02-11-2024 09:30-0500 Systolic blood pressure 115 mm[Hg] Dr. Mile Foster MD Work Phone: [facility] 01-28-2024 08:52-0500 Body mass index (BMI) [Ratio] 22.9 kg/m2 Dr. Mile Foster MD Work Phone: [facility] 01-28-2024 08:52-0500 Body temperature 97.4 [degF] Dr. Mile Foster MD Work Phone: [facility] 01-28-2024 08:52-0500 Body weight 48.[address] Mile Foster MD Work Phone: [facility] 01-28-2024 08:52-0500 Diastolic blood pressure 68 mm[Hg] Dr. Mile Foster MD Work Phone: [facility] 01-28-2024 08:52-0500 Heart rate 55 /min Dr. Mile Foster MD Work Phone: [facility] 01-28-2024 08:52-0500 Respiratory rate 16 /min Dr. Mile Foster MD Work Phone: [facility] 01-28-2024 08:52-0500 SaO2% (BldA) [Mass fraction] 98 % Dr. Mile Foster MD Work Phone: [facility] 01-28-2024 08:52-0500 Systolic blood pressure 124 mm[Hg] Dr. Mile Foster MD Work Phone: [facility] 01-14-2024 09:41-0500 Body temperature 97.5 [degF] Dr. Mile Foster MD Work Phone: [facility] 01-14-2024 09:41-0500 Respiratory rate 16 /min Dr. Mile Foster MD Work Phone: [facility] 01-14-2024 09:41-0500 SaO2% (BldA) [Mass fraction] 98 % Dr. Mile Foster MD Work Phone: [facility] 05-12-2023 09:24-0400 Body height 152.[address] Mile Foster Work Phone: [facility] 05-12-2023 09:24-0400 Body mass index (BMI) [Ratio] 21.7 kg/m2 Dr. Mile Foster Work Phone: [facility] 05-12-2023 09:24-0400 Body temperature 97.1 [degF] Dr. Mile Foster Work Phone: [facility] 05-12-2023 09:24-0400 Body weight 50.[address] Mile Foster Work Phone: [facility] 05-12-2023 09:24-0400 Diastolic blood pressure 78 mm[Hg] Dr. Mile Foster Work Phone: [facility] 05-12-2023 09:24-0400 Heart rate 74 /min Dr. Mile Foster Work Phone: [facility] 05-12-2023 09:24-0400 Respiratory rate 16 /min Dr. Mile Foster Work Phone: [facility] 05-12-2023 09:24-0400 SaO2% (BldA) [Mass fraction] 98 % Dr. Mile Foster Work Phone: [facility] 05-12-2023 09:24-0400 Systolic blood pressure 134 mm[Hg] Dr. Mile Foster Work Phone: [facility] 02-10-2023 10:18-0500 Body height 152.[address] Mile Foster Work Phone: [facility] 02-10-2023 10:18-0500 Body mass index (BMI) [Ratio] 21.4 kg/m2 Dr. Mile Foster Work Phone: [facility] 02-10-2023 10:18-0500 Body temperature 97.3 [degF] Dr. Mile Foster Work Phone: [facility] 02-10-2023 10:18-0500 Body weight 49.[address] Mile Foster Work Phone: [facility] 02-10-2023 10:18-0500 Diastolic blood pressure 72 mm[Hg] Dr. Mile Foster Work Phone: [facility] 02-10-2023 10:18-0500 Heart rate 70 /min Dr. Mile Foster Work Phone: [facility] 02-10-2023 10:18-0500 Respiratory rate 18 /min Dr. Mile Foster Work Phone: [facility] 02-10-2023 10:18-0500 SaO2% (BldA) [Mass fraction] 97 % Dr. Mile Foster Work Phone: [facility] 02-10-2023 10:18-0500 Systolic blood pressure 130 mm[Hg] Dr. Mile Foster Work Phone: [facility] 11-12-2022 05:42-0400 Diastolic blood pressure 72 mm[Hg] Dr. Mile Foster Work Phone: [facility] 11-12-2022 05:42-0400 Systolic blood pressure 140 mm[Hg] Dr. Mile Foster Work Phone: [facility] 11-12-2022 04:28-0400 Heart rate 82 /min Dr. Mile Foster Work Phone: [facility] 11-12-2022 04:28-0400 Respiratory rate 16 /min Dr. Mile Foster Work Phone: [facility] 11-12-2022 04:28-0400 SaO2% (BldA) [Mass fraction] 94 % Dr. Mile Foster Work Phone: [facility] 11-12-2022 01:25-0400 Body temperature 97.5 [degF] Dr. Mile Foster Work Phone: [facility] 11-12-2022 01:22-0400 Body height 152.[address] Mile Foster Work Phone: [facility] 11-12-2022 01:22-0400 Body mass index (BMI) [Ratio] 21.5 kg/m2 Dr. Mile Foster Work Phone: [facility] 11-12-2022 01:22-0400 Body weight [address] Mile Foster Work Phone: [facility] 11-09-2022 09:52-0400 Body mass index (BMI) [Ratio] 21.7 kg/m2 Dr. Mile Foster Work Phone: [facility] 11-09-2022 09:52-0400 Body temperature 98.8 [degF] Dr. Mile Foster Work Phone: [facility] 11-09-2022 09:52-0400 Body weight 50.[address] Mile Foster Work Phone: [facility] 11-09-2022 09:52-0400 Diastolic blood pressure 72 mm[Hg] Dr. Mile Foster Work Phone: [facility] 11-09-2022 09:52-0400 Heart rate 66 /min Dr. Mile Foster Work Phone: [facility] 11-09-2022 09:52-0400 Respiratory rate 16 /min Dr. Mile Foster Work Phone: [facility] 11-09-2022 09:52-0400 SaO2% (BldA) [Mass fraction] 99 % Dr. Mile Foster Work Phone: [facility] 11-09-2022 09:52-0400 Systolic blood pressure 124 mm[Hg] Dr. Mile Foster Work Phone: [facility] 11-04-2022 21:50-0400 Heart rate 92 /min Dr. Mile Foster Work Phone: [facility] 11-04-2022 21:50-0400 Respiratory rate 17 /min Dr. Mile Foster Work Phone: [facility] 11-04-2022 16:32-0400 Body mass index (BMI) [Ratio] 21.5 kg/m2 Dr. Mile Foster Work Phone: [facility] 11-04-2022 16:32-0400 Body temperature 96.9 [degF] Dr. Mile Foster Work Phone: [facility] 11-04-2022 16:32-0400 Body weight 50.[address] Mile Foster Work Phone: [facility] 11-04-2022 16:32-0400 Diastolic blood pressure 94 mm[Hg] Dr. Mile Foster Work Phone: [facility] 11-04-2022 16:32-0400 SaO2% (BldA) [Mass fraction] 100 % Dr. Mile Foster Work Phone: [facility] 11-04-2022 16:32-0400 Systolic blood pressure 143 mm[Hg] Dr. Mile Foster Work Phone: [facility] 09-07-2022 08:22-0400 Body height 149.[address] Mile Foster Work Phone: [facility] 09-07-2022 08:22-0400 Body mass index (BMI) [Ratio] 22.6 kg/m2 Dr. Mile Foster Work Phone: [facility] 09-07-2022 08:22-0400 Body temperature 98.6 [degF] Dr. Mile Foster Work Phone: [facility] 09-07-2022 08:22-0400 Body weight 50.[address] Mile Foster Work Phone: [facility] 09-07-2022 08:22-0400 Diastolic blood pressure 80 mm[Hg] Dr. Mile Foster Work Phone: [facility] 09-07-2022 08:22-0400 Heart rate 66 /min Dr. Mile Foster Work Phone: [facility] 09-07-2022 08:22-0400 Respiratory rate 16 /min Dr. Mile Foster Work Phone: [facility] 09-07-2022 08:22-0400 SaO2% (BldA) [Mass fraction] 98 % Dr. Mile Foster Work Phone: [facility] 09-07-2022 08:22-0400 Systolic blood pressure 180 mm[Hg] Dr. Mile Foster Work Phone: [facility] 06-29-2022 09:12-0400 Body height 149.[address] Mile Foster Work Phone: [facility] 06-29-2022 09:12-0400 Body mass index (BMI) [Ratio] 21.8 kg/m2 Dr. Mile Foster Work Phone: [facility] 06-29-2022 09:12-0400 Body temperature 98.5 [degF] Dr. Mile Foster Work Phone: [facility] 06-29-2022 09:12-0400 Body weight 48.[address] Mile Foster Work Phone: [facility] 06-29-2022 09:12-0400 Diastolic blood pressure 78 mm[Hg] Dr. Mile Foster Work Phone: [facility] 06-29-2022 09:12-0400 Heart rate 58 /min Dr. Mile Foster Work Phone: [facility] 06-29-2022 09:12-0400 Respiratory rate 14 /min Dr. Mile Foster Work Phone: [facility] 06-29-2022 09:12-0400 SaO2% (BldA) [Mass fraction] 99 % Dr. Mile Foster Work Phone: [facility] 06-29-2022 09:12-0400 Systolic blood pressure 146 mm[Hg] Dr. Mile Foster Work Phone: [facility] 02-25-2022 10:16-0500 Body temperature 96.1 [degF] Dr. Mile Foster Work Phone: [facility] 02-25-2022 10:16-0500 Body weight 48.[address] Mile Foster Work Phone: [facility] 02-25-2022 10:16-0500 Diastolic blood pressure 84 mm[Hg] Dr. Mile Foster Work Phone: [facility] 02-25-2022 10:16-0500 Heart rate 84 /min Dr. Mile Foster Work Phone: [facility] 02-25-2022 10:16-0500 Respiratory rate 18 /min Dr. Mile Foster Work Phone: [facility] 02-25-2022 10:16-0500 Systolic blood pressure 144 mm[Hg] Dr. Mile Foster Work Phone: [facility] 12-22-2021 10:08-0500 Body temperature 96.6 [degF] Dr. Mile Foster Work Phone: [facility] 12-22-2021 10:08-0500 Body weight 48.[address] Mile Foster Work Phone: [facility] 12-22-2021 10:08-0500 Diastolic blood pressure 82 mm[Hg] Dr. Mile Foster Work Phone: [facility] 12-22-2021 10:08-0500 Heart rate 70 /min Dr. Mile Foster Work Phone: [facility] 12-22-2021 10:08-0500 Respiratory rate 18 /min Dr. Mile Foster Work Phone: [facility] 12-22-2021 10:08-0500 SaO2% (BldA) [Mass fraction] 98 % Dr. Mile Foster Work Phone: [facility] 12-22-2021 10:08-0500 Systolic blood pressure 108 mm[Hg] Dr. Mile Foster Work Phone: [facility] 10-21-2021 09:52-0400 Body height 149.86 cm No Primary Care Physician [facility] Work Phone: 10-21-2021 09:52-0400 Body mass index (BMI) [Ratio] 22.6 kg/m2 No Primary Care Physician [facility] Work Phone: 10-21-2021 09:52-0400 Body temperature 96.8 [degF] No Primary Care Physician [facility] Work Phone: 10-21-2021 09:52-0400 Body weight 50.8 kg No Primary Care Physician [facility] Work Phone: 10-21-2021 09:52-0400 Diastolic blood pressure 80 mm[Hg] No Primary Care Physician [facility] Work Phone: 10-21-2021 09:52-0400 Heart rate 76 /min No Primary Care Physician [facility] Work Phone: 10-21-2021 09:52-0400 Respiratory rate 16 /min No Primary Care Physician [facility] Work Phone: 10-21-2021 09:52-0400 SaO2% (BldA) [Mass fraction] 98 % No Primary Care Physician [facility] Work Phone: 10-21-2021 09:52-0400 Systolic blood pressure 130 mm[Hg] No Primary Care Physician [facility] Work Phone: 10-07-2021 13:59-0400 Body height 149.86 cm No Primary Care Physician [facility] Work Phone: 10-07-2021 13:59-0400 Body mass index (BMI) [Ratio] 22.6 kg/m2 No Primary Care Physician [facility] Work Phone: 10-07-2021 13:59-0400 Body temperature 95.8 [degF] No Primary Care Physician [facility] Work Phone: 10-07-2021 13:59-0400 Body weight 50.85 kg No Primary Care Physician [facility] Work Phone: 10-07-2021 13:59-0400 Diastolic blood pressure 68 mm[Hg] No Primary Care Physician [facility] Work Phone: 10-07-2021 13:59-0400 Heart rate 76 /min No Primary Care Physician [facility] Work Phone: 10-07-2021 13:59-0400 Respiratory rate 18 /min No Primary Care Physician [facility] Work Phone: 10-07-2021 13:59-0400 SaO2% (BldA) [Mass fraction] 96 % No Primary Care Physician [facility] Work Phone: 10-07-2021 13:59-0400 Systolic blood pressure 156 mm[Hg] No Primary Care Physician [facility] Work Phone: 09-02-2021 09:41-0400 Body mass index (BMI) [Ratio] 22.3 kg/m2 No Primary Care Physician [facility] Work Phone: 09-02-2021 09:41-0400 Body weight 51.9 kg No Primary Care Physician [facility] Work Phone: 09-02-2021 09:41-0400 Diastolic blood pressure 82 mm[Hg] No Primary Care Physician [facility] Work Phone: 09-02-2021 09:41-0400 Systolic blood pressure 170 mm[Hg] No Primary Care Physician [facility] Work Phone: 08-19-2021 06:10-0400 Diastolic blood pressure 86 mm[Hg] [facility] Work Phone: 08-19-2021 06:10-0400 Heart rate 72 /min [facility] Work Phone: 08-19-2021 06:10-0400 Respiratory rate 18 /min [facility] Work Phone: 08-19-2021 06:10-0400 Systolic blood pressure 160 mm[Hg] [facility] Work Phone: 08-19-2021 04:11-0400 Body height 152.4 cm [facility] Work Phone: 08-19-2021 04:11-0400 Body mass index (BMI) [Ratio] 23.5 kg/m2 [facility] Work Phone: 08-19-2021 04:11-0400 Body temperature 96.5 [degF] [facility] Work Phone: 08-19-2021 04:11-0400 Body weight 54.7 kg [facility] Work Phone: 08-19-2021 04:11-0400 SaO2% (BldA) [Mass fraction] 99 % [facility] Work Phone: Encounters Encounter Date Encounter Type Care Provider Facility Start: 07-14-2024 ambulatory Efewongbe Oleghe Facili ty:[facility] Start: 07-12-2024 End: 07-12-2024 ambulatory Efewpelionbe Oleghe Facility:[facility] Start: 07-06-2024 ambulatory Efewongbe Oleghe Facili ty:[facility] Start: 06-14-2024 End: 06-14-2024 ambulatory Efewongbe Oleghe Facility:[facility] Start: 06-09-2024 End: 06-09-2024 ambulatory Efewongbe Olee Facility:[facility] Start: 05-29-2024 End: 05-29-2024 ambulatory Efewongbe Oleghe Facility:[facility] Start: 05-29-2024 End: 05-29-2024 ambulatory Efewongbe Oleghe Facility:[facility] Start: 05-16-2024 End: 05-16-2024 ambulatory Monty Cordoba Facility:[facility] Start: 05-12-2024 End: 05-12-[address] Mile Foster MD [facility] Work Phone: Start: 05-12-2024 End: 05-12-[address] Mile Foster MD Work Phone: [facility] Work Phone: Start: 04-26-2024 End: 04-26-[address] Mile Foster MD -[facility] Work Phone: Start: 04-26-2024 End: 04-26-[address] Mile Foster MD Work Phone: [facility] Work Phone: Start: 04-26-2024 End: 04-26-2024 ambulatory Mile Foster Facility:[facility] Start: 04-17-2024 End: 04-17-[address] Mile Foster MD -[facility] Work Phone: Start: 04-17-2024 End: 04-17-2024 ambulatory Mile Foster Facility:[facility] Start: 04-14-2024 End: 04-14-[address] Mile Foster MD [facility] Work Phone: Start: 04-14-2024 End: 04-14-[address] Mile Foster MD Work Phone: [facility] Work Phone: Start: 03-20-2024 End: 03-20-[address] Mile Foster MD -[facility] Work Phone: Start: 03-20-2024 End: 03-20-2024 ambulatory Mile Foster Facility:[facility] Start: 03-17-2024 End: 03-17-[address] Mile Foster MD [facility] Work Phone: Start: 03-17-2024 End: 03-17-2024 ambulatory [facility] Facility:[facility] Start: 02-21-2024 End: 02-21-[address] Mile Foster MD -[facility] Work Phone: Start: 02-21-2024 End: 02-21-2024 [facility] Start: 02-11-2024 End: 02-11-[address] Mile Foster MD [facility] Work Phone: Start: 02-11-2024 End: 02-11-2024 ambulatory scottypelionjulieta [facility] Facility:[facility] Start: 01-28-2024 End: 01-28-[address] Mile Foster MD -[facility] Work Phone: Start: 01-28-2024 End: 01-28-[facility]24 [facility] Start: 01-28-2024 End: 01-28-[facility] Start: 01-20-2024 End: 01-20-[address] Kirti Ibanez MD -[facility] Work Phone: Start: 01-20-2024 End: 01-20-2024 ambulatory Kirti Marcelle Facility:[facility] Start: 01-14-2024 End: 01-14-[address] Mile Foster MD [facility] Work Phone: Start: 01-14-2024 End: 01-14-2024 ambulatory [facility] Facility:[facility] Start: 12-23-2023 End: 12-23-[address] Kirti Ibanez MD -[facility] Work Phone: Start: 12-23-2023 End: 12-23-2023 ambulatory Kirti Ibanez Facility:[facility] Start: 12-10-2023 End: 12-10-2023 ambulatory Efewongbe Oleghe Facility:[facility] Start: 11-25-2023 End: 11-25-2023 ambulatory Efewongbe Oleghe Facility:[facility] Start: 11-12-2023 End: 11-12-2023 ambulatory Efewongbe Oleghe Facility:[facility] Start: 11-11-2023 End: 11-11-2023 ambulatory Efewongbe Oleghe Facility:[facility] Start: 10-27-2023 End: 10-27-2023 ambulatory Efewongbe Oleghe Facility:[facility] Start: 10-22-2023 End: 10-22-2023 ambulatory Efewongbe Oleghe Facility:[facility] Start: 10-22-2023 End: 10-22-2023 ambulatory Efewongbe Oleghe Facility:[facility] Start: 10-14-2023 End: 10-14-2023 ambulatory Efewongbe Dwayneghe Facility:[facility] Start: 10-14-2023 End: 10-14-2023 ambulatory Efewpelionbe Oleyinkae Facility:[facility] Start: 09-28-2023 End: 09-28-2023 [facility] Start: 09-16-2023 End: 09-16-2023 ambulatory Efewongbe Sonjae [facility] Start: 08-19-2023 End: 08-19-2023 ambulatory Efewongbe Oleghe Facility:[facility] Start: 08-11-2023 End: 08-11-2023 ambulatory Efscottyongbe Sonjae [facility] Start: 07-22-2023 End: 07-23-2023 Emergency department patient visit Smith Chamberlain Facility:[facility] Start: 07-22-2023 End: 07-22-2023 ambulatory Efscottyongjulieta Casillase Facility:[facility] Start: 05-12-2023 End: 05-12-[address] Mile Foster Work Phone: [facility] Work Phone: Start: 05-12-2023 End: 05-12-[address] Mile Foster Work Phone: [facility] Work Phone: Start: 04-29-2023 End: 04-29-[address] Mile Foster Work Phone: [facility] Work Phone: Start: 03-31-2023 End: 03-31-[address] Mile Foster Work Phone: [facility] Work Phone: Start: 03-03-2023 End: 03-03-[address] Mile Foster Work Phone: [facility] Work Phone: Start: 02-12-2023 End: 02-12-[address] Mile Foster Work Phone: [facility] Work Phone: Start: 02-12-2023 End: 02-12-[address] Mile Foster Work Phone: [facility]-Outpatient Breast Imaging Work Phone: Start: 02-10-2023 End: 02-10-[address] Mile Foster Work Phone: [facility] Work Phone: Start: 02-10-2023 End: 02-10-[address] Mile Foster Work Phone: [facility] Work Phone: Start: 02-03-2023 End: 02-03-[address] Mile Foster Work Phone: [facility] Work Phone: Start: 01-04-2023 End: 01-04-[address] Mile Foster Work Phone: [facility] Work Phone: Start: 12-07-2022 End: 12-07-[address] Mile Foster Work Phone: [facility] Work Phone: Start: 11-12-2022 End: 11-12-2022 Emergency department patient [facility] Start: 11-09-2022 End: 11-09-[address] Mile Foster Work Phone: [facility] Work Phone: Start: 11-04-2022 End: 11-04-2022 Emergency department patient visit Dr. Mile Foster Work Phone: [facility]Emergency Department Work Phone: Start: 10-13-2022 Non-patient / Non-visit Dr. Mile Foster Work Phone: [facility] Work Phone: Start: 10-13-2022 End: 10-13-[address] Mile Foster Work Phone: [facility] Work Phone: Start: 09-07-2022 End: 09-07-[address] Mile Foster Work Phone: [facility] Work Phone: Start: 09-07-2022 End: 09-07-[address] Mile Foster Work Phone: [facility] Work Phone: Start: 08-24-2022 End: 08-24-[address] Mile Foster Work Phone: [facility] Work Phone: Start: 08-24-2022 End: 08-24-[address] Mile Foster Work Phone: [facility]-Radiology, [facility] Work Phone: Start: 06-29-2022 End: 06-29-[address] Mile Foster Work Phone: [facility] Work Phone: Start: 04-21-2022 End: 04-21-[address] Mile Foster Work Phone: [facility] Work Phone: Start: 04-21-2022 End: 04-21-[address] Mile Foster Work Phone: [facility]-Physical Therapy Start: 02-25-2022 End: 02-25-[address] Mile Foster Work Phone: [facility] Work Phone: Start: 02-25-2022 End: 02-25-[address] Mile Foster Work Phone: [facility] Start: 12-22-2021 End: 12-22-[address] Mile Foster Work Phone: [facility] Start: 11-19-2021 End: 11-19-2021 ambulatory No Primary Care Physician [facility] Work Phone: Start: 11-19-2021 End: 11-19-2021 Patient encounter procedure No Primary Care Physician [facility] Start: 10-21-2021 End: 10-21-2021 Patient encounter procedure No Primary Care Physician [facility] Internal Medicine Start: 10-07-2021 End: 10-07-2021 ambulatory No Primary Care Physician [facility] Work Phone: Start: 10-07-2021 End: 10-07-2021 Patient encounter procedure No Primary Care Physician [facility]-Laboratory, [facility] Start: 10-07-2021 End: 10-07-2021 Patient encounter procedure No Primary Care Physician [facility] Internal Medicine Start: 09-29-2021 End: 09-29-2021 Patient encounter procedure No Primary Care Physician [facility]-Laboratory Start: 09-25-2021 End: 09-25-2021 ambulatory No Primary Care Physician [facility] Work Phone: Start: 09-25-2021 End: 09-25-2021 Patient encounter procedure No Primary Care Physician [facility]-Outpatient Bone Densitometry Start: 09-24-2021 End: 09-24-2021 Patient encounter procedure No Primary Care Physician [facility]-MRI - WC Start: 09-17-2021 End: 09-17-2021 Patient encounter procedure No Primary Care Physician [facility]-Laboratory Start: 09-02-2021 Non-patient / Non-visit No Primary Care Physician [facility] Start: 09-02-2021 End: 09-02-2021 Patient encounter procedure No Primary Care Physician [facility] Start: 08-19-2021 End: 08-19-2021 Emergency department patient visit [facility]-Emergency Department Start: 02-20-2021 End: 02-20-2021 Patient encounter procedure KELLY BALDWIN MD [facility] Procedures Date Procedure Procedure Detail Performing Clinician Start: 02-12-2023 Screening mammography Frank Foster Work Phone: Start: 11-12-2022 X-ray of chest posteroanterior view Dr. Mile Foster Work Phone: Start: 08-24-2022 X-ray of lumbar spin e, two or three views Dr. Mile Foster Work Phone: Start: 08-24-2022 Radiography of thoracic spine Dr. 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 - [facility] - Dr Graves Start: 11-25-2009 Colonoscopy KELLY CROUCH MD Start: 11-08-2009 Exploratory laparotomy KELLY BALDWIN MD Comment on above: excision of band, ly sis of adhesions, Dr Cazares Start: 07-09-2009 Hernia repair KELLY ABAD MD Comment on above: Dr Cazares Hernia of abdominal cavity (disorder) KELLY BALDWIN MD Plan of Treatment Date Care Activity Detail Author Start: 03-17-2024 Therapeutic prophylactic/dx injection subq/im THER/PROPH/DIAG INJ SC/IM [facility] Start: 02-12-2023 MG Breast - bilatera l Screening [facility] Start: 02-12-2023 Screening mammography SCRN EBONIE M (CAD)W/TERRY BILAT [facility] Start: 11-12-2022 [facility] Blood chemistry [facility] CBC W Auto Different ial panel - Blood [facility] Patient Education [facility] Work Phone: Patient referral [facility] Work Phone: Vitamin B12 measurement [facility] XR Knee 3 Views [facility] Immunizations Immunization Date Immunization Notes Care Provider Aureliano ernst 11-25-2023 Seasonal trivalent influenza vaccine, adjuvanted, preservative free Dr. Mile Foster MD Work Phone: [facility] 12-22-2022 Covid (Spikevax) Dr. Maria Guadalupe Foster Work Phone: [facility] 11-09-2022 influenza, injectabl e, quadrivalent, preservative free Dr. Mile Foster Work Phone: [facility] 06-20-2021 Covid (Moderna) No Primary C are Physician [facility] 12-19-2020 influenza, injectabl e, quadrivalent, preservative free Dr. Mile Foster Work Phone: [facility] 12-19-2020 influenza, seasonal, injectable No Primary Care Physician [facility] 12-19-2020 influenza, high dose seasonal, preservative-free; Translations: [Fluad Quadrivalent PF ] KELLY BALDWIN MD [facility] 11-19-2020 Covid (Moderna) No Primary C are Physician [facility] 11-19-2020 SARS-CoV-2 mRNA (tozinameran) vaccine KELLY BALDWIN MD [facility] Comment on above: Result Comment: 2021: TPV1 03-21-2020 Covid (Moderna) No Primary C are Physician [facility] 03-21-2020 SARS-CoV-2 mRNA (tozinameran) vaccine KELLY BALDWIN MD [facility] Comment on above: Result Comment: 2020: TPV1 02-29-2020 Covid (Moderna) No Primary C are Physician [facility] 02-29-2020 SARS-CoV-2 mRNA (totobyeran) vaccine KELLY BALDWIN MD [facility] Comment on above: Result Comment: 2020: TPV1 10-19-2019 influenza, injectabl e, quadrivalent, preservative free; Translations: [Fluarix PF Quadrivalent ] KELLY BALDWIN MD [facility] 11-23-2018 influenza, injectabl e, quadrivalent, preservative free; Translations: [Fluarix PF Quadrivalent ] KELLY BALDWIN MD [facility] 11-01-2018 tetanus toxoid, redu sherrill diphtheria toxoid, and acellular pertussis vaccine, adsorbed; Translations: [Boostrix (Tdap)] KELLY BALDWIN MD [facility] 10-28-2017 influenza virus vacc ine, unspecified formulation KELLY BALDWIN MD [facility] 11-04-2016 influenza virus vacc ine, unspecified formulation KELLY BALDWIN MD [facility] 11-01-2014 influenza virus vacc ine, unspecified formulation KELLY BALDWIN MD [facility] 04-16-2014 pneumococcal conjuga te vaccine, 13 valent KELLY BALDWIN MD [facility] Comment on above: Result Comment: [facility] 11-08-2013 influenza virus vacc ine, unspecified formulation KELLY BALDWIN MD [facility] 04-21-2013 tetanus toxoid, redu sherrill diphtheria toxoid, and acellular pertussis vaccine, adsorbed KELLY BALDWIN MD [facility] Comment on above: Result Comment: [facility] 10-28-2012 influenza virus vacc ine, unspecified formulation KELLY BALDWIN MD [facility] 04-21-2012 tetanus toxoid, redu sherrill diphtheria toxoid, and acellular pertussis vaccine, adsorbed KELLY BALDWIN MD [facility] 02-22-2012 pneumococcal polysaccharide vaccine, 23 valent KELLY BALDWIN MD [facility] Comment on above: Result Comment: [facility] 11-03-2011 influenza virus vacc ine, unspecified formulation KELLY BALDWIN MD [facility] Payers Date Payer Category Payer Self-pay [id number] 2023 Unknown [id number] Medicare [id number] Unknown [id number] 2.16.8 40.1.891209.3.579.2.462 Unknown [id number] 2.16.8 40.1.726336.3.579.2.462 Unknown [id number] 2.16.8 40.1.025039.3.579.2.462 Unknown [id number] 2.16.8 40.1.172462.3.579.2.462 Unknown [id number] 2.16.8 40.1.596208.3.579.2.462 Unknown [id number] 2.16.8 40.1.065221.3.579.2.462 Unknown [id number] 2.16.8 40.1.036717.3.579.2.462 Unknown [id number] 2.16.8 40.1.403650.3.579.2.462 Unknown [id number] 2.16.8 40.1.837298.3.579.2.462 Unknown [id number] 2.16.8 40.1.987273.3.579.2.462 Unknown [id number] 2.16.8 40.1.131730.3.579.2.462 Unknown [id number] 2.16.8 40.1.149987.3.579.2.462 Unknown [id number] 2.16.8 40.1.471586.3.579.2.462 Unknown [id number] 2.16.8 40.1.908241.3.579.2.462 Unknown [id number] 2.16.8 40.1.792751.3.579.2.462 Unknown [id number] 2.16.8 40.1.109775.3.579.2.462 Unknown [id number] 2.16.8 40.1.930494.3.579.2.462 Unknown [id number] 2.16.8 40.1.375618.3.579.2.462 Unknown [id number] 2.16.8 40.1.311686.3.579.2.462 Unknown [id number] 2.16.8 40.1.129465.3.579.2.462 Unknown [id number] 2.16.8 40.1.977776.3.579.2.462 Unknown [id number] 2.16.8 40.1.660966.3.579.2.462 Unknown [id number] 2.16.8 40.1.698635.3.579.2.462 Unknown [id number] 2.16.8 40.1.737158.3.579.2.462 Unknown [id number] 2.16.8 40.1.973268.3.579.2.462 Unknown [id number] 2.16.8 40.1.481699.3.579.2.462 Unknown [id number] 2.16.8 40.1.785541.3.579.2.462 Unknown [id number] 2.16.8 40.1.464149.3.579.2.462 Unknown [id number] 2.16.8 40.1.963664.3.579.2.462 Unknown [id number] 2.16.8 40.1.863681.3.579.2.462 Unknown [id number] 2.16.8 40.1.025779.3.579.2.462 Unknown [id number] 2.16.8 40.1.444355.3.579.2.462 Unknown [id number] 2.16.8 40.1.022101.3.579.2.462 Unknown [id number] 2.16.8 40.1.135448.3.579.2.462 Unknown [id number] 2.16.8 40.1.138769.3.579.2.462 Unknown [id number] 2.16.8 40.1.797887.3.579.2.462 Unknown [id number] 2.16.8 40.1.413287.3.579.2.462 Social History Date Type Detail Facility Start: 08-25-2018 End: 07-22-2023 Never smoked tobacco (finding) [facility] Start: 1945 Sex Assigned At Female A [facility] Start: 08-19-2021 End: 05-12-2023 Tobacco smoking status NHIS Unknown if ever smoked [facility] Start: 2018 None [facility] Start: 2018 Alone [facility] Start: 11-12-2018 Non-smoker [facility] Start: 04-15-2024 End: 05-13-2024 Sex Female (finding) [facility] Goals Date Patient Goal Desired Activity /State Mental Status Date Assessment Result Facility 05-12-2024 Cognitive function Awake;Alert;A ppropriate;Fol lows Commands [facility] Work Phone: 03-17-2024 Cognitive function Awake;Alert;A ppropriate;Fol lows Commands [facility] Work Phone: 02-11-2024 Cognitive function Awake;Alert;A ppropriate;Fol lows Commands [facility] Work Phone: 08-19-2021 Cognitive function Voice/Name [facility] Work Phone: Clinical Notes 04-21-2022 to 01-20-2024 Note Date & Type Note Facility 01-20-2024 Evaluation note Diagnosis Onset Date Resolution Vitamin B12 deficiency chronic De [id number] 8:51am Anemia chronic January 28, 2024 8:34am Hypertension chronic January 8:34am Osteoporosis chronic January 8:34am Vitamin B12 deficiency chronic De cem2023 8:34am Vitamin B12 deficiency chronic Ja nuary 2024 9:20am Vitamin B12 deficiency chronic Fe bruary 2024 9:47am Vitamin B12 deficiency chronic [facility] 2024 9:54am Anemia chronic April 26 8:38am Diarrhea chronic April 26 8:38am Hypertension chronic April 26, 2024 8:38am Osteoarthritis chronic April 8:38am Vitamin B12 deficiency chronic [facility] 2024 8:38am [facility] Work Phone: 1(503) 412-563011-14-2024 Evaluation note* Diagnosis Onset Date Resolution Status Admit Date Vitamin B12 deficiency chronic No vember 2023 8:55am Vitamin B12 deficiency chronic De cem2023 8:51am Anemia chronic January 28, 2024 8:34am Hypertension chronic January 8:34am Osteoporosis chronic January 8:34am Vitamin B12 deficiency chronic De cember 2023 8:34am Vitamin B12 deficiency chronic Ja nuary 2024 9:20am Vitamin B12 deficiency chronic Fe bruary 2024 9:47am [facility] Work Phone: 1(431) 132-345210-05-2023 Discharge summary Author Arnulfo Nguyen [facility] November 12, 2022 5:22am Note Date/Time November 12, 2022 2: 31am [facility] Medical Records Department [address] [place] [id number] Emergency Department Summary 11/12/22 MR#: [id number] Acct: [id number] Name: CHELSEA GARCIA Rep #:[id number] : 1945 77 From: Arnulfo Nguyen MD PCP: Dr. Mile Foster MD Status:R EG ER Location: ED HPI History of Present Illness Chief Complaint: Abd Pain Informant: patient and family Narrative Narrative: She reports right lower anterior chest pain. Triage mentions right upper quadrant pain. She states it is not her abdomen that hurts. It is the lower chest. She has had this before but is not exactly sure what caused it. She denies known injury but she has had pains in this areain other areas in the past. She does have osteoporosis. But there has been no trauma. She states she is not short of breath. But it does hurt a little bit when she takes a deep breath. It mostly hurts pressing on it or moving. No nausea or vomiting. No change with eating. Her vertigo that she had recently is gone. She states she can eat and it does not bother this. She is not coughing. No fevers. No distal numbness or tingling. [facility] Medical History (Updated 11/12/22 @ 05:[address] Arnulfo Nguyen MD) BPPV (benign paroxysmal positional vertigo) Chronic diarrhea GERD (gastroesophageal reflux disease) GI bleed due to NSAIDs Hernia Hypertension Hypertension Iron deficiency anemia Normal colonoscopy Home Medications ascorbate calcium (vitamin C) 500 mg tablet 500 mg PO QDAY 07/28/17 [History Last Taken 11/10/18] famotidine-Ca carb-mag hydrox 10 mg-800 mg-165 mg chewable tablet (Pepcid Complete) 1 tab PO BID 07/28/17 [History Last Taken 11/10/18] vitamins A,C,D-ysva-ibprpy 4,296 mcg-226 mg-90 mg capsule 1 ea PO DAILY 11/10/18[History Last Taken 11/10/18] ondansetron 4 mg disintegrating tablet 4 mg PO TID PRN PRN nausea and vomiting #21 tabs 08/19/21 [Rx Last Taken Unknown] ferrous sulfate 220 mg (44 mg iron)/5 mL oral elixir (FeroSul) 220 mg PO DIRECTED 09/15/21 [History Last Taken Unknown] diphenoxylate-atropine 2.5 mg-0.025 mg tablet (Lomotil) 1 tab PO BID PRN diarrhea #180 tabs 03/09/22 [Rx Last Taken Unknown] alendronate 70 mg tablet 70 mg PO QWEEK #20 tabs 04/27/22 [Rx Last Taken Unknown] Handicap Placard #1 ea 06/29/22 [Rx Last Taken Unknown] amlodipine 10 mg tablet 10 mg PO DAILY #90 tabs 06/29/22 [Rx Last Taken Unknown] lisinopril 30 mg tablet 30 mg PO DAILY #90 tabs 06/29/22 [Rx Last Taken Unknown] cholecalciferol (vitamin D3) 1,250 mcg (50,000 unit) capsule 1,250 mcg PO QWEEK #14 caps 08/28/22 [Rx Last Taken Unknown] cyanocobalamin (vitamin B-12) 1,000 mcg/mL injection solution 1,000 mcg subcut QMONTH 11/09/22 [History Last Taken Unknown] meclizine 25 mg tablet 25 mg PO TID PRN dizziness #60 tabs 11/09/22 [Rx Last Taken Unknown] Allergy/AdvReac Type Severity Reaction Status Date / Time promethazine [From Phenergan] Allergy Severe Swelling Verified 11/12/22 01:25 cephalexin Allergy Diarrhea Verified 11/12/22 01:25 hydromorphone [From Dilaudid] Allergy Other Verified 11/12/22 01:25 iron AdvReac Intermediate Diarrhea Verified 11/12/22 01:25 oxaprozin AdvReac Intermediate Nausea Verified 11/12/22 01:25 Family History Other Breast cancer Cancer Hypertension Melanoma Surgical History H/O exploratory laparotomy H/O hernia repair History of laryngoscopy S/P partial colectomy Social History Smoking Status: Never smoker alcohol intake: never substance use type: does not use what type of physical activity do you participate in: walking frequency: 1-2 times per week ROS ROS ED ROS Narrative A complete review of systems was performed and is negative except as documented in the history of present illness. Some specific details below. Constitutional: No recent fevers or chills. Plays. EYE: No visual complaints. ENT: No difficulty swallowing. No swelling. No pain. No reflux symptoms. No pain with swallowing or change in her symptoms. CV: See history of present illness. Respiratory: See history of present illness. She is not coughing. She states she is not short of breath but it does hurt a little bit with breathing. GI: No abdominal pain. No nausea vomiting diarrhea. No blood in stool. Does notbother this. : No frequency dysuria or hematuria. Musculoskeletal: No recent trauma. See history of present illness. Skin: No rash cycles.. Nondiaphoretic. Neuro: No weakness or numbness. Endocrine: No polyuria or polydipsia. EXAM Physical Exam Narrative Exam Narrative: General: Patient is awake alert. Sitting in bed. Nontoxic in appearance. HEENT shows no trauma Neck is supple. No pain with range of motion. No JVD. Lungs are clear. She does have some chest wall tenderness in the anterior lateral aspect. Really from the midclavicular line to anterior axillary line down low. But there is no swelling erythema. There is no vesicles there are all the way through to her back. No spinal tenderness. Heart is regular. I hear no murmur. Not muffled. Abdomen is soft. Even pressing firmly in the right upper quadrant does not aggravate this. Negative Pendleton sign. By exam her pain is clearly up on the chest wall and not in the right upper quadrant. No CVA tenderness Skin: No pallor or rashes noted Const Vital Signs: 11/12/22 01:22 11/12/22 01:25 11/12/22 02:22 Temperature 97.5 F L 97.5 F L Temperature Source Temporal Temporal Pulse Rate 69 69 Respiratory Rate 16 16 Blood Pressure 167/65 H 167/65 H Blood Pressure Mean 99 99 Pulse Ox 99 99 98 Oxygen Delivery Method Room Air Room Air Room Air 11/12/22 04:28 Temperature Temperature Source Pulse Rate 82 Respiratory Rate 16 Blood Pressure 155/71 H Blood Pressure Mean 99 Pulse Ox 94 Oxygen Delivery Method Room Air MDM MDM MDM Narrative Medical decision making narrative: My independent interpretation of her 4 view x-ray for right ribs and chest show chronic changes, scoliosis, osteopenia, some pleural calcifications but no defined rib fracture or pneumothorax. There could be trace blunting of the costophrenic angle. Final reading of this x-ray shows: Patient CBC shows minimal anemia but normal white count platelets. Patient's electrolytes are overall normal other than very mild elevation of her creatinine. Patient's initial troponin is negative at 9. Patient's D-dimer is negative at 0.49 especially when adjusted for age. Because the patient just started having pain in the last about 4 to 5 hours, we will do a delta troponin. Repeat troponin is even lower at 7. I talked with the patient. She is feeling better. She states the only thing she uses for pain is Tylenol. I be willing to write her for something but she states Tylenol is what works and does not cause problems. I think that is more than reasonable. We also talked she can use some rest and ice. If she develops fevers, cough, shortness of breath or any other symptoms she should return. By exam she seems to be more musculoskeletal pain. Her D-dimer troponin repeat troponin x-rays EKG and otherblood work are overall negative. Lab Data Attestation: I reviewed the patient's lab results. Labs: Laboratory Results - last 24 hr 11/12/22 11/12/22 02:35 04:22 WBC 7.2 RBC 3.71 L Hgb 11.0 L Hct 35.4 L MCV 95.4 MCH 29.6 MCHC 31.1 L RDW Std Deviation 51.7 H RDW Coeff of Keanu 14.6 Plt Count 339 MPV 9.8 Immature Gran % (Auto) 0.400 Neut % (Auto) 75.7 H Lymph % (Auto) 12.4 L [place] % (Auto) 9.8 Eos % (Auto) 1.1 Baso % (Auto) 0.6 Absolute Neuts (auto) 5.5 Absolute Lymphs (auto) 0.90 Nucleated RBC % 0 D-Dimer Quant (PE/DVT) 0.49 Sodium 139 Potassium 4.4 Chloride 106 Carbon Dioxide 27.0 Anion Gap 6 BUN 22 H Creatinine 1.03 H Estim Creat Clear Calc 32.33 Est GFR (MDRD) Af Amer 67 Est GFR (MDRD) Non-Af 55 L BUN/Creatinine Ratio 21.4 H Glucose 111 H Calcium 9.3 Troponin I High Sens 9 7 Radiography Diagnostic Testing: Clinical Impression(s) from Imaging Studies Ribs w/Chest X-Ray 11/12/22 02:55 IMPRESSION: RIBS: The bones are osteopenic. There is no definitive evidence of an acute rib fracture. Allowing for technique. CHEST: Apical scarring. Minimal right lower lobe atelectasis and/or scarring similar to the prior study. Electronically Signed: Kayla Guzman MD at 3:48 EDT Reading Location ID and State: [facility] / [place] Tel , Service support , EKG Initial EKG: Comments: My independent interpretation of the patient's EKG shows a normal sinus rhythm with a rate at 98. No ventricular ectopy. No acute ST elevation or depression. WV interval, QRS duration, QTc are all normal. Discharge Plan Triage Chief Complaint: Abd Pain ED Provider: Arnulfo Nguyen Dx/Rx/DC Orders Clinical Impression: Right-sided chest wall pain Instructions: ED Chest Pain, Uncertain Cause Prescriptions: No Action famotidine-Ca carb-mag hydrox [Pepcid Complete] 10-800-165 mg tablet,chewable 1 tab PO BID ascorbate calcium 500 mg tablet 500 mg tablet 500 mg PO QDAY ferrous sulfate [FeroSul] 220 mg (44 mg iron)/5 mL elixir 220 mg PO DIRECTED Rx Instructions: every 3 days alendronate 70 mg tablet 70 mg PO QWEEK Qty: 20 2RF amlodipine 10 mg tablet 10 mg PO DAILY Qty: 90 2RF lisinopril 30 mg tablet 30 mg PO DAILY Qty: 90 3RF (DME) Handicap Placard See Rx Instructions .ROUTE .MEDSUPPLY Qty: 1 0RF Rx Instructions: As directed, length of time 3 years cyanocobalamin (vitamin B-12) 1,000 mcg/mL solution 1,000 mcg subcut QMONTH Rx Instructions: To receive at [facility] [address]. meclizine 25 mg tablet 25 mg PO TID PRN (Reason: dizziness) Qty: 60 1RF vitamins A,C,K-ynov-qiabra 1 EACH capsule 1 ea PO DAILY ondansetron 4 mg tablet,disintegrating 4 mg PO TID PRN PRN (Reason: nausea and vomiting) Qty: 21 0RF diphenoxylate-atropine [Lomotil] 2.5-0.025 mg tablet 1 tab PO BID PRN (Reason: diarrhea) Qty: 180 3RF cholecalciferol (vitamin D3) 1,250 mcg (50,000 unit) capsule 1,250 mcg PO QWEEK Qty: 14 2RF Primary Care Provider: Mile Foster Referrals: Mile Foster MD [Primary Care Provider] - 3-5 Days if not improving Activity Restrictions/Additional Instructions: Use Tylenol, rest, ice packs for discomfort. Disposition Disposition: Home, Self Care What to do if you have Problems For any increased pain, shortness of breath, bleeding, nausea or vomiting, chestpain, or any unexpected problems, contact your Primary Care Provider. Call [facility] ([phone]) or report to the closest Emergency Room. Call 911 if necessary. 11/12/22521 <Electronically signed by Arnulfo Nguyen MD> Cosigner Signature (if applicable): CC: Dr. Mile Foster MD ~ Signed [facility] Work Phone: [phone] Discharge summary Author Theresa Lawson [facility] April 21, 2022 10:22am Note Date/Time April 21, 2022 10: 22am [facility] Physical Therapy [facility] [address] [place] [address] / REHABILITATION SERVICES DISCHARGE SUMMARY MR#: [id number] Acct: [id number] Name: CHELSEA GARCIA Rep #: [id number] 5 : [id number] 76 From: Theresa Lawson PT, Cert. MDT Referring Dr.: Dr. Ramin Dominguez MD Status: REG RCR Insurance: MEDICARE PART A B AARP It has been my pleasure to treat CHELSEA GARCIA referred by Dr. Ramin Dominguez MD, with the diagnosis of BACK PAIN for a total of 8 visit(s). Discharge Date: Please see the following information for a summary of their discharge status. Subjective: PATIENT REPORTS HER BACK IS BETTER. SHE REPORTS SHE MADE COOKIES AND CAN VACUUM NOW. STATES SHE IS DOING HER HEP AND SHE FEELS IT IS HELP. SHE REPORTS HER BACK STILL HURTS WHEN SHE DOES DISHES AND SHE RELATES HER PAIN TODAYTO THE WEATHER. BACK Pain Intensity (Out of 10): 5 L knee Pain Intensity (Out of 10): 0 % Improvement: 75 Objective/Function: PATIENT WAS SEEN TODAY FOR RE-ASSESSMENT OF PROGRESS TOWARD THE SET PT GOALS AND THE NEED FOR FURTHER PHYSICAL THERAPY VS READINESS FOR DISCHARGE. ALL PT GOALS HAVE BEEN MET AND PATIENT IS INDEP WITH A HEP NOW. SHEIS APPROPRIATE FOR DISCHARGE TO [facility] AND SHE IS AGREEABLE. UPON EXAM TODAY: Motor deficit: JAZZY UE WEAKNESS GROSSLY 3+ TO 4-/5. JAZZY ARTHRITIC HANDS. JAZZY HIP WEAKNESS GRADED R 4/5, L 4/5. KNEES 4/5, ANKLES 5/5. Sensory deficit: BILUE AND LE LIGHT TOUCH SENSATION IS INTACT AND SYMMETRICAL. ROM deficit: JAZZY UE'S AND LE'S WFL. Dural Signs: NEGATIVE JAZZY UE'S AND LE'S. Lumbar mvmt loss: flex - NIL. ext - JESÚS. R SG - JESÚS. L SG - JESÚS. RIGID THORACIC SPINE. PATIENT C/O INCREASED MILD LBP WITH LUMBAR ROM TESTING INTO JAZZY SG'ING TODAY. Core strength: POOR. Palpation: NO ACUTE SPINAL OR PARASPINALS TENDERNESS WTIH PALPATION TODAY. [ End ] Goal 1:: DECREASE C/O BACK PAIN Goal Progress: Goal Met Goal 2:: IMPROVE PERSONAL CARE, LIFTING, WALKING, SITTING, STANDING AND HOUSEWORK FUNCTION. Goal Progress: Goal Met Goal 3:: INSTRUCT IN PROPHYLAXIS Goal Progress: Goal Met Plan: D/C TO INDEP HEP. PATIENT IS AGREEABLE. If there are questions or concerns regarding this patient's physical therapy, please feel free to call me at [phone]. Thank you for the referral of thispatient. Sincerely, Theresa Lawson, PT, Cert MDT Balance/Gait/Functional tests - Balance/Special Test Scores Oswestry Low Back Score: 11 <Electronically signed by Theresa Lawson PT, Cert. MDT> 04/21/22 1022 CC: Dr. Ramin Dominguez MD; Dr. Mile Foster MD ~ PATRIA Signed [facility] Work Phone: evaluation + Plan note Future Appointments Appointment Date:04/25/2021 09:20:00 AM Scheduled Provider:KELLY BALDWIN MD Location:[facility] Appointment Type:PC OV Future Scheduled Tests Radiology* BD Bone Density DEXA Axial Skeleton 04/29/20 * MA Mammo Screening Bilateral w/ Terry 04/29/20 [facility] Evaluation noteNo assessment information available [facility] Work Phone: Evaluation note* Diagnosis Onset Date Resolution Status Back pain acute Segmental and somatic dysfunction of lumbar region acute Segmental and somatic dysfunction of pelvic region acute Segmental and somatic dysfunction of thoracic region acute DDD (degenerative disc disease), lumbar chronic Scoliosis chronic [facility] Work Phone: Evaluation note* Diagnosis Onset Date Resolution Status Back pain acute Segmental and somatic dysfunction of lumbar region acute Segmental and somatic dysfunction of pelvic region acute Segmental and somatic dysfunction of thoracic region acute DDD (degenerative disc disease), lumbar chronic Scoliosis chronic Hypertension chronic Osteoporosis chronic Vitamin B12 deficiency chron ic [facility] Work Phone: Evaluation note* Diagnosis Onset Date Resolution Status Back pain acute Segmental and somatic dysfunction of lumbar region acute Segmental and somatic dysfunction of pelvic region acute Segmental and somatic dysfunction of thoracic region acute DDD (degenerative disc disease), lumbar chronic Scoliosis chronic Hypertension chronic Osteoporosis chronic Vitamin B12 deficiency chron ic Hypertension chronic Vitamin B12 deficiency [facility] Work Phone: Evaluation note* Diagnosis Onset Date Resolution Status Hypertension chronic Vitamin B12 deficiency chron ic Chronic diarrhea chronic Hypertension chronic Vitamin B12 deficiency [facility] Work Phone: Evaluation note* Diagnosis Onset Date Resolution Status Chronic diarrhea chronic Hypertension chronic Vitamin B12 deficiency [facility] Work Phone: Evaluation note* Diagnosis Onset Date Resolution Status Brittle nails acute Hypertension chronic Vitamin B12 deficiency [facility] Work Phone: Evaluation note* Diagnosis Onset Date Resolution Status Brittle nails acute Hypertension chronic Vitamin B12 deficiency chron ic Hypertension chronic Osteoporosis chronic Vitamin B12 deficiency [facility] Work Phone: Evaluation note* Diagnosis Onset Date Resolution Status Osteoporosis chronic Vitamin B12 deficiency chron ic Flu vaccine need acute Osteoporosis chronic Vitamin B12 deficiency [facility] Work Phone: Evaluation note* Diagnosis Onset Date Resolution Status Flu vaccine need acute Hypertension chronic Osteoporosis chronic Vitamin B12 deficiency chron ic Vitamin B12 deficiency chron ic Vitamin B12 deficiency chron ic Vitamin B12 deficiency chron ic Screening mammogram for breast cancer acute Hypertension chronic Osteoporosis chronic Vitamin B12 deficiency [facility] Work Phone: Evaluation note* Diagnosis Onset Date Resolution Status Vitamin B12 deficiency chron ic Screening mammogram for breast cancer acute Hypertension chronic Osteoporosis chronic Vitamin B12 deficiency chron ic Vitamin B12 deficiency chron ic Vitamin B12 deficiency chron ic Hemorrhoid acute Hypertension chronic Osteoporosis chronic Vitamin B12 deficiency [facility] Work Phone: Hospital course Narrative No data available for this section [facility] Discharge instructions No data available for this section [facility] Discharge instructions Additional Instructions Use Tylenol, rest, ice packs for discomfort.[facility] Work Phone: Reason for referral (narrative)No reason for referral [facility] Summary Purpose Family History No Family History Records Found Relationship Condition Age at Onset Recorded Date/T tamar Not Specified Malignant melanoma Unknown Malignant neoplasm of breast Unknown Malignant neoplasm Unknown Hypertension Unknown Advance Directives No Advanced Directives Records Found Advance Directive Response Recorded Date/ Time Living Will No August 19, 2021 4:16am Power of Set Up Inspector No August 19 2 4:16am Advance Directive Response Recorded Date/ Time Living Will No August 19, 2021 3:16am Power of Set Up Inspector No August 19 2 3:16am Advance Directive Response Recorded Date/ Time Living Will No November 12 3 1:25am Power of Set Up Inspector No November 12, 2 023 1:25am Advance Directive Response Recorded Date/ Time Living Will No November 12 3 12:25am Power of Set Up Inspector No November 12, 2 023 12:25am Advance Directive Response Recorded Date/ Time Living Will Yes July 22, 2023 10:39pm Power of Set Up Inspector Yes July 21 4 10:39pm Advance Directive Response Recorded Date/ Time Living Will Yes July 22, 2023 11:39pm Do you have a [facility] Power of Set Up Inspector? Yes July 22, 2023 11:39pm Chief Complaint and Reason for Visit Chief Complaint n/v Chief Complaint n/v REEVAL UPPER BACK xray E ORDER Reason for Visit Back pain Segmental and somatic dysfunction of lumbar region Segmental and somatic dysfunction of pelvic region Segmental and somatic dysfunction of thoracic region DDD (degenerative disc disease), lumbar Scoliosis Chief Complaint n/v REEVAL UPPER BACK xray E ORDER Radiculopathy, lumbar region SCREENING/OSTEO e orders Reason for Visit Back pain Segmental and somatic dysfunction of lumbar region Segmental and somatic dysfunction of pelvic region Segmental and somatic dysfunction of thoracic region DDD (degenerative disc disease), lumbar Scoliosis Chief Complaint n/v REEVAL UPPER BACK xray E ORDER Radiculopathy, lumbar region SCREENING/OSTEO e orders LEARNING STRATEGIST, EST. 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, BP FU EORDER 2 WK FU IRON DEFICIENT ANEMIA Reason for Visit Back pain Segmental and somatic dysfunction of lumbar region Segmental and somatic dysfunction of pelvic region Segmental and somatic dysfunction of thoracic region DDD (degenerative disc disease), lumbar Scoliosis Hypertension Osteoporosis Vitamin B12 deficiency Hypertension Vitamin B12 deficiency Chief Complaint IRON DEFICIENT ANEMI A 2 M FU 2 M FU Reason for Visit Hypertension Vitamin B12 deficiency Chronic diarrhea Hypertension Vitamin B12 deficiency Chief Complaint 2 M FU BACK PAIN/RX HERE Reason for Visit Chronic diarrhea Hypertension Vitamin B12 deficiency Chief Complaint 2 M FU FALL Reason for Visit Brittle nails Hypertension Vitamin B12 deficiency Chief Complaint 2 M FU FALL 2 M FU Reason for Visit Brittle nails Hypertension Vitamin B12 deficiency Hypertension Osteoporosis Vitamin B12 deficiency Chief Complaint FALL 2 M FU B12 Amb Documentation dizzy, n/v, ear infection 2 M FU and B12 injection ABD PAIN Reason for Visit Osteoporosis Vitamin B12 deficiency Flu vaccine need Osteoporosis Vitamin B12 deficiency Chief Complaint dizzy, n/v, ear infe ction 2 M FU and B12 injection ABD PAIN b12 B12 b12 3 m fu SCREEN Reason for Visit Flu vaccine need Hypertension Osteoporosis Vitamin B12 deficiency Vitamin B12 deficiency Vitamin B12 deficiency Vitamin B12 deficiency Screening mammogram for breast cancer Hypertension Osteoporosis Vitamin B12 deficiency Chief Complaint b12 3 m fu SCREEN B12 b12 B12 inject 3 M FU Reason for Visit Vitamin B12 deficien cy Screening mammogram for breast cancer Hypertension Osteoporosis Vitamin B12 deficiency Vitamin B12 deficiency Vitamin B12 deficiency Hemorrhoid Hypertension Osteoporosis Vitamin B12 deficiency Chief Complaint Admit Date B12 December 23, 2023 8:55am EVENITY 210MG January 14, 2024 9 :20am b12 shot January 20, 2024 8:51am 3 M FU January 28, 2024 8:34am EVENITY 210MG February 11, 2024 9: 17am B12 February 21, 2024 9 :20am EVENITY 210MG March 17, 2024 1 2:18pm b12 March 20, 2024 9:47am EVENITY 210MG April 14, 2024 9:50 am Reason for Visit Admit Date Vitamin B12 deficiency December 22 8:55am Vitamin B12 deficiency January 19 8:51am Anemia January 28, 2024 8:34am Hypertension January 28, 2024 8:34am Osteoporosis January 28, 2024 8:34am Vitamin B12 deficiency January 27 8:34am Vitamin B12 deficiency February 20 9:20am Vitamin B12 deficiency March 20 9:47am Chief Complaint Admit Date EVENITY 210MG January 14, 2024 9 :20am b12 shot January 20, 2024 8:51am 3 M FU January 28, 2024 8:34am EVENITY 210MG February 11, 2024 9: 17am B12 February 21, 2024 9 :20am EVENITY 210MG March 17, 2024 1 2:18pm b12 March 20, 2024 9:47am EVENITY 210MG April 14, 2024 9:50 am B12 April 17, 2024 9:5 4am 3 M FU April 26, 2024 8:3 8am Reason for Visit Admit Date Vitamin B12 deficiency January 19 8:51am Anemia January 28, 2024 8:34am Hypertension January 28, 2024 8:34am Osteoporosis January 28, 2024 8:34am Vitamin B12 deficiency January 27 8:34am Vitamin B12 deficiency February 20 9:20am Vitamin B12 deficiency March 20 9:47am Vitamin B12 deficiency April 17, 2024 9:54am Anemia April 26, 2024 8:3 8am Diarrhea April 26, 2024 8:3 8am Hypertension April 26, 2024 8:3 8am Osteoarthritis April 26, 2024 8:3 8am Vitamin B12 deficiency April 26, 2024 8:38am Chief Complaint Admit Date EVENITY 210MG January 14, 2024 9 :20am b12 shot January 20, 2024 8:51am 3 M FU January 28, 2024 8:34am EVENITY 210MG February 11, 2024 9: 17am B12 February 21, 2024 9 :20am EVENITY 210MG March 17, 2024 1 2:18pm b12 March 20, 2024 9:47am EVENITY 210MG April 14, 2024 9:50 am B12 April 17, 2024 9:5 4am 3 M FU April 26, 2024 8:3 8am EVENITY 210MG May 12, 2024 8:51 am Additional Source Comments INFORMATION SOURCE (unrecogn ized section and content) DATE CREATED AUTHOR 02/21/2021 [facility] ([place]) DATE CREATED AUTHOR AUTHOR'S ORGANIZ ATION 07/13/2024 [facility] Care Teams (unrecognized sec tion and content) Team Status: Active Member Role Status Dates Dr. Kelly Baldwin MD Family Provider Active Dr. Mile Foster MD Primary Care Provider Active Team Status: Inactive Member Role Status Dates Dr. Mile Foster MD Primary Care P rovider, Attending Provider, Referring Provider Active Team Status: Inactive Member Role Status Dates Dr. Mile Foster MD Primary Care Provider Active Dr. Micheal Milian MD Attending Provider, Referring Provider Active Team Status: Inactive Member Role Status Dates Dr. Mile Foster MD Primary Care Provider Active Dr. Ramin Dominguez MD Attending Provider, Referring Pr ovider Active Team Status: Active Member Role Status Dates Dr. Mile Foster MD Primary Care Provider Active Sarai Santiago Attending Provider Active Team Status: Inactive Member Role Status Dates Dr. Mile Foster MD Primary Care Provider Active Dr. Arnulfo Nguyen MD Emergency Provider Active Team Status: Inactive Member Role Status Dates Dr. Mile Foster MD Primary Care Provider Active Dr. Arnulfo Nguyen MD Attending Provider, Emergency Provider Active Team Status: Active Member Role Status Dates Dr. Mile Foster MD Primary Care P rovider, Attending Provider, Referring Provider Active Team Status: Active Member Role Status Dates Dr. Mile Foster MD Primary Care Provider Active Team Status: Inactive Member Role Status Dates Dr. Mile Foster MD Primary Care Provider Active Start: December 23, 2023 End: December 23, 2023 Dr. Mile Foster MD Referring Provider Active Start: December 23, 2023 End: December 23, 2023 Dr. Kirti Ibanez MD Attending Provider Active Start: December 23, 2023 End: December 23, 2023 Team Status: Inactive Member Role Status Dates Dr. Mile Foster MD Primary Care Provider Active Start: January 14, 2024 End: January 14, 2024 Dr. Mile Foster MD Attending Provider Active Start: January 14, 2024 End: January 14, 2024 Dr. Mile Foster MD Referring Provider Active Start: January 14, 2024 End: January 14, 2024 Team Status: Inactive Member Role Status Dates Dr. Mile Foster MD Primary Care Provider Active Start: January 20, 2024 End: January 20, 2024 Dr. Mile Foster MD Referring Provider Active Start: January 20, 2024 End: January 20, 2024 Dr. Kirti Ibanez MD Attending Provider Active Start: January 20, 2024 End: January 20, 2024 Team Status: Inactive Member Role Status Dates Dr. Mile Foster MD Primary Care Provider Active Start: January 28, 2024 End: January 28, 2024 Dr. Mile Foster MD Attending Provider Active Start: January 28, 2024 End: January 28, 2024 Dr. Mile Foster MD Referring Provider Active Start: January 28, 2024 End: January 28, 2024 Team Status: Inactive Member Role Status Dates Dr. Mile Foster MD Primary Care Provider Active Start: February 11, 2024 End: February 11, 2024 Dr. Mile Foster MD Attending Provider Active Start: February 11, 2024 End: February 11, 2024 Dr. Mile Foster MD Referring Provider Active Start: February 11, 2024 End: February 11, 2024 Team Status: Inactive Member Role Status Dates Dr. Mile Foster MD Primary Care Provider Active Start: February 21, 2024 End: February 21, 2024 Dr. Mile Foster MD Attending Provider Active Start: February 21, 2024 End: February 21, 2024 Dr. Mile Foster MD Referring Provider Active Start: February 21, 2024 End: February 21, 2024 Team Status: Inactive Member Role Status Dates Dr. Mile Foster MD Primary Care Provider Active Start: March 17, 2024 End: March 17, 2024 Dr. Mile Foster MD Attending Provider Active Start: March 17, 2024 End: March 17, 2024 Dr. Mile Foster MD Referring Provider Active Start: March 17, 2024 End: March 17, 2024 Team Status: Inactive Member Role Status Dates Dr. Mile Foster MD Primary Care Provider Active Start: March 20, 2024 End: March 20, 2024 Dr. Mile Foster MD Attending Provider Active Start: March 20, 2024 End: March 20, 2024 Dr. Mile Foster MD Referring Provider Active Start: March 20, 2024 End: March 20, 2024 Team Status: Inactive Member Role Status Dates Dr. Mile Foster MD Primary Care Provider Active Start: April 14, 2024 End: April 14, 2024 Dr. Mile Foster MD Attending Provider Active Start: April 14, 2024 End: April 14, 2024 Dr. Mile Foster MD Referring Provider Active Start: April 14, 2024 End: April 14, 2024 Team Status: Inactive Member Role Status Dates Dr. Mile Foster MD Primary Care Provider Active Start: April 17, 2024 End: April 17, 2024 Dr. Mile Foster MD Attending Provider Active Start: April 17, 2024 End: April 17, 2024 Dr. Mile Foster MD Referring Provider Active Start: April 17, 2024 End: April 17, 2024 Team Status: Inactive Member Role Status Dates Dr. Mile Foster MD Primary Care Provider Active Start: April 26, 2024 End: April 26, 2024 Dr. Mile Foster MD Attending Provider Active Start: April 26, 2024 End: April 26, 2024 Dr. Mile Foster MD Referring Provider Active Start: April 26, 2024 End: April 26, 2024 Team Status: Inactive Member Role Status Dates Dr. Mile Foster MD Primary Care Provider Active Start: May 12, 2024 End: May 12, 2024 Dr. Mile Foster MD Attending Provider Active Start: May 12, 2024 End: May 12, 2024 Dr. Mile Foster MD Referring Provider Active Start: May 12, 2024 End: May 12, 2024 FOR RECORDS PERTAINING TO PATIENTS WHO ARE OR HAVE BEEN ENROLLED IN A CHEMICAL DEPENDENCY/SUBSTANCEABUSE PROGRAM, SOME INFORMATION MAY BE OMITTED. This clinical summary was aggregated from multiple sources. Caution should be exercised in using it in the provision of clinical care. This summary normalizes information from multiple sources, and as a consequence, information in this document may materially change the coding, format and clinical context of patient data. In addition, data may be omitted in some cases. CLINICAL DECISIONS SHOULD BE BASED ON THE PRIMARY CLINICAL RECORDS. [facility]. provides no warranty or guarantee of the accuracy or completeness of information in this document.
== END 2024-07-14 23:59 | disposition home or self-care (01) ==
LOC: MEDOUTP 08:52
PROVIDERS: PCP Internal Medicine; Referring Provider Internal Medicine; Visit Provider Internal Medicine
DX: M81.0 Age-related osteoporosis without current pathological fracture (principal)
CPT/HCPCS: 96372; J3111

== ENCOUNTER 2024-08-14 11:32 | Outpatient (CLI) | payer MEDICARE, OTHER, SELFPAY ==
[2024-08-14 11:43] VITALS: BP 125/59; PULSE 74; RESP 16; TEMP 36.3; O2SAT 97; BMI 22.9
== END 2024-08-14 23:59 | disposition home or self-care (01) ==
LOC: MEDOUTP 11:32
PROVIDERS: PCP Internal Medicine; Referring Provider Internal Medicine; Visit Provider Internal Medicine
DX: M81.0 Age-related osteoporosis without current pathological fracture (principal)
CPT/HCPCS: 96372; J3111

== ENCOUNTER 2024-09-11 08:51 | Outpatient (CLI) | payer MEDICARE, OTHER, SELFPAY ==
[2024-09-11 08:50] VITALS: BP 128/56; PULSE 84; RESP 16; TEMP 36.1; O2SAT 100
== END 2024-09-11 23:59 | disposition home or self-care (01) ==
LOC: MEDOUTP 08:51
PROVIDERS: PCP Internal Medicine; Referring Provider Internal Medicine; Visit Provider Internal Medicine
DX: M81.0 Age-related osteoporosis without current pathological fracture (principal)
CPT/HCPCS: 96372; J3111

== ENCOUNTER 2024-10-16 08:50 | Outpatient (CLI) | payer MEDICARE, OTHER, SELFPAY ==
[2024-10-16 09:01] VITALS: BP 125/46; PULSE 82; RESP 14; TEMP 36.2; O2SAT 100; BMI 22.9
== END 2024-10-16 23:59 | disposition home or self-care (01) ==
LOC: MEDOUTP 08:50
PROVIDERS: PCP Internal Medicine; Referring Provider Internal Medicine; Visit Provider Internal Medicine
DX: M81.0 Age-related osteoporosis without current pathological fracture (principal)
CPT/HCPCS: 96372; J3111

== ENCOUNTER → 2024-10-25 | Outpatient (CLI) | payer MEDICARE, OTHER, SELFPAY ==
[2024-10-25 12:35] LABS: Hematocrit 34.9 % (37-47); Hemoglobin 10.9 g/dL (12.0-15.0); Immature Granulocytes Count 0.030 X10^3/uL (0.0-0.0); Mean Corp Hgb Conc 31.2 g/dL (32-36); Mean Corpuscular Volume 95.6 fL (81-99); Mean Platelet Vol. 10.5 fl (6.2-12.0); NRBC Flagged by Analyzer 0 % (0-5); Platelet Count 395 K/mm3 (150-450); RBC Distribution Width CV 13.8 % (11.6-14.6); RBC Distribution Width SD 48.5 fl (35.1-43.9); Red Blood Count 3.65 M/mm3 (4.2-5.4); White Blood Count 5.5 K/mm3 (4.4-11.0)
[2024-10-25 12:51] LABS: AST(SGOT) 15 U/L (<=31); Alanine Aminotransfer ALT/SGPT 12 U/L (<=34); Albumin, Serum 4.0 g/dL (3.4-4.8); Alkaline Phosphatase 99 U/L (35-104); Anion Gap 11 (5-15); BUN 20 mg/dL (4-19); BUN/Creat Ratio 23.3 RATIO (10-20); Calcium,Total 9.5 mg/dL (7.6-11.0); Carbon Dioxide 25.5 mmol/L (21.0-32.0); Chloride 104 mmol/L (98-108); Globulin 2.7 g/dL (2.2-4.2); Glucose 108 mg/dL (70-99); Potassium 4.8 mmol/L (3.3-5.1)
== END | disposition home or self-care (01) ==
LOC: BIMLAB 10:08
PROVIDERS: PCP Internal Medicine; Visit Provider Internal Medicine
DX: I10 Essential (primary) hypertension (principal)
CPT/HCPCS: 36415; 80053; 85025

== ENCOUNTER 2024-12-02 19:28 | Emergency (ER) | payer MEDICARE, OTHER, SELFPAY ==
[2024-12-02 19:28] VITALS: BP 159/58; PULSE 81; RESP 18; TEMP 36.6; O2SAT 99; BMI 32.7
--- OUTSIDE RECORDS SUMMARY | 2024-12-02 19:53 | XMS RPT_ITS | CCD ---
Author Organization [facility] Care Team Providers Care Maritime Engineer Name Role Phone JONATHAN TAN, KELLY Carmona Primary Care Physician [phone] Care Physician, No Primary Primary Care Provider Unavailable Care Physician, No Primary Referring Provider Un available Wilner, Dr. Stout Attending Provider [phone] Zahira PEDIATRIC ASSISTANT, PEDIATRIC ASSISTANT-C Janneth Primary Care Provider U navmarlin Rodriges PEDIATRIC ASSISTANT, PEDIATRIC ASSISTANT-C Janneth Referring Provider Unav ailable Dr. Mile [...] [phone] Kristin, Dr. Treadwell Referring Provider [phone] Kristin TAN, [...] Cotto Attending Provider Kristin TAN, Dr. Treadwell Primary Care Provider Kristin TAN, Dr. Treadwell Attending Provider 1(33 0) Kristin TAN, Dr. Treadwell Referring Provider 1(33 0) Dr. Monty Cordoba DO Attending Provider [phone] NURSE, BIM Attending Provider Unavailable Kristin TAN, Dr. Treadwell Primary Care Provider Kristin TAN, Dr. Treadwell Attending Provider 1(33 0) Kristin TAN, Dr. Treadwell Referring Provider 1(33 0) Gene Ziegler MD Attending Provider [phone] NURSE, BIM Attending Provider Unavailable Kristin TAN, Dr. Treadwell Primary Care Provider Kristin TAN, Dr. Treadwell Attending Provider 1(33 0) Kristin TAN, Dr. Treadwell Referring Provider 1(33 0) Kristin TAN, Dr. Treadwell Primary Care Provider Kristin TAN, Dr. Treadwell Attending Provider 1(33 0) Kristin TAN, Dr. Treadwell Referring Provider 1(33 0) Marcelle TAN, Dr. Cotto Attending Provider NURSE, BIM Attending Provider Unavailable Kristin TAN, Dr. Treadwell Primary Care Provider Kristin TAN, Dr. Treadwell Referring Provider 1(33 0) Kristin TAN, Dr. Treadwell Attending Provider 1(33 0) Kristin TAN, Dr. Treadwell Primary Care Provider Kristin TAN, Dr. Treadwell Attending Provider 1(33 0) Kristin TAN, Dr. Treadwell Referring Provider 1(33 0) Richard Hilton Attending Provider NURSE, BIM Attending Provider Unavailable Kristin TAN, Dr. Treadwell Primary Care Provider Kristin TAN, Dr. Treadwell Attending Provider 1(33 0) Kristin TAN, Dr. Treadwell Referring Provider 1(33 0) Thuy KAMINSKI-CLorena Attending Provider [phone] Kristin TAN, Dr. Treadwell Primary Care Physician Kristin TAN, Dr. Treadwell Attending Physician 1([phone]) Gene Ziegler MD Attending Physician [phone] Marcelle TAN, Dr. Cotto Attending Physician [phone] Richard Hilton Attending Physician Thuy PEDIATRIC ASSISTANT-CLorena Attending Physician Kristin TAN, Dr. Treadwell Primary Care Physician Kristin TAN, Dr. Treadwell Attending Physician [phone] Kristin TAN, Dr. Treadwell Referring Provider [phone] NURSE, BIM Attending Physician Unavailable Oleghe, Efewongbe Primary Care Unavailable Oleghe, Efewongbe Attending Unavailable Oleghe, Efewongbe Referring Unavailable Oleghe, Efewongbe Primary Care Unavailable Oleghe, Efewongbe Referring Unavailable Oleghe, Efewongbe Attending Unavailable Oleghe, Efewongbe Primary Care Unavailable Oleghe, Efewongbe Referring Unavailable Kirti Ibanez Attending Unavailable Oleghe, Efewongbe Primary Care Unavailable [...] Referring Unavailable Oleghe, Efewongbe Primary Care Unavailable Gene Ziegler Attending Unavailable Oleghe, Efewongbe Primary Care Unavailable Oleghe, Efewongbe Referring Unavailable Oleghe, Efewongbe Attending Unavailable Oleghe, Efewongbe Primary Care Unavailable Oleghe, Efewongbe Referring Unavailable Oleghe, Efewongbe Primary Care Unavailable NURSE, ARTIS Attending Unavailable Oleghe, Efewongbe Referring Unavailable Oleghe, Efewongbe Primary Care Unavailable Lorena Daley Attending Unavailable Oleghe, Efewongbe Referring Unavailable Oleghe, Efewongbe Primary Care Unavailable Oleghe, Efewongbe Attending Unavailable Oleghe, Efewongbe Referring Unavailable Oleghe, Efewongbe Primary Care Unavailable Oleghe, Efewongbe Referring Unavailable ThuyLorena Attending Unavailable Oleghe, Efewongbe Primary Care Unavailable Richard Hilton Attending Unavailable Oleghe, Efewongbe Referring Unavailable Oleghe, Efewongbe Attending Unavailable Oleghe, Efewongbe Referring Unavailable Oleghe, Efewongbe Primary Care Unavailable Oleghe, Efewongbe Primary Care Unavailable Oleghe, Efewongbe Referring Unavailable Monty Cordoba Attending Unavailable Oleghe, Efewongbe Primary Care Unavailable [...] Efewongbe Referring Unavailable Oleghe, Efewongbe Attending Unavailable Kirti Ibanez Attending Unavailable Oleghe, Efewongbe Primary Care Unavailable Oleghe, Efewongbe Referring Unavailable Oleghe, Efewongbe Primary Care Unavailable Oleghe, Efewongbe Referring Unavailable Oleghe, Efewongbe Attending Unavailable Oleghe, Efewongbe Attending Unavailable Oleghe, Efewongbe Referring Unavailable Oleghe, Efewongbe Primary Care Unavailable Oleghe, Efewongbe Primary Care Unavailable Oleghe, Efewongbe Attending Unavailable Oleghe, Efewongbe Referring Unavailable Oleghe, Efewongbe Primary Care Unavailable Kirti [...] Unavailable Oleghe, Efewongbe Attending Unavailable Oleghe, Efewongbe Attending Unavailable Oleghe, Efewongbe Referring Unavailable Oleghe, Efewongbe Primary Care Unavailable Allergies Allergy Classification Reported Allergen(s) Allergy Type Date of Onset Reaction(s) Facility (20 sources) Cephalexin; Translations: [cephalexin] Drug Allergy 2 Diarrhea [facility] (20 sources) HYDROmorphone; Translations: [hydromorphone] Drug Allergy 2 Comatose, Other [facility] (1 source) iron polysaccharide; Translations: [iron polysaccharide] Drug Allergy Diarrhea (finding) [facility] (20 sources) oxaprozin; Translations: [oxaprozin] Drug Allergy 2 Abdominal pain (finding) [facility] (20 sources) Promethazine; Translations: [promethazine] Drug Allergy 2 Dizziness (finding) [facility] (20 sources) Iron Drug Allergy 2 Diarrhea [facility] (1 source) Cephalexin Drug Allergy 5 [facility] (1 source) HYDROmorphone Drug Allergy 5 [facility] (1 source) Iron Drug Allergy 5 [facility] (1 source) oxaprozin Drug Allergy 5 [facility] (1 source) Promethazine Drug Allergy 5 [facility] Medications Current Medications Medication Drug Class(es) Dates Sig (Normalized) Sig (Original) ascorbic acid 113 mg / beta carotene 7160 mg / cuprous oxide 0.4 mg / dl-alpha tocopheryl acetate 100 unt / zinc oxide 17.4 mg oral tablet (20 sources) Vitamin C Start: 11-12-2023 Start: 2018 End: 11-12-2023 take 1 capsule by mouth once daily Vitamins A,C,D-Umjp-Babvnd 1 EACH capsule Discontinued 1 NMA PO DAILY 2018 12:00am November 12, 2023 9:25am Start: 12-30-2015 take 1 tablet by kyleigh twice daily PreserVision 1 tab, Oral, BID, 0 Refill(s) Start Date: 12/30/15 Status: Ordered Calcium (1 source) Phosphate Binder, Calcium Start: 02-27-2015 Calcium 500+D Dose = 1 tab(s), Chewed, BID, 0 Refill(s) Start Date: 02/27/15 Status: Ordered calcium ascorbate 500 mg oral tablet (20 sources) Start: 07-28-2017 take 1 tablet by mouth once daily calcium carbonate 800 mg / famotidine 10 mg / magnesium hydroxide 165 mg chewable tablet (20 sources) Histamine-2 Receptor Antagonist Start: 07-28-2017 Daily Multi (1 source) Start: 02-27-2015 take 1 tablet by mouth once daily Daily Multi Dose = 1 tab(s), Oral, qDay, 0 Refill(s) Start Date: 02/27/15 Status: Ordered diazePAM 2 mg oral tablet (20 sources) Benzodiazepine Start: 07-23-2023 take 1 tablet by mouth three times daily as needed for dizziness Start: 08-19-2021 End: 09-15-2021 take 1 tablet by mouth three times daily as needed for dizziness Diazepam (Valium) 2 mg tablet Discontinued 2 mg PO THREE TIMES A DAY as needed for dizziness or vertigo 15 August 19, 2021 12:00am September 15, 2021 10:04am Peripheral vertigo Other peripheral vertigo, unspecified ear diclofenac sodium 0.01 mg/mg topical gel (13 sources) Nonsteroidal Anti-inflammatory Drug Start: 04-21-2025 Famotidine (1 source) Histamine-2 Receptor Antagonist Start: 02-27-2015 Pepcid 0 Refill(s) Start Date: 02/27/15 Status: Ordered ferrous sulfate 325 mg oral tablet (20 sources) Start: 05-29-2024 take 1 tablet by mouth every other day Start: 05-12-2024 End: 05-29-2024 take 1 tablet by mouth once daily Ferrous Sulfate (Ferosul) 325 mg (65 mg iron) tablet Discontinued 325 mg PO DAILY May 12, 2024 12:00am May 29, 2024 8:55am Start: 07-28-2017 End: 11-12-2023 Ferrous Sulfate (Ferosul) 22 0 mg (44 mg iron)/5 mL elixir Discontinued 220 mg PO As Directed September 15, 2021 10:04am November 12, 2023 9:24am every 3 days Start: 02-27-2015 ferrous sulfat e Oral, 0 Refill(s) Start Date: 02/27/15 Status: Ordered Handicap Placard (20 sources) Start: 06-29-[address] Active 0 .ROUTE .MEDSUPPLY 1 0 June 29, 2022 12:00am Other reduced mobility As directed, length of time 3 years Start: 06-29-[address] Active 0 .ROUTE .MEDSUPPLY June 28, 2022 11:00pm As directed, length of time 3 years Start: 06-29-[address] Active 0 .ROUTE .MEDSUPPLY 1 June 29, 2022 12:00am As directed, length of time 3 years meclizine hydrochloride 25 m g oral tablet (20 sources) Antiemetic Start: 07-22-2023 End: 12-01-2023 take 1 tablet by mouth once daily as needed for dizziness Start: 11-04-2022 End: 07-22-2023 take 1 tablet by mouth three times daily as needed for dizziness Meclizine 25 mg tablet Discontinued 25 mg PO THREE TIMES A DAY as needed for dizziness 180 1 December 24, 2022 6:17pm July 22, 2023 11:48pm Start: 09-15-2021 End: 11-04-2022 take 1 tablet by mouth three times daily as needed for dizziness Meclizine 12.5 mg tablet Discontinued .5 mg PO THREE TIMES A DAY as needed for dizziness 90 December 22, 2021 11:23am November 04, 2022 10:05pm [facility] [place] Start: 10-17-2018 [facility] [place] VSL #3 1 in am and 1 at dinner time, 0 Refill(s) Start Date: 10/17/18 Status: Ordered vitamin b12 1 mg/ml injectable solution (20 sources) Vitamin B12 Start: 11-09-2022 Start: 11-09-2022 Cyanocobalamin (Vitamin B-12) Active 1000 MCG SC EVERY MONTH November 09, 2022 9:48am To receive at [facility] on [address]. Start: 09-15-2021 End: 11-09-2022 Cyanocobalamin (Vitamin B-12 ) 1,000 mcg/mL solution Discontinued 1000 ug SC every 2 months 02 10September 15, 2021 12:00am November 09, 2022 9:50am Cobalamin deficiency Deficiency of other specified B group vitamins To receive at [facility] on [address]. Start: 09-15-2021 End: 11-09-2022 Cyanocobalamin (Vitamin B-12 ) Discontinued 1000 MCG SC every 2 months September 15, 2021 12:00am November 09, 2022 9:50am To receive at [facility] on [address]. Vitamins A,C,X-Iaky-Qbzgjo (14 sources) Start: 2018 Vitamins A,C,E -Zinc-Copper [...] (Original) alendronic acid 70 mg oral tablet (20 sources) Bisphosphonate Start: 04-27-2022 End: 10-22-2023 take 1 tablet by mouth every week Alendronate 70 mg tablet Discontinued 70 mg PO EVERY WEEK 30 03April 27, 2022 12:00am Dayana 13th, 2024 10:32am amLODIPine 10 mg oral tablet (20 sources) Dihydropyridine Calcium Channel Leyda Start: 06-29-2022 End: 06-19-2024 take 1 tablet by mouth once daily Amlodipine 10 mg tablet Discontinued 10 mg PO DAILY 90 December 23, 2023 10:35am June 19, 2024 10:22am Start: 09-22-2021 End: 06-29-2022 take 1 tablet by mouth once daily Amlodipine 5 mg tablet Discontinued 5 mg PO DAILY 90 December 22, 2021 11:23am June 29, 2022 9:48am ascorbic acid 500 mg oral tablet (20 sources) Vitamin C Start: 07-28-2017 End: 09-02-2021 [...] Cholinergic Muscarinic Antagonist, Antidiarrheal Start: 12-10-2021 End: 08-28-2024 Diphenoxylate-Atropine (Lomotil) 2.5-0.025 mg tablet Discontinued 1 {tbl} PO TWICE A DAY as needed for diarrhea 180 March 01, 2024 9:58am August 28, 2024 6:30pm Diarrhea Diarrhea, unspecified Start: 02-20-2021 End: 04-21-2021 take 1 tablet by mouth twice daily atropine-diphenoxylate 0.025 mg-2.5 mg oral tablet 1 tab(s), Oral, BID, TAKE 1 TABLET BY MOUTH TWICE DAILY, X 30 day(s), # 60 tab(s), 1 Refill(s), 04/21/21 9:16:00 EDT, Pharmacy: [id number], 150, cm, 12/19/20 13:14:00 EST, [...] capsule Discontinued 1250 ug PO EVERY WEEK 24 03June 24, 2023 11:40am November 12, 2023 9:23am hydrocortisone 25 mg/ml topical cream (17 sources) Corticosteroid Start: 05-12-2023 End: 05-29-2024 Hydrocortisone 2.5 % cream with perineal applicator Discontinued 1 NMA RC 2 to 4 times per day as needed for hemorrhoids May 12, 2023 12:00am May 29, 2024 8:54am Lactobac 2-Bifido 1-S. Therm (Visbiome) 112.5 billion cell capsule (20 sources) Start: 09-15-2021 End: 10-07-2021 take 2 [...] Angiotensin Converting Enzyme Inhibitor Start: 09-15-2021 End: 06-19-2024 take 1 tablet by mouth once daily Lisinopril 30 mg tablet Discontinued 30 mg PO DAILY 90 3 June 24, 2023 11:41am June 19, 2024 10:22am Start: 12-19-2020 lisinopril 30 mg oral tablet Dose : 30 mg = 1 tab(s), Oral, qDay, # 90 tab(s), 3 Refill(s), Pharmacy: [id number], 150, cm, 12/19/20 13:14:00 EST, [...] DAY as needed for nausea and vomiting 21 0 July 23, 2023 1:16am January 28, 2024 9:51am Start: 08-19-2021 End: 05-12-2023 take 1 tablet by mouth three times daily as needed for nausea and vomiting Ondansetron 4 mg tablet,disintegrating Discontinued 4 mg PO 3 TIMES DAILY NEEDED as needed for nausea and vomiting 21 0 August 19, 2021 5:49am May 12, 2023 9:24am Romosozumab-Aqqg (20 sources) Start: 10-22-2023 End: 10-16-2024 Romosozumab-Aqqg (Evenity) 2 10mg/2.34mL ( 105mg/1.17mLx2) syringe Discontinued 210 mg SC EVERY MONTH 28.08 360 0 October 22, 2023 12:00am October 15, 2024 12:00am October 16, 2024 12:07am Start: 10-22-2023 Romosozumab-Aq qg (Evenity) 210mg/2.34mL ( 105mg/1.17mLx2) syringe Active 210 mg SC EVERY MONTH 28.08 360 0 October 22, 2023 12:00am October 15, 2024 [...] 210 mg SC EVERY MONTH 28.08 360 0 October 07, 2021 12:00am October 01, 2022 12:00am December 22, 2021 11:05am Vitamins A,C,C-Moqc-Qmykoy 1 EACH capsule (13 sources) Start: 2018 End: 11-12-2023 take 1 capsule by mouth once daily Vitamins A,C,J-Mfrf-Pqjiwe 1 EACH capsule Discontinued 1 NMA PO DAILY 2018 12:00am November 12, 2023 9:25am Start: 2018 End: 11-12-2023 take 1 capsule by mouth once daily Vitamins A,C,G-Ljyb-Liochi 1 EACH capsule Discontinued 1 NMA PO DAILY November 09, 2018 11:00pm November 12, 2023 8:25am Problems Active Problems Problem Classification Problem Date Documented Da te Episodic/Chronic Conditions associated with dizziness or vertigo (20 sources) Peripheral vertigo; Translations: [Other peripheral vertigo, unspecified ear] 08-27-2021 Episodic Conduction disorders (20 sources) Right bundle branch block; Translations: [Unspecified right bundle-branch block] 02-27-2015 Chronic Deficiency and other anemia (20 sources) Anemia; Translations: [Anemia, unspecified] 04-20-2019 Episodic Diverticulosis and diverticulitis (1 source) Diverticulitis 02-27-2015 Chronic E Codes: Fall (20 sources) Fall; Translations: [Unspecified fall, initial encounter] 02-09-2020 Episodic Esophageal disorders (20 sources) Gastroesophageal reflux disease; Translations: [Gastro-esophageal reflux disease without esophagitis] 04-20-2019 Chronic Essential hypertension (20 sources) Hypertensive disorder; Translations: [Essential (primary) hypertension] Onset: 02-27-2015 Chronic Hemorrhoids (18 sources) Hemorrhoids; Translations: [Unspecified hemorrhoids] 05-12-2023 Episodic Immunizations and screening for infectious disease (20 sources) Needs influenza immunization; Translations: [Encounter for immunization] 11-12-2022 Episodic Influenza (16 sources) Influenza; Translations: [Influenza due to unidentified influenza virus with other respiratory manifestations] 11-25-2023 Episodic Intestinal obstruction without hernia (1 source) Intestinal obstruction 02-27-2015 Episodic Nausea and vomiting (20 sources) Nausea and vomiting; Translations: [Nausea with vomiting, unspecified] 08-27-2021 Episodic Noninfectious gastroenteritis (20 sources) Chronic diarrhea; Translations: [Noninfective gastroenteritis and colitis, unspecified] 02-25-2022 Episodic Nonspecific chest pain (20 sources) Chest pain; Translations: [Chest pain, unspecified] 02-08-2020 Episodic Nutritional deficiencies (20 sources) Cobalamin deficiency; Translations: [Deficiency of other specified B group vitamins] Onset: 5 Episodic Open wounds of head; neck; and trunk (20 sources) Facial laceration ; Translations: [Laceration without foreign body of other part of head, initial encounter] 02-09-2020 Episodic Osteoarthritis (20 sources) Osteoarthritis; Translations: [Unspecified osteoarthritis, unspecified site] Onset: 5 08-17-2019 Chronic Osteoporosis (20 sources) Osteoporosis; Translations: [Age-related osteoporosis without current pathological fracture] Onset: 5 02-27-2015 Chronic Other acquired deformities (20 sources) Scoliosis deformity of spine; Translations: [Scoliosis, unspecified] 2018 Chronic Other acquired deformities (5 sources) Scoliosis, unspecified; Translations: [Scoliosis [and kyphoscoliosis], idiopathic] Chronic Other bone disease and musculoskeletal deformities (20 sources) Segmental and somatic dysfunction; Translations: [Segmental and somatic dysfunction of lumbar region] 09-02-2021 Episodic Other bone disease and musculoskeletal deformities (20 sources) Cervical segmental dysfunction; Translations: [Segmental and [...] thoracic region] Episodic Other connective tissue disease (20 sources) Cramp; Translations: [Cramp and spasm] 09-15-2021 Episodic Other ear and sense organ disorders (16 sources) Tinnitus; Translations: [Tinnitus, unspecified ear] 07-31-2023 Episodic Other gastrointestinal disorders (20 sources) Irritable bowel syndrome; Translations: [Irritable bowel syndrome without diarrhea] 08-17-2019 Chronic Other gastrointestinal disorders (20 sources) Personal history of other diseases of the digestive system; Translations: [History of small bowel obstruction] 09-15-2021 Episodic Other gastrointestinal disorders (20 sources) Diarrhea; Translations: [Diarrhea, unspecified] 12-10-2021 Episodic Other injuries and conditions due to external causes (20 sources) Injury of head; Translations: [Unspecified injury of head, initial encounter] 02-09-2020 Episodic Other lower respiratory disease (20 sources) Rib pain; Translations: [Pleurodynia] 05-29-2024 Episodic Other nervous system disorders (20 sources) Disturbance in speech; Translations: [Unspecified speech disturbances] 09-15-2021 Episodic Other non-epithelial cancer of skin (4 sources) History of malignant neoplasm of skin; Translations: [Personal history of other malignant neoplasm of skin] 10-25-2024 Episodic Other screening for suspected conditions (not mental disorders or infectious disease) (20 sources) Patient encounter status; Translations: [Encounter for screening mammogram for malignant neoplasm of breast] 09-15-2021 Episodic Other skin disorders (20 sources) Trachyonychia; Translations: [Nail dystrophy] 06-29-2022 Episodic Other skin disorders (2 sources) Nail dystrophy; Translations: [Other specified diseases of nail] 06-29-2022 Episodic Residual codes; unclassified (16 sources) Driving fitness status; Translations: [Other specified personal risk factors, not elsewhere classified] 10-27-2023 Episodic Retinal detachments; defects; vascular occlusion; and retinopathy (20 sources) Degenerative disorder of macula ; Translations: [Unspecified macular degeneration] 09-15-2021 Chronic Spondylosis; intervertebral disc disorders; other back problems (20 sources) Degeneration of lumbar intervertebral disc; Translations: [Other intervertebral disc degeneration, lumbar region] Chronic Spondylosis; intervertebral disc disorders; other back problems (20 sources) Low back pain; Translations: [Backache] 02-27-2015 Episodic Unclassified (20 sources) Right shoulder pain; Translations: [M25.511 - Pain in right shoulder] Unclassified (3 sources) Right shoulder pain Past or Other Problems Problem Classification Problem Date Documented Da te Episodic/Chronic Deficiency and other anemia (1 source) Anemia, unspecified; Translations: [Anemia, unspecified] Onset: 05-29-2024 Episodic Other lower respiratory disease (1 source) Pleurodynia; Translations: [Pleurodynia] Onset: 06-01-2024 Episodic Other non-traumatic joint disorders (20 sources) Pain in right shoulder; Translations: [Right shoulder pain] Onset: 07-06-2024 05-29-2024 Episodic Results Test Name Value Interpretation Reference Range Facility Office Visit Reporton 2024 Office Visit Report [facility] [address] [place] [address] OFFICE VISIT Date of Service: 11/30/24 MR#: [id number] Acct: [id number] Patient: CHELSEA GARCIA Rep #: [id number] Provider: ARTIS NURSE Age/Sex: 79/F [place] [facility] [place] Status: Signed Intake Vital Signs 10/25/24 09:30 Height 4 ft 9 in Weight: 107 lb BMI 23.1 BP 120/58 L Blood Pressure Location Lt brachial Position Sitting Respiration 16 Pulse 85 Pulse Source Monitor Temp 98.5 F Temp Source Temporal Pulse Oximetry (%) 95 Oxygen Delivery Method room air Intake Visit Reasons: b12 + Flu shot Chief Complaint: flu and b12 Personnel Manager Required: No Is patient in pain?: No Allergies promethazine (From Phenergan) Allergy (Severe, Verified 11/30/24 09:45) Swelling cephalexin Allergy (Verified 11/30/24 09:45) Diarrhea hydromorphone (From Dilaudid) Allergy (Verified 11/30/24 09:45) Other iron Adverse Reaction (Intermediate, Verified 11/30/24 09:45) Diarrhea oxaprozin Adverse Reaction (Intermediate, Verified 11/30/24 09:45) Nausea Medications ???Medication ???Instructions ???Recorded ???Confirmed ???Type ascorbate calcium (vitamin C) 500 500 mg PO QDAY 07/28/17 11/30/24 History mg tablet famotidine-Ca carb-mag hydrox 10 1 tab PO BID 07/28/17 11/30/24 His tory mg-800 mg-165 mg chewable tablet (Pepcid Complete) Handicap Placard #1 ea 06/29/22 11/30/24 Rx cyanocobalamin (vitamin B-12) 1,000 mcg subcut QMONTH 11/09/22 1 History 1,000 mcg/mL injection solution diazepam 2 mg tablet (Valium) 2 mg PO TID PRN dizziness or 07/2211/30/24 Rx vertigo #15 tabs vitamins A,C,N-abxc-vnsapv 2,148 2 tab PO BID 11/12/23 11/30/24 His tory mcg-113 mg-45 mg-17.4 mg tablet (Eye Multivitamin) meclizine 25 mg tablet 25 mg PO DAILY PRN dizziness #90 1 11/30/24 Rx tabs diclofenac sodium 1 % topical gel 4 g topical TID PRN pain #100 gra ms 05/29/24 11/30/24 Rx (Arthritis Pain (diclofenac)) ferrous sulfate 325 mg (65 mg 325 mg PO Q OTHER DAY 05/29/24 History iron) tablet (FeroSul) amlodipine 10 mg tablet 10 mg PO DAILY #90 tabs 06/19/24 1 Rx lisinopril 30 mg tablet 30 mg PO DAILY #90 tabs 06/19/24 1 Rx diphenoxylate-atropi ne 2.5 1 tab PO BID PRN diarrhea #180 tab s 08/28/24 11/30/24 Rx mg-0.025 mg tablet (Lomotil) Have you fallen in the past year?: No Nurse's Note: both injections given in left upper arm patient tolerated well Office Meds cyanocobalamin (vitamin B-12) 1,000 mcg/mL injection solution Performing Provider: Mile Foster MD Performing Location: [facility] Administered by: Monika Paula on 11/30/24 09:49 Dose Route Admin Location Dispensed Lot Number Expiration Date Package NDC NDC Dish Person 1,000 mcg IM chrissy 1 mL [id number] 04/08/26 15334-110-28 [id number] JERI MONET Comments: chrissy injection pt tolerated well Immunizations Fluad 65yr up(PF)45 mcg(15 mcgx3)/0.5 mL intramuscular syringe Performing Provider: Mile Foster MD Performing Location: [facility] Administered by: Monika Paula on 11/30/24 09:48 Dose Route Admin Location Dispensed Lot Number Expiration Date Package NDC NDC Dish Person 45 mcg IM Left Arm (SQ) 0.5 mL [id number] 06/05/25 85288-601-70 [id number] [employer] VIS Given Date VIS Provided VIS Publication Date 11/30/24 Single Vaccine 24 Eligibility Eligibility Date Funding Source Not Applicable Administration Comments: chrissy injection patient tolerated well Assessment and Plan Assessment and Plan Orders: Orders Influenza Immunization 11/30/24 Z23 - Encounter for immunization Vitamin B12 11/30/24 E53.8 - Deficiency of other specified B group vitamins Plan Details Goals Barriers: Goals Decrease pain Decrease spasm Improve ROM Barriers Scoliosis DDD Clinical Quality Measures Falls Risk Screening/Assistive Devices Have you fallen in the past year?: No 12/01/24 1654 Date Lorena Engeligner Signature: Date (if applicable) CC: Normal [facility] Office Visit Reporton 2024 Office Visit Report [facility] [address] [place] [address] OFFICE VISIT Date of Service: 11/02/24 MR#: [id number] Acct: [id number] Patient: CHELSEA GARCIA Rep #: [id number] : 1945 Provider: ARTIS NURSE Age/Sex: 78/F Location[place] [facility] [place] Status: Signed Intake Vital Signs 09/11/24 08:50 10/25/24 09:30 Height 4 ft 9 in 4 ft 9 in Weight: 107 lb BMI 23.1 BP 120/58 L Blood Pressure Location Lt brachial Position Sitting Respiration 16 Pulse 85 Pulse Source Monitor Temp 98.5 F Temp Source Temporal Pulse Oximetry (%) 95 Oxygen Delivery Method room air Intake Visit Reasons: B12 inject Chief Complaint: Follow-up chronic conditions Allergies promethazine (From Phenergan) Allergy (Severe, Verified 10/25/24 09:13) Swelling cephalexin Allergy (Verified 10/25/24 09:13) Diarrhea hydromorphone (From Dilaudid) Allergy (Verified 10/25/24 09:13) Other iron Adverse Reaction (Intermediate, Verified 10/25/24 09:13) Diarrhea oxaprozin Adverse Reaction (Intermediate, Verified 10/25/24 09:13) Nausea Have you fallen in the past year?: No Office Meds cyanocobalamin (vitamin B-12) 1,000 mcg/mL injection solution Performing Provider: Mile Foster MD Performing Location: [facility] Administered by: Loida Mansfield MA on 11/02/24 09:36 Dose Route Admin Location Dispensed Lot Number Expiration Date Package NDC NDC Dish Person 1,000 mcg IM LD 1 mL [id number] 04/08/26 48922-785-91 [id number] VITRU VIAS THERA Assessment and Plan Assessment and Plan Orders: Orders Vitamin B12 Today E53.8 - Deficiency of other specified B group vitamins Plan Details Goals Barriers: Goals Decrease pain Decrease spasm Improve ROM Barriers Scoliosis DDD Clinical Quality Measures Falls Risk Screening/Assistive Devices Have you fallen in the past year?: No 11/02/24 1638 Date Lorena Bateser Signature: Date (if applicable) CC: Normal [facility] Absolute lymphocyte countOrd ered By: Mile Foster on 10-25-2024 Lymphocytes Auto (Unsp spec) [#/Vol] 1.30 10*3/uL 0.83-4.51 [facility] Absolute neutrophil countOrd ered By: Mile Foster on 10-25-2024 Neutrophils (Bld) [#/Vol] 3.2 10*3/uL 2.0-7.7 [facility] Anion gap in Serum or Plasma Ordered By: Maria Guadalupejulieta Sonjavignesh on 10-25-2024 Anion gap [Moles/Vol] 11 mmol/L 5- [facility] Automated lymphocyte count a s percentage of total leukocytesOrdered By: Maria Guadalupejulieta Sonjavignesh on 10-25-2024 Lymphocytes/100 WBC Auto (Unsp spec) 23.9 % - [facility] BUN/creatinine ratioOrdered By: Maria Guadalupejulieta Sonjavignesh on 10-25-2024 Urea nitrogen/Creatinine [Mass ratio] 23.3 mg/mg High 10- [facility] Basophil percentageOrdered B y: Mile Foster on 10-25-2024 Basophils/100 WBC (Bld) 0.7 % 0-1 [facility] Bilirubin, totalOrdered By: Mile Foster on 10-25-2024 Bilirubin [Mass/Vol] mg/dL 0.00-1.30 [facility] CBC W/Diff, Automatedon 10-09 Absolute Lymph 1.30 X10 3/uL Normal 0.83-4.51 [facility] Comment on above: Performed By: #### L 500.4050, L100.0100 ####[facility] [address] [place], [address] Absolute Neut 3.2 X10 3/uL Normal 2.0-7.7 [facility] Comment on above: Performed By: #### L 500.4050, L100.0100 ####[facility] [address] [place], [address] Basophils/100 WBC (Bld) 0.7 % Normal 0-1 [facility] Comment on above: Performed By: #### L 500.4050, L100.0100 ####[facility] [address] [place], [address] Eosinophils/100 WBC (Bld) 3.5 % Normal 0-5 [facility] Comment on above: Performed By: #### L 500.4050, L100.0100 ####[facility] [address] [place], [address] Erythrocyte distribution width (RBC) [Ratio] 13.8 % Normal 11.6-14.6 [facility] Comment on above: Performed By: #### L 500.4050, L100.0100 ####[facility] [address] [place], [address] Hematocrit (Bld) [Volume fraction] 34.9 % Low 37-47 [facility] Comment on above: Performed By: #### L 500.4050, L100.0100 ####[facility] [address] [place], [address] Hemoglobin (Bld) [Mass/Vol] 10.9 g/dL Low 12.0-15.0 [facility] Comment on above: Performed By: #### L 500.4050, L100.0100 ####[facility] [address] [place], [address] IG% 0.600 Normal 0.0-0.9 [facility] Comment on above: Result Comment: IG% - Immature Granulocytes (promyelocytes, myelocytes and metamyelocytes) > 1% indicates that a LEFT SHIFT is Present. Performed By: #### L 500.4050, L100.0100 ####[facility] [address] [place], [address] Lymphocytes/100 WBC (Bld) 23.9 % Normal 19-41 [facility] Comment on above: Performed By: #### L 500.4050, L100.0100 ####[facility] [address] [place], [address] MCH (RBC) [Entitic mass] 29.9 pg Normal 27.0-32.0 [facility] Comment on above: Performed By: #### L 500.4050, L100.0100 ####[facility] [address] [place], [address] MCHC (RBC) [Mass/Vol] 31.2 g/dL Low 32-36 [facility] Comment on above: Performed By: #### L 500.4050, L100.0100 ####[facility] [address] [place], [address] MCV (RBC) [Entitic vol] 95.6 fL Normal 81-99 [facility] Comment on above: Performed By: #### L 500.4050, L100.0100 ####[facility] [address] [place], [address] Monocytes/100 WBC (Bld) 12.5 % High 0-10 [facility] Comment on above: Performed By: #### L 500.4050, L100.0100 ####[facility] [address] [place], [address] Neutrophils/100 WBC (Bld) 58.8 % Normal 47-70 [facility] Comment on above: Performed By: #### L 500.4050, L100.0100 ####[facility] [address] [place], [address] Nucleated RBC (Bld) [#/Vol] 0 10*3/uL Normal 0-5 [facility] Comment on above: Performed By: #### L 500.4050, L100.0100 ####[facility] [address] [place], [address] Platelet mean volume (Bld) [Entitic vol] 10.5 fL Normal 6.2-12.0 [facility] Comment on above: Performed By: #### L 500.4050, L100.0100 ####[facility] [address] [place], [address] Platelets (Bld) [#/Vol] 395 10*3/uL Normal 150-450 [facility] Comment on above: Performed By: #### L 500.4050, L100.0100 ####[facility] [address] [place], [address] RBC (Bld) [#/Vol] 3.65 10*6/uL Low 4.2-5.4 [facility] Comment on above: Performed By: #### L 500.4050, L100.0100 ####[facility] [address] [place], [address] RDW SD 48.5 fl High 35.1-43.9 [facility] Comment on above: Performed By: #### L 500.4050, L100.0100 ####[facility] [address] [place], [address] WBC (Bld) [#/Vol] 5.5 10*3/uL Normal 4.4-11.0 [facility] Comment on above: Performed By: #### L 500.4050, L100.0100 ####[facility] [address] [place], [address] Carbon dioxide, total [Moles /volume] in Central venous bloodOrdered By: Mile Foster on 10-25-2024 CO2 [Moles/Vol] 25.5 mmol/L 21.0-32.0 [facility] Chloride assayOrdered By: Triny Foster on 10-25-2024 Chloride [Moles/Vol] 104 mmol/L 98-108 [facility] Comprehensive Metabolic Prof ilon 10-25-2024 Albumin [Mass/Vol] 4.0 g/dL Normal 3.4-4.8 [facility] Comment on above: Performed By: #### L 500.4050, L100.0100 ####[facility] [address] [place], [address] Albumin/Globulin [Mass ratio] 1.5 {ratio} Normal 0.9-2.4 [facility] Comment on above: Performed By: #### L 500.4050, L100.0100 ####[facility] [address] [place], [address] ALK PHOS 99 U/L Normal 35-104 [facility] Comment on above: Performed By: #### L 500.4050, L100.0100 ####[facility] [address] [place], [address] ALT [Catalytic activity/Vol] 12 U/L Normal <=34 [facility] Comment on above: Performed By: #### L 500.4050, L100.0100 ####[facility] [address] [place], [address] AST [Catalytic activity/Vol] 15 U/L Normal <=31 [facility] Comment on above: Performed By: #### L 500.4050, L100.0100 ####[facility] [address] [place], [address] BUN/CRE 23.3 RATIO High 10-20 [facility] Comment on above: Performed By: #### L 500.4050, L100.0100 ####[facility] [address] [place], [address] Calcium [Mass/Vol] 9.5 mg/dL Normal 7.6-11.0 [facility] Comment on above: Performed By: #### L 500.4050, L100.0100 ####[facility] [address] [place], [address] Chloride [Moles/Vol] 104 mmol/L Normal 98-108 [facility] Comment on above: Performed By: #### L 500.4050, L100.0100 ####[facility] [address] [place], [address] CO2 [Moles/Vol] 25.5 mmol/L Normal 21.0-32.0 [facility] Comment on above: Performed By: #### L 500.4050, L100.0100 ####[facility] [address] [place], [address] Creatinine [Mass/Vol] 0.86 mg/dL Normal 0.70-1.20 [facility] Comment on above: Performed By: #### L 500.4050, L100.0100 ####[facility] [address] [place], [address] GAP 11 Normal 5-15 [facility] Comment on above: Performed By: #### L 500.4050, L100.0100 ####[facility] [address] [place], [address] GFR/1.73 sq M.predicted among non-blacks MDRD (S/P/Bld) [Vol rate/Area] 69 mL/min/{1.73_m2} Normal >60 [facility] Comment on above: Result Comment: mL/m in/1.73m2 CKD-EPI Creatinine Equation (2020) Performed By: #### L 500.4050, L100.0100 ####[facility] [address] [place], [address] Globulin (S) [Mass/Vol] 2.7 g/dL Normal 2.2-4.2 [facility] Comment on above: Performed By: #### L 500.4050, L100.0100 ####[facility] [address] [place], [address] Glucose [Mass/Vol] 108 mg/dL High 70-99 [facility] Comment on above: Performed By: #### L 500.4050, L100.0100 ####[facility] [address] [place], [address] Potassium [Moles/Vol] 4.8 mmol/L Normal 3.3-5.1 [facility] Comment on above: Performed By: #### L 500.4050, L100.0100 ####[facility] [address] [place], [address] Sodium [Moles/Vol] 140 mmol/L Normal 133-145 [facility] Comment on above: Performed By: #### L 500.4050, L100.0100 ####[facility] [address] [place], [address] T BILI < 0.15 Normal 0.00-1.30 [facility] Comment on above: Performed By: #### L 500.4050, L100.0100 ####[facility] [address] [place], [address] T PROT 6.7 g/dL Normal 5.9-8.4 [facility] Comment on above: Performed By: #### L 500.4050, L100.0100 ####[facility] [address] [place], [address] Urea nitrogen [Mass/Vol] 20 mg/dL High 4-19 [facility] Comment on above: Performed By: #### L 500.4050, L100.0100 ####[facility] [address] [place], [address] Eosinophil percentageOrdered By: Mile Foster on 10-25-2024 Eosinophils/100 WBC (Bld) 3.5 % 0-5 [facility] Erythrocyte distribution wid th ratioOrdered By: Mile Foster on 10-25-2024 Erythrocyte distribution width (RBC) [Ratio] 13.8 % 11.6-14.6 [facility] Erythrocyte distribution wid th standard deviationOrdered By: Mile Foster on 10-25-2024 Erythrocyte distribution width (RBC) [Ratio] 48.5 fl High 35.1-43.9 [facility] Glomerular filtration rate ( GFR) estimation/1.73 sq m using serum, plasma, or whole bOrdered By: Mile Foster on 10-25-2024 GFR/1.73 sq M.predicted among non-blacks MDRD (S/P/Bld) [Vol rate/Area] 69 mL/min/{1.73_m2} >60 [facility] Comment on above: mL/min/1.73m2 CKD-EP I Creatinine Equation (2020) Hematocrit Auto (Bld) [Volum e fraction]Ordered By: Mile Foster on 10-25-2024 Hematocrit (Bld) [Volume fraction] 34.9 % Low 37-47 [facility] Hemoglobin measurementOrdere d By: Mile Foster on 10-25-2024 Hemoglobin (Bld) [Mass/Vol] 10.9 g/dL Low 12.0-15.0 [facility] Immature granulocytes/100 WB C Auto (Bld)Ordered By: Mile Foster on 10-25-2024 Immature granulocytes/100 WBC (Bld) 0.600 % 0.0-0.9 [facility] Comment on above: IG% - Immature Granu locytes (promyelocytes, myelocytes and metamyelocytes) > 1% indicates that a LEFT SHIFT is Present. Internal Medicine Office Vis itocatrachito 10-25-2024 Internal Medicine Office Visit [facility] [address] [place] [address] OFFICE VISIT Date of Service: 10/25/24 MR#: [id number] Acct: [id number] Name: CHELSEA GARCIA Rep #: [id number] : 1945 Provider: Dr. Mile tavera MD Age/Sex: 78/F [place] [facility] [place] Status: Signed Intake Vital Signs 07/26/24 10:07 10/16/24 09:01 10/25/24 09:30 Height 4 ft 9 in 4 ft 9 in 4 ft 9 in Weight: 107 lb BMI 23.1 BP 120/58 L Blood Pressure Location Lt brachial Position Sitting Respiration 16 Pulse 85 Pulse Source Monitor Temp 98.5 F Temp Source Temporal Pulse Oximetry (%) 95 Oxygen Delivery Method room air Intake Visit Reasons: 3 M FU Chief Complaint: Follow-up chronic conditions Personnel Manager Required: No Accompanied by: Self Is patient in pain?: No Allergies promethazine (From Phenergan) Allergy (Severe, Verified 10/25/24 09:13) Swelling cephalexin Allergy (Verified 10/25/24 09:13) Diarrhea hydromorphone (From Dilaudid) Allergy (Verified 10/25/24 09:13) Other iron Adverse Reaction (Intermediate, Verified 10/25/24 09:13) Diarrhea oxaprozin Adverse Reaction (Intermediate, Verified 10/25/24 09:13) Nausea Medications ???Medication ???Instructions ???Recorded ???Confirmed ???Type ascorbate calcium (vitamin C) 500 500 mg PO QDAY 07/28/17 10/25/24 History mg tablet famotidine-Ca carb-mag hydrox 10 1 tab PO BID 07/28/17 10/25/24 His tory mg-800 mg-165 mg chewable tablet (Pepcid Complete) Handicap Placard #1 ea 06/29/22 10/25/24 Rx cyanocobalamin (vitamin B-12) 1,000 mcg subcut QMONTH 11/09/22 0 10/25/24 History 1,000 mcg/mL injection solution diazepam 2 mg tablet (Valium) 2 mg PO TID PRN dizziness or 07/2210/25/24 Rx vertigo #15 tabs vitamins A,C,E-pzjg-ldxwaj 2,148 2 tab PO BID 11/12/23 10/25/24 His tory mcg-113 mg-45 mg-17.4 mg tablet (Eye Multivitamin) meclizine 25 mg tablet 25 mg PO DAILY PRN dizziness #90 1 10/25/24 Rx tabs diclofenac sodium 1 % topical gel 4 g topical TID PRN pain #100 gra ms 05/29/24 10/25/24 Rx (Arthritis Pain (diclofenac)) ferrous sulfate 325 mg (65 mg 325 mg PO Q OTHER DAY 05/29/24 History iron) tablet (FeroSul) amlodipine 10 mg tablet 10 mg PO DAILY #90 tabs 06/19/24 0 10/25/24 Rx lisinopril 30 mg tablet 30 mg PO DAILY #90 tabs 06/19/24 0 10/25/24 Rx diphenoxylate-atropi ne 2.5 1 tab PO BID PRN diarrhea #180 tab s 08/28/24 10/25/24 Rx mg-0.025 mg tablet (Lomotil) Have you fallen in the past year?: No Nurse's Note: cancer on left foot magnetic resonance imaging coordinator said edges are clear after removal PFSH Medical History (Updated 10/25/24 @ 12:[address] Mile Foster MD) History of skin cancer Primary osteoarthritis, right shoulder Osteoarthritis of left knee Right shoulder pain Rib pain on right [...] week HPI HPI Chief Complaint: Follow-up chronic conditions Details: CHELSEA GARCIA, is a 78 F who presents to the office today for follow-up of her chronic medical conditions. No acute concerns at this time. Was referred by her regional director to dermatology due to left foot lesion. Found to be cancer status postsurgery which was tolerated. Per patient, the edges were clear. History of hypertension, blood pressure today at 120/58 mmHg. Tolerating medication well and she denies chest pain, palpitation or significant lightheadedness. Typically slightly lightheaded with change in position. No falls. Chronic history of anemia, she states that she is taking iron supplement consistently. Does not report significant fatigue. Other chronic conditions are stable. ROS Const Constitutional: No body ache, excessive sweating, fatigue, fever(s), frequent falls, headache(s), snoring, weakness, weight change, sleep problems or change in appetite Eyes Eyes: No blurry vision, change in vision, vision loss, dry eyes, eye pain or Light sensitivity ENT ENT: No abnormal hearing, ear or mastoid pain, tinnitus, nasal congestion, headache(s), neck pain or so (more content not included)... Normal [facility] Laboratory - Chemistry and C hemistry - challengeOrdered By: Mile Foster on 10-25-2024 AST [Catalytic activity/Vol] 15 U/L <32 [facility] MCV (mean corpuscular volume ) determinationOrdered By: Mile Foster on 10-25-2024 MCV (RBC) [Entitic vol] 95.6 fL 81-99 [facility] Mean corpuscular hemoglobin (MCH) determinationOrdered By: Mile Foster on 10-25-2024 MCH (RBC) [Entitic mass] 29.9 pg 27.0-32.0 [facility] Mean corpuscular hemoglobin concentration (MCHC) determinationOrdered By: Mile Foster on 10-25-2024 MCHC (RBC) [Mass/Vol] 31.2 g/dL Low 32-36 [facility] Mean platelet volume determi nationOrdered By: Mile Foster on 10-25-2024 Platelet mean volume (Bld) [Entitic vol] 10.5 fL 6.2-12.0 [facility] Monocyte percentageOrdered B y: Mile Foster on 10-25-2024 Monocytes/100 WBC (Bld) 12.5 % High 0-10 [facility] Neutrophil percentageOrdered By: scottygrand junctionjulieta Foster on 10-25-2024 Neutrophils/100 WBC (Bld) 58.8 % 47-70 [facility] Nucleated red blood cell per centageOrdered By: Siddharthgrand junctionjulieta Foster on 10-25-2024 Nucleated RBC/100 WBC (Bld) [Ratio] 0 % 0-5 [facility] Platelet countOrdered By: Triny Foster on 10-25-2024 Platelets (Bld) [#/Vol] 395 10*3/uL 150-450 [facility] Potassium measurement (mass/ volume)Ordered By: Mile Foster on 10-25-2024 Potassium (Unsp spec) [Mass/Vol] 4.8 mmol/L 3.3-5.1 [facility] RBC Auto (Bld) [#/Vol]Ordere d By: Mile Foster on 10-25-2024 RBC (Bld) [#/Vol] 3.65 10*6/uL Low 4.2-5.4 [facility] Serum creatinine measurement (mass/volume)Ordered By: Mile Foster on 10-25-2024 Creatinine [Mass/Vol] 0.86 mg/dL 0.70-1.20 [facility] Serum globulin measurementOr dered By: Mile Foster on 10-25-2024 Globulin (S) [Mass/Vol] 2.7 g/dL 2.2-4.2 [facility] Serum glucose measurement (m ass/volume)Ordered By: Mile Foster on 10-25-2024 Glucose [Mass/Vol] 108 mg/dL High 70-99 [facility] Serum or plasma alanine penn otransferase (ALT) measurementOrdered By: Mile Foster on 10-25-2024 ALT [Catalytic activity/Vol] 12 U/L <35 [facility] Serum or plasma albumin doron urement (mass/volume)Ordered By: Mile Foster on 10-25-2024 Albumin [Mass/Vol] 4.0 g/dL 3.4-4.8 [facility] Serum or plasma albumin/glob ulin mass ratioOrdered By: Mile Foster on 10-25-2024 Albumin/Globulin [Mass ratio] 1.5 {ratio} 0.9-2.4 [facility] Serum or plasma alkaline fred sphatase measurementOrdered By: Mile Foster on 10-25-2024 ALP [Catalytic activity/Vol] 99 U/L 35-104 [facility] Serum or plasma calcium doron urement (mass/volume)Ordered By: Mile Foster on 10-25-2024 Calcium [Mass/Vol] 9.5 mg/dL 7.6-11.0 [facility] Serum or plasma urea nitroge n measurement (mass/volume)Ordered By: Mile Foster on 10-25-2024 Urea nitrogen [Mass/Vol] 20 mg/dL High 4-19 [facility] Sodium levelOrdered By: Siddharth Foster on 10-25-2024 Sodium [Moles/Vol] 140 mmol/L 133-145 [facility] Total proteinOrdered By: Micah Fosetr on 10-25-2024 Protein [Mass/Vol] 6.7 g/dL 5.9-8.4 [facility] White blood cell (WBC) count Ordered By: Mile Foster on 10-25-2024 WBC (Bld) [#/Vol] 5.5 10*3/uL 4.4-11.0 [facility] Office Visit Reporton 2024 Office Visit Report [facility] [address] [place] [address] OFFICE VISIT Date of Service: 10/05/24 MR#: [id number] Acct: [id number] Patient: CHELSEA GARCIA Rep #: [id number] : 1945 Provider: ARTIS NURSE Age/Sex: 78/F [place] [facility] [place] Status: Signed Intake Vital Signs 08/14/24 11:43 09/11/24 08:50 Height 4 ft 9 in 4 ft 9 in Weight: 106 lb BMI 22.9 BP 125/59 H Position Sitting Respiration 16 Pulse 74 Temp 97.3 F L Temp Source Temporal Pulse Oximetry (%) 97 Intake Visit Reasons: B12 Chief Complaint: evenity Allergies promethazine (From Phenergan) Allergy (Severe, Verified 08/14/24 11:43) Swelling cephalexin Allergy (Verified 08/14/24 11:43) Diarrhea hydromorphone (From Dilaudid) Allergy (Verified 08/14/24 11:43) Other iron Adverse Reaction (Intermediate, Verified 08/14/24 11:43) Diarrhea oxaprozin Adverse Reaction (Intermediate, Verified 08/14/24 11:43) Nausea Have you fallen in the past year?: No Office Meds cyanocobalamin (vitamin B-12) 1,000 mcg/mL injection solution Performing Provider: Mile Foster MD Performing Location: [facility] Administered by: Loida Mansfield MA on 10/05/24 09:41 Dose Route Admin Location Dispensed Lot Number Expiration Date [facility] Man ufacturer 1,000 mcg IM LD 1 mL [id number] 04/08/26 14047-548-27 KIERSTENELAINE CHIKI Assessment and Plan Assessment and Plan Orders: Orders Vitamin B12 Today E53.8 - Deficiency of other specified B group vitamins Plan Details Goals Barriers: Goals Decrease pain Decrease spasm Improve ROM Barriers Scoliosis DDD Clinical Quality Measures Falls Risk Screening/Assistive Devices Have you fallen in the past year?: No 10/05/24 1006 Date Lorena Engeligner Signature: Date (if applicable) CC: Normal [facility] Office Visit Reporton 2024 Office Visit Report [facility] [address] [place] [address] OFFICE VISIT Date of Service: 09/07/24 MR#: [id number] Acct: [id number] Patient: CHELSEA GARCIA Rep #: [id number] : 1945 Provider: ARTIS NURSE Age/Sex: 78/F Location[place] [facility] [place] Status: Signed Intake Vital Signs 08/08/24 09:48 08/14/24 11:43 Height 4 ft 9 in 4 ft 9 in Intake Visit Reasons: B12 Chief Complaint: B12 Injection Allergies promethazine (From Phenergan) Allergy (Severe, Verified 08/14/24 11:43) Swelling cephalexin Allergy (Verified 08/14/24 11:43) Diarrhea hydromorphone (From Dilaudid) Allergy (Verified 08/14/24 11:43) Other iron Adverse Reaction (Intermediate, Verified 08/14/24 11:43) Diarrhea oxaprozin Adverse Reaction (Intermediate, Verified 08/14/24 11:43) Nausea Have you fallen in the past year?: No Office Meds cyanocobalamin (vitamin B-12) 1,000 mcg/mL injection solution Performing Provider: Mile Foster MD Performing Location: [facility] Administered by: Bong Johnson on 09/07/24 10:22 Dose Route Admin Location Dispensed Lot Number Expiration Date [place] Man ufacturer 1,000 mcg IM Left Deltoid 1 mL [id number] 05/08/26 49561-013-65 KATELYN MONET Comments: Patient tolerated well and states that the b12 injections are still beneficial. Assessment and Plan Assessment and Plan Orders: Orders Vitamin B12 09/07/24 E53.8 - Deficiency of other specified B group vitamins Plan Details Goals Barriers: Goals Decrease pain Decrease spasm Improve ROM Barriers Scoliosis DDD Clinical Quality Measures Falls Risk Screening/Assistive Devices Have you fallen in the past year?: No 09/23/24 2356 Date Richard Breaux Signature: Date (if applicable) CC: Normal [facility] Office Visit Reporton 2024 Office Visit Report [facility] [address] [place] [address] OFFICE VISIT Date of Service: 08/10/24 MR#: [id number] Acct: [id number] Patient: CHELSEA GARCIA Rep #: [id number] : 1945 Provider: ARTIS NURSE Age/Sex: 78/F [place] [facility] [place] Status: Signed Intake Vital Signs 06/09/24 09:05 08/08/24 09:48 Height 4 ft 9 in 4 ft 9 in Intake Visit Reasons: B12 SHOT Chief Complaint: B12 Injection Allergies promethazine (From Phenergan) Allergy (Severe, Verified 08/08/24 09:49) Swelling cephalexin Allergy (Verified 08/08/24 09:49) Diarrhea hydromorphone (From Dilaudid) Allergy (Verified 08/08/24 09:49) Other iron Adverse Reaction (Intermediate, Verified 08/08/24 09:49) Diarrhea oxaprozin Adverse Reaction (Intermediate, Verified 08/08/24 09:49) Nausea Have you fallen in the past year?: No Office Meds cyanocobalamin (vitamin B-12) 1,000 mcg/mL injection solution Performing Provider: Mile Foster MD Performing Location: [facility] Administered by: Bong Johnson on 08/10/24 09:13 Dose Route Admin Location Dispensed Lot Number Expiration Date ND Man ufacturer 1,000 mcg IM Left Deltoid 1 mL [id number] 04/08/26 36612-604-55 KATELYN MONET Comments: Monthly b12 injection Patient tolerated well Left Deltoid Assessment and Plan Assessment and Plan (1) Vitamin B12 deficiency: Status: Chronic Orders: Orders Vitamin B12 Today E53.8 - Deficiency of other specified B group vitamins Plan Details Goals Barriers: Goals Decrease pain Decrease spasm Improve ROM Barriers Scoliosis DDD Clinical Quality Measures Falls Risk Screening/Assistive Devices Have you fallen in the past year?: No 08/10/24 1019 Date Kirti Breaux Signature: Date (if applicable) CC: Normal [facility] Orthopedic Visit Reporton Orthopedic Visit Report [facility] [address] [place] [address] [place] [address] OFFICE VISIT Date of Service: 08/08/24 MR#: [id number] Acct: [id number] Name: CHELSEA GARCIA Rep #: [id number] : 1945 Provider: Dr. Gene thapa MD Age/Sex: 78/F [place] [facility] [place] Status: Signed Intake Vital Signs 07/26/24 10:07 08/08/24 09:48 Height 4 ft 9 in 4 ft 9 in Weight: 105 lb 105 lb 8 oz BMI 22.7 22.8 BP 128/70 H Blood Pressure Location Lt brachial Position Sitting Respiration 75 H Pulse 75 Pulse Source Monitor Temp 98.1 F Temp Source Temporal Pulse Oximetry (%) 97 Oxygen Delivery Method room air Intake Visit Reasons: RIGHT SHOULDER Chief Complaint: Right Shoulder Accompanied by: Self Is patient in pain?: Yes Pain scale (1-10): 5 Allergies promethazine (From Phenergan) Allergy (Severe, Verified 08/08/24 09:49) Swelling cephalexin Allergy (Verified 08/08/24 09:49) Diarrhea hydromorphone (From Dilaudid) Allergy (Verified 08/08/24 09:49) Other iron Adverse Reaction (Intermediate, Verified 08/08/24 09:49) Diarrhea oxaprozin Adverse Reaction (Intermediate, Verified 08/08/24 09:49) Nausea Medications ???Medication ???Instructions ???Recorded ???Confirmed ???Type ascorbate calcium (vitamin C) 500 500 mg PO QDAY 07/28/17 08/08/24 History mg tablet famotidine-Ca carb-mag hydrox 10 1 tab PO BID 07/28/17 08/08/24 His tory mg-800 mg-165 mg chewable tablet (Pepcid Complete) Handicap Placard #1 ea 06/29/22 08/08/24 Rx cyanocobalamin (vitamin B-12) 1,000 mcg subcut QMONTH 11/09/22 0 08/08/24 History 1,000 mcg/mL injection solution diazepam 2 mg tablet (Valium) 2 mg PO TID PRN dizziness or 07/2208/08/24 Rx vertigo #15 tabs romosozumab-aqqg 210 mg/2.34 210 mg (2.34 mL) subcut QMONTH 12 10/22/23 08/08/24 Rx mL(105 mg/1.17 mL x2)subcutaneous months #28.08 mL syringe (Evenity) vitamins A,C,X-krlq-wwwmac 2,148 2 tab PO BID 11/12/23 08/08/24 His tory mcg-113 mg-45 mg-17.4 mg tablet (Eye Multivitamin) meclizine 25 mg tablet 25 mg PO DAILY PRN dizziness #90 1 08/08/24 Rx tabs diphenoxylate-atropi ne 2.5 1 tab PO BID PRN diarrhea #180 tab s 03/01/24 08/08/24 Rx mg-0.025 mg tablet (Lomotil) diclofenac sodium 1 % topical gel 4 g topical TID PRN pain #100 gra ms 05/29/24 08/08/24 Rx (Arthritis Pain (diclofenac)) ferrous sulfate 325 mg (65 mg 325 mg PO Q OTHER DAY 05/29/2403/04 History iron) tablet (FeroSul) amlodipine 10 mg tablet 10 mg PO DAILY #90 tabs 06/19/24 0 08/08/24 Rx lisinopril 30 mg tablet 30 mg PO DAILY #90 tabs 06/19/24 0 08/08/24 Rx Have you fallen in the past year?: No [facility] History (Updated 08/08/24 @ 09:59 by Gene Ziegler MD) Primary osteoarthritis, right shoulder Osteoarthritis of left knee Right shoulder pain Rib pain on right [...] walking frequency: 1-2 times per week HPI RIGHT SHOULDER Details: This documentation accurately reflects the service provided and the decisions made by me, Dr. Gene Ziegler MD 08/08/24 0945. Part of today???s visit was documented by [ ], acting as scribe. CHELSEA GARCIA is a 78 year old F here today for right shoulder pain. 6 weeks history. No trauma. Mostly lateral side of the shoulder. Difficulties with lifting. Moderate to mild pain. The patient never had a cortisone injection or an operation on the shoulder. Patient is right-hand dominant. They are quite independent doing driving groceries meal preparation and everything. Most of [place]. She has tried 6 weeks of physical therapy without improvement. Patient has a speech impediment from . Ortho Exam General General: Yes no acute distress Neurologic: Yes alert and Yes oriented x3 Psychologic: Yes reasonable and appropriate Right Shoulder Skin/Wound: Yes CDI, No ecchymosis, No erythema and No swelling Testing: Positive Hawkin's, Neer's, AROM-Forward Elevation 0-180, AROM-External Rotation at side 0- 60, em (more content not included)... Normal [facility] Office Visit [facility] [address] [place] [address] [place] [address] OFFICE VISIT Date of Service: 07/26/24 MR#: [id number] Acct: [id number] Name: CHELSEA GARCIA Rep #: [id number] : 1945 Provider: Dr. Mile tavera MD Age/Sex: 78/F [place] [facility] [place] Status: Signed Intake Vital Signs 04/26/24 08:47 07/14/24 08:59 07/26/24 10:07 Height 4 ft 9 in 4 ft 9 in 4 ft 9 in Weight: 105 lb BMI 22.7 BP 128/70 H Blood Pressure Location Lt brachial Position Sitting Respiration 75 H Pulse 75 Pulse Source Monitor Temp 98.1 F Temp Source Temporal Pulse Oximetry (%) 97 Oxygen Delivery Method room air Intake Visit Reasons: 3 M FU Chief Complaint: 3 M FU Personnel Manager Required: No Is patient in pain?: No Allergies promethazine (From Phenergan) Allergy (Severe, Verified 07/26/24 10:04) Swelling cephalexin Allergy (Verified 07/26/24 10:04) Diarrhea hydromorphone (From Dilaudid) Allergy (Verified 07/26/24 10:04) Other iron Adverse Reaction (Intermediate, Verified 07/26/24 10:04) Diarrhea oxaprozin Adverse Reaction (Intermediate, Verified 07/26/24 10:04) Nausea Medications ???Medication ???Instructions ???Recorded ???Confirmed ???Type ascorbate calcium (vitamin C) 500 500 mg PO QDAY 07/28/17 07/26/24 History mg tablet famotidine-Ca carb-mag hydrox 10 1 tab PO BID 07/28/17 07/26/24 His tory mg-800 mg-165 mg chewable tablet (Pepcid Complete) Handicap Placard #1 ea 06/29/22 07/26/24 Rx cyanocobalamin (vitamin B-12) 1,000 mcg subcut QMONTH 11/09/22 0 07/26/24 History 1,000 mcg/mL injection solution diazepam 2 mg tablet (Valium) 2 mg PO TID PRN dizziness or 07/2207/26/24 Rx vertigo #15 tabs romosozumab-aqqg 210 mg/2.34 210 mg (2.34 mL) subcut QMONTH 12 10/22/23 07/26/24 Rx mL(105 mg/1.17 mL x2)subcutaneous months #28.08 mL syringe (Evenity) vitamins A,C,I-nxgd-lrdjbm 2,148 2 tab PO BID 11/12/23 07/26/24 His tory mcg-113 mg-45 mg-17.4 mg tablet (Eye Multivitamin) meclizine 25 mg tablet 25 mg PO DAILY PRN dizziness #90 1 07/26/24 Rx tabs diphenoxylate-atropi ne 2.5 1 tab PO BID PRN diarrhea #180 tab s 03/01/24 07/26/24 Rx mg-0.025 mg tablet (Lomotil) diclofenac sodium 1 % topical gel 4 g topical TID PRN pain #100 gra ms 05/29/24 07/26/24 Rx (Arthritis Pain (diclofenac)) ferrous sulfate 325 mg (65 mg 325 mg PO Q OTHER DAY 05/29/24 History iron) tablet (FeroSul) amlodipine 10 mg tablet 10 mg PO DAILY #90 tabs 06/19/24 0 07/26/24 Rx lisinopril 30 mg tablet 30 mg PO DAILY #90 tabs 06/19/24 0 07/26/24 Rx Have you fallen in the past year?: No PFSH Medical History Osteoarthritis of left knee Right shoulder pain Rib pain on right [...] times per week HPI HPI Chief Complaint: 3 M FU Details: CHELSEA GARCIA, is a 78 F who presents to the office today for follow-up of her chronic medical conditions. No acute concerns at this time. At her last visit, she was referred to physical therapy due to right shoulder pain. Did not find physical therapy helpful. She would like to see an orthopedic surgeon. Pain is worse with certain positions and with bowel movements. Other chronic medical conditions are said to be stable. ROS Const Constitutional: No body ache, chills, excessive sweating, fatigue, fever(s), frequent falls, headache(s), snoring, weakness, sleep problems or change in appetite Eyes Eyes: No blurry vision, change in vision, eye pain or Light sensitivity ENT ENT: No abnormal hearing, ear or mastoid pain, tinnitus, nasal congestion, headache(s), neck pain or sore throat Resp Respiratory: No cough, shortness of breath, snoring or wheezing Cardio Cardiology: No chest pain at rest, chest pain with exertion, excessive sweating, shortness of breath, dyspnea on exertion, lightheadedness, orthopnea or palpitations Gastro GI: No abdominal pain, change in bowel habits, constipation, cramping, diarrhea, nausea/dyspepsia or vom (more content not included)... Normal [facility] Office Visit Reporton 2024 Office Visit Report [facility] [address] [place] [address] OFFICE VISIT Date of Service: 07/12/24 MR#: [id number] Acct: [id number] Patient: CHELSEA GARCIA Rep #: [id number] : 1945 Provider: ARTIS NURSE Age/Sex: 78/F [place] [facility] [place] Status: Signed Intake Vital Signs 06/09/24 09:05 [...] Performing Provider: Mile Foster MD Performing Location: [facility] Administered by: Mandy Whatley LPN on 07/12/24 09:04 Dose Route Admin Location Dispensed Lot Number Expiration Date [facility] Man ufacturer 1,000 mcg IM Right deltoid 1 mL [id number] 05/08/26 86971-480-95 VITRUVI THERA Comments: pt presented to office for [...] fallen in the past year?: No 07/12/24 0582 Date Mile Engelignsisi Signature: Date (if applicable) CC: Normal [facility] Office Visit Reporton 2024 Office Visit Report [facility] [address] [place] [address] OFFICE VISIT Date of Service: 06/14/24 MR#: [id number] Acct: [id number] Patient: CHELSEA GARCIA Rep #: [id number] : 1945 Provider: ARTIS NURSE Age/Sex: 78/F Location: [facility] Status: Signed Intake Vital Signs [...] Performing Provider: Mile Foster MD Performing Location: [facility] Administered by: Monika Paula on 06/14/24 09:44 Dose Route Admin Location Dispensed Lot Number Expiration Date HIC Man ufacturer 1,000 mcg IM juan 1 mL [id number] 07/09/25 83887-565-02 VITRUVIAS THERA Assessment and Plan Assessment and Plan [...] Date (if applicable) CC: BIM NURSE Normal [facility] Inital Evaluation (1) - PTon 06-06-2024 Inital Evaluation (1) - PT [facility] Physical [facility] [address] [place] [address] [address] [place] [address] / REHABILITATION SERVICES INITIAL EVALUATION MR#: [id number] Acct: [id number] Name: CHELSEA GARCIA Rep #: [id number] : 1945 78 From: Juan J Quinn PT. T, OCS Referring Dr.: Dr. Mile Foster MD Status: REG RCR Insurance: MEDICARE PART A B AARP Patient's Visit Information Visit Information Visit Information: CHELSEA GARCIA is a 78 year old F referred [...] pain .Pain described as ache. Seen DR recommended PT and x-rays shoulder showed Moderate degree [...] Neer - Impingement: Positive R Shoulder Cook Duane - Impingement: Positive Balance/Special Test Scores Quick [...] soft tissue res (more content not included)... Normal [facility] Internal Medicine Office Vis lala 05-29-2024 Internal Medicine Office Visit [facility] [address] [place] [address] [place] [address] OFFICE VISIT Date of Service: 05/29/24 MR#: [id number] Acct: [id number] Name: CHELSEA GARCIA Rep #: [id number] : 1945 Provider: Dr. Mile tavera MD Age/Sex: 78/F [place] [facility] [place]: Signed Intake Vital Signs 05/12/24 08:58 [...] rt arm hurts Chief Complaint: Shoulder Pain Personnel Manager Required: No Is patient in pain?: Yes [...] x2)subcutaneous months #28.08 mL syringe (Evenity) vitamins A,C,W-xstn-xmpbjm 2,148 2 tab PO BID 11/12/23 05/29/24 [...] you fallen in the past year?: No [facility] Medical History (Updated 05/29/24 @ 09:[address] Mile Foster MD) Right shoulder pain Rib pain on [...] excessive swea (more content not included)... Normal [facility] Knee 4 or More Viewson 05-29 Knee 4 or More Views [facility] Services [address] [place], [place] [address] Knee 4 or More Views MR#: [id number] Acct: [id number] Name: CHELSEA GARCIA Rep #: [id number] : 1945 F 78 From: Savage orlando MD PCP: Dr. Mile Foster MD Status: REG CLI Study: Knee 4 or More Views Date of Exam: 05/29/24 Exam# [id number] Ordering Dr: Mile Foster MD PROCEDURE: KNEE [...] DEGENERATIVE OSTEOARTHROSIS. NO ACUTE FINDINGS. Reading Location: [facility] CC: Dr. Mile Foster MD Recruiting Internship: Signed Normal [facility] Ribs Uni Min 3V w/PA Cheston 05-29-2024 Ribs Uni Min 3V w/PA Chest [facility] [address] [place] [address] Ribs Uni Min 3V w/PA Chest MR#: [id number] Acct: [id number] Name: CHELSEA GARCIA Rep #: [id number] : 1945 F 78 From: Son Richter MD PCP: Dr. Mile Foster MD Status: REG CLI Study: Ribs Uni Min 3V w/PA Chest Date of Exam: 05/29 Exam# [id number] Ordering Dr: Mile Foster MD EXAM: RIGHT [...] Location: [facility] CC: Dr. Mile Foster MD Recruiting Internship: Signed Normal [facility] Shoulder min 2 Viewson 05-29 Shoulder min 2 Views [facility] Imaging Services [address] [place], [place] [address] Shoulder min 2 Views MR#: [id number] Acct: [id number] Name: CHELSEA GARCIA Rep #: [id number] : 1945 F 78 From: Savage orlando MD PCP: Dr. Mile Foster MD Status: REG CLI Study: Shoulder min 2 Views Date of Exam: 05/29/24 Exam# [id number] Ordering Dr: Mile Foster MD PROCEDURE: SHOULDER [...] DISLOCATION. Degenerative changes as described. Reading Location: [place] [address] CC: Dr. Mile Foster MD Recruiting Internship: Signed Normal [facility] Office Visit Reporton 2024 Office Visit Report [facility] [place] [address] OFFICE VISIT Date of Service: 05/16/24 MR#: [id number] Acct: [id number] Patient: CHELSEA GARCIA Rep #: [id number] : 1945 Provider: ARTIS NURSE Age/Sex: 78/F [place] [facility] [place] Status: Signed Intake Vital Signs 04/14/24 10:03 [...] Performing Provider: Mile Foster MD Performing Location: [facility] Administered by: Loida Mansfield MA on 05/16/24 09:35 Dose Route Admin Location Dispensed Lot Number Expiration Date ND Man ufacturer 1,000 mcg IM LD 1 mL [id number] 07/09/25 71963-086-21 DAVID MONET Assessment and Plan Assessment and Plan Orders: Orders Vitamin B12 05/16/24 E53.8 - Deficiency of other specified B group vitamins Plan Details Goals Barriers: Goals Decrease pain Decrease spasm Improve ROM Barriers Scoliosis DDD Clinical Quality Measures Falls Risk Screening/Assistive Devices Have you fallen in the past year?: No 06/20/24 1307 Date Monty Cordoba DO Saeid Signature: Date (if applicable) CC: Normal [facility] Absolute lymphocyte countOrd ered By: Trinyscottygrand junctionjulieta Casillasvignesh on 04-26-2024 Lymphocytes Auto (Unsp spec) [#/Vol] 1.23 10*3/uL 0.83-4.51 [facility] Absolute neutrophil countOrd ered By: [facility] Dwaynevignesh on 04-26-2024 Neutrophils (Bld) [#/Vol] 3.2 10*3/uL 2.0-7.7 [facility] Automated lymphocyte count a s percentage of total leukocytesOrdered By: Mile Riceyinkavignesh on 04-26-2024 Lymphocytes/100 WBC Auto (Unsp spec) 23.1 % 19-41 [facility] Basophil percentageOrdered B y: Trinyjerryjulieta Sonjavignesh on 04-26-2024 Basophils/100 WBC (Bld) 0.9 % 0-1 [facility] CBC W/Diff, Automatedon 04-08 Absolute Lymph 1.23 X10 3/uL Normal 0.83-4.51 [facility] Comment on above: Performed By: #### L 503.6030, L503.6550, L100.0100 ####[facility] [address] [place], [address] Absolute Neut 3.2 X10 3/uL Normal 2.0-7.7 [facility] Comment on above: Performed By: #### L 503.6030, L503.6550, L100.0100 ####[facility] [address] [place], [address] Basophils/100 WBC (Bld) 0.9 % Normal 0-1 [facility] Comment on above: Performed By: #### L 503.6030, L503.6550, L100.0100 ####[facility] [address] [place], [address] Eosinophils/100 WBC (Bld) 3.6 % Normal 0-5 [facility] Comment on above: Performed By: #### L 503.6030, L503.6550, L100.0100 ####[facility] [address] [place], [address] Erythrocyte distribution width (RBC) [Ratio] 16.0 % High 11.6-14.6 [facility] Comment on above: Performed By: #### L 503.6030, L503.6550, L100.0100 ####[facility] [address] [place], [address] Hematocrit (Bld) [Volume fraction] 34.3 % Low 37-47 [facility] Comment on above: Performed By: #### L 503.6030, L503.6550, L100.0100 ####[facility] [address] [place], [address] Hemoglobin (Bld) [Mass/Vol] 10.5 g/dL Low 12.0-15.0 [facility] Comment on above: Performed By: #### L 503.6030, L503.6550, L100.0100 ####[facility] [address] [place], [address] IG% 0.400 Normal 0.0-0.9 [facility] Comment on above: Result Comment: IG% - Immature Granulocytes (promyelocytes, myelocytes and metamyelocytes) > 1% indicates that a LEFT SHIFT is Present. Performed By: #### L 503.6030, L503.6550, L100.0100 ####[facility] [address] [place], [address] Lymphocytes/100 WBC (Bld) 23.1 % Normal 19-41 [facility] Comment on above: Performed By: #### L 503.6030, L503.6550, L100.0100 ####[facility] [address] [place], [address] MCH (RBC) [Entitic mass] 27.9 pg Normal 27.0-32.0 [facility] Comment on above: Performed By: #### L 503.6030, L503.6550, L100.0100 ####[facility] [address] [place], [address] MCHC (RBC) [Mass/Vol] 30.6 g/dL Low 32-36 [facility] Comment on above: Performed By: #### L 503.6030, L503.6550, L100.0100 ####[facility] [address] [place], [address] MCV (RBC) [Entitic vol] 91.0 fL Normal 81-99 [facility] Comment on above: Performed By: #### L 503.6030, L503.6550, L100.0100 ####[facility] [address] [place], [address] Monocytes/100 WBC (Bld) 11.4 % High 0-10 [facility] Comment on above: Performed By: #### L 503.6030, L503.6550, L100.0100 ####[facility] [address] [place], [address] Neutrophils/100 WBC (Bld) 60.6 % Normal 47-70 [facility] Comment on above: Performed By: #### L 503.6030, L503.6550, L100.0100 ####[facility] [address] [place], [address] Nucleated RBC (Bld) [#/Vol] 0 10*3/uL Normal 0-5 [facility] Comment on above: Performed By: #### L 503.6030, L503.6550, L100.0100 ####[facility] [address] [place], [address] Platelet mean volume (Bld) [Entitic vol] 10.6 fL Normal 6.2-12.0 [facility] Comment on above: Performed By: #### L 503.6030, L503.6550, L100.0100 ####[facility] [address] [place], [address] Platelets (Bld) [#/Vol] 364 10*3/uL Normal 150-450 [facility] Comment on above: Performed By: #### L 503.6030, L503.6550, L100.0100 ####[facility] [address] [place], [address] RBC (Bld) [#/Vol] 3.77 10*6/uL Low 4.2-5.4 [facility] Comment on above: Performed By: #### L 503.6030, L503.6550, L100.0100 ####[facility] [address] [place], [address] RDW SD 53.2 fl High 35.1-43.9 [facility] Comment on above: Performed By: #### L 503.6030, L503.6550, L100.0100 ####[facility] [address] [place], [address] WBC (Bld) [#/Vol] 5.3 10*3/uL Normal 4.4-11.0 [facility] Comment on above: Performed By: #### L 503.6030, L503.6550, L100.0100 ####[facility] [address] [place], [place], [address] Calculated total iron bindin g capacityOrdered By: [facility]alding[facility]ulieta Foster on 04-26-2024 Total Iron Binding Capacity 422 ug/dL 250-450 [facility] Eosinophil percentageOrdered By: [facility] on 04-26-2024 Eosinophils/100 WBC (Bld) 3.6 % 0-5 [facility] Erythrocyte distribution wid th ratioOrdered By: [facility] Spaldingjulieta Foster on 04-26-2024 Erythrocyte distribution width (RBC) [Ratio] 16.0 % High 11.6-14.6 [facility] Erythrocyte distribution wid th standard deviationOrdered By: [facility] on 04-26-2024 Erythrocyte distribution width (RBC) [Entitic vol] 53.2 fL High 35.1-43.9 [facility] Erythrocyte distribution width (RBC) [Ratio] 53.2 fl High 35.1-43.9 [facility] Ferritinon 04-26-2024 Ferritin [Mass/Vol] 14 ng/mL Low 22-378 [facility] Comment on above: Performed By: #### L 503.6030, L503.6550, L100.0100 ####[facility] [address] [place], [place], [address] Hematocrit Auto (Bld) [Volum e fraction]Ordered By: [facility] Dwaynevignesh on 04-26-2024 Hematocrit (Bld) [Volume fraction] 34.3 % Low 37-47 [facility] Hemoglobin measurementOrdere d By: partha Casillasvignesh on 04-26-2024 Hemoglobin (Bld) [Mass/Vol] 10.5 g/dL Low 12.0-15.0 [facility] Immature granulocytes/100 WB C Auto (Bld)Ordered By: [facility] Spalding[facility]ulieta Ricevignesh on 04-26-2024 Immature granulocytes/100 WBC (Bld) 0.400 % 0.0-0.9 [facility] Comment on above: IG% - Immature Granu locytes (promyelocytes, myelocytes and metamyelocytes) > 1% indicates that a LEFT SHIFT is Present. Internal Medicine Office Vis iton 04-26-2024 Internal Medicine Office Visit [facility] [address] [place] [address] [place] [address] OFFICE VISIT Date of Service: 04/26/24 MR#: [id number] Acct: [id number] Name: CHELSEA GARCIA Rep #: [id number] : 1945 Provider: Dr. Mile tavera MD Age/Sex: 78/F [place] [facility] Status: Signed Intake Vital Signs 01/28/24 08:52 [...] Complaint: Follow-up chronic conditions. Left knee pain Personnel Manager Required: No Is patient in pain?: No [...] hydrocortisone 2.5 % topical cream 1 applic CA BID-QID PRN 05/12/23 04/26/24 Rx with perineal [...] x2)subcutaneous months #28.08 mL syringe (Evenity) vitamins A,C,Q-przn-dogpjq 2,148 2 tab PO BID 11/12/23 04/26/24 [...] years ago but would like another one. [facility] Medical History Driving safety issue Hemorrhoid BPPV [...] neck p (more content not included)... [facility] [facility] (Unsp spec) [Mass/Mass] Ordered By: Mile Foster on 04-26-2024 Iron [Mass/Vol] 50 ug/dL 50-170 [facility] Iron measurement (mass/mass) Ordered By: Mile Foster on 04-26-2024 Iron (Unsp spec) [Mass/Mass] 50 ug/dL 50-170 [facility] Iron saturation [Mass fracti on]Ordered By: Mile Foster on 04-26-2024 Iron Saturation 12.0 % Low 13-59 [facility] Iron+Iron Binding Capacityon 04-26-2024 Iron [Mass/Vol] 50 ug/dL Normal 50-170 [facility] Comment on above: Performed By: #### L 503.9714, L503.6524, L100.0100 ####[facility] [address] [place], [address] IRON SATURATION 12.0 Low 13-59 [facility] Comment on above: Performed By: #### L 503.6030, L503.6550, L100.0100 ####[facility] [address] [place], [address] TIBC 422 ug/dL Normal 250-450 [facility] Comment on above: Performed By: #### L 503.6030, L503.6550, L100.0100 ####[facility] [address] [place], [address] UIBC 372 ug/dL Normal 228-428 [facility] Comment on above: Performed By: #### L 503.6030, L503.6550, L100.0100 ####[facility] [address] [place], [address] Lymphocytes Auto (Unsp spec) [#/Vol]Ordered By: Mile Foster on 04-26-2024 Lymphocytes (Bld) [#/Vol] 1.23 10*3/uL 0.83-4.51 [facility] Lymphocytes/100 WBC Auto (Un sp spec)Ordered By: Mile Foster on 04-26-2024 Lymphocytes/100 WBC (Bld) 23.1 % 19-41 [facility] MCV (mean corpuscular volume ) determinationOrdered By: Mile Foster on 04-26-2024 MCV (RBC) [Entitic vol] 91.0 fL 81-99 [facility] Mean corpuscular hemoglobin (MCH) determinationOrdered By: Mile Foster on 04-26-2024 MCH (RBC) [Entitic mass] 27.9 pg 27.0-32.0 [facility] Mean corpuscular hemoglobin concentration (MCHC) determinationOrdered By: Mile Foster on 04-26-2024 MCHC (RBC) [Mass/Vol] 30.6 g/dL Low 32-36 [facility] Mean platelet volume determi nationOrdered By: Mile Foster on 04-26-2024 Platelet mean volume (Bld) [Entitic vol] 10.6 fL 6.2-12.0 [facility] Monocyte percentageOrdered B y: Siddharthnicjulieta Riceyinkavignesh on 04-26-2024 Monocytes/100 WBC (Bld) 11.4 % High 0-10 [facility] Neutrophil percentageOrdered By: Mile Riceyinkavignesh on 04-26-2024 Neutrophils/100 WBC (Bld) 60.6 % 47-70 [facility] No Panel InformationOrdered By: Mile Foster on 04-26-2024 Unsaturated Iron Binding Capacity 372 ug/dL 228-428 [facility] Nucleated red blood cell per centageOrdered By: Mile Foster on 04-26-2024 Nucleated RBC/100 WBC (Bld) [Ratio] 0 % 0-5 [facility] Platelet countOrdered By: Triny scottylizet Foster on 04-26-2024 Platelets (Bld) [#/Vol] 364 10*3/uL 150-450 [facility] RBC Auto (Bld) [#/Vol]Ordere d By: Siddharthnicjulieta Foster on 04-26-2024 RBC (Bld) [#/Vol] 3.77 10*6/uL Low 4.2-5.4 [facility] Serum or plasma ferritin malachi surement (mass/volume)Ordered By: Mile Foster on 04-26-2024 Ferritin [Mass/Vol] 14 ng/mL Low 22-378 [facility] Serum or plasma iron saturat ion measurement (mass fraction)Ordered By: Mile Foster on 04-26-2024 Iron saturation [Mass fraction] 12.0 % Low 13-59 [facility] White blood cell (WBC) count Ordered By: Mile Foster on 04-26-2024 WBC (Bld) [#/Vol] 5.3 10*3/uL 4.4-11.0 [facility] Office Visit Reporton 2024 Office Visit Report [facility] [place] [address] OFFICE VISIT Date of Service: 04/17/24 MR#: [id number] Acct: [id number] Patient: CHELSEA GARCIA Rep #: [id number] : 1945 Provider: ARTIS NURSE Age/Sex: 78/F Location: [facility] Status: Signed Intake Vital Signs 03/17/24 12:24 [...] Performing Provider: Mile Foster MD Performing Location: [facility] Administered by: Mandy Whatley LPN on 04/17/24 10:03 Dose Route Admin Location Dispensed Lot Number Expiration Date NDC Man ufacturer 1,000 mcg IM right deltoid 1 mL [id number] 08/07/25 16053-434-85 PAPA THERA Comments: pt presented to office requesting her [...] past year?: No 04/17/24 1314 Date Mile Breaux Signature: Date (if applicable) CC: Normal [facility] Office Visit Reporton 2024 Office Visit Report [facility] [address] [place] [address] OFFICE VISIT Date of Service: 03/20/24 MR#: [id number] Acct: [id number] Patient: CHELSEA GARCIA Rep #: [id number] : 1945 Provider: ARTIS NURSE Age/Sex: 78/F Location: [facility] Status: Signed Intake Vital Signs 02/11/24 09:30 [...] Performing Provider: Mile Foster MD Performing Location: [facility] Administered by: Courtney Blum on 03/20/24 09:56 Dose Route Admin Location Dispensed Lot Number Expiration Date [facility] Man ufacturer 1,000 mcg IM Right Deltoid 1 mL [id number] 08/07/25 15003-527-68 VITRUVI THERA Assessment and Plan Assessment and [...] Cosigner Signature: Date (if applicable) CC: Normal [facility] Office Visit Reporton 2024 Office Visit Report [facility] [address] [place] [address] OFFICE VISIT Date of Service: 02/21/24 MR#: [id number] Acct: [id number] Patient: CHELSEA GARCIA Rep #: [id number] : 1945 Provider: ARTIS NURSE Age/Sex: 78/F [place] [facility] Status: Signed Intake Vital Signs 01/14/24 09:41 [...] Performing Provider: Mile Foster MD Performing Location: [facility] Administered by: Monika Paula on 02/21/24 09:29 Dose Route Admin Location Dispensed Lot Number Expiration Date ND Man ufacturer 1,000 mcg IM left arm sq 1 mL [id number] 02/21/24 66903-710-56 DAVID MONET Assessment and Plan Assessment and [...] Breaux Signature: Date (if applicable) CC: Normal [facility] Absolute neutrophil countOrd ered By: Mile Foster on 01-28-2024 Neutrophils (Bld) [#/Vol] 3.4 10*3/uL 2.0-7.7 [facility] Basic Metabolic Profile (BMP )on 01-28-2024 BUN/CRE 28.0 RATIO High 11-27 [facility] Comment on above: Performed By: #### L 500.2500, L100.0100 ####[facility] [address] [place], [address] CA,Total 9.1 mg/dL Normal 8.5-10.1 [facility] Comment on above: Performed By: #### L 500.2500, L100.0100 ####[facility] [address] [place], [address] Chloride [Moles/Vol] 108 mmol/L High 98-107 [facility] Comment on above: Performed By: #### L 500.2500, L100.0100 ####[facility] [address] [place], [address] CO2 [Moles/Vol] 27.0 mmol/L Normal 21.0-32.0 [facility] Comment on above: Performed By: #### L 500.2500, L100.0100 ####[facility] [address] [place], [address] Creatinine [Mass/Vol] 0.86 mg/dL Normal 0.55-1.02 [facility] Comment on above: Result Comment: The validity of the calculated GFR GFRAA in patients over 70 years has not been determined. Clinical correlation is essential. Performed By: #### L 500.2500, L100.0100 ####[facility] [address] [place], [address] EST GFR - AA 82 mL/min Normal >60 [facility] Comment on above: Result Comment: Afri can Bruneian GFR Calc Performed By: #### L 500.2500, L100.0100 ####[facility] [address] [place], [address] GAP 5 Normal 5-15 [facility] Comment on above: Performed By: #### L 500.2500, L100.0100 ####[facility] [address] [place], [address] GFR/1.73 sq M.predicted among non-blacks MDRD (S/P/Bld) [Vol rate/Area] 68 mL/min/{1.73_m2} Normal >60 [facility] Comment on above: Result Comment: Non- GFR Calc Performed By: #### L 500.2500, L100.0100 ####[facility] [address] [place], [address] Glucose [Mass/Vol] 99 mg/dL Normal 74-106 [facility] Comment on above: Performed By: #### L 500.2500, L100.0100 ####[facility] [address] [place], [address] Potassium [Moles/Vol] 4.8 mmol/L Normal 3.5-5.1 [facility] Comment on above: Performed By: #### L 500.2500, L100.0100 ####[facility] [address] [place], [address] Sodium [Moles/Vol] 139 mmol/L Normal 136-145 [facility] Comment on above: Performed By: #### L 500.2500, L100.0100 ####[facility] [address] [place], [address] Urea nitrogen [Mass/Vol] 24 mg/dL High 08-25 [facility] Comment on above: Performed By: #### L 500.2500, L100.0100 ####[facility] [address] [place], [address] Basophil percentageOrdered B y: Mile Foster on 01-28-2024 Basophils/100 WBC (Bld) 1.1 % High 0-1 [facility] Blood urea nitrogen (BUN)/cr eatinine ratioOrdered By: Mile Foster on 01-28-2024 Urea nitrogen/Creatinine [Mass ratio] 28.0 mg/mg High 11-27 [facility] CBC W/Diff, Automatedon 01-09 Absolute Lymph 1.41 X10 3/uL Normal 0.83-4.51 [facility] Comment on above: Performed By: #### L 500.2500, L100.0100 ####[facility] [address] [place], [address] Absolute Neut 3.4 X10 3/uL Normal 2.0-7.7 [facility] Comment on above: Performed By: #### L 500.2500, L100.0100 ####[facility] [address] [place], [address] Basophils/100 WBC (Bld) 1.1 % High 0-1 [facility] Comment on above: Performed By: #### L 500.2500, L100.0100 ####[facility] [address] [place], [address] Eosinophils/100 WBC (Bld) 3.2 % Normal 0-5 [facility] Comment on above: Performed By: #### L 500.2500, L100.0100 ####[facility] [address] [place], [address] Erythrocyte distribution width (RBC) [Ratio] 15.0 % High 11.6-14.6 [facility] Comment on above: Performed By: #### L 500.2500, L100.0100 ####[facility] [address] [place], [address] Hematocrit (Bld) [Volume fraction] 35.9 % Low 37-47 [facility] Comment on above: Performed By: #### L 500.2500, L100.0100 ####[facility] [address] [place], [address] Hemoglobin (Bld) [Mass/Vol] 10.9 g/dL Low 12.0-15.0 [facility] Comment on above: Performed By: #### L 500.2500, L100.0100 ####[facility] [address] [place], [address] IG% 0.400 Normal 0.0-0.9 [facility] Comment on above: Result Comment: IG% - Immature Granulocytes (promyelocytes, myelocytes and metamyelocytes) > 1% indicates that a LEFT SHIFT is Present. Performed By: #### L 500.2500, L100.0100 ####[facility] [address] [place], [address] Lymphocytes/100 WBC (Bld) 24.7 % Normal 19-41 [facility] Comment on above: Performed By: #### L 500.2500, L100.0100 ####[facility] [address] [place], [address] MCH (RBC) [Entitic mass] 27.6 pg Normal 27.0-32.0 [facility] Comment on above: Performed By: #### L 500.2500, L100.0100 ####[facility] [address] [place], [address] MCHC (RBC) [Mass/Vol] 30.4 g/dL Low 32-36 [facility] Comment on above: Performed By: #### L 500.2500, L100.0100 ####[facility] [address] [place], [address] MCV (RBC) [Entitic vol] 90.9 fL Normal 81-99 [facility] Comment on above: Performed By: #### L 500.2500, L100.0100 ####[facility] [address] [place], [address] Monocytes/100 WBC (Bld) 11.9 % High 0-10 [facility] Comment on above: Performed By: #### L 500.2500, L100.0100 ####[facility] [address] [place], [address] Neutrophils/100 WBC (Bld) 58.7 % Normal 47-70 [facility] Comment on above: Performed By: #### L 500.2500, L100.0100 ####[facility] [address] [place], [address] Nucleated RBC (Bld) [#/Vol] 0 10*3/uL Normal 0-5 [facility] Comment on above: Performed By: #### L 500.2500, L100.0100 ####[facility] [address] [place], [address] Platelet mean volume (Bld) [Entitic vol] 10.9 fL Normal 6.2-12.0 [facility] Comment on above: Performed By: #### L 500.2500, L100.0100 ####[facility] [address] [place], [address] Platelets (Bld) [#/Vol] 377 10*3/uL Normal 150-450 [facility] Comment on above: Performed By: #### L 500.2500, L100.0100 ####[facility] [address] [place], [address] RBC (Bld) [#/Vol] 3.95 10*6/uL Low 4.2-5.4 [facility] Comment on above: Performed By: #### L 500.2500, L100.0100 ####[facility] [address] [place], [address] RDW SD 50.2 fl High 35.1-43.9 [facility] Comment on above: Performed By: #### L 500.2500, L100.0100 ####[facility] [address] [place], [address] WBC (Bld) [#/Vol] 5.7 10*3/uL Normal 4.4-11.0 [facility] Comment on above: Performed By: #### L 500.2500, L100.0100 ####[facility] [address] [place], [address] Carbon dioxide measurementOr dered By: Mile Foster on 01-28-2024 CO2 [Moles/Vol] 27.0 mmol/L 21.0-32.0 [facility] Chloride measurementOrdered By: Mile Foster on 01-28-2024 Chloride [Moles/Vol] 108 mmol/L High 98-107 [facility] Eosinophil percentageOrdered By: Mile Foster on 01-28-2024 Eosinophils/100 WBC (Bld) 3.2 % 0-5 [facility] Erythrocyte distribution wid th ratioOrdered By: Mile Foster on 01-28-2024 Erythrocyte distribution width (RBC) [Ratio] 15.0 % High 11.6-14.6 [facility] Erythrocyte distribution wid th standard deviationOrdered By: Trinypartha Foster on 01-28-2024 Erythrocyte distribution width (RBC) [Entitic vol] 50.2 fL High 35.1-43.9 [facility] Estimated glomerular filtrat ion rate (GFR) AmericanOrdered By: Mile Foster on 01-28-2024 Estimated GFR (MDRD) Amer 82 mL/min >60 [facility] Comment on above: GFR Calc Glomerular filtration rate ( GFR) estimationOrdered By: Mile Foster on 01-28-2024 Estimated GFR (MDRD) Non-Af Amer 68 mL/min >60 [facility] Comment on above: Non- GFR Calc Glucose measurementOrdered B y: Mile Foster on 01-28-2024 Glucose [Mass/Vol] 99 mg/dL 74-106 [facility] Hematocrit Auto (Bld) [Volum e fraction]Ordered By: Mile Foster on 01-28-2024 Hematocrit (Bld) [Volume fraction] 35.9 % Low 37-47 [facility] Hemoglobin measurementOrdere d By: Mile Foster on 01-28-2024 Hemoglobin (Bld) [Mass/Vol] 10.9 g/dL Low 12.0-15.0 [facility] Immature granulocytes/100 WB C Auto (Bld)Ordered By: Mile Foster on 01-28-2024 Immature granulocytes/100 WBC (Bld) 0.400 % 0.0-0.9 [facility] Comment on above: IG% - Immature Granu locytes (promyelocytes, myelocytes and metamyelocytes) > 1% indicates that a LEFT SHIFT is Present. Internal Medicine Office Vis lala 01-28-2024 Internal Medicine Office Visit [facility] [address] [place] [address] OFFICE VISIT Date of Service: 01/28/24 MR#: [id number] Acct: [id number] Name: ARIEL GARCIAGladis Nuñez Rep #: [id number] : 1945 Provider: Dr. 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 Normal [facility] Lymphocytes Auto (Unsp spec) [#/Vol]Ordered By: Mile Foster on 01-28-2024 Lymphocytes (Bld) [#/Vol] 1.41 10*3/uL 0.83-4.51 [facility] Lymphocytes/100 WBC Auto (Un sp spec)Ordered By: Mile Foster on 01-28-2024 Lymphocytes/100 WBC (Bld) 24.7 % 19-41 [facility] MCV (mean corpuscular volume ) determinationOrdered By: Mile Foster on 01-28-2024 MCV (RBC) [Entitic vol] 90.9 fL 81-99 [facility] Mean corpuscular hemoglobin (MCH) determinationOrdered By: Mile Foster on 01-28-2024 MCH (RBC) [Entitic mass] 27.6 pg 27.0-32.0 [facility] Mean corpuscular hemoglobin concentration (MCHC) determinationOrdered By: Mile Foster on 01-28-2024 MCHC (RBC) [Mass/Vol] 30.4 g/dL Low 32-36 [facility] Mean platelet volume determi nationOrdered By: Mile Foster on 01-28-2024 Platelet mean volume (Bld) [Entitic vol] 10.9 fL 6.2-12.0 [facility] Monocyte percentageOrdered B y: Mile Foster on 01-28-2024 Monocytes/100 WBC (Bld) 11.9 % High 0-10 [facility] Neutrophil percentageOrdered By: Mile Foster on 01-28-2024 Neutrophils/100 WBC (Bld) 58.7 % 47-70 [facility] Nucleated red blood cell per centageOrdered By: Mile Foster on 01-28-2024 Nucleated RBC/100 WBC (Bld) [Ratio] 0 % 0-5 [facility] Platelet countOrdered By: Triny Foster on 01-28-2024 Platelets (Bld) [#/Vol] 377 10*3/uL 150-450 [facility] Potassium measurementOrdered By: Mile Foster on 01-28-2024 Potassium [Moles/Vol] 4.8 mmol/L 3.5-5.1 [facility] RBC Auto (Bld) [#/Vol]Ordere d By: Mile Foster on 01-28-2024 RBC (Bld) [#/Vol] 3.95 10*6/uL Low 4.2-5.4 [facility] Serum anion gap measurementO rdered By: Mile Foster on 01-28-2024 Anion gap [Moles/Vol] 5 mmol/L 5-15 [facility] Serum or plasma calcium doron urement (mass/volume)Ordered By: Maria Guadalupejulieta Riceyinkavignesh on 01-28-2024 Calcium [Mass/Vol] 9.1 mg/dL 8.5-10.1 [facility] Serum or plasma creatinine m easurement (mass/volume)Ordered By: Maria Guadalupejulieta Riceyinkavignesh on 01-28-2024 Creatinine [Mass/Vol] 0.86 mg/dL 0.55-1.02 [facility] Comment on above: The validity of the calculated GFR & GFRAA in patients over 70 years has not been determined. Clinical correlation is essential. Serum or plasma urea nitroge n measurement (mass/volume)Ordered By: Mile Foster on 01-28-2024 Urea nitrogen [Mass/Vol] 24 mg/dL High 7-18 [facility] Sodium levelOrdered By: Siddharth Foster on 01-28-2024 Sodium [Moles/Vol] 139 mmol/L 136-145 [facility] White blood cell (WBC) count Ordered By: Mile Foster on 01-28-2024 WBC (Bld) [#/Vol] 5.7 10*3/uL 4.4-11.0 [facility] Office Visit Reporton 2023 Office Visit Report [facility] [address] [place] [address] OFFICE VISIT Date of Service: 01/20/24 MR#: [id number] Acct: [id number] Patient: CHELSEA GARCIA Rep #: [id number] : 1945 Provider: ARTIS NURSE Age/Sex: 78/F Location[place] [facility] [place] Status: Signed with Addenda ADDENDUM by Dr. [...] Performing Provider: Mile Foster MD Performing Location: [facility] Administered by: Loida Mansfiled MA on 01/20/24 10:12 Dose Route Admin Location Dispensed Lot Number Expiration Date ZBIGNIEW Araujo ufacturer 1,[address] 1 mL [id number] 07/09/25 62363-713-57 DAVID MONET Assessment and Plan Assessment and Plan Orders: Orders Vitamin B12 Today E53.8 - Deficiency of other specified B group vitamins Plan Details Goals Barriers: Goals Decrease pain Decrease spasm Improve ROM Barriers Scoliosis DDD Clinical Quality Measures Falls Risk Screening/Assistive Devices Have you fallen in the past year?: No 01/20/24 1553 Date Kirti Ibanez MD [facility] Signature: Date (if applicable) CC: Normal [facility] Office Visit Reporton 2023 Office Visit Report [facility] [address] [place] [address] OFFICE VISIT Date of Service: 12/23/23 MR#: [id number] Acct: [id number] Patient: CHELSEA GARCIA Rep #: [id number] : 1945 Provider: ARTIS NURSE Age/Sex: 78/F [place] [facility] Status: Signed with Addenda ADDENDUM by Dr. [...] Performing Provider: Mile Foster MD Performing Location: [facility] Administered by: Loida Mansfield MA on 12/23/23 09:02 Dose Route Admin Location Dispensed Lot Number Expiration Date [facility] ufacturer 1,000 mcg IM LD 1 mL [id number] 07/09/25 52725-333-01 DAVID MONET Assessment and Plan Assessment and Plan Orders: Orders Vitamin B12 Today E53.8 - Deficiency of other specified B group vitamins Plan Details Goals Barriers: Goals Decrease pain Decrease spasm Improve ROM Barriers Scoliosis DDD Clinical Quality Measures Falls Risk Screening/Assistive Devices Have you fallen in the past year?: No 12/23/2336 Date Kirti Ibanez MD Cosigner Signature: Date (if applicable) CC: Normal [facility] Basophil percentageOrdered B y: Mile Foster on 05-12-2023 Chloride [Moles/Vol] 105 mmol/L 98-107 [facility] Glucose [Mass/Vol] 108 mg/dL 74-106 [facility] Comment on above: Fasting Glucose resu lt from 100 to 125 mg/dL suggests IMPAIRED HOMEOSTASIS per A.D.A. criteria. Potassium [Moles/Vol] 4.3 mmol/L 3.5-5.1 [facility] Sodium [Moles/Vol] 138 mmol/L 136-145 [facility] Laboratory - Chemistry and C hemistry - challengeOrdered By: Mile Foster on 05-12-2023 CO2 [Moles/Vol] 31.0 mmol/L 21.0-32.0 [facility] Cobalamin (Vitamin B12) [Mass/Vol] 434 pg/mL 211-911 [facility] Urea nitrogen/Creatinine [Mass ratio] 24.0 mg/mg 10-20 [facility] No Panel InformationOrdered By: Mile Foster on 05-12-2023 Estimated GFR (MDRD) Amer 66 mL/min >60 [facility] Comment on above: GFR Calc Estimated GFR (MDRD) Non-Af Amer 54 mL/min >60 [facility] Comment on above: Non- GFR Calc Vitamin D 25-Hydroxy 68.3 ng/mL [facility] Comment on above: Vitamin D 25(OH) Sta tus Range Deficiency <20 ng/mL (50nmol/L) Insufficiency 20 - 30 ng/mL (50 - 75 nmol/L) Sufficiency 30 - 100 ng/mL (75 - 250 nmol/L) Toxicity >100 ng/mL (>250 nmol/L) Serum or plasma calcium doron urement (mass/volume)Ordered By: Mile Foster on 05-12-2023 Calcium [Mass/Vol] 9.5 mg/dL 8.5-10.1 [facility] Serum or plasma creatinine m easurement (mass/volume)Ordered By: Mile Foster on 05-12-2023 Creatinine [Mass/Vol] 1.04 mg/dL 0.55-1.02 [facility] Comment on above: The validity of the calculated GFR & GFRAA in patients over 70 years has not been determined. Clinical correlation is essential. Serum or plasma urea nitroge n measurement (mass/volume)Ordered By: Mile Foster on 05-12-2023 Urea nitrogen [Mass/Vol] 25 mg/dL 7-18 [facility] Thin prep Papanicolaou smear with manual screeningOrdered By: Mile Foster on 05-12-2023 Thin prep Papanicolaou smear with manual screening 2 5-15 [facility] Basophil percentageOrdered B y: Mile Foster on 02-10-2023 Chloride [Moles/Vol] 106 mmol/L 98-107 [facility] Cholesterol [Mass/Vol] 187 mg/dL <200 [facility] Comment on above: <200 mg/dL Desirable 200-240 mg/dL Borderline >240 mg/dL High Risk Glucose [Mass/Vol] 96 mg/dL 74-106 [facility] Potassium [Moles/Vol] 4.7 mmol/L 3.5-5.1 [facility] Sodium [Moles/Vol] 142 mmol/L 136-145 [facility] Triglyceride [Mass/Vol] 170 mg/dL <199 [facility] Comment on above: The drugs N-Acetylcy steine and Metamizole may falsely depress this assay.Serum Triglycerides Reference Interval Normal <150 mg/dL Borderline high 150 - 199 mg/dL High 200 - 499 mg/dL Very High > or = 500 mg/dL Laboratory - Chemistry and C hemistry - challengeOrdered By: Mile Foster on 02-10-2023 CO2 [Moles/Vol] 29.0 mmol/L 21.0-32.0 [facility] Urea nitrogen/Creatinine [Mass ratio] 23.1 mg/mg 10-20 [facility] No Panel InformationOrdered By: Mile Foster on 02-10-2023 Estimated GFR (MDRD) Amer 77 mL/min >60 [facility] Comment on above: GFR Calc Estimated GFR (MDRD) Non-Af Amer 63 mL/min >60 [facility] Comment on above: Non- GFR Calc Serum or plasma calcium doron urement (mass/volume)Ordered By: Mile Foster on 02-10-2023 Calcium [Mass/Vol] 9.1 mg/dL 8.5-10.1 [facility] Serum or plasma cholesterol in HDL measurement (mass/volume)Ordered By: Mile Foster on 02-10-2023 Cholesterol in HDL [Mass/Vol] 53 mg/dL >40 [facility] Comment on above: The drugs N-Acetylcy steine and Metamizole may falsely depress this assay. Reference Range HDL <40 mg/dL Low HDL Cholesterol HDL >or= 60 mg/dL High HDL Cholesterol Serum or plasma cholesterol in VLDL measurement (mass/volume)Ordered By: Mile Foster on 02-10-2023 Cholesterol in VLDL [Mass/Vol] 34 mg/dL 5-40 [facility] Serum or plasma creatinine m easurement (mass/volume)Ordered By: Mile Foster on 02-10-2023 Creatinine [Mass/Vol] 0.91 mg/dL 0.55-1.02 [facility] Comment on above: The validity of the calculated GFR & GFRAA in patients over 70 years has not been determined. Clinical correlation is essential. Serum or plasma low density lipoprotein (LDL) cholesterol measurement (mass/volume)Ordered By: Mile Foster on 02-10-2023 Cholesterol in LDL [Mass/Vol] 100 mg/dL 0-130 [facility] Serum or plasma urea nitroge n measurement (mass/volume)Ordered By: Mile Foster on 02-10-2023 Urea nitrogen [Mass/Vol] 21 mg/dL 7-18 [facility] Thin prep Papanicolaou smear with manual screeningOrdered By: Mile Foster on 02-10-2023 Thin prep Papanicolaou smear with manual screening 7 5-15 [facility] Absolute lymphocyte countOrd ered By: Arnulfo Nguyen on 11-12-2022 Lymphocytes Auto (Unsp spec) [#/Vol] 0.90 10*3/uL 0.83-4.51 [facility] Basophil percentageOrdered B y: Arnulfo Nguyen on 11-12-2022 Basophils/100 WBC (Bld) 0.6 % 0-1 [facility] Chloride [Moles/Vol] 106 mmol/L 98-107 [facility] Eosinophils/100 WBC (Bld) 1.1 % 0-5 [facility] Glucose [Mass/Vol] 111 mg/dL 74-106 [facility] Comment on above: Fasting Glucose resu lt from 100 to 125 mg/dL suggests IMPAIRED HOMEOSTASIS per A.D.A. criteria. Neutrophils (Bld) [#/Vol] 5.5 10*3/uL 2.0-7.7 [facility] Neutrophils/100 WBC (Bld) 75.7 % 47-70 [facility] Potassium [Moles/Vol] 4.4 mmol/L 3.5-5.1 [facility] Sodium [Moles/Vol] 139 mmol/L 136-145 [facility] WBC (Bld) [#/Vol] 7.2 10*3/uL 4.4-11.0 [facility] Blood erythrocytes count (nu mber/volume)Ordered By: Arnulfo Nguyen on 11-12-2022 RBC (Bld) [#/Vol] 3.71 10*6/uL 4.2-5.4 [facility] Blood hemoglobin measurement (mass/volume)Ordered By: Arnulfo Nguyen on 11-12-2022 Hemoglobin (Bld) [Mass/Vol] 11.0 g/dL 12.0-15.0 [facility] Blood lymphocytes/100 leukoc ytesOrdered By: Arnulfo Nguyen on 11-12-2022 Lymphocytes/100 WBC (Bld) 12.4 % 19-41 [facility] Blood monocytes/100 leukocyt esOrdered By: Arnulfo Nguyen on 11-12-2022 Monocytes/100 WBC (Bld) 9.8 % 0-10 [facility] Blood platelet mean volumeOr dered By: Arnulfo Nguyen on 11-12-2022 Platelet mean volume (Bld) [Entitic vol] 9.8 fL 6.2-12.0 [facility] Determination of erythrocyte mean corpuscular volume (MCV)Ordered By: Arnulfo Nguyen on 11-12-2022 MCV (RBC) [Entitic vol] 95.4 fL 81-99 [facility] Hematocrit Auto (Bld) [Volum e fraction]Ordered By: Arnulfo Nguyen on 11-12-2022 Hematocrit (Bld) [Volume fraction] 35.4 % 37-47 [facility] - Chemistry and C hemistry - challengeOrdered By: Arnulfo Nguyen on 11-12-2022 CO2 [Moles/Vol] 27.0 mmol/L 21.0-32.0 [facility] Urea nitrogen/Creatinine [Mass ratio] 21.4 mg/mg 10-20 [facility] - Hematology and Cell countsOrdered By: Arnulfo Nguyen on 11-12-2022 Erythrocyte distribution width (RBC) [Entitic vol] 51.7 fL 35.1-43.9 [facility] Erythrocyte distribution width (RBC) [Ratio] 14.6 % 11.6-14.6 [facility] Immature granulocytes/100 WBC (Bld) 0.400 % 0.0-0.9 [facility] Comment on above: IG% - Immature Granu locytes (promyelocytes, myelocytes and metamyelocytes) > 1% indicates that a LEFT SHIFT is Present. MCH (RBC) [Entitic mass] 29.6 pg 27.0-32.0 [facility] Nucleated RBC/100 WBC (Bld) [Ratio] 0 % 0-5 [facility] MCHC Auto (RBC) [Mass/Vol]Or dered By: Arnulfo Nguyen on 11-12-2022 MCHC (RBC) [Mass/Vol] 31.1 g/dL 32-36 [facility] No Panel InformationOrdered By: Arnulfo Nguyen on 11-12-2022 Troponin I High Sensitivity 7 pg/mL 3.0-54.0 [facility] Comment on above: Please Note: New Yaz t Units and Gender Specific Reference Ranges. For more information see Policy Stat Procedure Miller High Sensitivity Troponin (TNIH) and attachments. D-Dimer Quantitative (PE/DVT) 0.49 FEU/ug/m 0.27-0.49 [facility] Comment on above: NORMAL D-Dimer level (<0.50) indicates no DVT or PE. Estimated Creatinine Clearance Calc 32.33 ml/min [facility] Estimated GFR (MDRD) Amer 67 mL/min >60 [facility] Comment on above: GFR Calc Estimated GFR (MDRD) Non-Af Amer 55 mL/min >60 [facility] Comment on above: Non- GFR Calc Platelets bldOrdered By: Tanner Nguyen on 11-12-2022 Platelets (Bld) [#/Vol] 339 10*3/uL 150-450 [facility] Serum or plasma calcium doron urement (mass/volume)Ordered By: Arnulfo Nguyen on 11-12-2022 Calcium [Mass/Vol] 9.3 mg/dL 8.5-10.1 [facility] Serum or plasma creatinine m easurement (mass/volume)Ordered By: Arnulfo Nguyen on 11-12-2022 Creatinine [Mass/Vol] 1.03 mg/dL 0.55-1.02 [facility] Comment on above: The validity of the calculated GFR & GFRAA in patients over 70 years has not been determined. Clinical correlation is essential. Serum or plasma urea nitroge n measurement (mass/volume)Ordered By: Arnulfo Nguyen on 11-12-2022 Urea nitrogen [Mass/Vol] 22 mg/dL 7-18 [facility] Thin prep Papanicolaou smear with manual screeningOrdered By: Arnulfo Nguyen on 11-12-2022 Thin prep Papanicolaou smear with manual screening 6 5-15 [facility] Absolute lymphocyte countOrd ered By: Arnulfo Nguyen on 11-04-2022 Lymphocytes Auto (Unsp spec) [#/Vol] 1.62 10*3/uL 0.83-4.51 [facility] Basophil percentageOrdered B y: Arnulfo Nguyen on 11-04-2022 Basophils/100 WBC (Bld) 0.8 % 0-1 [facility] Chloride [Moles/Vol] 106 mmol/L 98-107 [facility] Eosinophils/100 WBC (Bld) 1.8 % 0-5 [facility] Glucose [Mass/Vol] 149 mg/dL 74-106 [facility] Comment on above: Fasting Glucose resu lt greater than or equal to 126 mg/dL suggests DIABETES MELLITUS per A.D.A. criteria. Neutrophils (Bld) [#/Vol] 4.2 10*3/uL 2.0-7.7 [facility] Neutrophils/100 WBC (Bld) 63.1 % 47-70 [facility] Potassium [Moles/Vol] 3.6 mmol/L 3.5-5.1 [facility] Sodium [Moles/Vol] 138 mmol/L 136-145 [facility] WBC (Bld) [#/Vol] 6.6 10*3/uL 4.4-11.0 [facility] Blood erythrocytes count (nu mber/volume)Ordered By: Arnulfo Nguyen on 11-04-2022 RBC (Bld) [#/Vol] 3.74 10*6/uL 4.2-5.4 [facility] Blood hemoglobin measurement (mass/volume)Ordered By: Arnulfo Nguyen on 11-04-2022 Hemoglobin (Bld) [Mass/Vol] 11.0 g/dL 12.0-15.0 [facility] Blood lymphocytes/100 leukoc ytesOrdered By: Arnulfo Nguyen on 11-04-2022 Lymphocytes/100 WBC (Bld) 24.5 % 19-41 [facility] Blood monocytes/100 leukocyt esOrdered By: Arnlufo Nguyen on 11-04-2022 Monocytes/100 WBC (Bld) 9.5 % 0-10 [facility] Blood platelet mean volumeOr dered By: Arnulfo Nguyen on 11-04-2022 Platelet mean volume (Bld) [Entitic vol] 10.1 fL 6.2-12.0 [facility] Determination of erythrocyte mean corpuscular volume (MCV)Ordered By: Arnulfo Nguyen on 11-04-2022 MCV (RBC) [Entitic vol] 93.0 fL 81-99 [facility] Hematocrit Auto (Bld) [Volum e fraction]Ordered By: Arnulfo Nguyen on 11-04-2022 Hematocrit (Bld) [Volume fraction] 34.8 % 37-47 [facility] - Chemistry and C hemistry - challengeOrdered By: Arnulfo Nguyen on 11-04-2022 CO2 [Moles/Vol] 23.0 mmol/L 21.0-32.0 [facility] Comment on above: Previous reported re sult: 14.0 mmol/LEdited by: KIERAN on 11/05/22:0759 AMENDED REPORT 11/05/22 0759 CO2 previously reported as: 14.0 L mmol/L Urea nitrogen/Creatinine [Mass ratio] 17.6 mg/mg 10-20 [facility] - Hematology and Cell countsOrdered By: Arnulfo Nguyen on 11-04-2022 Erythrocyte distribution width (RBC) [Entitic vol] 51.2 fL 35.1-43.9 [facility] Erythrocyte distribution width (RBC) [Ratio] 15.0 % 11.6-14.6 [facility] Immature granulocytes/100 WBC (Bld) 0.300 % 0.0-0.9 [facility] Comment on above: IG% - Immature Granu locytes (promyelocytes, myelocytes and metamyelocytes) > 1% indicates that a LEFT SHIFT is Present. MCH (RBC) [Entitic mass] 29.4 pg 27.0-32.0 [facility] Nucleated RBC/100 WBC (Bld) [Ratio] 0 % 0-5 [facility] MCHC Auto (RBC) [Mass/Vol]Or dered By: Arnulfo Nguyen on 11-04-2022 MCHC (RBC) [Mass/Vol] 31.6 g/dL 32-36 [facility] No Panel InformationOrdered By: Arnulfo Nguyen on 11-04-2022 Estimated Creatinine Clearance Calc 33.18 ml/min [facility] Estimated GFR (MDRD) Amer 67 mL/min >60 [facility] Comment on above: GFR Calc Estimated GFR (MDRD) Non-Af Amer 56 mL/min >60 [facility] Comment on above: Non- GFR Calc Platelets bldOrdered By: Tanner Nguyen on 11-04-2022 Platelets (Bld) [#/Vol] 355 10*3/uL 150-450 [facility] Serum or plasma calcium doron urement (mass/volume)Ordered By: Arnulfo Nguyen on 11-04-2022 Calcium [Mass/Vol] 9.3 mg/dL 8.5-10.1 [facility] Serum or plasma creatinine m easurement (mass/volume)Ordered By: Arnulfo Nguyen on 11-04-2022 Creatinine [Mass/Vol] 1.02 mg/dL 0.55-1.02 [facility] Comment on above: The validity of the calculated GFR & GFRAA in patients over 70 years has not been determined. Clinical correlation is essential. Serum or plasma urea nitroge n measurement (mass/volume)Ordered By: Arnulfo Nguyen on 11-04-2022 Urea nitrogen [Mass/Vol] 18 mg/dL 7-18 [facility] Thin prep Papanicolaou smear with manual screeningOrdered By: Arnulfo Nguyen on 11-04-2022 Thin prep Papanicolaou smear with manual screening 9 5-15 [facility] Comment on above: Previous reported re sult: 18 Edited by: KIERAN on 11/05/22:0759 AMENDED REPORT 11/05/22 0759 GAP previously reported as: 18 H Absolute lymphocyte countOrd ered By: Mile Foster on 09-07-2022 Lymphocytes Auto (Unsp spec) [#/Vol] 1.22 10*3/uL 0.83-4.51 [facility] Basophil percentageOrdered B y: Mile Foster on 09-07-2022 Basophils/100 WBC (Bld) 0.4 % 0-1 [facility] Chloride [Moles/Vol] 107 mmol/L 98-107 [facility] Eosinophils/100 WBC (Bld) 1.2 % 0-5 [facility] Glucose [Mass/Vol] 101 mg/dL 74-106 [facility] Comment on above: Fasting Glucose resu lt from 100 to 125 mg/dL suggests IMPAIRED HOMEOSTASIS per A.D.A. criteria. Neutrophils (Bld) [#/Vol] 5.1 10*3/uL 2.0-7.7 [facility] Neutrophils/100 WBC (Bld) 68.7 % 47-70 [facility] Potassium [Moles/Vol] 4.2 mmol/L 3.5-5.1 [facility] Sodium [Moles/Vol] 138 mmol/L 136-145 [facility] WBC (Bld) [#/Vol] 7.4 10*3/uL 4.4-11.0 [facility] Blood erythrocytes count (nu mber/volume)Ordered By: Mile Foster on 09-07-2022 RBC (Bld) [#/Vol] 3.76 10*6/uL 4.2-5.4 [facility] Blood hemoglobin measurement (mass/volume)Ordered By: Mile Foster on 09-07-2022 Hemoglobin (Bld) [Mass/Vol] 11.0 g/dL 12.0-15.0 [facility] Blood lymphocytes/100 leukoc ytesOrdered By: Mile Foster on 09-07-2022 Lymphocytes/100 WBC (Bld) 16.4 % 19-41 [facility] Blood monocytes/100 leukocyt esOrdered By: Mile Foster on 09-07-2022 Monocytes/100 WBC (Bld) 12.5 % 0-10 [facility] Blood platelet mean volumeOr dered By: Mile Foster on 09-07-2022 Platelet mean volume (Bld) [Entitic vol] 10.2 fL 6.2-12.0 [facility] Determination of erythrocyte mean corpuscular volume (MCV)Ordered By: Mile Foster on 09-07-2022 MCV (RBC) [Entitic vol] 93.4 fL 81-99 [facility] Hematocrit Auto (Bld) [Volum e fraction]Ordered By: Mile Foster on 09-07-2022 Hematocrit (Bld) [Volume fraction] 35.1 % 37-47 [facility] - Chemistry and C hemistry - challengeOrdered By: [facility] Spaldingjulieta Ricevignesh on 09-07-2022 CO2 [Moles/Vol] 25.0 mmol/L 21.0-32.0 [facility] Cobalamin (Vitamin B12) [Mass/Vol] 186 pg/mL 211-911 [facility] Urea nitrogen/Creatinine [Mass ratio] 24.9 mg/mg 10-20 [facility] - Hematology and Cell countsOrdered By: scottygrand junctionjulieta Foster on 09-07-2022 Erythrocyte distribution width (RBC) [Entitic vol] 52.9 fL 35.1-43.9 [facility] Erythrocyte distribution width (RBC) [Ratio] 15.5 % 11.6-14.6 [facility] Immature granulocytes/100 WBC (Bld) 0.800 % 0.0-0.9 [facility] Comment on above: IG% - Immature Granu locytes (promyelocytes, myelocytes and metamyelocytes) > 1% indicates that a LEFT SHIFT is Present. MCH (RBC) [Entitic mass] 29.3 pg 27.0-32.0 [facility] Nucleated RBC/100 WBC (Bld) [Ratio] 0 % 0-5 [facility] MCHC Auto (RBC) [Mass/Vol]Or dered By: Mile Foster on 09-07-2022 MCHC (RBC) [Mass/Vol] 31.3 g/dL 32-36 [facility] No Panel InformationOrdered By: Mile Foster on 09-07-2022 Estimated GFR (MDRD) Amer 76 mL/min >60 [facility] Comment on above: GFR Calc Estimated GFR (MDRD) Non-Af Amer 63 mL/min >60 [facility] Comment on above: Non- GFR Calc Vitamin D 25-Hydroxy 45.9 ng/mL [facility] Comment on above: Vitamin D 25(OH) Sta tus Range Deficiency <20 ng/mL (50nmol/L) Insufficiency 20 - 30 ng/mL (50 - 75 nmol/L) Sufficiency 30 - 100 ng/mL (75 - 250 nmol/L) Toxicity >100 ng/mL (>250 nmol/L) Platelets bldOrdered By: Micah Foster on 09-07-2022 Platelets (Bld) [#/Vol] 367 10*3/uL 150-450 [facility] Serum or plasma calcium doron urement (mass/volume)Ordered By: Mile Foster on 09-07-2022 Calcium [Mass/Vol] 9.3 mg/dL 8.5-10.1 [facility] Serum or plasma creatinine m easurement (mass/volume)Ordered By: Mile Foster on 09-07-2022 Creatinine [Mass/Vol] 0.92 mg/dL 0.55-1.02 [facility] Comment on above: The validity of the calculated GFR & GFRAA in patients over 70 years has not been determined. Clinical correlation is essential. Serum or plasma urea nitroge n measurement (mass/volume)Ordered By: Mile Foster on 09-07-2022 Urea nitrogen [Mass/Vol] 23 mg/dL 18 [facility] Thin prep Papanicolaou smear with manual screeningOrdered By: Mile Foster on 09-07-2022 Thin prep Papanicolaou smear with manual screening 6 5-15 [facility] Absolute lymphocyte countOrd ered By: Dr. Foster on 02-25-2022 Lymphocytes Auto (Unsp spec) [#/Vol] 1.21 10*3/uL 0.83-4.51 [facility] Basophil percentageOrdered B y: Dr. Foster on 02-25-2022 Basophils/100 WBC (Bld) 0.9 % 0-1 [facility] Bilirubin [Mass/Vol] 0.20 mg/dL 0.20-1.00 [facility] Comment on above: For patients on eltr ombopag therapy, use of Dimension Miller TBIL is not recommended. Chloride [Moles/Vol] 106 mmol/L 98-107 [facility] Cholesterol [Mass/Vol] 162 mg/dL <200 [facility] Comment on above: <200 mg/dL Desirable 200-240 mg/dL Borderline >240 mg/dL High Risk Eosinophils/100 WBC (Bld) 2.2 % 0-5 [facility] Glucose [Mass/Vol] 99 mg/dL 74-106 [facility] Neutrophils (Bld) [#/Vol] 2.7 10*3/uL 2.0-7.7 [facility] Neutrophils/100 WBC (Bld) 58.4 % 47-70 [facility] Potassium [Moles/Vol] 4.7 mmol/L 3.5-5.1 [facility] Protein [Mass/Vol] 7.1 g/dL 6.4-8.2 [facility] Sodium [Moles/Vol] 139 mmol/L 136-145 [facility] Triglyceride [Mass/Vol] 180 mg/dL <199 [facility] Comment on above: The drugs N-Acetylcy steine and Metamizole may falsely depress this assay.Serum Triglycerides Reference Interval Normal <150 mg/dL Borderline high 150 - 199 mg/dL High 200 - 499 mg/dL Very High > or = 500 mg/dL WBC (Bld) [#/Vol] 4.6 10*3/uL 4.4-11.0 [facility] Blood erythrocytes count (nu mber/volume)Ordered By: Dr. Foster on 02-25-2022 RBC (Bld) [#/Vol] 3.87 10*6/uL 4.2-5.4 [facility] Blood hemoglobin measurement (mass/volume)Ordered By: Dr. Foster on 02-25-2022 Hemoglobin (Bld) [Mass/Vol] 11.2 g/dL 12.0-15.0 [facility] Blood lymphocytes/100 leukoc ytesOrdered By: Dr. Foster on 02-25-2022 Lymphocytes/100 WBC (Bld) 26.2 % 19-41 [facility] Blood monocytes/100 leukocyt esOrdered By: Dr. Foster on 02-25-2022 Monocytes/100 WBC (Bld) 11.9 % 0-10 [facility] Blood platelet mean volumeOr dered By: Dr. Foster on 02-25-2022 Platelet mean volume (Bld) [Entitic vol] 11.0 fL 6.2-12.0 [facility] Determination of erythrocyte mean corpuscular volume (MCV)Ordered By: Dr. Foster on 02-25-2022 MCV (RBC) [Entitic vol] 95.1 fL 81-99 [facility] Hematocrit Auto (Bld) [Volum e fraction]Ordered By: Dr. Foster on 02-25-2022 Hematocrit (Bld) [Volume fraction] 36.8 % 37-47 [facility] - Chemistry and C hemistry - challengeOrdered By: Dr. Foster on 02-25-2022 ALP [Catalytic activity/Vol] 97 U/L 45-117 [facility] ALT [Catalytic activity/Vol] 21 U/L 13-56 [facility] CO2 [Moles/Vol] 27.0 mmol/L 21.0-32.0 [facility] Globulin (S) [Mass/Vol] 3.5 g/dL 2.2-4.2 [facility] Urea nitrogen/Creatinine [Mass ratio] 23.4 mg/mg 10-20 [facility] - Hematology and Cell countsOrdered By: Dr. Foster on 02-25-2022 Erythrocyte distribution width (RBC) [Entitic vol] 48.9 fL 35.1-43.9 [facility] Erythrocyte distribution width (RBC) [Ratio] 13.9 % 11.6-14.6 [facility] Immature granulocytes/100 WBC (Bld) 0.400 % 0.0-0.9 [facility] Comment on above: IG% - Immature Granu locytes (promyelocytes, myelocytes and metamyelocytes) > 1% indicates that a LEFT SHIFT is Present. MCH (RBC) [Entitic mass] 28.9 pg 27.0-32.0 [facility] Nucleated RBC/100 WBC (Bld) [Ratio] 0.4 % 0-5 [facility] MCHC Auto (RBC) [Mass/Vol]Or dered By: Dr. Foster on 02-25-2022 MCHC (RBC) [Mass/Vol] 30.4 g/dL 32-36 [facility] No Panel InformationOrdered By: Dr. Foster on 02-25-2022 Estimated GFR (MDRD) Amer 78 mL/min >60 [facility] Comment on above: GFR Calc Estimated GFR (MDRD) Non-Af Amer 65 mL/min >60 [facility] Comment on above: Non- GFR Calc Platelets bldOrdered By: Dr. Foster on 02-25-2022 Platelets (Bld) [#/Vol] 353 10*3/uL 150-450 [facility] Serum or plasma albumin doron urement (mass/volume)Ordered By: Dr. Foster on 02-25-2022 Albumin [Mass/Vol] 3.6 g/dL 3.2-5.0 [facility] Serum or plasma albumin/glob ulin mass ratioOrdered By: Dr. Foster on 02-25-2022 Albumin/Globulin [Mass ratio] 1.0 {ratio} 0.9-2.4 [facility] Serum or plasma calcium doron urement (mass/volume)Ordered By: Dr. Foster on 02-25-2022 Calcium [Mass/Vol] 9.7 mg/dL 8.5-10.1 [facility] Serum or plasma cholesterol in HDL measurement (mass/volume)Ordered By: Dr. Foster on 02-25-2022 Cholesterol in HDL [Mass/Vol] 51 mg/dL >40 [facility] Comment on above: The drugs N-Acetylcy steine and Metamizole may falsely depress this assay. Reference Range HDL <40 mg/dL Low HDL Cholesterol HDL >or= 60 mg/dL High HDL Cholesterol Serum or plasma cholesterol in VLDL measurement (mass/volume)Ordered By: Dr. Foster on 02-25-2022 Cholesterol in VLDL [Mass/Vol] 36 mg/dL 5-40 [facility] Serum or plasma creatinine m easurement (mass/volume)Ordered By: Dr. Foster on 02-25-2022 Creatinine [Mass/Vol] 0.90 mg/dL 0.55-1.02 [facility] Comment on above: The validity of the calculated GFR & GFRAA in patients over 70 years has not been determined. Clinical correlation is essential. Serum or plasma low density lipoprotein (LDL) cholesterol measurement (mass/volume)Ordered By: Dr. Foster on 02-25-2022 Cholesterol in LDL [Mass/Vol] 75 mg/dL 0-130 [facility] Serum or plasma urea nitroge n measurement (mass/volume)Ordered By: Dr. Foster on 02-25-2022 Urea nitrogen [Mass/Vol] 21 mg/dL 7-18 [facility] Thin prep Papanicolaou smear with manual screeningOrdered By: Dr. Foster on 02-25-2022 Thin prep Papanicolaou smear with manual screening 15 U/L 15-37 [facility] Thin prep Papanicolaou smear with manual screening 6 5-15 [facility] Basophil percentageOrdered B y: Dr. Milian on 11-19-2021 WBC (Bld) [#/Vol] 5.0 10*3/uL 4.4-11.0 [facility] Blood erythrocytes count (nu mber/volume)Ordered By: Dr. Milian on 11-19-2021 RBC (Bld) [#/Vol] 3.84 10*6/uL 4.2-5.4 [facility] Blood hemoglobin measurement (mass/volume)Ordered By: Dr. Milian on 11-19-2021 Hemoglobin (Bld) [Mass/Vol] 11.2 g/dL 12.0-15.0 [facility] Blood platelet mean volumeOr dered By: Dr. Milian on 11-19-2021 Platelet mean volume (Bld) [Entitic vol] 11.6 fL 6.2-12.0 [facility] Determination of erythrocyte mean corpuscular volume (MCV)Ordered By: Dr. Milian on 11-19-2021 MCV (RBC) [Entitic vol] 93.2 fL 81-99 [facility] Hematocrit Auto (Bld) [Volum e fraction]Ordered By: Dr. Milian on 11-19-2021 Hematocrit (Bld) [Volume fraction] 35.8 % 37-47 [facility] Iron measurement (mass/mass) Ordered By: Dr. Milian on 11-19-2021 Iron (Unsp spec) [Mass/Mass] 57 ug/dL 50-170 [facility] - Chemistry and C hemistry - challengeOrdered By: Dr. Milian on 11-19-2021 Cobalamin (Vitamin B12) [Mass/Vol] 516 pg/mL 211-911 [facility] - Hematology and Cell countsOrdered By: Dr. Milian on 11-19-2021 Erythrocyte distribution width (RBC) [Entitic vol] 53.1 fL 35.1-43.9 [facility] Erythrocyte distribution width (RBC) [Ratio] 15.4 % 11.6-14.6 [facility] MCH (RBC) [Entitic mass] 29.2 pg 27.0-32.0 [facility] MCHC Auto (RBC) [Mass/Vol]Or dered By: Dr. Milian on 11-19-2021 MCHC (RBC) [Mass/Vol] 31.3 g/dL 32-36 [facility] No Panel InformationOrdered By: Dr. Milian on 11-19-2021 Intrinsic Factor Antibody 1.0 AU/mL 0.0-1.1 [facility] Comment on above: Performed at: - [address] [id number] Director: Micheal Castellon PhD, Phone: [phone] at: - [facility] [address] [id number] Director: Pauline Zhang MD, Phone: [phone] Platelets bldOrdered By: Dr. Milian on 11-19-2021 Platelets (Bld) [#/Vol] 325 10*3/uL 150-450 [facility] Serum or plasma C reactive p rotein measurement (mass/volume)Ordered By: Dr. Milian on 11-19-2021 CRP [Mass/Vol] mg/L 0.0-3.0 [facility] Comment on above: C-Reactive Protein ( CRP) provides useful information for thediagnosis, therapy and monitoring of inflammatory processesand associated diseases. For the evaluation of Relative Riskfor Cardiovascular Disease, a High Sensitivity CRP (HSCRP)should be ordered. Serum or plasma ferritin malachi surement (mass/volume)Ordered By: Dr. Milian on 11-19-2021 Ferritin [Mass/Vol] 29 ng/mL 8-252 [facility] Serum parietal cell antibody assay (units/volume)Ordered By: Dr. Milian on 11-19-2021 Parietal cell Ab Qn (S) 2.0 Units 0.0-20.0 [facility] Comment on above: Negative 0.0 - 20.0 Equivocal 20.1 - 24.9 Positive >24.9Parietal Cell Antibodies are found in 90% of patientswith pernicious anemia and 30% of first degreerelatives with pernicious anemia. No Panel Informationon 10-07 Vitamin D 25-Hydroxy 15.3 ng/mL [facility] Work Phone: Comment on above: Vitamin D 25(OH) Sta tus Range Deficiency <20 ng/mL (50nmol/L) Insufficiency 20 - 30 ng/mL (50 - 75 nmol/L) Sufficiency 30 - 100 ng/mL (75 - 250 nmol/L) Toxicity >100 ng/mL (>250 nmol/L) Laboratory - Chemistry and C hemistry - challengeon 09-29-2021 Cobalamin (Vitamin B12) [Mass/Vol] 336 pg/mL 211-911 [facility] Work Phone: Basophil percentageon 2021 Chloride [Moles/Vol] 105 mmol/L 98-107 [facility] Work Phone: Glucose [Mass/Vol] 107 mg/dL 74-106 [facility] Work Phone: Comment on above: Fasting Glucose resu lt from 100 to 125 mg/dL suggests IMPAIRED HOMEOSTASIS per A.D.A. criteria. Potassium [Moles/Vol] 4.4 mmol/L 3.5-5.1 [facility] Work Phone: Sodium [Moles/Vol] 139 mmol/L 136-145 [facility] Work Phone: Laboratory - Chemistry and C hemistry - challengeon 09-17-2021 CO2 [Moles/Vol] 27.0 mmol/L 21.0-32.0 [facility] Work Phone: Magnesium [Mass/Vol] 2.2 mg/dL 1.6-2.6 [facility] Work Phone: Urea nitrogen/Creatinine [Mass ratio] 24.4 mg/mg 10-20 [facility] Work Phone: No Panel Informationon 09-17 Estimated GFR (MDRD) Amer 82 mL/min >60 [facility] Work Phone: Comment on above: GFR Calc Estimated GFR (MDRD) Non-Af Amer 68 mL/min >60 [facility] Work Phone: Comment on above: Non- GFR Calc Serum or plasma calcium doron urement (mass/volume)on 09-17-2021 Calcium [Mass/Vol] 9.0 mg/dL 8.5-10.1 [facility] Work Phone: Serum or plasma creatinine m easurement (mass/volume)on 09-17-2021 Creatinine [Mass/Vol] 0.86 mg/dL 0.55-1.02 [facility] Work Phone: Comment on above: The validity of the calculated GFR & GFRAA in patients over 70 years has not been determined. Clinical correlation is essential. Serum or plasma urea nitroge n measurement (mass/volume)on 09-17-2021 Urea nitrogen [Mass/Vol] 21 mg/dL 7-18 [facility] Work Phone: Thin prep Papanicolaou smear with manual screeningon 09-17-2021 Thin prep Papanicolaou smear with manual screening 7 5-15 [facility] Work Phone: .Auto Diffon 02-20-2021 Basophil, Absolute 0.10 10 3/mcL Normal 0.00-0.19 [facility] ([place]) Comment on above: Performed By: #### C BC, ADIFF, ANEU, TSH, LIPID, CMP, GFR #### [address] [address] Basophils/100 WBC (Bld) 1.1 % Normal 0.0-2.5 A [facility] ([place]) Comment on above: Performed By: #### C BC, ADIFF, ANEU, TSH, LIPID, CMP, GFR #### [address] [address] Eosinophil, Absolute 0.30 10 3/mcL Normal 0.00-0.40 A [facility] ([place]) Comment on above: Performed By: #### C BC, ADIFF, ANEU, TSH, LIPID, CMP, GFR #### [address] [address] Eosinophils/100 WBC (Bld) 4.9 % Normal 0.0-7.0 [facility] ([place]) Comment on above: Performed By: #### C BC, ADIFF, ANEU, TSH, LIPID, CMP, GFR #### [address] [address] Lymphocyte, Absolute 1.10 10 3/mcL Normal 0.77-3.85 A [facility] ([place]) Comment on above: Performed By: #### C BC, ADIFF, ANEU, TSH, LIPID, CMP, GFR #### [address] [address] Lymphocytes/100 WBC (Bld) 19.8 % Normal 10.0-50.0 [facility] ([place]) Comment on above: Performed By: #### C BC, ADIFF, ANEU, TSH, LIPID, CMP, GFR #### [address] [address] Monocyte, Absolute 0.80 10 3/mcL Normal 0.15-1.00 [facility] ([place]) Comment on above: Performed By: #### C BC, ADIFF, ANEU, TSH, LIPID, CMP, GFR #### [address] [address] Monocytes/100 WBC (Bld) 14.5 % High 1.7-13.0 A [facility] ([place]) Comment on above: Performed By: #### C BC, ADIFF, ANEU, TSH, LIPID, CMP, GFR #### [address] [address] Neutrophils/100 WBC (Bld) 59.7 % Normal 37.0-80.0 [facility] ([place]) Comment on above: Performed By: #### C BC, ADIFF, ANEU, TSH, LIPID, CMP, GFR #### [address] [address] .GFRon 02-20-2021 GFR Non- 74 ml/min/1.73sqm Normal [facility] ([place] Comment on above: Result Comment: GFR Population [...] ADIFF, ANEU, TSH, LIPID, CMP, GFR #### [address] [address] GFR 90 ml/min/1.73sqm Normal [facility] ([place] Comment on above: Result Comment: GFR Population [...] ADIFF, ANEU, TSH, LIPID, CMP, GFR #### [place] [id number] .NEUABSon 02-20-2021 Neutrophil, Absolute 3.20 10 3/mcL Normal 2.85-6.16 A [facility] ([place]) Comment on above: Performed By: #### C BC, ADIFF, ANEU, TSH, LIPID, CMP, GFR #### [place] [address] CBCon 02-20-2021 Erythrocyte distribution width (RBC) [Ratio] 14.1 % Normal 11.5-14.5 [facility] ([place] Comment on above: Performed By: #### C BC, ADIFF, ANEU, TSH, LIPID, CMP, GFR #### [place] [address] Hematocrit (Bld) [Volume fraction] 35.7 % Low 37.0-47.0 [facility] ([place] Comment on above: Performed By: #### C BC, ADIFF, ANEU, TSH, LIPID, CMP, GFR #### [place] [address] Hgb 11.5 G/dL Low 12.0-16.0 [facility] ([place] Comment on above: Performed By: #### C BC, ADIFF, ANEU, TSH, LIPID, CMP, GFR #### [place] [address] MCH (RBC) [Entitic mass] 29.3 pg Normal 27.0-31.2 [facility] ([place] Comment on above: Performed By: #### C BC, ADIFF, ANEU, TSH, LIPID, CMP, GFR #### [place] [id number] MCHC 32.1 G/dL Low 33.0-37.0 [facility] ([place] Comment on above: Performed By: #### C BC, ADIFF, ANEU, TSH, LIPID, CMP, GFR #### [address] [address] MCV (RBC) [Entitic vol] 91.3 fL Normal 80.0-94.0 A [facility] ([place] Comment on above: Performed By: #### C BC, ADIFF, ANEU, TSH, LIPID, CMP, GFR #### [address] [address] Platelet 382 10 3/mcL Normal 130-400 [facility] ([place] Comment on above: Performed By: #### C BC, ADIFF, ANEU, TSH, LIPID, CMP, GFR #### [address] [address] Platelet mean volume (Bld) [Entitic vol] 8.6 fL Normal 7.4-10.4 [facility] ([place] Comment on above: Performed By: #### C BC, ADIFF, ANEU, TSH, LIPID, CMP, GFR #### [address] [address] RBC 3.91 10 6/mcL Low 4.20-5.40 [facility] ([place] Comment on above: Performed By: #### C BC, ADIFF, ANEU, TSH, LIPID, CMP, GFR #### [address] [address] WBC 5.40 10 3/mcL Normal 4.60-10.80 [facility] ([place] Comment on above: Performed By: #### C BC, ADIFF, ANEU, TSH, LIPID, CMP, GFR #### [address] [address] CMPon 02-20-2021 Albumin Level 3.4 G/dL Normal 3.4-4.8 [facility] ([place] Comment on above: Performed By: #### C BC, ADIFF, ANEU, TSH, LIPID, CMP, GFR #### [address] [address] Albumin/Globulin [Mass ratio] 1.0 {ratio} Low 1.1-2.5 [facility] ([place] Comment on above: Performed By: #### C BC, ADIFF, ANEU, TSH, LIPID, CMP, GFR #### [address] [address] ALP [Catalytic activity/Vol] 109 U/L Normal 40-135 [facility] ([place] Comment on above: Performed By: #### C BC, ADIFF, ANEU, TSH, LIPID, CMP, GFR #### [address] [address] ALT [Catalytic activity/Vol] 22 U/L Normal 14-59 [facility] ([place] Comment on above: Performed By: #### C BC, ADIFF, ANEU, TSH, LIPID, CMP, GFR #### [address] [address] AST [Catalytic activity/Vol] 21 U/L Normal 10-40 [facility] ([place]) Comment on above: Performed By: #### C BC, ADIFF, ANEU, TSH, LIPID, CMP, GFR #### [address] [address] Bili Total 0.1 mg/dL Low 0.2-1.0 [facility] ([place]) Comment on above: Result Comment: Use of this assay is not recommended for patients undergoing treatment with eltrombopag due to the potential for falsely elevated results. Performed By: #### C BC, ADIFF, ANEU, TSH, LIPID, CMP, GFR #### [address] [address] BUN/Creatinine Ratio 32 ratio High 7-27 [facility] ([place]) Comment on above: Performed By: #### C BC, ADIFF, ANEU, TSH, LIPID, CMP, GFR #### [address] [address] Calcium [Mass/Vol] 9.1 mg/dL Normal 8.4-10.2 [facility] ([place]) Comment on above: Performed By: #### C BC, ADIFF, ANEU, TSH, LIPID, CMP, GFR #### [address] [address] Chloride [Moles/Vol] 103 mmol/L Normal 98-107 [facility] ([place]) Comment on above: Performed By: #### C BC, ADIFF, ANEU, TSH, LIPID, CMP, GFR #### [address] [address] CO2 [Moles/Vol] 28 mmol/L Normal 23-31 [facility] ([place] Comment on above: Performed By: #### C BC, ADIFF, ANEU, TSH, LIPID, CMP, GFR #### [address] [address] Creatinine [Mass/Vol] 0.76 mg/dL Normal 0.55-1.02 [facility] ([place]) Comment on above: Performed By: #### C BC, ADIFF, ANEU, TSH, LIPID, CMP, GFR #### [address] [address] Electrolyte Balance 9.0 mEq/L Normal [facility] ([place]) Comment on above: Performed By: #### C BC, ADIFF, ANEU, TSH, LIPID, CMP, GFR #### [address] [address] Globulin 3.3 G/dL Normal [facility] ([place] Comment on above: Performed By: #### C BC, ADIFF, ANEU, TSH, LIPID, CMP, GFR #### [address] [address] Glucose [Mass/Vol] 90 mg/dL Normal 83-110 [facility] ([place]) Comment on above: Performed By: #### C BC, ADIFF, ANEU, TSH, LIPID, CMP, GFR #### [address] [address] Potassium [Moles/Vol] 4.7 mmol/L Normal 3.5-5.1 [facility] ([place] Comment on above: Performed By: #### C BC, ADIFF, ANEU, TSH, LIPID, CMP, GFR #### [place] [address] [place], [place] [address] Sodium [Moles/Vol] 140 mmol/L Normal 136-145 [facility] ([place]) Comment on above: Performed By: #### C BC, ADIFF, ANEU, TSH, LIPID, CMP, GFR #### [place] [address] [place], [place] [address] Total Protein 6.7 G/dL Normal 6.4-8.2 [facility] ([place]) Comment on above: Performed By: #### C BC, ADIFF, ANEU, TSH, LIPID, CMP, GFR #### [place] [address] [place], [place] [address] Urea nitrogen [Mass/Vol] 24 mg/dL High 7-18 [facility] ([place] Comment on above: Performed By: #### C BC, ADIFF, ANEU, TSH, LIPID, CMP, GFR #### [address] [address] LABORATORYOrdered By: Promise Prado on 02-20-2021 Albumin [...] 02-20-2021 Cholesterol [Mass/Vol] 188 mg/dL Normal 0-200 [facility] ([place]) Comment on above: Result Comment: Chol esterol Reference Interval: Less than 200 Desirable 200-239 Borderline high risk 240 and above High risk Performed By: #### C BC, ADIFF, ANEU, TSH, LIPID, CMP, GFR #### [place] [address] [place], [place] [address] Cholesterol in HDL [Mass/Vol] 59 mg/dL Normal 40-60 [facility] ([place]) Comment on above: Performed By: #### C BC, ADIFF, ANEU, TSH, LIPID, CMP, GFR #### [place] [address] [place], [place] [address] Cholesterol in LDL [Mass/Vol] 80 mg/dL Normal 0-130 [facility] ([place]) Comment on above: Performed By: #### C BC, ADIFF, ANEU, TSH, LIPID, CMP, GFR #### [place] [address] [place], [place] [address] Triglyceride [Mass/Vol] 246 mg/dL High 0-150 A [facility] ([place]) Comment on above: Result Comment: Trig lyceride Reference Interval: Less than 150 Normal 150-199 Borderline high risk 200-499 High risk 500 or higher Very high risk Performed By: #### C BC, ADIFF, ANEU, TSH, LIPID, CMP, GFR #### [place] [address] [place], [place] [address] TSHon 02-20-2021 TSH Qn 0.96 m[IU]/L Normal 0.36-3.74 [facility] ([place]) Comment on above: Performed By: #### C BC, ADIFF, ANEU, TSH, LIPID, CMP, GFR #### [place] [address] [place], [place] [address] Vital Signs Date Time Vital Sign Value Performing Clinician Pio friedman 10-25-2024 09:30-0400 Body height 144.[address] Mile Foster MD Work Phone: [facility] 10-25-2024 09:30-0400 Body mass index (BMI) [Ratio] 23.1 kg/m2 Dr. Mile Foster MD Work Phone: [facility] 10-25-2024 09:30-0400 Body temperature 98.5 [degF] Dr. Mile Foster MD Work Phone: [facility] 10-25-2024 09:30-0400 Body weight 48.[address] Mile Foster MD Work Phone: [facility] 10-25-2024 09:30-0400 Diastolic blood pressure 58 mm[Hg] Dr. Mile Foster MD Work Phone: [facility] 10-25-2024 09:30-0400 Heart rate 85 /min Dr. Mile Foster MD Work Phone: [facility] 10-25-2024 09:30-0400 Respiratory rate 16 /min Dr. Mile Foster MD Work Phone: [facility] 10-25-2024 09:30-0400 SaO2% (BldA) [Mass fraction] 95 % Dr. Mile Foster MD Work Phone: [facility] 10-25-2024 09:30-0400 Systolic blood pressure 120 mm[Hg] Dr. Mile Foster MD Work Phone: [facility] 10-16-2024 09:01-0400 Body height 144.[address] Mile Foster MD Work Phone: [facility] 10-16-2024 09:01-0400 Body mass index (BMI) [Ratio] 22.9 kg/m2 Dr. Mile Foster MD Work Phone: [facility] 10-16-2024 09:01-0400 Body temperature 97.1 [degF] Dr. Mile Foster MD Work Phone: [facility] 10-16-2024 09:01-0400 Body weight 48.[address] Mile Foster MD Work Phone: [facility] 10-16-2024 09:01-0400 Diastolic blood pressure 46 mm[Hg] Dr. Mile Foster MD Work Phone: [facility] 10-16-2024 09:01-0400 Heart rate 82 /min Dr. Mile Foster MD Work Phone: [facility] 10-16-2024 09:01-0400 Respiratory rate 14 /min Dr. Mile Foster MD Work Phone: [facility] 10-16-2024 09:01-0400 SaO2% (BldA) [Mass fraction] 100 % Dr. Mile Foster MD Work Phone: [facility] 10-16-2024 09:01-0400 Systolic blood pressure 125 mm[Hg] Dr. Mile Foster MD Work Phone: [facility] 09-11-2024 08:50-0400 Body height 144.[address] Mile Foster MD Work Phone: [facility] 09-11-2024 08:50-0400 Body temperature 97 [degF] Dr. Mile Foster MD Work Phone: [facility] 09-11-2024 08:50-0400 Diastolic blood pressure 56 mm[Hg] Dr. Mile Foster MD Work Phone: [facility] 09-11-2024 08:50-0400 Heart rate 84 /min Dr. Mile Foster MD Work Phone: [facility] 09-11-2024 08:50-0400 Respiratory rate 16 /min Dr. Mile Foster MD Work Phone: [facility] 09-11-2024 08:50-0400 SaO2% (BldA) [Mass fraction] 100 % Dr. Mile Foster MD Work Phone: [facility] 09-11-2024 08:50-0400 Systolic blood pressure 128 mm[Hg] Dr. Mile Foster MD Work Phone: [facility] 08-14-2024 11:43-0400 Body height 144.[address] Mile Foster MD Work Phone: [facility] 08-14-2024 11:43-0400 Body mass index (BMI) [Ratio] 22.9 kg/m2 Dr. Mile Foster MD Work Phone: [facility] 08-14-2024 11:43-0400 Body temperature 97.3 [degF] Dr. Mile Foster MD Work Phone: [facility] 08-14-2024 11:43-0400 Body weight 48.[address] iMle Foster MD Work Phone: [facility] 08-14-2024 11:43-0400 Diastolic blood pressure 59 mm[Hg] Dr. Mile Foster MD Work Phone: [facility] 08-14-2024 11:43-0400 Heart rate 74 /min Dr. Mile Foster MD Work Phone: [facility] 08-14-2024 11:43-0400 Respiratory rate 16 /min Dr. Mile Foster MD Work Phone: [facility] 08-14-2024 11:43-0400 SaO2% (BldA) [Mass fraction] 97 % Dr. Mile Foster MD Work Phone: [facility] 08-14-2024 11:43-0400 Systolic blood pressure 125 mm[Hg] Dr. Mile Foster MD Work Phone: [facility] 08-08-2024 09:48-0400 Body height 144.[address] Mile Foster MD Work Phone: [facility] 08-08-2024 09:48-0400 Body mass index (BMI) [Ratio] 22.8 kg/m2 Dr. Mile Foster MD Work Phone: [facility] 08-08-2024 09:48-0400 Body weight 47.[address] Mile Foster MD Work Phone: [facility] 07-26-2024 10:07-0400 Body height 144.[address] Mile Foster MD Work Phone: [facility] 07-26-2024 10:07-0400 Body mass index (BMI) [Ratio] 22.7 kg/m2 Dr. Mile Foster MD Work Phone: [facility] 07-26-2024 10:07-0400 Body temperature 98.1 [degF] Dr. Mile Foster MD Work Phone: [facility] 07-26-2024 10:07-0400 Body weight 47.[address] Mile Foster MD Work Phone: [facility] 07-26-2024 10:07-0400 Diastolic blood pressure 70 mm[Hg] Dr. Mile Foster MD Work Phone: [facility] 07-26-2024 10:07-0400 Heart rate 75 /min Dr. Mile Foster MD Work Phone: [facility] 07-26-2024 10:07-0400 Respiratory rate 75 /min Dr. Mile Foster MD Work Phone: [facility] 07-26-2024 10:07-0400 SaO2% (BldA) [Mass fraction] 97 % Dr. Mile Foster MD Work Phone: [facility] 07-26-2024 10:07-0400 Systolic blood pressure 128 mm[Hg] Dr. Mile Foster MD Work Phone: [facility] 07-14-2024 08:59-0400 Body height 144.[address] Mile Foster MD Work Phone: [facility] 07-14-2024 08:59-0400 Body temperature 96.5 [degF] Dr. Mile Foster MD Work Phone: [facility] 07-14-2024 08:59-0400 Diastolic blood pressure 37 mm[Hg] Dr. Mile Foster MD Work Phone: [facility] 07-14-2024 08:59-0400 Heart rate 63 /min Dr. Mile Foster MD Work Phone: [facility] 07-14-2024 08:59-0400 Respiratory rate 16 /min Dr. Mile Foster MD Work Phone: [facility] 07-14-2024 08:59-0400 Systolic blood pressure 123 mm[Hg] Dr. Mile Foster MD Work Phone: [facility] 06-09-2024 09:05-0400 Body height 144.[address] Mile Foster MD Work Phone: [facility] 06-09-2024 09:05-0400 Body temperature 96.8 [degF] Dr. Mile Foster MD Work Phone: [facility] 06-09-2024 09:05-0400 Diastolic blood pressure 51 mm[Hg] Dr. Mile Foster MD Work Phone: [facility] 06-09-2024 09:05-0400 Heart rate 61 /min Dr. Mile Foster MD Work Phone: [facility] 06-09-2024 09:05-0400 Respiratory rate 16 /min Dr. Mile Foster MD Work Phone: [facility] 06-09-2024 09:05-0400 SaO2% (BldA) [Mass fraction] 99 % Dr. Mile Foster MD Work Phone: [facility] 06-09-2024 09:05-0400 Systolic blood pressure 114 mm[Hg] Dr. Mile Foster MD Work Phone: [facility] 05-29-2024 08:56-0400 Body mass index (BMI) [Ratio] 22.7 kg/m2 Dr. Mile Foster MD Work Phone: [facility] 05-29-2024 08:56-0400 Body temperature 97.4 [degF] Dr. Mile Foster MD Work Phone: [facility] 05-29-2024 08:56-0400 Body weight 47.[address] Mile Foster MD Work Phone: [facility] 05-29-2024 08:56-0400 Diastolic blood pressure 80 mm[Hg] Dr. Mile Foster MD Work Phone: [facility] 05-29-2024 08:56-0400 Heart rate 66 /min Dr. Mile Foster MD Work Phone: [facility] 05-29-2024 08:56-0400 Respiratory rate 16 /min Dr. Mile Foster MD Work Phone: [facility] 05-29-2024 08:56-0400 SaO2% (BldA) [Mass fraction] 96 % Dr. Mile Foster MD Work Phone: [facility] 05-29-2024 08:56-0400 Systolic blood pressure 130 mm[Hg] Dr. Mile Foster MD Work Phone: [facility] 05-12-2024 08:58-0400 Body height 144.[address] Mile Foster MD Work Phone: [facility] 05-12-2024 08:58-0400 Body temperature 97.7 [degF] Dr. Mile Foster MD Work Phone: [facility] 05-12-2024 08:58-0400 Diastolic blood pressure 57 mm[Hg] Dr. Mile Foster MD Work Phone: [facility] 05-12-2024 08:58-0400 Heart rate 65 /min Dr. Mile Foster MD Work Phone: [facility] 05-12-2024 08:58-0400 Respiratory rate 16 /min Dr. Mile Foster MD Work Phone: [facility] 05-12-2024 08:58-0400 SaO2% (BldA) [Mass fraction] 100 % Dr. Mile Foster MD Work Phone: [facility] 05-12-2024 08:58-0400 Systolic blood pressure 142 mm[Hg] Dr. Mile Foster MD Work Phone: [facility] 04-26-2024 08:47-0400 Body height 144.[address] Mile Foster MD Work Phone: [facility] 04-26-2024 08:47-0400 Body mass index (BMI) [Ratio] 22.9 kg/m2 Dr. Mile Foster MD Work Phone: [facility] 04-26-2024 08:47-0400 Body temperature 96.9 [degF] Dr. Mile Foster MD Work Phone: [facility] 04-26-2024 08:47-0400 Body weight 48.[address] Mile Foster MD Work Phone: [facility] 04-26-2024 08:47-0400 Diastolic blood pressure 72 mm[Hg] Dr. Mile Foster MD Work Phone: [facility] 04-26-2024 08:47-0400 Heart rate 64 /min Dr. Mile Foster MD Work Phone: [facility] 04-26-2024 08:47-0400 Respiratory rate 14 /min Dr. Mile Foster MD Work Phone: [facility] 04-26-2024 08:47-0400 SaO2% (BldA) [Mass fraction] 99 % Dr. Mile Foster MD Work Phone: [facility] 04-26-2024 08:47-0400 Systolic blood pressure 120 mm[Hg] Dr. Mile Foster MD Work Phone: [facility] 04-14-2024 10:03-0500 Body height 144.[address] Mile Foster MD Work Phone: [facility] 04-14-2024 10:03-0500 Body mass index (BMI) [Ratio] 22.9 kg/m2 Dr. Mile Foster MD Work Phone: [facility] 04-14-2024 10:03-0500 Body weight 48.[address] Mile Foster MD Work Phone: [facility] 04-14-2024 10:03-0500 Diastolic blood pressure 57 mm[Hg] Dr. Mile Foster MD Work Phone: [facility] 04-14-2024 10:03-0500 Heart rate 65 /min Dr. Mile Foster MD Work Phone: [facility] 04-14-2024 10:03-0500 Respiratory rate 16 /min Dr. Mile Foster MD Work Phone: [facility] 04-14-2024 10:03-0500 SaO2% (BldA) [Mass fraction] 100 % Dr. Mile Foster MD Work Phone: [facility] 04-14-2024 10:03-0500 Systolic blood pressure 134 mm[Hg] Dr. Mile Foster MD Work Phone: [facility] 03-17-2024 12:24-0500 Body temperature 97.9 [degF] Dr. Mile Foster MD Work Phone: [facility] 03-17-2024 12:24-0500 Diastolic blood pressure 59 mm[Hg] Dr. Mile Foster MD Work Phone: [facility] 03-17-2024 12:24-0500 Heart rate 72 /min Dr. Mile Foster MD Work Phone: [facility] 03-17-2024 12:24-0500 Respiratory rate 16 /min Dr. Mile Foster MD Work Phone: [facility] 03-17-2024 12:24-0500 SaO2% (BldA) [Mass fraction] 99 % Dr. Mile Foster MD Work Phone: [facility] 03-17-2024 12:24-0500 Systolic blood pressure 136 mm[Hg] Dr. Mile Foster MD Work Phone: [facility] 02-11-2024 09:30-0500 Body temperature 97.7 [degF] Dr. Mile Foster MD Work Phone: [facility] 02-11-2024 09:30-0500 Diastolic blood pressure 49 mm[Hg] Dr. Mile Foster MD Work Phone: [facility] 02-11-2024 09:30-0500 Heart rate 75 /min Dr. Mile Foster MD Work Phone: [facility] 02-11-2024 09:30-0500 Respiratory rate 16 /min Dr. Mile Foster MD Work Phone: [facility] 02-11-2024 09:30-0500 SaO2% (BldA) [Mass fraction] 98 % Dr. Mile Foster MD Work Phone: [facility] 02-11-2024 09:30-0500 Systolic blood pressure 115 mm[Hg] Dr. Mile Foster MD Work Phone: [facility] 01-28-2024 08:52-0500 Body mass index (BMI) [Ratio] 22.9 kg/m2 Dr. Mile Foster MD Work Phone: [facility] 01-28-2024 08:52-0500 Body temperature 97.4 [degF] Dr. Mile Foster MD Work Phone: [facility] 01-28-2024 08:52-0500 Body weight 48.[address] Mile Foster MD Work Phone: [facility] 01-28-2024 08:52-0500 Diastolic blood pressure 68 mm[Hg] Dr. Mile Foster MD Work Phone: [facility] 01-28-2024 08:52-0500 Heart rate 55 /min Dr. Mile Foster MD Work Phone: [facility] 01-28-2024 08:52-0500 Respiratory rate 16 /min Dr. Mile Foster MD Work Phone: [facility] 01-28-2024 08:52-0500 SaO2% (BldA) [Mass fraction] 98 % Dr. Mile Foster MD Work Phone: [facility] 01-28-2024 08:52-0500 Systolic blood pressure 124 mm[Hg] Dr. Mile Foster MD Work Phone: [facility] 01-14-2024 09:41-0500 Body temperature 97.5 [degF] Dr. Mile Foster MD Work Phone: [facility] 01-14-2024 09:41-0500 Respiratory rate 16 /min Dr. Mile Foster MD Work Phone: [facility] 01-14-2024 09:41-0500 SaO2% (BldA) [Mass fraction] 98 % Dr. Mile Foster MD Work Phone: [facility] 05-12-2023 09:24-0400 Body height 152.[address] Mile Foster Work Phone: [facility] 05-12-2023 09:24-0400 Body mass index (BMI) [Ratio] 21.7 kg/m2 Dr. Mile Foster Work Phone: [facility] 05-12-2023 09:24-0400 Body temperature 97.1 [degF] Dr. Mile Foster Work Phone: [facility] 05-12-2023 09:24-0400 Body weight 50.[address] Mile Foster Work Phone: [facility] 05-12-2023 09:24-0400 Diastolic blood pressure 78 mm[Hg] Dr. Mile Foster Work Phone: [facility] 05-12-2023 09:24-0400 Heart rate 74 /min Dr. Mile Foster Work Phone: [facility] 05-12-2023 09:24-0400 Respiratory rate 16 /min Dr. Mile Foster Work Phone: [facility] 05-12-2023 09:24-0400 SaO2% (BldA) [Mass fraction] 98 % Dr. Mile Foster Work Phone: [facility] 05-12-2023 09:24-0400 Systolic blood pressure 134 mm[Hg] Dr. Mile Foster Work Phone: [facility] 02-10-2023 10:18-0500 Body height 152.[address] Mile Foster Work Phone: [facility] 02-10-2023 10:18-0500 Body mass index (BMI) [Ratio] 21.4 kg/m2 Dr. Mile Foster Work Phone: [facility] 02-10-2023 10:18-0500 Body temperature 97.3 [degF] Dr. Mile Foster Work Phone: [facility] 02-10-2023 10:18-0500 Body weight 49.[address] Mile Fostre Work Phone: [facility] 02-10-2023 10:18-0500 Diastolic blood pressure 72 mm[Hg] Dr. Mile Foster Work Phone: [facility] 02-10-2023 10:18-0500 Heart rate 70 /min Dr. Mile Foster Work Phone: [facility] 02-10-2023 10:18-0500 Respiratory rate 18 /min Dr. Mile Foster Work Phone: [facility] 02-10-2023 10:18-0500 SaO2% (BldA) [Mass fraction] 97 % Dr. Mile Foster Work Phone: [facility] 02-10-2023 10:18-0500 Systolic blood pressure 130 mm[Hg] Dr. Mile Foster Work Phone: [facility] 11-12-2022 05:42-0400 Diastolic blood pressure 72 mm[Hg] Dr. Mile Foster Work Phone: [facility] 11-12-2022 05:42-0400 Systolic blood pressure 140 mm[Hg] Dr. Mile Foster Work Phone: [facility] 11-12-2022 04:28-0400 Heart rate 82 /min Dr. Mile Foster Work Phone: [facility] 11-12-2022 04:28-0400 Respiratory rate 16 /min Dr. Mile Foster Work Phone: [facility] 11-12-2022 04:28-0400 SaO2% (BldA) [Mass fraction] 94 % Dr. Mile Foster Work Phone: [facility] 11-12-2022 01:25-0400 Body temperature 97.5 [degF] Dr. Mile Foster Work Phone: [facility] 11-12-2022 01:22-0400 Body height 152.[address] Mile Foster Work Phone: [facility] 11-12-2022 01:22-0400 Body mass index (BMI) [Ratio] 21.5 kg/m2 Dr. Mile Foster Work Phone: [facility] 11-12-2022 01:22-0400 Body weight [address] Mile Foster Work Phone: [facility] 11-09-2022 09:52-0400 Body mass index (BMI) [Ratio] 21.7 kg/m2 Dr. Mile Foster Work Phone: [facility] 11-09-2022 09:52-0400 Body temperature 98.8 [degF] Dr. Mile Foster Work Phone: [facility] 11-09-2022 09:52-0400 Body weight 50.[address] Mile Foster Work Phone: [facility] 11-09-2022 09:52-0400 Diastolic blood pressure 72 mm[Hg] Dr. Mile Foster Work Phone: [facility] 11-09-2022 09:52-0400 Heart rate 66 /min Dr. Mile Foster Work Phone: [facility] 11-09-2022 09:52-0400 Respiratory rate 16 /min Dr. Mile Foster Work Phone: [facility] 11-09-2022 09:52-0400 SaO2% (BldA) [Mass fraction] 99 % Dr. Mile Foster Work Phone: [facility] 11-09-2022 09:52-0400 Systolic blood pressure 124 mm[Hg] Dr. Mile Foster Work Phone: [facility] 11-04-2022 21:50-0400 Heart rate 92 /min Dr. Mile Foster Work Phone: [facility] 11-04-2022 21:50-0400 Respiratory rate 17 /min Dr. Mile Foster Work Phone: [facility] 11-04-2022 16:32-0400 Body mass index (BMI) [Ratio] 21.5 kg/m2 Dr. Mile Foster Work Phone: [facility] 11-04-2022 16:32-0400 Body temperature 96.9 [degF] Dr. Mile Foster Work Phone: [facility] 11-04-2022 16:32-0400 Body weight 50.[address] Mile Foster Work Phone: [facility] 11-04-2022 16:32-0400 Diastolic blood pressure 94 mm[Hg] Dr. Mile Foster Work Phone: [facility] 11-04-2022 16:32-0400 SaO2% (BldA) [Mass fraction] 100 % Dr. Mile Foster Work Phone: [facility] 11-04-2022 16:32-0400 Systolic blood pressure 143 mm[Hg] Dr. Mile Foster Work Phone: [facility] 09-07-2022 08:22-0400 Body height 149.[address] Mile Foster Work Phone: [facility] 09-07-2022 08:22-0400 Body mass index (BMI) [Ratio] 22.6 kg/m2 Dr. Mile Foster Work Phone: [facility] 09-07-2022 08:22-0400 Body temperature 98.6 [degF] Dr. Mile Foster Work Phone: [facility] 09-07-2022 08:22-0400 Body weight 50.[address] Mile Foster Work Phone: [facility] 09-07-2022 08:22-0400 Diastolic blood pressure 80 mm[Hg] Dr. Mile Foster Work Phone: [facility] 09-07-2022 08:22-0400 Heart rate 66 /min Dr. Mile Foster Work Phone: [facility] 09-07-2022 08:22-0400 Respiratory rate 16 /min Dr. Mile Foster Work Phone: [facility] 09-07-2022 08:22-0400 SaO2% (BldA) [Mass fraction] 98 % Dr. Mile Foster Work Phone: [facility] 09-07-2022 08:22-0400 Systolic blood pressure 180 mm[Hg] Dr. Mile Foster Work Phone: [facility] 06-29-2022 09:12-0400 Body height 149.[address] Mile Foster Work Phone: [facility] 06-29-2022 09:12-0400 Body mass index (BMI) [Ratio] 21.8 kg/m2 Dr. Mile Foster Work Phone: [facility] 06-29-2022 09:12-0400 Body temperature 98.5 [degF] Dr. Mile Foster Work Phone: [facility] 06-29-2022 09:12-0400 Body weight 48.[address] Mile Foster Work Phone: [facility] 06-29-2022 09:12-0400 Diastolic blood pressure 78 mm[Hg] Dr. Mile Foster Work Phone: [facility] 06-29-2022 09:12-0400 Heart rate 58 /min Dr. Mile Foster Work Phone: [facility] 06-29-2022 09:12-0400 Respiratory rate 14 /min Dr. Mile Foster Work Phone: [facility] 06-29-2022 09:12-0400 SaO2% (BldA) [Mass fraction] 99 % Dr. Mile Foster Work Phone: [facility] 06-29-2022 09:12-0400 Systolic blood pressure 146 mm[Hg] Dr. Mile Foster Work Phone: [facility] 02-25-2022 10:16-0500 Body temperature 96.1 [degF] Dr. Mile Foster Work Phone: [facility] 02-25-2022 10:16-0500 Body weight 48.[address] Mile Foster Work Phone: [facility] 02-25-2022 10:16-0500 Diastolic blood pressure 84 mm[Hg] Dr. Mile Foster Work Phone: [facility] 02-25-2022 10:16-0500 Heart rate 84 /min Dr. Mile Foster Work Phone: [facility] 02-25-2022 10:16-0500 Respiratory rate 18 /min Dr. Mile Foster Work Phone: [facility] 02-25-2022 10:16-0500 Systolic blood pressure 144 mm[Hg] Dr. Mile Foster Work Phone: [facility] 12-22-2021 10:08-0500 Body temperature 96.6 [degF] Dr. Mile Foster Work Phone: [facility] 12-22-2021 10:08-0500 Body weight 48.[address] Mile Foster Work Phone: [facility] 12-22-2021 10:08-0500 Diastolic blood pressure 82 mm[Hg] Dr. Mile Foster Work Phone: [facility] 12-22-2021 10:08-0500 Heart rate 70 /min Dr. Mile Foster Work Phone: [facility] 12-22-2021 10:08-0500 Respiratory rate 18 /min Dr. Mile Foster Work Phone: [facility] 12-22-2021 10:08-0500 SaO2% (BldA) [Mass fraction] 98 % Dr. Mile Foster Work Phone: [facility] 12-22-2021 10:08-0500 Systolic blood pressure 108 mm[Hg] Dr. Mile Foster Work Phone: [facility] 10-21-2021 09:52-0400 Body height 149.86 cm No Primary Care Physician [facility] Work Phone: 10-21-2021 09:52-0400 Body mass index (BMI) [Ratio] 22.6 kg/m2 No Primary Care Physician [facility] Work Phone: 10-21-2021 09:52-0400 Body temperature 96.8 [degF] No Primary Care Physician [facility] Work Phone: 10-21-2021 09:52-0400 Body weight 50.8 kg No Primary Care Physician [facility] Work Phone: 10-21-2021 09:52-0400 Diastolic blood pressure 80 mm[Hg] No Primary Care Physician [facility] Work Phone: 10-21-2021 09:52-0400 Heart rate 76 /min No Primary Care Physician [facility] Work Phone: 10-21-2021 09:52-0400 Respiratory rate 16 /min No Primary Care Physician [facility] Work Phone: 10-21-2021 09:52-0400 SaO2% (BldA) [Mass fraction] 98 % No Primary Care Physician [facility] Work Phone: 10-21-2021 09:52-0400 Systolic blood pressure 130 mm[Hg] No Primary Care Physician [facility] Work Phone: 10-07-2021 13:59-0400 Body height 149.86 cm No Primary Care Physician [facility] Work Phone: 10-07-2021 13:59-0400 Body mass index (BMI) [Ratio] 22.6 kg/m2 No Primary Care Physician [facility] Work Phone: 10-07-2021 13:59-0400 Body temperature 95.8 [degF] No Primary Care Physician [facility] Work Phone: 10-07-2021 13:59-0400 Body weight 50.85 kg No Primary Care Physician [facility] Work Phone: 10-07-2021 13:59-0400 Diastolic blood pressure 68 mm[Hg] No Primary Care Physician [facility] Work Phone: 10-07-2021 13:59-0400 Heart rate 76 /min No Primary Care Physician [facility] Work Phone: 10-07-2021 13:59-0400 Respiratory rate 18 /min No Primary Care Physician [facility] Work Phone: 10-07-2021 13:59-0400 SaO2% (BldA) [Mass fraction] 96 % No Primary Care Physician [facility] Work Phone: 10-07-2021 13:59-0400 Systolic blood pressure 156 mm[Hg] No Primary Care Physician [facility] Work Phone: 09-02-2021 09:41-0400 Body mass index (BMI) [Ratio] 22.3 kg/m2 No Primary Care Physician [facility] Work Phone: 09-02-2021 09:41-0400 Body weight 51.9 kg No Primary Care Physician [facility] Work Phone: 09-02-2021 09:41-0400 Diastolic blood pressure 82 mm[Hg] No Primary Care Physician [facility] Work Phone: 09-02-2021 09:41-0400 Systolic blood pressure 170 mm[Hg] No Primary Care Physician [facility] Work Phone: 08-19-2021 06:10-0400 Diastolic blood pressure 86 mm[Hg] [facility] Work Phone: 08-19-2021 06:10-0400 Heart rate 72 /min [facility] Work Phone: 08-19-2021 06:10-0400 Respiratory rate 18 /min [facility] Work Phone: 08-19-2021 06:10-0400 Systolic blood pressure 160 mm[Hg] [facility] Work Phone: 08-19-2021 04:11-0400 Body height 152.4 cm [facility] Work Phone: 08-19-2021 04:11-0400 Body mass index (BMI) [Ratio] 23.5 kg/m2 [facility] Work Phone: 08-19-2021 04:11-0400 Body temperature 96.5 [degF] [facility] Work Phone: 08-19-2021 04:11-0400 Body weight 54.7 kg [facility] Work Phone: 08-19-2021 [id number] SaO2% (BldA) [Mass fraction] 99 % [facility] Work Phone: Encounters Encounter Date Encounter Type Care Provider Facility Start: 11-30-2024 End: 11-30-[facility]24 [facility] Start: 11-02-2024 End: 11-02-2024 Patient encounter procedure [facility] Work Phone: Start: 11-02-2024 End: 11-02-[address] Mile Foster MD Work Phone: -[facility] Start: 10-25-2024 End: 10-25-[address] Mile Foster MD -[facility] Work Phone: Start: 10-25-2024 End: 10-25-[address] Mile Foster MD Work Phone: -[facility] Start: 10-25-2024 End: 10-25-2024 ambulatory Mile Foster Facility:[facility] Start: 10-16-2024 End: 10-16-[address] Mile Foster MD -[facility] Work Phone: Start: 10-16-2024 End: 10-16-[address] Mile Foster MD Work Phone: -[facility] Start: 10-05-2024 End: 10-05-2024 Patient encounter procedure [facility] Work Phone: Start: 10-05-2024 End: 10-05-[address] Mile Foster MD Work Phone: -[facility] Start: 09-11-2024 End: 09-11-[address] Mile Foster MD -[facility] Work Phone: Start: 09-11-2024 End: 09-11-[address] Mile Foster MD Work Phone: -[facility] Start: 09-07-2024 End: 09-07-2024 Patient encounter procedure [facility] Work Phone: Start: 09-07-2024 End: 09-07-[address] Mile Foster MD Work Phone: -[facility] Start: 08-14-2024 End: 08-14-[address] Mile Foster MD -[facility] Work Phone: Start: 08-14-2024 End: 08-14-[address] Mile Foster MD Work Phone: -[facility] Start: 08-10-2024 End: 08-10-2024 Patient encounter procedure [place] N[facility]SE [facility] Work Phone: Start: 08-10-2024 End: 08-10-[address] Mile Foster MD Work Phone: [facility] Start: 08-08-2024 End: 08-08-[address] Gene Ziegler MD -[facility] Work Phone: Start: 08-08-2024 End: 08-08-[address] Mile Foster MD Work Phone: -[facility] Start: 07-26-2024 End: 07-26-[address] Mile Foster MD -[facility] Work Phone: Start: 07-26-2024 End: 07-26-[address] Mile Foster MD Work Phone: [facility] Work Phone: Start: 07-14-2024 End: 07-14-[address] Mile Foster MD -[facility] Work Phone: Start: 07-14-2024 End: 07-14-[address] Mile Foster MD Work Phone: [facility] Work Phone: Start: 07-12-2024 End: 07-12-2024 Patient encounter procedure ARTIS BERRIOS -[facility] Work Phone: Start: 07-12-2024 End: 07-12-[address] Mile Foster MD Work Phone: [facility] Work Phone: Start: 07-06-2024 [facility] Start: 07-06-[address] Antonella Foster MD -Physical Therapy Work Phone: Start: 06-14-2024 End: 06-14-[address] Mile Foster MD -[facility] Work Phone: Start: 06-14-2024 End: 06-14-2024 ambulatory Efjerry Sonjae [place] Start: 06-09-2024 End: 06-09-[address] Mile Foster MD -[facility] Work Phone: Start: 06-09-2024 End: 06-09-2024 [facility] Start: 05-29-2024 End: 05-29-[address] Mile Foster MD -[facility] Work Phone: Start: 05-29-2024 End: 05-29-2024 [facility] Start: 05-29-2024 End: 05-29-2024 [facility] Start: 05-16-2024 End: 05-16-[address] Monty Johnson DO -[facility] Work Phone: Start: 05-16-2024 End: 05-16-2024 ambulatory [facility] Facility:[facility] Start: 05-12-2024 End: 05-12-[address] Mile Foster MD -[facility] Work Phone: Start: 05-12-2024 End: 05-12-[address] Mile Foster MD Work Phone: [facility] Work Phone: Start: 04-26-2024 End: 04-26-[address] Mile Foster MD -[facility] Work Phone: Start: 04-26-2024 End: 04-26-[address] Mile Foster MD Work Phone: [facility] Work Phone: Start: 04-26-2024 End: 04-26-2024 [facility] Start: 04-17-2024 End: 04-17-[address] Mile Foster MD -[facility] Work Phone: Start: 04-17-2024 End: 04-17-2024 [facility] Start: 04-14-2024 End: 04-14-[address] Mile Foster MD -[facility] Work Phone: Start: 04-14-2024 End: 04-14-[address] Mile Foster MD Work Phone: [facility] Work Phone: Start: 03-20-2024 End: 03-20-[address] Mile Foster MD -[facility] Work Phone: Start: 03-20-2024 End: 03-20-2024 [facility] Start: 03-17-2024 End: 03-17-[address] Mile Foster MD -[facility] Work Phone: Start: 03-17-2024 End: 03-17-2024 ambulatory [facility] Facility:[facility] Start: 02-21-2024 End: 02-21-[address] Mile Foster MD -[facility] Work Phone: Start: 02-21-2024 End: 02-21-2024 ambulatory [facility] Facility[place] Start: 02-11-2024 End: 02-11-[address] Mile Foster MD -[facility] Work Phone: Start: 02-11-2024 End: 02-11-2024 ambulatory [facility] Facility:[facility] Start: 01-28-2024 End: 01-28-[address] Mile Foster MD -[facility] Work Phone: Start: 01-28-2024 End: 01-28-2024 ambulatory [facility] Facility[place] Start: 01-28-2024 End: 01-28-2024 ambulatory [facility] Facility:[facility] Start: 01-20-2024 End: 01-20-[address] Kirti Ibanez MD -[facility] Work Phone: Start: 01-20-2024 End: 01-20-2024 ambulatory [facility] [place] [place] Start: 01-14-2024 End: 01-14-[address] Mile Foster MD -[facility] Work Phone: Start: 01-14-2024 End: 01-14-2024 ambulatory [facility] Facility:[facility] Start: 12-23-2023 End: 12-23-[address] Kirti Ibanez MD -[facility] Work Phone: Start: 12-23-2023 End: 12-23-2023 ambulatory Kirti Ibanez [place] [place] Start: 12-10-2023 End: 12-10-2023 ambulatory Mile Foster Facility:[facility] Start: 05-12-2023 End: 05-12-[address] Mile Foster Work Phone: [facility] Work Phone: Start: 05-12-2023 End: 05-12-[address] Mile Foster Work Phone: [facility] Work Phone: Start: 04-29-2023 End: 04-29-[address] Mile Foster Work Phone: [facility] Work Phone: Start: 03-31-2023 End: 03-31-[address] Mile Foster Work Phone: [facility] Work Phone: Start: 03-03-2023 End: 03-03-[address] Mile Foster Work Phone: [facility] Work Phone: Start: 02-12-2023 End: 02-12-[address] Mile Foster Work Phone: [facility] Work Phone: Start: 02-12-2023 End: 02-12-[address] Mile Foster Work Phone: [facility]-Outpatient Breast Imaging Work Phone: Start: 02-10-2023 End: 02-10-[address] Mile Foster Work Phone: [facility] Work Phone: Start: 02-10-2023 End: 02-10-[address] Mile Foster Work Phone: [facility] Work Phone: Start: 02-03-2023 End: 02-03-[address] Mile Foster Work Phone: [facility] Work Phone: Start: 01-04-2023 End: 01-04-[address] Mile Foster Work Phone: [facility] Work Phone: Start: 12-07-2022 End: 12-07-[address] Mile Foster Work Phone: [facility] Work Phone: Start: 11-12-2022 End: 11-12-2022 Emergency department patient [facility] Start: 11-09-2022 End: 11-09-[address] Mile Foster Work Phone: [facility] Work Phone: Start: 11-04-2022 End: 11-04-2022 Emergency department patient [facility]. Mile Foster [facility] Start: 10-13-2022 Non-patient / Non-visit Dr. Mile Foster Work Phone: [facility] Work Phone: Start: 10-13-2022 End: 10-13-[address] Mile Foster Work Phone: [facility] Work Phone: Start: 09-07-2022 End: 09-07-[address] Mile Foster Work Phone: [facility] Work Phone: Start: 09-07-2022 End: 09-07-[address] Mile Foster Work Phone: [facility] Work Phone: Start: 08-24-2022 End: 08-24-[address] Mile Foster Work Phone: [facility] Work Phone: Start: 08-24-2022 End: 08-24-[address] Mile Foster Work Phone: [facility]-Radiology, [facility] Work Phone: Start: 06-29-2022 End: 06-29-[address] Miel Foster Work Phone: [facility] Work Phone: Start: 04-21-2022 End: 04-21-[address] Mile Foster Work Phone: [facility] Work Phone: Start: 04-21-2022 End: 04-21-[address] Mile Foster Work Phone: [facility]-Physical Therapy Start: 02-25-2022 End: 02-25-[address] Mile Foster Work Phone: [facility] Work Phone: Start: 02-25-2022 End: 02-25-[address] Mile Foster Work Phone: [facility] Start: 12-22-2021 End: 12-22-[address] Mile Foster Work Phone: [facility] Start: 11-19-2021 End: 11-19-2021 ambulatory No Primary Care Physician [facility] Work Phone: Start: 11-19-2021 End: 11-19-2021 Patient encounter procedure No Primary Care Physician [facility]-Laboratory, [place] Start: 10-21-2021 End: 10-21-2021 Patient encounter procedure No Primary Care Physician [facility] Internal Medicine Start: 10-07-2021 End: 10-07-2021 ambulatory No Primary Care Physician [facility] Work Phone: Start: 10-07-2021 End: 10-07-2021 Patient encounter procedure No Primary Care Physician [facility]atory, [place] Start: 10-07-2021 End: 10-07-2021 Patient encounter procedure No Primary Care Physician [facility] Internal Medicine Start: 09-29-2021 End: 09-29-2021 Patient encounter procedure No Primary Care Physician [facility]-Laboratory Start: 09-25-2021 End: 09-25-2021 ambulatory No Primary Care Physician [facility] Work Phone: Start: 09-25-2021 End: 09-25-2021 Patient encounter procedure No Primary Care Physician [facility]-Outpatient Bone Densitometry Start: 09-24-2021 End: 09-24-2021 Patient encounter procedure No Primary Care Physician [facility]-MRI - [facility] Start: 09-17-2021 End: 09-17-2021 Patient encounter procedure No Primary Care Physician [facility]-Laboratory Start: 09-02-2021 Non-patient / Non-visit No Primary Care Physician [facility] Start: 09-02-2021 End: 09-02-2021 Patient encounter procedure No Primary Care Physician [facility] Start: 08-19-2021 End: 08-19-2021 Emergency department patient visit [facility]Emergency Department Start: 02-20-2021 End: 02-20-2021 Patient encounter procedure KELLY BALDWIN MD [facility] Procedures Date Procedure Procedure Detail Performing Clinician Start: 05-29-2024 Plain X-ray of shoulder Dr. Mile Foster MD Work Phone: Start: 05-29-2024 X-ray of chest posteroanterior view Dr. Mile Foster MD Work Phone: Start: 05-29-2024 X-ray of knee, four or more views Dr[address] Mile Foster MD Work Phone: Start: 04-26-2024 Total iron binding c apacity measurement Dr. Mile Foster MD Work Phone: Start: 02-12-2023 Screening mammography Frank Foster Work [...] p osterior true vocal cord granuloma - [facility] - Dr Graves Start: 11-25-2009 Colonoscopy KELLY CROUCH MD Start: 11-08-2009 Exploratory laparotomy KELLY BALDWIN MD Comment on above: excision of band, ly sis of adhesions, Dr Cazares Start: 07-09-2009 Hernia repair KELLY ABAD MD Comment on above: Dr Cazares Hernia of abdominal cavity (disorder) KELLY BALDWIN MD Plan of Treatment Date Care Activity Detail Author Start: 10-25-2024 CBC W Auto Differential panel - Blood [facility] Start: 10-25-2024 Comprehensive metabolic 2000 panel - Serum or Plasma [facility] Start: 07-26-2024 Patient referral [facility] [employer] Work Phone: Start: 03-17-2024 Therapeutic prophylactic/dx injection subq/im THER/PROPH/DIAG INJ SC/IM [facility] Start: 02-12-2023 MG Breast - bilateral Screening [facility] Start: 02-12-2023 Screening mammography SCRN MAMM (CAD)W/TERRY BILAT [facility] Start: 11-12-2022 [facility] Alanine aminotransfe rase [Enzymatic activity/volume] in Serum or Plasma [facility] Albumin [Mass/volume ] in Serum or Plasma [facility] Alkaline phosphatase [Enzymatic activity/volume] in Serum or Plasma [facility] Anion gap in Serum or Plasma [facility] Bilirubin, total measurement [facility] Blood chemistry [facility] BUN/Creatinine ratio [facility] Calcium [Mass/volume ] in Serum or Plasma [facility] Carbon dioxide, tota l [Moles/volume] in Central venous blood [facility] CBC W Auto Different ial panel - Blood [facility] Creatinine [Mass/vol ume] in Serum or Plasma [facility] Erythrocyte mean cor puscular volume determination [facility] Glucose [Mass/volume ] in Serum or Plasma [facility] Hematocrit [Volume F raction] of Blood [facility] Hemoglobin [Mass/vol ume] in Blood [facility] Leukocytes [#/volume ] in Blood [facility] Mean corpuscular hem oglobin concentration determination [facility] Mean corpuscular hem oglobin determination [facility] Measurement of renal function [facility] Neutrophil count [facility] Neutrophil percent differential count [facility] Patient Education [facility] Work Phone: Patient referral [facility] Work Phone: Platelets [#/volume] in Blood [facility] Potassium measurement [facility] Red blood cell count [facility] Red cell distributio n width determination [facility] Serum chloride measurement [facility] Sodium measurement [facility] Total protein measurement [facility] Urea nitrogen [Mass/ volume] in Serum or Plasma [facility] Vitamin B12 measurement [facility] XR Knee 3 Views [facility] Immunizations Immunization Date Immunization Notes Care Provider [facility] 11-25-2023 Seasonal trivalent influenza vaccine, adjuvanted, preservative free Dr. Mile Foster MD Work Phone: [facility] 12-22-2022 Covid (Spikevax) Dr. Maria Guadalupe Foster Work Phone: [facility] 11-09-2022 influenza, injectabl e, quadrivalent, preservative free Dr. Mile Foster Work Phone: [facility] 06-20-2021 Covid (Moderna) No Primary C are Physician [facility] 12-19-2020 influenza, injectabl e, quadrivalent, preservative free Dr. Mile Foster Work Phone: [facility] 12-19-2020 influenza, seasonal, injectable No Primary Care Physician [facility] 12-19-2020 influenza, high dose seasonal, preservative-free; Translations: [Fluad Quadrivalent PF ] KELLY BALDWIN MD [facility] 11-19-2020 Covid (Moderna) No Primary C are Physician [facility] 11-19-2020 SARS-CoV-2 mRNA (tozinameran) vaccine KELLY BALDWIN MD [facility] Comment on above: Result Comment: 2021: TPV1 03-21-2020 Covid (Moderna) No Primary C are Physician [facility] 03-21-2020 SARS-CoV-2 mRNA (tozinameran) vaccine KELLY BALDWIN MD [facility] Comment on above: Result Comment: 2020: TPV1 02-29-2020 Covid (Moderna) No Primary C are Physician [facility] 02-29-2020 SARS-CoV-2 mRNA (tozinameran) vaccine KELLY BALDWIN MD [facility] Comment on above: Result Comment: 2020: TPV1 10-19-2019 influenza, injectabl e, quadrivalent, preservative free; Translations: [Fluarix PF Quadrivalent ] KELLY BALDWIN MD [facility] 11-23-2018 influenza, injectabl e, quadrivalent, preservative free; Translations: [Fluarix PF Quadrivalent ] KELLY BALDWIN MD [facility] 11-01-2018 tetanus toxoid, redu sherrill diphtheria toxoid, and acellular pertussis vaccine, adsorbed; Translations: [Boostrix (Tdap)] KELLY BALDWIN MD [facility] 10-28-2017 influenza virus vacc ine, unspecified formulation KELLY BALDWIN MD [facility] 11-04-2016 influenza virus vacc ine, unspecified formulation KELLY BALDWIN MD [facility] 11-01-2014 influenza virus vacc ine, unspecified formulation KELLY BALDWIN MD [facility] 04-16-2014 pneumococcal conjuga te vaccine, 13 valent KELLY BALDWIN MD [facility] Comment on above: Result Comment: [facility] 11-08-2013 influenza virus vacc ine, unspecified formulation KELLY BALDWIN MD [facility] 04-21-2013 tetanus toxoid, redu sherrill diphtheria toxoid, and acellular pertussis vaccine, adsorbed KELLY BALDWIN MD [facility] Comment on above: Result Comment: [facility] 10-28-2012 influenza virus vacc ine, unspecified formulation KELLY BALDWIN MD [facility] 04-21-2012 tetanus toxoid, redu sherrill diphtheria toxoid, and acellular pertussis vaccine, adsorbed KELLY BALDWIN MD [facility] 02-22-2012 pneumococcal polysaccharide vaccine, 23 valent KELLY BALDWIN MD [facility] Comment on above: Result Comment: [facility] 11-03-2011 influenza virus vacc ine, unspecified formulation KELLY BALDWIN MD [facility] Payers Date Payer Category Payer Self-pay [id number] 2023 Unknown [id number] 2009 Medicare [id number] Unknown [id number] 2.16.8 40.1.025696.3.579.2.462 Unknown [id number] 2.16.8 40.1.362280.3.579.2.462 Unknown [id number] 2.16.8 40.1.955348.3.579.2.462 Unknown [id number] 2.16.8 40.1.755723.3.579.2.462 Unknown [id number] 2.16.8 40.1.505702.3.579.2.462 Unknown [id number] 2.16.8 40.1.216128.3.579.2.462 Unknown [id number] 2.16.8 40.1.372857.3.579.2.462 Unknown [id number] 2.16.8 40.1.261056.3.579.2.462 Unknown [id number] 2.16.8 40.1.267272.3.579.2.462 Unknown [id number] 2.16.8 40.1.215630.3.579.2.462 Unknown [id number] 2.16.8 40.1.431128.3.579.2.462 Unknown [id number] 2.16.8 40.1.505164.3.579.2.462 Unknown [id number] 2.16.8 40.1.356970.3.579.2.462 Unknown [id number] 2.16.8 40.1.292756.3.579.2.462 Unknown [id number] 2.16.8 40.1.200450.3.579.2.462 Unknown [id number] 2.16.8 40.1.060898.3.579.2.462 Unknown [id number] 2.16.8 40.1.543103.3.579.2.462 Unknown [id number] 2.16.8 40.1.591235.3.579.2.462 Unknown [id number] 2.16.8 40.1.437051.3.579.2.462 Unknown [id number] 2.16.8 40.1.076125.3.579.2.462 Unknown [id number] 2.16.8 40.1.305006.3.579.2.462 Unknown [id number] 2.16.8 40.1.963711.3.579.2.462 Unknown [id number] 2.16.8 40.1.493752.3.579.2.462 Unknown [id number] 2.16.8 40.1.100076.3.579.2.462 Unknown [id number] 2.16.8 40.1.841815.3.579.2.462 Unknown [id number] 2.16.8 40.1.151681.3.579.2.462 Unknown [id number] 2.16.8 40.1.036389.3.579.2.462 Unknown [id number] 2.16.8 40.1.541816.3.579.2.462 Unknown [id number] 2.16.8 40.1.409760.3.579.2.462 Unknown [id number] 2.16.8 40.1.491845.3.579.2.462 Unknown [id number] 2.16.8 40.1.572596.3.579.2.462 Unknown [id number] 2.16.8 40.1.256532.3.579.2.462 Unknown [id number] 2.16.8 40.1.507418.3.579.2.462 Unknown [id number] 2.16.8 40.1.383752.3.579.2.462 Unknown [id number] 2.16.8 40.1.820949.3.579.2.462 Social History Date Type Detail Facility Start: 08-25-2018 End: 07-22-2023 Never smoked tobacco (finding) [facility] Start: 1945 Sex Assigned At Female A [facility] Start: 08-19-2021 End: 05-12-2023 Tobacco smoking status NHIS Unknown if ever smoked [facility] Start: 2018 None [facility] Start: 2018 Alone [facility] Start: 11-12-2018 Non-smoker [facility] Start: 04-15-2024 End: 05-13-2024 Sex Female (finding) [facility] Sex Female [facility] Goals Date Patient Goal Desired Activity /State Mental Status Date Assessment Result Facility 10-16-2024 Cognitive function Voice/Name [facility] Work Phone: 09-11-2024 Cognitive function Awake;Alert;A ppropriate;[facility] Work Phone: 08-14-2024 Cognitive function Voice/Name [facility] Work Phone: 07-14-2024 Cognitive function Awake;Alert;A ppropriate;[facility] Work Phone: 06-09-2024 Cognitive function Awake;Alert;A ppropriate;[employer] [facility] [facility] Work Phone: 05-12-2024 Cognitive function Awake;Alert;A ppropriate;[facility] Work Phone: 03-17-2024 Cognitive function Awake;Alert;A ppropriate;[employer] [facility] Work Phone: 02-11-2024 Cognitive function Awake;Alert;A ppropriate;Rachel Cabral [facility] Work Phone: 08-19-2021 Cognitive function Voice/Name [facility] Work Phone: Clinical Notes 04-21-2022 to 09-11-2024 Note Date & Type Note Facility 09-11-2024 Progress note [facility] 08-08-2024 Progress note [facility] 08-08-2024 Progress note Note Date/Time August 08, 2024 10:09am [facility] [address] [place] [address] [address] [place] [address] OFFICE VISIT Date of Service: 08/08/24 MR#: [id number] Acct: [id number] Name: CHELSEA GARCIA Rep #: [id number] : 1945 Provider: Dr. Fernando Ziegler MD Age/Sex: 78/F [place] [facility] [place] Status: Signed Intake Vital Signs 07/26/24 10:07 08/08/24 09:48 Height 4 ft 9 in 4 ft 9 in Weight: 105 lb 105 lb 8 oz BMI 22.7 22.8 BP 128/70 H Blood Pressure Location Lt brachial Position Sitting Respiration 75 H Pulse 75 Pulse Source Monitor Temp 98.1 F Temp Source Temporal Pulse Oximetry (%) 97 Oxygen Delivery Method room air Intake Visit Reasons: RIGHT SHOULDER Chief Complaint: Right Shoulder Accompanied by: Self Is patient in pain?: Yes Pain scale (1-10): 5 Allergies promethazine (From Phenergan) Allergy (Severe, Verified 08/08/24 09:49) Swelling cephalexin Allergy (Verified 08/08/24 09:49) Diarrhea hydromorphone (From Dilaudid) Allergy (Verified 08/08/24 09:49) Other iron Adverse Reaction (Intermediate, Verified 08/08/24 09:49) Diarrhea oxaprozin Adverse Reaction (Intermediate, Verified 08/08/24 09:49) Nausea Medications ?Medication ?Instructions ?Recorded ?Confirmed ?Type ascorbate calcium (vitamin C) 500 500 mg PO QDAY 07/2808/08/24 History mg tablet famotidine-Ca carb-mag hydrox 10 1 tab PO BID 07/28/17 08/08/24 History mg-800 mg-165 mg chewable tablet (Pepcid Complete) Handicap Placard #1 ea 06/29/22 08/08/24 Rx cyanocobalamin (vitamin B-12) 1,000 mcg subcut QMONTH 11/09/22 08/08/24 History 1,000 mcg/mL injection solution diazepam 2 mg tablet (Valium) 2 mg PO TID PRN dizzines s or 07/23/23 08/08/24 Rx vertigo #15 tabs romosozumab-aqqg 210 mg/2.34 210 mg (2.34 mL) subcut Q MONTH 12 10/22/23 08/08/24 Rx mL(105 mg/1.17 mL x2)subcutaneous months #28.08 mL syringe (Evenity) vitamins A,C,B-itaz-hpdqqa 2,148 2 tab PO BID 11/12/23 08/08/24 History mcg-113 mg-45 mg-17.4 mg tablet (Eye Multivitamin) meclizine 25 mg tablet 25 mg PO DAILY PRN dizziness #90 12/01/23 08/08/24 Rx tabs diphenoxylate-atropine 2.5 1 tab PO BID PRN diarrhea # 180 tabs 03/01/24 08/08/24 Rx mg-0.025 mg tablet (Lomotil) diclofenac sodium 1 % topical gel 4 g topical TID PRN pain #100 grams 05/29/24 08/08/24 Rx (Arthritis Pain (diclofenac)) ferrous sulfate 325 mg (65 mg 325 mg PO Q OTHER DAY 08/08/24 History iron) tablet (FeroSul) amlodipine 10 mg tablet 10 mg PO DAILY #90 tabs 06/0808/08/24 Rx lisinopril 30 mg tablet 30 mg PO DAILY #90 tabs 06/0808/08/24 Rx Have you fallen in the past year?: No PFSH Medical History (Updated 08/08/24 @ 09:59 by Gene Ziegler MD) Primary osteoarthritis, right shoulder Osteoarthritis of left knee Right shoulder pain Rib pain on right [...] walking frequency: 1-2 times per week HPI RIGHT SHOULDER Details: This documentation accurately reflects the service provided and the decisions made by me, Dr. Gene Zeigler MD 08/08/24 09. Part of today?s visit was documented by [ ], acting as scribe. CHELSEA GARCIA is a 78 year old F here today for right shoulder pain. 6 weeks history. No trauma. Mostly lateral side of the shoulder. Difficulties with lifting. Moderate to mild pain. The patient never had a cortisone injection dayanna operation on the shoulder. Patient is right-hand dominant. They are quite independent doing driving groceries meal preparation and everything. Most of the [place] from [place]. She has tried 6 weeks of physical therapy without improvement. Patient has a speech impediment from . Ortho Exam General General: Yes no acute distress Neurologic: Yes alert and Yes oriented x3 Psychologic: Yes reasonable and appropriate Right Shoulder Skin/Wound: Yes CDI, No ecchymosis, No erythema and No swelling Testing: Positive Hawkin's, Neer's, AROM-Forward Elevation 0-180, AROM-External Rotation at side 0-60, empty can and belly press normal; Negative Speed's, TTP Biceps, TTP AC Joint, Drop Arm, cross arm or scapular winging SHOULDER: normal motor and sens to ax nerve, and MRU and AIN/PIN. Positive painful arc pain at the greater tuberosity. Forward elevation strength 4/5 external rotation strength 4+/5. Supplemental Info [facility] Imaging Services [address] [place] [address] [id number] Shoulder min 2 Views MR#: [id number] Acct: [id number] Name: CHELSEA GARCIA Rep #: [id number] : 1945 F 78 From: [place] Nina MD PCP: Dr. Mile Foster MD Status: REG CLI Study: Shoulder min 2 Views Date of Exam: 05/29/24 Exam# [id number] Ordering Dr: Mile Foster MD PROCEDURE: SHOULDER MIN 2 VIEWS 05/29/2024 REASON FOR EXAM: RIGHT SHOULDER PAIN TECHNIQUE: Five views of the right shoulder COMPARISON: None FINDINGS: Bones: No fracture or dislocation. Joints: Degenerative changes of the acromioclavicular joint. Moderate degree ofjoint space narrowing of the glenohumeral joint with evidence of decreased distance between the acromion and humeral head suggestive of rotator cuff disease. Soft tissues: Soft tissues are unremarkable. Other: RAD/Shoulder min 2 Views IMPRESSION: NO ACUTE FRACTURE OR DISLOCATION. Degenerative changes as described. Reading Location: [place] [address] I independently reviewed the imaging. Concur with radiologist report. Moderate osteoarthritis with mild posterior subluxation of the humeral head on the axillary lateral radiograph. There is signs of impingement. Bones are osteopenic. No Coding Level of Care Code Off vis,new,level 4 Diagnoses Right shoulder pain M25.511 Primary osteoarthritis, right shoulder M19.011 Assessment and Plan Assessment and Plan (1) Right shoulder pain: Status: Chronic Plan: CHELSEA GARCIA is a 78 year old F here today for right shoulder pain. Given the patient's age and weakness could have rotator cuff tear issues of the biceps. Could also have some pain from osteoarthritis although despite that they have reasonably good range of motion and quite independent function overallgood range of motion of the shoulder but some weakness I will go ahead and orderan MRI of the shoulder as the patient failed 6 weeks of conservative physical therapy. We also discussed an injection but the patient would rather start withthe MRI. Will follow them up after that they understood no further questions orconcerns. Patient counselled on non-operative and operative means of treating shoulder pain. Conservative options include but not limited to: 1. Rest and Activity Modification: Giving your shoulder time to heal by avoidingmovements that cause pain can help. This may involve limiting overhead activities or heavy lifting. 2. Physical Therapy: A physical therapist can guide you through exercises that strengthen the muscles around the shoulder, improve flexibility, and reduce strain on the rotator cuff tendon. 3. Ice and Heat Therapy: Applying ice to the shoulder can help reduce swelling and pain, especially after activity. Heat can be helpful to relax tense muscles and improve blood flow before exercises. 4. Anti-Inflammatory Medications: Eibd-rve-oldesqx medications like ibuprofen ornaproxen can help reduce pain and inflammation in the tendon. 5. Corticosteroid Injections: If the pain is more severe, a steroid injection can reduce inflammation in the shoulder and provide relief for a longer period. 6. Platelet-Rich Plasma (PRP) Injection: This treatment involves using your own blood to promote healing in the tendon. The plasma is rich in growth factors that can encourage tissue repair. 7. TENS (Transcutaneous Electrical Nerve Stimulation): This therapy uses a smallelectrical current to help manage pain and promote healing by stimulating nerves. (2) Primary osteoarthritis, right shoulder: Status: Acute Plan Details Goals & Barriers: Goals Decrease pain Decrease spasm Improve ROM Barriers Scoliosis DDD Clinical Quality Measures Falls Risk Screening/Assistive Devices Have you fallen in the past year?: No 08/08/24 1009 <Electronically signed by Gene winston MD> Date _ Gene Ziegler MD [facility] Signature: Date (if applicable) CC: ~ [facility] [employer] Work Phone: 1(975) 423-734006-04-2025 Evaluation note* Diagnosis Onset Date Resolution Status Admit Date Vitamin B12 deficiency chronic Ju 2024 8:52am Hypertension chronic July 26, 025 9:39am Osteoporosis chronic July 26 025 9:39am Right shoulder pain chronic July 26, 2024 9:39am Primary osteoarthritis, righ t shoulder acute August 08, 2024 9 :42am Right shoulder pain chronic August 08, 2024 9:42am Vitamin B12 deficiency chronic Ju ly 2024 8:49am [facility] Work Phone: 1(189) 863-746406-04-2025 Evaluation note* Diagnosis Onset Date Resolution Status Admit Date Vitamin B12 deficiency chronic Ju ne 2024 8:52am Hypertension chronic July 26 9:39am Osteoporosis chronic July 26 9:39am Right shoulder pain chronic July 26, 2024 9:39am Primary osteoarthritis, righ t shoulder acute August 08, 2024 9 :42am Right shoulder pain chronic August 08, 2024 9:42am Vitamin B12 deficiency chronic Ju ly 2024 8:49am BPPV (benign paroxysmal positional vertigo) acute October 252024 9:25am History of skin cancer acute Se ptember 2024 9:25am Anemia chronic October 9:25am Hypertension chronic October 252024 9:25am Vitamin B12 deficiency chronic Se ptember 2024 9:25am [facility] Work Phone: 1([phone]) 669-624305-07-2025 Evaluation note* Diagnosis Onset Date Resolution Status Admit Date Vitamin B12 deficiency chronic Ma y 2024 9:22am Vitamin B12 deficiency chronic Ju ne 2024 8:52am Hypertension chronic July 26 9:39am Osteoporosis chronic July 26 9:39am Right shoulder pain chronic July 26, 2024 9:39am Primary osteoarthritis, righ t shoulder acute August 08, 2024 9 :42am Right shoulder pain chronic August 08, 2024 9:42am Vitamin B12 deficiency chronic Ju ly 2024 8:49am [facility] Work Phone: 1(620) 903-542304-21-2025 Evaluation note* Diagnosis Onset Date Resolution Status Admit Date Rib pain on right side acute Ap 2024 8:32am Anemia chronic May 29 8:32am Right shoulder pain chronic May 29, 2024 8:32am Vitamin B12 deficiency chronic Ma y 2024 9:22am Vitamin B12 deficiency chronic Ju ne 2024 8:52am Hypertension chronic July 26 9:39am Osteoporosis chronic July 26 9:39am Right shoulder pain chronic July 26, 2024 9:39am Primary osteoarthritis, righ t shoulder acute August 08, 2024 9 :42am Right shoulder pain chronic August 08, 2024 9:42am Vitamin B12 deficiency chronic Ju ly 2024 8:49am [employer] Work Phone: 1(357) 624-970603-10-2025 Evaluation note* Diagnosis Onset Date Resolution Status Admit Date Vitamin B12 deficiency chronic [facility] 2024 9:54am Anemia chronic April 26 8:38am Diarrhea chronic April 26 8:38am Hypertension chronic April 26, 2024 8:38am Osteoarthritis chronic April 8:38am Vitamin B12 deficiency chronic [facility] 2024 8:38am Rib pain on right side acute Ap ril 2024 8:32am Right shoulder pain acute May 29, 2024 8:32am Anemia chronic May 29 8:32am Vitamin B12 deficiency chronic Ma y 2024 9:22am Vitamin B12 deficiency chronic Ju ne 2024 8:52am [employer] Work Phone: 1(871) 872-889903-10-2025 Evaluation note* Diagnosis Onset Date Resolution Status Admit Date Vitamin B12 deficiency chronic [facility] 2024 9:54am Anemia chronic April 26 8:38am Diarrhea chronic April 26 8:38am Hypertension chronic April 26, 2024 8:38am Osteoarthritis chronic April 8:38am [facility] 8:38am Rib pain on right side acute Ap ril 2024 8:32am Anemia chronic May 29 8:32am Right shoulder pain chronic May 29, 2024 8:32am Vitamin B12 deficiency chronic Ma y 2024 9:22am Vitamin B12 deficiency chronic Ju ne 2024 8:52am Hypertension chronic July 26 9:39am Osteoporosis chronic July 26 9:39am Right shoulder pain chronic July 26, 2024 9:39am Primary osteoarthritis, righ t shoulder acute August 08, 2024 9 :42am Right shoulder pain chronic August 08, 2024 9:42am [employer] Work Phone: 1(820) 337-509903-10-2025 Evaluation note* Diagnosis Onset Date Resolution Status Admit Date Vitamin B12 deficiency chronic Ma rch 2024 9:54am Anemia chronic April 26 8:38am Diarrhea chronic April 26 8:38am Hypertension chronic April 26, 2024 8:38am Osteoarthritis chronic April 8:38am Vitamin B12 deficiency chronic Ma rch 2024 8:38am Rib pain on right side acute Ap ril 2024 8:32am Anemia chronic May 29 8:32am Right shoulder pain chronic May 29, 2024 8:32am Vitamin B12 deficiency chronic Ma y 2024 9:22am Vitamin B12 deficiency chronic Ju ne 2024 8:52am Hypertension chronic July 26 9:39am Osteoporosis chronic July 26 9:39am Right shoulder pain chronic July 26, 2024 9:39am Primary osteoarthritis, righ t shoulder acute August 08, 2024 9 :42am Right shoulder pain chronic August 08, 2024 9:42am Vitamin B12 deficiency chronic Ju ly 2024 8:49am [facility] Work Phone: 1(129) 246-315702-10-2025 Evaluation note* Diagnosis Onset Date Resolution Status Admit Date Vitamin B12 deficiency chronic Fe bruary 2024 9:47am Vitamin B12 deficiency chronic Ma rch 2024 9:54am Anemia chronic April 26 8:38am Diarrhea chronic April 26 8:38am Hypertension chronic April 26, 2024 8:38am Osteoarthritis chronic April 8:38am Vitamin B12 deficiency chronic Ma rc 2024 8:38am Rib pain on right side acute Ap ril 2024 8:32am Right shoulder pain acute May 29, 2024 8:32am Anemia chronic May 29 8:32am Vitamin B12 deficiency chronic Ma y 2024 9:22am Vitamin B12 deficiency chronic Ju ne 2024 8:52am [facility] Work Phone: 1(566) 345-703202-10-2025 Evaluation note* Diagnosis Onset Date Resolution Status Admit Date Vitamin B12 deficiency chronic Fe bruary 2024 9:47am Vitamin B12 deficiency chronic Ma rch 2024 9:54am Anemia chronic April 26 8:38am Diarrhea chronic April 26 8:38am Hypertension chronic April 26, 2024 8:38am Osteoarthritis chronic April 8:38am Vitamin B12 deficiency chronic Ma [facility] 2024 8:38am Rib pain on right side acute Ap 2024 8:32am Right shoulder pain acute May 29, 2024 8:32am Anemia chronic May 29 8:32am Vitamin B12 deficiency chronic Ma 2024 9:22am [facility] Work Phone: 1([phone]) 843-344212-12-2024 Evaluation note* Diagnosis Onset Date Resolution Status Admit Date Vitamin B12 deficiency chronic De cember 2023 8:51am Anemia chronic January 28, 2024 8:34am Hypertension chronic January 8:34am Osteoporosis chronic January 8:34am Vitamin B12 deficiency chronic De cem2023 8:34am Vitamin B12 deficiency chronic Ja nuary 2024 9:20am Vitamin B12 deficiency chronic Fe bruary 2024 9:47am Vitamin B12 deficiency chronic [facility] 2024 9:54am Anemia chronic April 26 8:38am Diarrhea chronic April 26 8:38am Hypertension chronic April 26, 2024 8:38am Osteoarthritis chronic April 8:38am Vitamin B12 deficiency chronic [facility] 2024 8:38am [facility] Work Phone: 1(902) 922-198311-14-2024 Evaluation note* Diagnosis Onset Date Resolution Status Admit Date Vitamin B12 deficiency chronic No vember 2023 8:55am Vitamin B12 deficiency chronic De cember 2023 8:51am Anemia chronic January 28, 2024 8:34am Hypertension chronic January 8:34am Osteoporosis chronic January 8:34am Vitamin B12 deficiency chronic De cember 2023 8:34am Vitamin B12 deficiency chronic Ja nuary 2024 9:20am Vitamin B12 deficiency chronic Fe bruary 2024 9:47am [facility] Work Phone: 1(208) 956-157310-05-2023 Discharge summary Author Arnulfo Nguyen [facility] November 12, 2022 5:22am Note Date/Time November 12, 2022 2: 31am [facility] Medical Records Department [address] [place] [address] Emergency Department Summary 11/12/22 MR#: [id number] Acct: [id number] Name: CHELSEA GARCIA Rep #:[id number] : 1945 77 From: Arnulfo Nguyen [...] No fevers. No distal numbness or tingling. [facility] Medical History (Updated 11/12/22 @ 05:21 by [...] BID 07/28/17 [History Last Taken 11/10/18] vitamins A,C,D-kwbq-yvvsbp 4,296 mcg-226 mg-90 mg capsule 1 ea [...] 75.7 H Lymph % (Auto) 12.4 L [place] % (Auto) 9.8 Eos % (Auto) 1.1 [...] Signed: Kayla Guzman MD at 3:48 EDT , EKG Initial EKG: Comments: My independent interpretation of the patient's EKG shows a normal sinus rhythm with a rate at 98. No ventricular ectopy. No acute ST elevation or depression. CA interval, QRS duration, QTc are all normal. [...] subcut QMONTH Rx Instructions: To receive at [facility] on [address] [place]. meclizine 25 mg tablet 25 mg PO TID PRN (Reason: dizziness) Qty: 60 1RF vitamins A,C,R-btsi-fzxyfa 1 EACH capsule 1 ea PO DAILY [...] your Primary Care Provider. Call [facility] ([phone]) or report to the closest Emergency Room. Call 911 if necessary. 11/12/22521 <Electronically signed by Arnulfo Nguyen MD> Cosigner Signature (if applicable): CC: Dr. Mile Foster MD ~ Signed [facility] Work Phone: 1(152) 878-943903-14-2023 Discharge summary Author Theresa Lawson [facility] April 21, 2022 10:22am Note Date/Time April 21, 2022 10: 22am [facility] Physical Therapy Health[address] [place] [address] / REHABILITATION SERVICES DISCHARGE SUMMARY MR#: [id number] Acct: [id number] Name: CHELSEA GARCIA Rep #: [id number] : 1945 76 From: Theresa Lawson [...] HEP NOW. SHEIS APPROPRIATE FOR DISCHARGE TO [facility] AND SHE IS AGREEABLE. UPON [...] please feel free to call me at [phone]. Thank you for the referral of thispatient. Sincerely, Theresa Lawsno, PT, Cert MDT Balance/Gait/Functional tests - Balance/Special Test Scores Oswestry Low Back Score: 11 <Electronically signed by Theresa Lawson PT, Cert. MDT> 04/21/22 1022 CC: Dr. Ramin Dominguez MD; Dr. Mile Foster MD ~ [facility] Work Phone: evaluation + Plan note Future Appointments Appointment Date:04/25/2021 09:20:00 AM Scheduled Provider:KELLY BALDWIN MD Location:[facility] Appointment Type:PC OV Future Scheduled Tests Radiology* BD Bone Density DEXA Axial Skeleton 04/29/20 * MA Mammo Screening Bilateral w/ Terry 04/29/20 [facility] Evaluation noteNo assessment information available [facility] Work Phone: evaluation note* Diagnosis Onset Date Resolution Status Back pain acute Segmental and somatic dysfunction of lumbar region acute Segmental and somatic dysfunction of pelvic region acute Segmental and somatic dysfunction of thoracic region acute DDD (degenerative disc disease), lumbar chronic Scoliosis [facility] Work Phone: evaluation note* Diagnosis Onset Date Resolution Status Back pain acute Segmental and somatic dysfunction of lumbar region acute Segmental and somatic dysfunction of pelvic region acute Segmental and somatic dysfunction of thoracic region acute DDD (degenerative disc disease), lumbar chronic Scoliosis chronic Hypertension chronic Osteoporosis chronic Vitamin B12 deficiency [facility] Work Phone: Evaluation note* Diagnosis Onset Date Resolution Status Back pain acute Segmental and somatic dysfunction of lumbar region acute Segmental and somatic dysfunction of pelvic region acute Segmental and somatic dysfunction of thoracic region acute DDD (degenerative disc disease), lumbar chronic Scoliosis chronic Hypertension chronic Osteoporosis chronic Vitamin B12 deficiency chron Hypertension chronic Vitamin B12 deficiency [facility] Work Phone: Evaluation note* Diagnosis Onset Date Resolution Status Hypertension chronic Vitamin B12 deficiency chron ic Chronic diarrhea chronic Hypertension chronic Vitamin B12 deficiency [facility] Work Phone: Evaluation note* Diagnosis Onset Date Resolution Status Chronic diarrhea chronic Hypertension chronic Vitamin B12 deficiency [facility] Work Phone: Evaluation note* Diagnosis Onset Date Resolution Status Brittle nails acute Hypertension chronic Vitamin B12 deficiency [facility] Work Phone: Evaluation note* Diagnosis Onset Date Resolution Status Brittle nails acute Hypertension chronic Vitamin B12 deficiency chron ic Hypertension chronic Osteoporosis chronic Vitamin B12 deficiency [facility] Work Phone: Evaluation note* Diagnosis Onset Date Resolution Status Osteoporosis chronic Vitamin B12 deficiency chron ic Flu vaccine need acute Osteoporosis chronic Vitamin B12 deficiency [facility] Work Phone: Evaluation note* Diagnosis Onset Date Resolution Status Flu vaccine need acute Hypertension chronic Osteoporosis chronic Vitamin B12 deficiency chron ic Vitamin B12 deficiency chron ic Vitamin B12 deficiency chron ic Vitamin B12 deficiency chron ic Screening mammogram for breast cancer acute Hypertension chronic Osteoporosis chronic Vitamin B12 deficiency [facility] Work Phone: Evaluation note* Diagnosis Onset Date Resolution Status Vitamin B12 deficiency chron ic Screening mammogram for breast cancer acute Hypertension chronic Osteoporosis chronic Vitamin B12 deficiency chron ic Vitamin B12 deficiency chron ic Vitamin B12 deficiency chron ic Hemorrhoid acute Hypertension chronic Osteoporosis chronic Vitamin B12 deficiency [facility] Work Phone: Hospital course Narrative No data available for this section [facility] Hospital Discharge instructions No data available for this section [facility] Hospital Discharge instructions Additional Instructions Use Tylenol, rest, ice packs for discomfort.[facility] Work Phone: Hospital Discharge instructionsAmbulatory Orders* Orthopedics Location: None [facility] Work Phone: Progress note Author Lorena Daley [facility] Note Date/Time November 02, 2024 4:38pm [facility] [address] [place] [address] OFFICE VISIT Date of Service: 11/02/24 MR#: [id number] Acct: [id number] Patient: CHELSEA GARCIA Rep #: [id number] : 1945 Provider: ARTIS Balderrama Age/Sex: 78/F [place] [facility] Status: Signed Intake Vital Signs 09/11/24 08:50 10/25/24 09:30 Height 4 ft 9 in 4 ft 9 in Weight: 107 lb BMI 23.1 BP 120/58 L Blood Pressure Location Lt brachial Position Sitting Respiration 16 Pulse 85 Pulse Source Monitor Temp 98.5 F Temp Source Temporal Pulse Oximetry (%) 95 Oxygen Delivery Method room air Intake Visit Reasons: B12 inject Chief Complaint: Follow-up chronic conditions Allergies promethazine (From Phenergan) Allergy (Severe, Verified 10/25/24 09:13) Swelling cephalexin Allergy (Verified 10/25/24 09:13) Diarrhea hydromorphone (From Dilaudid) Allergy (Verified 10/25/24 09:13) Other iron Adverse Reaction (Intermediate, Verified 10/25/24 09:13) Diarrhea oxaprozin Adverse Reaction (Intermediate, Verified 10/25/24 09:13) Nausea Have you fallen in the past year?: No Office Meds cyanocobalamin (vitamin B-12) 1,000 mcg/mL injection solution Performing Provider: Mile Foster MD Performing Location: [facility] Administered by: Loida Mansfield MA on 11/02/24 09:36 Dose Route Admin Location Dispensed Lot Number Expiration Date Pack age NDC NDC Dish Person 1,000 mcg IM LD 1 mL [id number] 04/08/26 47513-232-86 [id number] KIERST[address]AINE CHIKI Assessment and Plan Assessment and Plan Orders: Orders Vitamin B12 Today E53.8 - Deficiency of other specified B group vitamins Plan Details Goals & Barriers: Goals Decrease pain Decrease spasm Improve ROM Barriers Scoliosis DDD Clinical Quality Measures Falls Risk Screening/Assistive Devices Have you fallen in the past year?: No 11/02/24 7298 <Electronically signed by Lorena laird NP-C> Date _ Lorena LONG Cosigner Signature: Date (if applicable) CC: ~ [facility] Work Phone: Reason for referral (narrative)No reason for referral information [facility] Work Phone: Summary Purpose Family History No Family History Records Found Relationship Condition Age at Onset Recorded Date/T tamar Not Specified Malignant melanoma Unknown Malignant neoplasm of breast Unknown Malignant neoplasm Unknown Hypertension Unknown Advance Directives No Advanced Directives Records Found Advance Directive Response Recorded Date/ Time Living Will No August 19, 2021 4:16am Power of Law Office Receptionist No August 19 2 4:16am Advance Directive Response Recorded Date/ Time Living Will No August 19, 2021 3:16am Power of Law Office Receptionist No August 19 2 3:16am Advance Directive Response Recorded Date/ Time Living Will No November 12 3 1:25am Power of Law Office Receptionist No November 12, 2 023 1:25am Advance Directive Response Recorded Date/ Time Living Will No November 12 3 12:25am Power of Law Office Receptionist No November 12 2 023 12:25am Advance Directive Response Recorded Date/ Time Living Will Yes July 22, 2023 10:39pm Power of Law Office Receptionist Yes July 21 4 10:39pm Advance Directive Response Recorded Date/ Time Living Will Yes July 22, 2023 11:39pm Do you have a Healthcare Power of Law Office Receptionist? Yes July 22, 2023 11:39pm Chief Complaint [...] ORDER Radiculopathy, lumbar region SCREENING/OSTEO e orders PEDIATRIC ASSISTANT, EST. CARE, BP FU EORDER Reason for Visit Back pain Segmental and somatic dysfunction of lumbar region Segmental and somatic dysfunction of pelvic region Segmental and somatic dysfunction of thoracic region DDD (degenerative disc disease), lumbar Scoliosis Hypertension Osteoporosis Vitamin B12 deficiency Chief Complaint n/v REEVAL UPPER BACK xray E ORDER Radiculopathy, lumbar region SCREENING/OSTEO e orders PEDIATRIC ASSISTANT, EST. CARE, BP FU EORDER 2 WK [...] EVENITY 210MG May 12, 2024 8:51 am Chief Complaint Admit Date EVENITY 210MG March 17, 2024 1 2:18pm b12 March 20, 2024 9:47am EVENITY 210MG April 14, 2024 9:50 am B12 April 17, 2024 9:5 4am 3 M FU April 26, 2024 8:3 8am EVENITY 210MG May 12, 2024 8:51 am b12 May 16, 2024 9:22 am rt arm hurts May 29, 2024 8:3 2am INT RAD May 29, 2024 9:2 8am EVENITY 210MG June 09, 2024 8:50am B12 June 14, 2024 9:22am RIGHT SHOULDER PAIN. RX HERE July 06, 025 9:00am B12 July 12, 2024 8:52a m EVENITY 210MG July 14, 2024 8:52a m Reason for Visit Admit Date Vitamin B12 deficiency March 20 9:47am Vitamin B12 deficiency April 17, 2024 9:54am Anemia April 26, 2024 8:3 8am Diarrhea April 26, 2024 8:3 8am Hypertension April 26, 2024 8:3 8am Osteoarthritis April 26, 2024 8:3 8am Vitamin B12 deficiency April 26, 2024 8:38am Rib pain on right side May 29, 2024 8:32am Right shoulder pain May 29, 2024 8:3 2am Anemia May 29, 2024 8:3 2am Vitamin B12 deficiency June 14, 2024 9:2 2am Vitamin B12 deficiency July 12, 2024 8: 52am Chief Complaint Admit Date EVENITY 210MG March 17, 2024 1 2:18pm b12 March 20, 2024 9:47am EVENITY 210MG April 14, 2024 9:50 am B12 April 17, 2024 9:5 4am 3 M FU April 26, 2024 8:3 8am EVENITY 210MG May 12, 2024 8:51 am b12 May 16, 2024 9:22 am rt arm hurts May 29, 2024 8:3 2am INT RAD May 29, 2024 9:2 8am EVENITY 210MG June 09, 2024 8:50am B12 June 14, 2024 9:22am RIGHT SHOULDER PAIN. RX HERE July 06, 025 9:00am B12 July 12, 2024 8:52a m Reason for Visit Admit Date Vitamin B12 deficiency March 20 9:47am Vitamin B12 deficiency April 17, 2024 9:54am Anemia April 26, 2024 8:3 8am Diarrhea April 26, 2024 8:3 8am Hypertension April 26, 2024 8:3 8am Osteoarthritis April 26, 2024 8:3 8am Vitamin B12 deficiency April 26, 2024 8:38am Rib pain on right side May 29, 2024 8:32am Right shoulder pain May 29, 2024 8:3 2am Anemia May 29, 2024 8:3 2am Vitamin B12 deficiency June 14, 2024 9:2 2am Chief Complaint Admit Date EVENITY 210MG April 14, 2024 9:50 am B12 April 17, 2024 9:5 4am 3 M FU April 26, 2024 8:3 8am EVENITY 210MG May 12, 2024 8:51 am b12 May 16, 2024 9:22 am rt arm hurts May 29, 2024 8:3 2am INT RAD May 29, 2024 9:2 8am EVENITY 210MG June 09, 2024 8:50am B12 June 14, 2024 9:22am RIGHT SHOULDER PAIN. RX HERE July 06, 2 025 9:00am B12 July 12, 2024 8:52a m EVENITY 210MG July 14, 2024 8:52a m 3 M FU July 26, 2024 9:39 am Reason for Visit Admit Date Vitamin B12 deficiency April 17, 2024 9:54am Anemia April 26, 2024 8:3 8am Diarrhea April 26, 2024 8:3 8am Hypertension April 26, 2024 8:3 8am Osteoarthritis April 26, 2024 8:3 8am Vitamin B12 deficiency April 26, 2024 8:38am Rib pain on right side May 29, 2024 8:32am Right shoulder pain May 29, 2024 8:3 2am Anemia May 29, 2024 8:3 2am Vitamin B12 deficiency June 14, 2024 9:2 2am Vitamin B12 deficiency July 12, 2024 8: 52am Chief Complaint Admit Date EVENITY 210MG April 14, 2024 9:50 am B12 April 17, 2024 9:5 4am 3 M FU April 26, 2024 8:3 8am EVENITY 210MG May 12, 2024 8:51 am b12 May 16, 2024 9:22 am rt arm hurts May 29, 2024 8:3 2am INT RAD May 29, 2024 9:2 8am EVENITY 210MG June 09, 2024 8:50am B12 June 14, 2024 9:22am RIGHT SHOULDER PAIN. RX HERE July 06 025 9:00am B12 July 12, 2024 8:52a m EVENITY 210MG July 14, 2024 8:52a m 3 M FU July 26, 2024 9:39 am RIGHT SHOULDER August 08, 2024 9:42a m Reason for Visit Admit Date Vitamin B12 deficiency April 17, 2024 9:54am Anemia April 26, 2024 8:3 8am Diarrhea April 26, 2024 8:3 8am Hypertension April 26, 2024 8:3 8am Osteoarthritis April 26, 2024 8:3 8am Vitamin B12 deficiency April 26, 2024 8:38am Rib pain on right side May 29, 2024 8:32am Anemia May 29, 2024 8:3 2am Right shoulder pain May 29, 2024 8:3 2am Vitamin B12 deficiency June 14, 2024 9:2 2am Vitamin B12 deficiency July 12, 2024 8: 52am Hypertension July 26, 2024 9:39 am Osteoporosis July 26, 2024 9:39 am Right shoulder pain July 26, 2024 9:39 am Primary osteoarthritis, right shoulder J vikash 2024 9:42am Right shoulder pain August 08, 2024 9:42a m Chief Complaint Admit Date EVENITY 210MG April 14, 2024 9:50 am B12 April 17, 2024 9:5 4am 3 M FU April 26, 2024 8:3 8am EVENITY 210MG May 12, 2024 8:51 am b12 May 16, 2024 9:22 am rt arm hurts May 29, 2024 8:3 2am INT RAD May 29, 2024 9:2 8am EVENITY 210MG June 09, 2024 8:50am B12 June 14, 2024 9:22am RIGHT SHOULDER PAIN. RX HERE July 06 025 9:00am B12 July 12, 2024 8:52a m EVENITY 210MG July 14, 2024 8:52a m 3 M FU July 26, 2024 9:39 am RIGHT SHOULDER August 08, 2024 9:42a m B12 SHOT August 10, 2024 8:49a m Chief Complaint Admit Date B12 April 17, 2024 9:5 4am 3 M FU April 26, 2024 8:3 8am EVENITY 210MG May 12, 2024 8:51 am b12 May 16, 2024 9:22 am rt arm hurts May 29, 2024 8:3 2am INT RAD May 29, 2024 9:2 8am EVENITY 210MG June 09, 2024 8:50am B12 June 14, 2024 9:22am RIGHT SHOULDER PAIN. RX HERE July 06 9:00am B12 July 12, 2024 8:52a m EVENITY 210MG July 14, 2024 8:52a m 3 M FU July 26, 2024 9:39 am RIGHT SHOULDER August 08, 2024 9:42a m B12 SHOT August 10, 2024 8:49a m EVENITY 210MG August 14, 2024 11:32 am Reason for Visit Admit Date Vitamin B12 deficiency April 17, 2024 9:54am Anemia April 26, 2024 8:3 8am Diarrhea April 26, 2024 8:3 8am Hypertension April 26, 2024 8:3 8am Osteoarthritis April 26, 2024 8:3 8am Vitamin B12 deficiency April 26, 2024 8:38am Rib pain on right side May 29, 2024 8:32am Anemia May 29, 2024 8:3 2am Right shoulder pain May 29, 2024 8:3 2am Vitamin B12 deficiency June 14, 2024 9:2 2am Vitamin B12 deficiency July 12, 2024 8: 52am Hypertension July 26, 2024 9:39 am Osteoporosis July 26, 2024 9:39 am Right shoulder pain July 26, 2024 9:39 am Primary osteoarthritis, right shoulder J vikash 2024 9:42am Right shoulder pain August 08, 2024 9:42a m Vitamin B12 deficiency August 10, 2024 8: 49am Chief Complaint Admit Date EVENITY 210MG May 12, 2024 8:51 am b12 May 16, 2024 9:22 am rt arm hurts May 29, 2024 8:3 2am INT RAD May 29, 2024 9:2 8am EVENITY 210MG June 09, 2024 8:50am B12 June 14, 2024 9:22am RIGHT SHOULDER PAIN. RX HERE July 06 9:00am B12 July 12, 2024 8:52a m EVENITY 210MG July 14, 2024 8:52a m 3 M FU July 26, 2024 9:39 am RIGHT SHOULDER August 08, 2024 9:42a m B12 SHOT August 10, 2024 8:49a m EVENITY 210MG August 14, 2024 11:32 am B12 September 07, 2024 9:07 am Reason for Visit Admit Date Rib pain on right side May 29, 2024 8:32am Anemia May 29, 2024 8:3 2am Right shoulder pain May 29, 2024 8:3 2am Vitamin B12 deficiency June 14, 2024 9:2 2am Vitamin B12 deficiency July 12, 2024 8: 52am Hypertension July 26, 2024 9:39 am Osteoporosis July 26, 2024 9:39 am Right shoulder pain July 26, 2024 9:39 am Primary osteoarthritis, right shoulder J vikash 2024 9:42am Right shoulder pain August 08, 2024 9:42a m Vitamin B12 deficiency August 10, 2024 8: 49am Chief Complaint Admit Date b12 May 16, 2024 9:22 am rt arm hurts May 29, 2024 8:3 2am INT RAD May 29, 2024 9:2 8am EVENITY 210MG June 09, 2024 8:50am B12 June 14, 2024 9:22am RIGHT SHOULDER PAIN. RX HERE July 06, 025 9:00am B12 July 12, 2024 8:52a m EVENITY 210MG July 14, 2024 8:52a m 3 M FU July 26, 2024 9:39 am RIGHT SHOULDER August 08, 2024 9:42a m B12 SHOT August 10, 2024 8:49a m EVENITY 210MG August 14, 2024 11:32 am B12 September 07, 2024 9:07 am EVENITY 210MG September 11, 2024 8:5 1am Chief Complaint Admit Date EVENITY 210MG June 09, 2024 8:50am B12 June 14, 2024 9:22am RIGHT SHOULDER PAIN. RX HERE July 06, 025 9:00am B12 July 12, 2024 8:52a m EVENITY 210MG July 14, 2024 8:52a m 3 M FU July 26, 2024 9:39 am RIGHT SHOULDER August 08, 2024 9:42a m B12 SHOT August 10, 2024 8:49a m EVENITY 210MG August 14, 2024 11:32 am B12 September 07, 2024 9:07 am EVENITY 210MG September 11, 2024 8:5 1am B12 October 05, 2024 9: 05am Reason for Visit Admit Date Vitamin B12 deficiency June 14, 2024 9:2 2am Vitamin B12 deficiency July 12, 2024 8: 52am Hypertension July 26, 2024 9:39 am Osteoporosis July 26, 2024 9:39 am Right shoulder pain July 26, 2024 9:39 am Primary osteoarthritis, right shoulder J vikash 2024 9:42am Right shoulder pain August 08, 2024 9:42a m Vitamin B12 deficiency August 10, 2024 8: 49am Chief Complaint Admit Date RIGHT SHOULDER PAIN. RX HERE July 06 9:00am B12 July 12, 2024 8:52a m EVENITY 210MG July 14, 2024 8:52a m 3 M FU July 26, 2024 9:39 am RIGHT SHOULDER August 08, 2024 9:42a m B12 SHOT August 10, 2024 8:49a m EVENITY 210MG August 14, 2024 11:32 am B12 September 07, 2024 9:07 am EVENITY 210MG September 11, 2024 8:5 1am B12 October 05, 2024 9: 05am EVENITY 210MG October 16, 2024 8:50am Reason for Visit Admit Date Vitamin B12 deficiency July 12, 2024 8: 52am Hypertension July 26, 2024 9:39 am Osteoporosis July 26, 2024 9:39 am Right shoulder pain July 26, 2024 9:39 am Primary osteoarthritis, right shoulder J vikash 2024 9:42am Right shoulder pain August 08, 2024 9:42a m Vitamin B12 deficiency August 10, 2024 8: 49am Chief Complaint Admit Date RIGHT SHOULDER PAIN. RX HERE July 06 025 9:00am B12 July 12, 2024 8:52a m EVENITY 210MG July 14, 2024 8:52a m 3 M FU July 26, 2024 9:39 am RIGHT SHOULDER August 08, 2024 9:42a m B12 SHOT August 10, 2024 8:49a m EVENITY 210MG August 14, 2024 11:32 am B12 September 07, 2024 9:07 am EVENITY 210MG September 11, 2024 8:5 1am B12 October 05, 2024 9: 05am EVENITY 210MG October 16, 2024 8:50am 3 M FU October 25, 2024 9:25am Chief Complaint Admit Date B12 July 12, 2024 8:52a m EVENITY 210MG July 14, 2024 8:52a m 3 M FU July 26, 2024 9:39 am RIGHT SHOULDER August 08, 2024 9:42a m B12 SHOT August 10, 2024 8:49a m EVENITY 210MG August 14, 2024 11:32 am B12 September 07, 2024 9:07 am EVENITY 210MG September 11, 2024 8:5 1am B12 October 05, 2024 9: 05am EVENITY 210MG October 16, 2024 8:50am 3 M FU October 25, 2024 9:25am B12 inject November 02, 2024 8:53am Reason for Visit Admit Date Vitamin B12 deficiency July 12, 2024 8: 52am Hypertension July 26, 2024 9:39 am Osteoporosis July 26, 2024 9:39 am Right shoulder pain July 26, 2024 9:39 am Primary osteoarthritis, right shoulder J vikash 2024 9:42am Right shoulder pain August 08, 2024 9:42a m Vitamin B12 deficiency August 10, 2024 8: 49am BPPV (benign paroxysmal positional verti go) October 25, 2024 9:25am History of skin cancer October 25, 025 9:25am Anemia October 25, 2024 9:25am Hypertension October 25, 2024 9:25am Vitamin B12 deficiency October 25 025 9:25am Additional Source Comments INFORMATION SOURCE (unrecogn ized section and content) DATE CREATED AUTHOR 02/21/2021 [facility] ([place]) DATE CREATED AUTHOR AUTHOR'S ORGANIZ ATION [facility] Care Teams (unrecognized sec tion and content) Team Status: Active Member Role Status Dates Dr. Kelly Baldwin MD Family Provider Active Dr. Mile Foster MD Primary Care Provider Active Team Status: Inactive Member Role Status Dates Dr. Mile Foster MD Primary Care Martinez hyman, Attending Provider, Referring Provider Active Team Status: [...] May 12, 2024 End: May 12, 2024 Team Status: Inactive Member Role Status Dates Dr. Mile Foster MD Primary Care Provider Active Start: May 16, 2024 End: May 16, 2024 Dr. Mile Foster MD Referring Provider Active Start: May 16, 2024 End: May 16, 2024 Dr. Monty Cordoba DO Attending Provider Active Start: May 16, 2024 End: May 16, 2024 Team Status: Inactive Member Role Status Dates Dr. Mile Foster MD Primary Care Provider Active Start: May 29, 2024 End: May 29, 2024 Dr. Mile Foster MD Attending Provider Active Start: May 29, 2024 End: May 29, 2024 Dr. Mile Foster MD Referring Provider Active Start: May 29, 2024 End: May 29, 2024 Team Status: Inactive Member Role Status Dates Dr. Mile Foster MD Primary Care Provider Active Start: June 09, 2024 End: June 09, 2024 Dr. Mile Foster MD Attending Provider Active Start: June 09, 2024 End: June 09, 2024 Dr. Mile Foster MD Referring Provider Active Start: June 09, 2024 End: June 09, 2024 Team Status: Inactive Member Role Status Dates Dr. Mile Foster MD Primary Care Provider Active Start: June 14, 2024 End: June 14, 2024 Dr. Mile Foster MD Attending Provider Active Start: June 14, 2024 End: June 14, 2024 Dr. Mile Foster MD Referring Provider Active Start: June 14, 2024 End: June 14, 2024 Team Status: Active Member Role Status Dates Dr. Mile Foster MD Primary Care Provider Active Start: July 06, 2024 Dr. Mile Foster MD Attending Provider Active Start: July 06, 2024 Dr. Mile Foster MD Referring Provider Active Start: July 06, 2024 Team Status: Inactive Member Role Status Dates Dr. Mile Foster MD Primary Care Provider Active Start: July 12, 2024 End: July 12, 2024 Dr. Mile Foster MD Referring Provider Active Start: July 12, 2024 End: July 12, 2024 BIM NURSE Attending Provider Active Start: 2024 End: July 12, 2024 Team Status: Inactive Member Role Status Dates Dr. Mile Foster MD Primary Care Provider Active Start: July 14, 2024 End: July 14, 2024 Dr. Mile Foster MD Attending Provider Active Start: July 14, 2024 End: July 14, 2024 Dr. Mile Foster MD Referring Provider Active Start: July 14, 2024 End: July 14, 2024 Team Status: Inactive Member Role Status Dates Dr. Mile Foster MD Primary Care Provider Active Start: July 12, 2024 End: July 12, 2024 Dr. Mile Foster MD Attending Provider Active Start: July 12, 2024 End: July 12, 2024 Dr. Mile Foster MD Referring Provider Active Start: July 12, 2024 End: July 12, 2024 Team Status: Inactive Member Role Status Dates Dr. Mile Foster MD Primary Care Provider Active Start: July 26, 2024 End: July 26, 2024 Dr. Mile Foster MD Attending Provider Active Start: July 26, 2024 End: July 26, 2024 Dr. Mile Foster MD Referring Provider Active Start: July 26, 2024 End: July 26, 2024 Team Status: Active Member Role/Relationship Status Dates Dr. Mile Foster MD Primary Care Provider Active Team Status: Inactive Member Role/Relationship Status Dates Dr. Mile Foster MD Primary Care Provider Active Start: April 14, 2024 End: April 14, 2024 Dr. Mile Foster MD Attending Provider Active Start: April 14, 2024 End: April 14, 2024 Dr. Mile Foster MD Referring Provider Active Start: April 14, 2024 End: April 14, 2024 Team Status: Inactive Member Role/Relationship Status Dates Dr. Mile Foster MD Primary Care Provider Active Start: April 17, 2024 End: April 17, 2024 Dr. Mile Foster MD Attending Provider Active Start: April 17, 2024 End: April 17, 2024 Dr. Mile Foster MD Referring Provider Active Start: April 17, 2024 End: April 17, 2024 Team Status: Inactive Member Role/Relationship Status Dates Dr. Mile Foster MD Primary Care Provider Active Start: April 26, 2024 End: April 26, 2024 Dr. Mile Foster MD Attending Provider Active Start: April 26, 2024 End: April 26, 2024 Dr. Mile Foster MD Referring Provider Active Start: April 26, 2024 End: April 26, 2024 Team Status: Inactive Member Role/Relationship Status Dates Dr. Mile Foster MD Primary Care Provider Active Start: April 26, 2024 End: April 26, 2024 Dr. Mile Foster MD Attending Provider Active Start: April 26, 2024 End: April 26, 2024 Dr. Mile Foster MD Referring Provider Active Start: April 26, 2024 End: April 26, 2024 Team Status: Inactive Member Role/Relationship Status Dates Dr. Mile Foster MD Primary Care Provider Active Start: May 12, 2024 End: May 12, 2024 Dr. Mile Foster MD Attending Provider Active Start: May 12, 2024 End: May 12, 2024 Dr. Mile Foster MD Referring Provider Active Start: May 12, 2024 End: May 12, 2024 Team Status: Inactive Member Role/Relationship Status Dates Dr. Mile Foster MD Primary Care Provider Active Start: May 16, 2024 End: May 16, 2024 Dr. Mile Foster MD Referring Provider Active Start: May 16, 2024 End: May 16, 2024 Dr. Monty Cordoba DO Attending Provider Active Start: May 16, 2024 End: May 16, 2024 Team Status: Inactive Member Role/Relationship Status Dates Dr. Mile Foster MD Primary Care Provider Active Start: May 29, 2024 End: May 29, 2024 Dr. Mile Foster MD Attending Provider Active Start: May 29, 2024 End: May 29, 2024 Dr. Mile Foster MD Referring Provider Active Start: May 29, 2024 End: May 29, 2024 Team Status: Inactive Member Role/Relationship Status Dates Dr. Mile Foster MD Primary Care Provider Active Start: May 29, 2024 End: May 29, 2024 Dr. Mile Foster MD Attending Provider Active Start: May 29, 2024 End: May 29, 2024 Dr. Mile Foster MD Referring Provider Active Start: May 29, 2024 End: May 29, 2024 Team Status: Inactive Member Role/Relationship Status Dates Dr. Mile Foster MD Primary Care Provider Active Start: June 09, 2024 End: June 09, 2024 Dr. Mile Foster MD Attending Provider Active Start: June 09, 2024 End: June 09, 2024 Dr. Mile Foster MD Referring Provider Active Start: June 09, 2024 End: June 09, 2024 Team Status: Inactive Member Role/Relationship Status Dates Dr. Mile Foster MD Primary Care Provider Active Start: June 14, 2024 End: June 14, 2024 Dr. Mile Foster MD Attending Provider Active Start: June 14, 2024 End: June 14, 2024 Dr. Mile Foster MD Referring Provider Active Start: June 14, 2024 End: June 14, 2024 Team Status: Active Member Role/Relationship Status Dates Dr. Mile Foster MD Primary Care Provider Active Start: July 06, 2024 Dr. Mile Foster MD Attending Provider Active Start: July 06, 2024 Dr. Mile Foster MD Referring Provider Active Start: July 06, 2024 Team Status: Inactive Member Role/Relationship Status Dates Dr. Mile Foster MD Primary Care Provider Active Start: July 12, 2024 End: July 12, 2024 Dr. Mile Foster MD Attending Provider Active Start: July 12, 2024 End: July 12, 2024 Dr. Mile Foster MD Referring Provider Active Start: July 12, 2024 End: July 12, 2024 Team Status: Inactive Member Role/Relationship Status Dates Dr. Mile Foster MD Primary Care Provider Active Start: July 14, 2024 End: July 14, 2024 Dr. Mile Foster MD Attending Provider Active Start: July 14, 2024 End: July 14, 2024 Dr. Mile Foster MD Referring Provider Active Start: July 14, 2024 End: July 14, 2024 Team Status: Inactive Member Role/Relationship Status Dates Dr. Mile Foster MD Primary Care Provider Active Start: July 26, 2024 End: July 26, 2024 Dr. Mile Foster MD Attending Provider Active Start: July 26, 2024 End: July 26, 2024 Dr. Mile Foster MD Referring Provider Active Start: July 26, 2024 End: July 26, 2024 Team Status: Inactive Member Role/Relationship Status Dates Dr. Mile Foster MD Primary Care Provider Active Start: August 08, 2024 End: August 08, 2024 Dr. Mile Foster MD Referring Provider Active Start: August 08, 2024 End: August 08, 2024 Gene Ziegler MD Attending Provider Active St art: August 08, 2024 End: August 08, 2024 Team Status: Inactive Member Role/Relationship Status Dates Dr. Mile Foster MD Primary Care Provider Active Start: August 10, 2024 End: August 10, 2024 Dr. Mile Foster MD Referring Provider Active Start: August 10, 2024 End: August 10, 2024 BIM [facility]URSE Attending Provider Active Start: 2024 End: August 10, 2024 Team Status: Inactive Member Role/Relationship Status Dates Dr. Mile Foster MD Primary Care Provider Active Start: April 17, 2024 End: April 17, 2024 Dr. Mile Foster MD Attending Provider Active Start: April 17, 2024 End: April 17, 2024 Dr. Mile Foster MD Referring Provider Active Start: April 17, 2024 End: April 17, 2024 Team Status: Inactive Member Role/Relationship Status Dates Dr. Mile Foster MD Primary Care Provider Active Start: April 26, 2024 End: April 26, 2024 Dr. Mile Foster MD Attending Provider Active Start: April 26, 2024 End: April 26, 2024 Dr. Mile Foster MD Referring Provider Active Start: April 26, 2024 End: April 26, 2024 Team Status: Inactive Member Role/Relationship Status Dates Dr. Mile Foster MD Primary Care Provider Active Start: May 12, 2024 End: May 12, 2024 Dr. Mile Foster MD Attending Provider Active Start: May 12, 2024 End: May 12, 2024 Dr. Mile Foster MD Referring Provider Active Start: May 12, 2024 End: May 12, 2024 Team Status: Inactive Member Role/Relationship Status Dates Dr. Mile Foster MD Primary Care Provider Active Start: May 16, 2024 End: May 16, 2024 Dr. Mile Foster MD Referring Provider Active Start: May 16, 2024 End: May 16, 2024 Dr. Monty Cordoba DO Attending Provider Active Start: May 16, 2024 End: May 16, 2024 Team Status: Inactive Member Role/Relationship Status Dates Dr. Mile Foster MD Primary Care Provider Active Start: May 29, 2024 End: May 29, 2024 Dr. Mile Foster MD Attending Provider Active Start: May 29, 2024 End: May 29, 2024 Dr. Mile Foster MD Referring Provider Active Start: May 29, 2024 End: May 29, 2024 Team Status: Inactive Member Role/Relationship Status Dates Dr. Mile Foster MD Primary Care Provider Active Start: June 09, 2024 End: June 09, 2024 Dr. Mile Foster MD Attending Provider Active Start: June 09, 2024 End: June 09, 2024 Dr. Mile Foster MD Referring Provider Active Start: June 09, 2024 End: June 09, 2024 Team Status: Inactive Member Role/Relationship Status Dates Dr. Mile Foster MD Primary Care Provider Active Start: June 14, 2024 End: June 14, 2024 Dr. Mile Foster MD Attending Provider Active Start: June 14, 2024 End: June 14, 2024 Dr. Mile Foster MD Referring Provider Active Start: June 14, 2024 End: June 14, 2024 Team Status: Active Member Role/Relationship Status Dates Dr. Mile Foster MD Primary Care Provider Active Start: July 06, 2024 Dr. Mile Foster MD Attending Provider Active Start: July 06, 2024 Dr. Mile Foster MD Referring Provider Active Start: July 06, 2024 Team Status: Inactive Member Role/Relationship Status Dates Dr. Mile Fotser MD Primary Care Provider Active Start: July 12, 2024 End: July 12, 2024 Dr. Mile Foster MD Attending Provider Active Start: July 12, 2024 End: July 12, 2024 Dr. Mile Foster MD Referring Provider Active Start: July 12, 2024 End: July 12, 2024 Team Status: Inactive Member Role/Relationship Status Dates Dr. Mile Foster MD Primary Care Provider Active Start: July 14, 2024 End: July 14, 2024 Dr. Mile Foster MD Attending Provider Active Start: July 14, 2024 End: July 14, 2024 Dr. Mile Foster MD Referring Provider Active Start: July 14, 2024 End: July 14, 2024 Team Status: Inactive Member Role/Relationship Status Dates Dr. Mile Foster MD Primary Care Provider Active Start: July 26, 2024 End: July 26, 2024 Dr. Mile Foster MD Attending Provider Active Start: July 26, 2024 End: July 26, 2024 Dr. Mile Foster MD Referring Provider Active Start: July 26, 2024 End: July 26, 2024 Team Status: Inactive Member Role/Relationship Status Dates Dr. Mile Foster MD Primary Care Provider Active Start: August 08, 2024 End: August 08, 2024 Dr. Mile Foster MD Referring Provider Active Start: August 08, 2024 End: August 08, 2024 Gene Ziegler MD Attending Provider Active St art: August 08, 2024 End: August 08, 2024 Team Status: Inactive Member Role/Relationship Status Dates Dr. Mile Foster MD Primary Care Provider Active Start: August 10, 2024 End: August 10, 2024 Dr. Mile Foster MD Referring Provider Active Start: August 10, 2024 End: August 10, 2024 [facility]SE Attending Provider Active Start: 2024 End: August 10, 2024 Team Status: Inactive Member Role/Relationship Status Dates Dr. Mile Foster MD Primary Care Provider Active Start: August 14, 2024 End: August 14, 2024 Dr. Mile Foster MD Attending Provider Active Start: August 14, 2024 End: August 14, 2024 Dr. Mile Foster MD Referring Provider Active Start: August 14, 2024 End: August 14, 2024 Team Status: Inactive Member Role/Relationship Status Dates Dr. Mile Foster MD Primary Care Provider Active Start: May 12, 2024 End: May 12, 2024 Dr. Mile Foster MD Attending Provider Active Start: May 12, 2024 End: May 12, 2024 Dr. Mile Foster MD Referring Provider Active Start: May 12, 2024 End: May 12, 2024 Team Status: Inactive Member Role/Relationship Status Dates Dr. Mile Foster MD Primary Care Provider Active Start: May 16, 2024 End: May 16, 2024 Dr. Mile Foster MD Referring Provider Active Start: May 16, 2024 End: May 16, 2024 Dr. Monty Cordoba DO Attending Provider Active Start: May 16, 2024 End: May 16, 2024 Team Status: Inactive Member Role/Relationship Status Dates Dr. Mile Foster MD Primary Care Provider Active Start: May 29, 2024 End: May 29, 2024 Dr. Mile Foster MD Attending Provider Active Start: May 29, 2024 End: May 29, 2024 Dr. Mile Foster MD Referring Provider Active Start: May 29, 2024 End: May 29, 2024 Team Status: Inactive Member Role/Relationship Status Dates Dr. Mile Foster MD Primary Care Provider Active Start: May 29, 2024 End: May 29, 2024 Dr. Mile Foster MD Attending Provider Active Start: May 29, 2024 End: May 29, 2024 Dr. Mile Foster MD Referring Provider Active Start: May 29, 2024 End: May 29, 2024 Team Status: Inactive Member Role/Relationship Status Dates Dr. Mile Foster MD Primary Care Provider Active Start: June 09, 2024 End: June 09, 2024 Dr. Mile Foster MD Attending Provider Active Start: June 09, 2024 End: June 09, 2024 Dr. Mile Foster MD Referring Provider Active Start: June 09, 2024 End: June 09, 2024 Team Status: Inactive Member Role/Relationship Status Dates Dr. Mile Foster MD Primary Care Provider Active Start: June 14, 2024 End: June 14, 2024 Dr. Mile Foster MD Attending Provider Active Start: June 14, 2024 End: June 14, 2024 Dr. Mile Foster MD Referring Provider Active Start: June 14, 2024 End: June 14, 2024 Team Status: Active Member Role/Relationship Status Dates Dr. Mile Foster MD Primary Care Provider Active Start: July 06, 2024 Dr. Mile Foster MD Attending Provider Active Start: July 06, 2024 Dr. Mile Foster MD Referring Provider Active Start: July 06, 2024 Team Status: Inactive Member Role/Relationship Status Dates Dr. iMle Foster MD Primary Care Provider Active Start: July 12, 2024 End: July 12, 2024 Dr. Mile Foster MD Attending Provider Active Start: July 12, 2024 End: July 12, 2024 Dr. Mile Foster MD Referring Provider Active Start: July 12, 2024 End: July 12, 2024 Team Status: Inactive Member Role/Relationship Status Dates Dr. Mile Foster MD Primary Care Provider Active Start: July 14, 2024 End: July 14, 2024 Dr. Mile Fsoter MD Attending Provider Active Start: July 14, 2024 End: July 14, 2024 Dr. Mile Foster MD Referring Provider Active Start: July 14, 2024 End: July 14, 2024 Team Status: Inactive Member Role/Relationship Status Dates Dr. Mile Foster MD Primary Care Provider Active Start: July 26, 2024 End: July 26, 2024 Dr. Mile Foster MD Attending Provider Active Start: July 26, 2024 End: July 26, 2024 Dr. Mile Foster MD Referring Provider Active Start: July 26, 2024 End: July 26, 2024 Team Status: Inactive Member Role/Relationship Status Dates Dr. Mile Foster MD Primary Care Provider Active Start: August 08, 2024 End: August 08, 2024 Dr. Mile Foster MD Referring Provider Active Start: August 08, 2024 End: August 08, 2024 Gene Ziegler MD Attending Provider Active St art: August 08, 2024 End: August 08, 2024 Team Status: Inactive Member Role/Relationship Status Dates Dr. Mile Foster MD Primary Care Provider Active Start: August 10, 2024 End: August 10, 2024 Dr. Mile Foster MD Referring Provider Active Start: August 10, 2024 End: August 10, 2024 Dr. Kirti Ibanez MD Attending Provider Active Start: August 10, 2024 End: August 10, 2024 Team Status: Inactive Member Role/Relationship Status Dates Dr. Mile Foster MD Primary Care Provider Active Start: August 14, 2024 End: August 14, 2024 Dr. Mile Foster MD Attending Provider Active Start: August 14, 2024 End: August 14, 2024 Dr. Mile Foster MD Referring Provider Active Start: August 14, 2024 End: August 14, 2024 Team Status: Inactive Member Role/Relationship Status Dates Dr. Mile Foster MD Primary Care Provider Active Start: September 07, 2024 End: September 07, 2024 Dr. Mile Foster MD Referring Provider Active Start: September 07, 2024 End: September 07, 2024 B[facility]SE Attending Provider Active Start: 2024 End: September 07, 2024 Team Status: Inactive Member Role/Relationship Status Dates Dr. Mile Foster MD Primary Care Provider Active Start: May 16, 2024 End: May 16, 2024 Dr. Mile Foster MD Referring Provider Active Start: May 16, 2024 End: May 16, 2024 Dr. Monty Cordoba DO Attending Provider Active Start: May 16, 2024 End: May 16, 2024 Team Status: Inactive Member Role/Relationship Status Dates Dr. Mile Foster MD Primary Care Provider Active Start: May 29, 2024 End: May 29, 2024 Dr. Mile Foster MD Attending Provider Active Start: May 29, 2024 End: May 29, 2024 Dr. Mile Foster MD Referring Provider Active Start: May 29, 2024 End: May 29, 2024 Team Status: Inactive Member Role/Relationship Status Dates Dr. Mile Foster MD Primary Care Provider Active Start: June 09, 2024 End: June 09, 2024 Dr. Mile Foster MD Attending Provider Active Start: June 09, 2024 End: June 09, 2024 Dr. Mile Foster MD Referring Provider Active Start: June 09, 2024 End: June 09, 2024 Team Status: Inactive Member Role/Relationship Status Dates Dr. Mile Foster MD Primary Care Provider Active Start: June 14, 2024 End: June 14, 2024 Dr. Mile Foster MD Attending Provider Active Start: June 14, 2024 End: June 14, 2024 Dr. Mile Foster MD Referring Provider Active Start: June 14, 2024 End: June 14, 2024 Team Status: Active Member Role/Relationship Status Dates Dr. Mile Foster MD Primary Care Provider Active Start: July 06, 2024 Dr. Mile Foster MD Attending Provider Active Start: July 06, 2024 Dr. Mile Foster MD Referring Provider Active Start: July 06, 2024 Team Status: Inactive Member Role/Relationship Status Dates Dr. Mile Foster MD Primary Care Provider Active Start: July 12, 2024 End: July 12, 2024 Dr. Mile Foster MD Attending Provider Active Start: July 12, 2024 End: July 12, 2024 Dr. Mile Foster MD Referring Provider Active Start: July 12, 2024 End: July 12, 2024 Team Status: Inactive Member Role/Relationship Status Dates Dr. Mile Foster MD Primary Care Provider Active Start: July 14, 2024 End: July 14, 2024 Dr. Mile Foster MD Attending Provider Active Start: July 14, 2024 End: July 14, 2024 Dr. Mile Foster MD Referring Provider Active Start: July 14, 2024 End: July 14, 2024 Team Status: Inactive Member Role/Relationship Status Dates Dr. Mile Foster MD Primary Care Provider Active Start: July 26, 2024 End: July 26, 2024 Dr. Mile Foster MD Attending Provider Active Start: July 26, 2024 End: July 26, 2024 Dr. Mile Foster MD Referring Provider Active Start: July 26, 2024 End: July 26, 2024 Team Status: Inactive Member Role/Relationship Status Dates Dr. Mile Foster MD Primary Care Provider Active Start: August 08, 2024 End: August 08, 2024 Dr. Mile Foster MD Referring Provider Active Start: August 08, 2024 End: August 08, 2024 Gene Ziegler MD Attending Provider Active St art: August 08, 2024 End: August 08, 2024 Team Status: Inactive Member Role/Relationship Status Dates Dr. Mile Foster MD Primary Care Provider Active Start: August 10, 2024 End: August 10, 2024 Dr. Mile Foster MD Referring Provider Active Start: August 10, 2024 End: August 10, 2024 Dr. Kirti Ibanez MD Attending Provider Active Start: August 10, 2024 End: August 10, 2024 Team Status: Inactive Member Role/Relationship Status Dates Dr. Mile Fosetr MD Primary Care Provider Active Start: August 14, 2024 End: August 14, 2024 Dr. Mile Foster MD Attending Provider Active Start: August 14, 2024 End: August 14, 2024 Dr. Mile Foster MD Referring Provider Active Start: August 14, 2024 End: August 14, 2024 Team Status: Inactive Member Role/Relationship Status Dates Dr. Mile Foster MD Primary Care Provider Active Start: September 07, 2024 End: September 07, 2024 Dr. Mile Foster MD Referring Provider Active Start: September 07, 2024 End: September 07, 2024 B[facility] Attending Provider Active Start: 2024 End: September 07, 2024 Team Status: Inactive Member Role/Relationship Status Dates Dr. Mile Foster MD Primary Care Provider Active Start: September 11, 2024 End: September 11, 2024 Dr. Mile Foster MD Attending Provider Active Start: September 11, 2024 End: September 11, 2024 Dr. Mile Foster MD Referring Provider Active Start: September 11, 2024 End: September 11, 2024 Team Status: Inactive Member Role/Relationship Status Dates Dr. Mile Foster MD Primary Care Provider Active Start: June 09, 2024 End: June 09, 2024 Dr. Mile Foster MD Attending Provider Active Start: June 09, 2024 End: June 09, 2024 Dr. Mile Foster MD Referring Provider Active Start: June 09, 2024 End: June 09, 2024 Team Status: Inactive Member Role/Relationship Status Dates Dr. Mile Foster MD Primary Care Provider Active Start: June 14, 2024 End: June 14, 2024 Dr. Mile Foster MD Attending Provider Active Start: June 14, 2024 End: June 14, 2024 Dr. Mile Foster MD Referring Provider Active Start: June 14, 2024 End: June 14, 2024 Team Status: Active Member Role/Relationship Status Dates Dr. Mile Foster MD Primary Care Provider Active Start: July 06, 2024 Dr. Mile Foster MD Attending Provider Active Start: July 06, 2024 Dr. Mile Foster MD Referring Provider Active Start: July 06, 2024 Team Status: Inactive Member Role/Relationship Status Dates Dr. Mile Foster MD Primary Care Provider Active Start: July 12, 2024 End: July 12, 2024 Dr. Mile Foster MD Attending Provider Active Start: July 12, 2024 End: July 12, 2024 Dr. Mile Foster MD Referring Provider Active Start: July 12, 2024 End: July 12, 2024 Team Status: Inactive Member Role/Relationship Status Dates Dr. Mile Foster MD Primary Care Provider Active Start: July 14, 2024 End: July 14, 2024 Dr. Mile Foster MD Attending Provider Active Start: July 14, 2024 End: July 14, 2024 Dr. Mile Foster MD Referring Provider Active Start: July 14, 2024 End: July 14, 2024 Team Status: Inactive Member Role/Relationship Status Dates Dr. Mile Foster MD Primary Care Provider Active Start: July 26, 2024 End: July 26, 2024 Dr. Mile Foster MD Attending Provider Active Start: July 26, 2024 End: July 26, 2024 Dr. Mile Foster MD Referring Provider Active Start: July 26, 2024 End: July 26, 2024 Team Status: Inactive Member Role/Relationship Status Dates Dr. Mile Foster MD Primary Care Provider Active Start: August 08, 2024 End: August 08, 2024 Dr. Mile Foster MD Referring Provider Active Start: August 08, 2024 End: August 08, 2024 Gene Ziegler MD Attending Provider Active St art: August 08, 2024 End: August 08, 2024 Team Status: Inactive Member Role/Relationship Status Dates Dr. Mile Foster MD Primary Care Provider Active Start: August 10, 2024 End: August 10, 2024 Dr. Mile Foster MD Referring Provider Active Start: August 10, 2024 End: August 10, 2024 Dr. Kirti Ibanez MD Attending Provider Active Start: August 10, 2024 End: August 10, 2024 Team Status: Inactive Member Role/Relationship Status Dates Dr. Mile Foster MD Primary Care Provider Active Start: August 14, 2024 End: August 14, 2024 Dr. Mile Foster MD Attending Provider Active Start: August 14, 2024 End: August 14, 2024 Dr. Mile Foster MD Referring Provider Active Start: August 14, 2024 End: August 14, 2024 Team Status: Inactive Member Role/Relationship Status Dates Dr. Mile Foster MD Primary Care Provider Active Start: September 07, 2024 End: September 07, 2024 Dr. Mile Foster MD Referring Provider Active Start: September 07, 2024 End: September 07, 2024 MARLYS Morrison Attending Provider Active St art: September 07, 2024 End: September 07, 2024 Team Status: Inactive Member Role/Relationship Status Dates Dr. Mile Foster MD Primary Care Provider Active Start: September 11, 2024 End: September 11, 2024 Dr. Mile Foster MD Attending Provider Active Start: September 11, 2024 End: September 11, 2024 Dr. Mile Foster MD Referring Provider Active Start: September 11, 2024 End: September 11, 2024 Team Status: Inactive Member Role/Relationship Status Dates Dr. Mile Foster MD Primary Care Provider Active Start: October 05, 2024 End: October 05, 2024 Dr. Mile Foster MD Referring Provider Active Start: October 05, 2024 End: October 05, 2024 [facility] Attending Provider Active Start: 2024 End: October 05, 2024 Team Status: Active Member Role/Relationship Status Dates Dr. Mile Foster MD Primary Care Provider Active Start: July 06, 2024 Dr. Mile Foster MD Attending Provider Active Start: July 06, 2024 Dr. Mile Foster MD Referring Provider Active Start: July 06, 2024 Team Status: Inactive Member Role/Relationship Status Dates Dr. Mile Foster MD Primary Care Provider Active Start: July 12, 2024 End: July 12, 2024 Dr. Mile Foster MD Attending Provider Active Start: July 12, 2024 End: July 12, 2024 Dr. Mile Foster MD Referring Provider Active Start: July 12, 2024 End: July 12, 2024 Team Status: Inactive Member Role/Relationship Status Dates Dr. Mile Foster MD Primary Care Provider Active Start: July 14, 2024 End: July 14, 2024 Dr. Mile Foster MD Attending Provider Active Start: July 14, 2024 End: July 14, 2024 Dr. Mile Foster MD Referring Provider Active Start: July 14, 2024 End: July 14, 2024 Team Status: Inactive Member Role/Relationship Status Dates Dr. Mile Foster MD Primary Care Provider Active Start: July 26, 2024 End: July 26, 2024 Dr. Mile Foster MD Attending Provider Active Start: July 26, 2024 End: July 26, 2024 Dr. Mile Foster MD Referring Provider Active Start: July 26, 2024 End: July 26, 2024 Team Status: Inactive Member Role/Relationship Status Dates Dr. Mile Foster MD Primary Care Provider Active Start: August 08, 2024 End: August 08, 2024 Dr. Mile Foster MD Referring Provider Active Start: August 08, 2024 End: August 08, 2024 Gene Ziegler MD Attending Provider Active St art: August 08, 2024 End: August 08, 2024 Team Status: Inactive Member Role/Relationship Status Dates Dr. Mile Foster MD Primary Care Provider Active Start: August 10, 2024 End: August 10, 2024 Dr. Mile Foster MD Referring Provider Active Start: August 10, 2024 End: August 10, 2024 Dr. Kirti Ibanez MD Attending Provider Active Start: August 10, 2024 End: August 10, 2024 Team Status: Inactive Member Role/Relationship Status Dates Dr. Mile Foster MD Primary Care Provider Active Start: August 14, 2024 End: August 14, 2024 Dr. Mile Foster MD Attending Provider Active Start: August 14, 2024 End: August 14, 2024 Dr. Mile Foster MD Referring Provider Active Start: August 14, 2024 End: August 14, 2024 Team Status: Inactive Member Role/Relationship Status Dates Dr. Mile Foster MD Primary Care Provider Active Start: September 07, 2024 End: September 07, 2024 Dr. Mile Foster MD Referring Provider Active Start: September 07, 2024 End: September 07, 2024 MARLYS Morrison Attending Provider Active St art: September 07, 2024 End: September 07, 2024 Team Status: Inactive Member Role/Relationship Status Dates Dr. Mile Foster MD Primary Care Provider Active Start: September 11, 2024 End: September 11, 2024 Dr. Mile Foster MD Attending Provider Active Start: September 11, 2024 End: September 11, 2024 Dr. Mile Foster MD Referring Provider Active Start: September 11, 2024 End: September 11, 2024 Team Status: Inactive Member Role/Relationship Status Dates Dr. Mile Foster MD Primary Care Provider Active Start: October 05, 2024 End: October 05, 2024 Dr. Mile Foster MD Referring Provider Active Start: October 05, 2024 End: October 05, 2024 MECREDES Chong Attending Provider Active Start: October 05, 2024 End: October 05, 2024 Team Status: Inactive Member Role/Relationship Status Dates Dr. Mile Foster MD Primary Care Provider Active Start: October 16, 2024 End: October 16, 2024 Dr. Mile Foster MD Attending Provider Active Start: October 16, 2024 End: October 16, 2024 Dr. Mile Foster MD Referring Provider Active Start: October 16, 2024 End: October 16, 2024 Team Status: Active Member Role/Relationship Status Dates Dr. Mile Foster MD Primary care physician Activ e Team Status: Active Member Role/Relationship Status Dates Dr. Mile Foster MD Primary care physician Activ e Start: July 06, 2024 Dr. Mile Foster MD Attending physician Active Start: July 06, 2024 Dr. Mile Foster MD Referring Provider Active Start: July 06, 2024 Team Status: Inactive Member Role/Relationship Status Dates Dr. Mile Foster MD Primary care physician Activ e Start: July 12, 2024 End: July 12, 2024 Dr. Mile Foster MD Attending physician Active Start: July 12, 2024 End: July 12, 2024 Dr. Mile Foster MD Referring Provider Active Start: July 12, 2024 End: July 12, 2024 Team Status: Inactive Member Role/Relationship Status Dates Dr. Mile Foster MD Primary care physician Activ e Start: July 14, 2024 End: July 14, 2024 Dr. Mile Foster MD Attending physician Active Start: July 14, 2024 End: July 14, 2024 Dr. Mile Foster MD Referring Provider Active Start: July 14, 2024 End: July 14, 2024 Team Status: Inactive Member Role/Relationship Status Dates Dr. Mile Foster MD Primary care physician Activ e Start: July 26, 2024 End: July 26, 2024 Dr. Mile Foster MD Attending physician Active Start: July 26, 2024 End: July 26, 2024 Dr. Mile Foster MD Referring Provider Active Start: July 26, 2024 End: July 26, 2024 Team Status: Inactive Member Role/Relationship Status Dates Dr. Mile Foster MD Primary care physician Activ e Start: August 08, 2024 End: August 08, 2024 Dr. Mile Foster MD Referring Provider Active Start: August 08, 2024 End: August 08, 2024 Gene Ziegler MD Attending physician Active S tart: August 08, 2024 End: August 08, 2024 Team Status: Inactive Member Role/Relationship Status Dates Dr. Mile Foster MD Primary care physician Activ e Start: August 10, 2024 End: August 10, 2024 Dr. Mile Foster MD Referring Provider Active Start: August 10, 2024 End: August 10, 2024 Dr. Kirti Ibanez MD Attending physician Active Start: August 10, 2024 End: August 10, 2024 Team Status: Inactive Member Role/Relationship Status Dates Dr. Mile Foster MD Primary care physician Activ e Start: August 14, 2024 End: August 14, 2024 Dr. Mile Foster MD Attending physician Active Start: August 14, 2024 End: August 14, 2024 Dr. Mile Foster MD Referring Provider Active Start: August 14, 2024 End: August 14, 2024 Team Status: Inactive Member Role/Relationship Status Dates Dr. Mile Foster MD Primary care physician Activ e Start: September 07, 2024 End: September 07, 2024 Dr. Mile Foster MD Referring Provider Active Start: September 07, 2024 End: September 07, 2024 MARLYS Morrison Attending physician Active S tart: September 07, 2024 End: September 07, 2024 Team Status: Inactive Member Role/Relationship Status Dates Dr. Mile Foster MD Primary care physician Activ e Start: September 11, 2024 End: September 11, 2024 Dr. Mile Foster MD Attending physician Active Start: September 11, 2024 End: September 11, 2024 Dr. Mile Foster MD Referring Provider Active Start: September 11, 2024 End: September 11, 2024 Team Status: Inactive Member Role/Relationship Status Dates Dr. Mile Foster MD Primary care physician Activ e Start: October 05, 2024 End: October 05, 2024 Dr. Mile Foster MD Referring Provider Active Start: October 05, 2024 End: October 05, 2024 MERCEDES Chong Attending physician Active Start: October 05, 2024 End: October 05, 2024 Team Status: Inactive Member Role/Relationship Status Dates Dr. Mile Foster MD Primary care physician Activ e Start: October 16, 2024 End: October 16, 2024 Dr. Mile Foster MD Attending physician Active Start: October 16, 2024 End: October 16, 2024 Dr. Mile Foster MD Referring Provider Active Start: October 16, 2024 End: October 16, 2024 Team Status: Inactive Member Role/Relationship Status Dates Dr. Mile Foster MD Primary care physician Activ e Start: October 25, 2024 End: October 25, 2024 Dr. Mile Foster MD Attending physician Active Start: October 25, 2024 End: October 25, 2024 Dr. Mile Foster MD Referring Provider Active Start: October 25, 2024 End: October 25, 2024 Team Status: Active Member Role/Relationship Status Dates Dr. Mile Foster MD Primary care physician Activ e Start: October 25, 2024 Dr. Mile Foster MD Attending physician Active Start: October 25, 2024 Team Status: Inactive Member Role/Relationship Status Dates Dr. Mile Foster MD Primary care physician Activ e Start: July 12, 2024 End: July 12, 2024 Dr. Mile Foster MD Attending physician Active Start: July 12, 2024 End: July 12, 2024 Dr. Mile Foster MD Referring Provider Active Start: July 12, 2024 End: July 12, 2024 Team Status: Inactive Member Role/Relationship Status Dates Dr. Mile Foster MD Primary care physician Activ e Start: July 14, 2024 End: July 14, 2024 Dr. Mile Foster MD Attending physician Active Start: July 14, 2024 End: July 14, 2024 Dr. Mile Foster MD Referring Provider Active Start: July 14, 2024 End: July 14, 2024 Team Status: Inactive Member Role/Relationship Status Dates Dr. Mile Foster MD Primary care physician Activ e Start: July 26, 2024 End: July 26, 2024 Dr. Mile Foster MD Attending physician Active Start: July 26, 2024 End: July 26, 2024 Dr. Mile Foster MD Referring Provider Active Start: July 26, 2024 End: July 26, 2024 Team Status: Inactive Member Role/Relationship Status Dates Dr. Mile Foster MD Primary care physician Activ e Start: August 08, 2024 End: August 08, 2024 Dr. Mile Foster MD Referring Provider Active Start: August 08, 2024 End: August 08, 2024 Gene Ziegler MD Attending physician Active S tart: August 08, 2024 End: August 08, 2024 Team Status: Inactive Member Role/Relationship Status Dates Dr. Mile Foster MD Primary care physician Activ e Start: August 10, 2024 End: August 10, 2024 Dr. Mile Foster MD Referring Provider Active Start: August 10, 2024 End: August 10, 2024 Dr. Kirti Ibanez MD Attending physician Active Start: August 10, 2024 End: August 10, 2024 Team Status: Inactive Member Role/Relationship Status Dates Dr. Mile Foster MD Primary care physician Activ e Start: August 14, 2024 End: August 14, 2024 Dr. Mile Foster MD Attending physician Active Start: August 14, 2024 End: August 14, 2024 Dr. Mile Foster MD Referring Provider Active Start: August 14, 2024 End: August 14, 2024 Team Status: Inactive Member Role/Relationship Status Dates Dr. Mile Foster MD Primary care physician Activ e Start: September 07, 2024 End: September 07, 2024 Dr. Mile Foster MD Referring Provider Active Start: September 07, 2024 End: September 07, 2024 MARLYS Morrison Attending physician Active S tart: September 07, 2024 End: September 07, 2024 Team Status: Inactive Member Role/Relationship Status Dates Dr. Mile Foster MD Primary care physician Activ e Start: September 11, 2024 End: September 11, 2024 Dr. Mile Foster MD Attending physician Active Start: September 11, 2024 End: September 11, 2024 Dr. Mile Foster MD Referring Provider Active Start: September 11, 2024 End: September 11, 2024 Team Status: Inactive Member Role/Relationship Status Dates Dr. Mile Foster MD Primary care physician Activ e Start: October 05, 2024 End: October 05, 2024 Dr. Mile Foster MD Referring Provider Active Start: October 05, 2024 End: October 05, 2024 MERCEEDS Chong Attending physician Active Start: October 05, 2024 End: October 05, 2024 Team Status: Inactive Member Role/Relationship Status Dates Dr. Mile Foster MD Primary care physician Activ e Start: October 16, 2024 End: October 16, 2024 Dr. Mile Foster MD Attending physician Active Start: October 16, 2024 End: October 16, 2024 Dr. Mile Foster MD Referring Provider Active Start: October 16, 2024 End: October 16, 2024 Team Status: Inactive Member Role/Relationship Status Dates Dr. Mile Foster MD Primary care physician Activ e Start: October 25, 2024 End: October 25, 2024 Dr. Mile Foster MD Attending physician Active Start: October 25, 2024 End: October 25, 2024 Dr. Mile Foster MD Referring Provider Active Start: October 25, 2024 End: October 25, 2024 Team Status: Inactive Member Role/Relationship Status Dates Dr. Mile Foster MD Primary care physician Activ e Start: October 25, 2024 End: October 25, 2024 Dr. Mile Foster MD Attending physician Active Start: October 25, 2024 End: October 25, 2024 Team Status: Inactive Member Role/Relationship Status Dates Dr. Mile Foster MD Primary care physician Activ e Start: November 02, 2024 End: November 02, 2024 Dr. Mile Foster MD Referring Provider Active Start: November 02, 2024 End: November 02, 2024 BIM NURSE Attending physician Active Start: Rody kim 2024 End: November 02, 2024 FOR RECORDS PERTAINING TO PATIENTS WHO [...] BE BASED ON THE PRIMARY CLINICAL RECORDS. [facility] [employer] provides no warranty or guarantee of the accuracy or completeness of information in this document.
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
--- NOTE | 2024-12-02 20:05 | RAD_ITS ---
PROCEDURE: SHOULDER MIN 2 VIEWS 12/02/2024 REASON FOR EXAM: PAIN TECHNIQUE: Procedure Code: RADSH Modality: DX Procedure: SHOULDER MIN 2 VIEWS Laterality: Right COMPARISON: X-ray obtained earlier same day. FINDINGS: Bones: No acute fractures. Diffuse osseous demineralization. Joints: Normal alignment of the acromioclavicular and glenohumeral joints. Moderate degenerate changes. Soft tissues: Soft tissues are unremarkable. Other: Visualized lung diaz are unremarkable. RAD/Shoulder min 2 Views IMPRESSION: No acute fractures or dislocations. Moderate degenerative changes. Reading [facility]
[2024-12-02 21:21] VITALS: BP 137/68; PULSE 70; RESP 15; TEMP 36.6; O2SAT 99
== END 2024-12-02 21:24 | disposition home or self-care (01) ==
PROVIDERS: Emergency Provider Emergency Medicine; PCP Internal Medicine; Visit Provider Emergency Medicine
DX: M19.011 Primary osteoarthritis, right shoulder (principal); I10 Essential (primary) hypertension; M25.511 Pain in right shoulder; Z85.828 Personal history of other malignant neoplasm of skin; K21.9 Gastro-esophageal reflux disease without esophagitis; Z79.899 Other long term (current) drug therapy; Z90.49 Acquired absence of other specified parts of digestive tract; X58.XXXA Exposure to other specified factors, initial encounter; Y93.89 Activity, other specified
CPT/HCPCS: 73030; 99282